=== PATIENT | female | born 1945 | race Caucasian/White ===

== ENCOUNTER → 2017-11-26 09:45 | Outpatient (CLI) | payer MEDICARE, SELFPAY ==
--- NOTE | 2017-11-26 09:55 | HPBD_ITS ---
STUDY: DUAL ENERGY X-RAY ABSORPTIOMETRY / DXA REASON FOR EXAM: Female, 72 years old. The patient is postmenopausal. Loss of height. TECHNIQUE: Bone Mineral Density (BMD) measurements of lumbar spine and left hip were obtained. COMPARISON: Comparison is made with prior study dated September 22, 2015. FINDINGS: Lumbar Spine (L1-L4): g/cm2 (1.063) / T-score (-0.9) / Z-score (0.8) Findings are suggestive of normal bone density with a low fracture risk. Left Femur Total: g/cm2 (0.939) / T-score (-0.5) / Z-score (1.0) Left Femoral Neck: g/cm2 (0.863) / T-score (-1.3) / Z-score (0.5) The T-Scores on the most recent prior examination were: Lumbar Spine (L1-L4): There has been worsening of bone density since the previous examination. Left Femur Total: which represents an improvement of 0.1%. HPBD/Dexa Bone Density Study (HP) IMPRESSION: The patient is considered osteopenic as outlined below according to World Héctor Organization (WHO) criteria with a moderate fracture risk. There has been worsening of bone density since the previous examination. Reference Information: The T-score is the number of standard deviations above or below the standard which is normal for young adults at their peak bone mineral density. The World Health Organization (WHO) interprets the T-scores as follows: Above -1 Normal bone density Between -1 and -2.5 Osteopenia Equal to / or below -2.5 Osteoporosis As a practical clinical guideline, osteopenia may be graded as follows: Mild -1 through -1.5 Moderate -1.6 through -2.0 Severe -2.1 through -2.4 The Z-score is the number of standard deviations above or below age-matched controls. A Z-score of less than -1.5 would be considered abnormal. References: 1. NIH Osteoporosis and Related Bone Diseases http://www.osteo.org 2. International Society for Clinical Densitometry http://www.iscd.org 3. National Osteoporosis Foundation http://www.nof.org Electronically Signed: Emerson Restrepo MD at 10:31 EST Tel [phone], Service support ,
--- NOTE | 2017-11-26 09:56 | HPBI_ITS ---
MAMMOGRAPHY - BILATERAL SCREENING REASON FOR EXAM: Female, 72 years old. Routine annual screening examination. PERTINENT HISTORY: Mother with breast cancer. History of prior bilateral excisional breast biopsies. TECHNIQUE: Digital bilateral breast caitlin (3D mammographic acquisition) in the CC and MLO projections. 2-D mediolateral oblique (MLO) and craniocaudad (CC) views of both breasts were obtained. CAD: Full Field Digital Mammography with Computer Added Detection was performed. COMPARISON: Comparison is made with prior study dated September 22, 2015. FINDINGS: Breast Composition: There are scattered areas of fibroglandular density. There are no dominant masses or suspicious calcifications. Stable appearance of the calcifications in the retroareolar region of the left breast most likely representing vascular calcifications. No other significant abnormalities are identified. There has been no significant change since the prior study. HPBI/SCREENING MAMM (CAD), BILAT IMPRESSION: Stable bilateral screening mammogram. Yearly follow-up mammogram recommended. (A) ASSESSMENT CATEGORY: BIRADS Category 2: Benign. A letter regarding these results will be sent to the patient by the facility within 30 days. Approximately 10% of breast cancers are not detected by mammography. A normal mammogram should not delay biopsy of a clinically suspicious abnormality. [id number] Electronically Signed: Emerson Restrepo MD at 12:46 EST Tel [phone], Service support ,
== END ==
PROVIDERS: Family Provider Family Medicine Geriatric Medicine; PCP Family Medicine Geriatric Medicine; Visit Provider Family Medicine Geriatric Medicine
DX: Z12.31 Encounter for screening mammogram for malignant neoplasm of breast (principal); Z78.0 Asymptomatic menopausal state
CPT/HCPCS: 77063; 77067; 77080

== ENCOUNTER → 2017-11-26 11:38 | Outpatient (CLI) | payer MEDICARE, SELFPAY ==
[2017-11-26 13:03] LABS: Absolute Lymphocyte Count 1.65 X10^3/ul (0.83-4.51); Absolute Neutrophil Count 6.2 X10^3/uL (2.0-7.7); Basophil# 0.02 X10^3/uL; Basophil% 0.2 % (0-1); Eosinophil# 0.06 X10^3/uL; Eosinophils% 0.7 % (0-5); Hematocrit 39.3 % (37-47); Hemoglobin 13.1 g/dl (12.0-15.0); Lymphocyte # 1.65 X10^3/ul (4.0); Lymphocyte % 19.1 % (19-41); Mean Corp Hgb Conc 33.3 g/gl (32-36); Mean Corpuscular Hgb 31.3 pg (27.0-32.0); Mean Corpuscular Volume 93.8 fL (81-99); Mean Platelet Vol. 10.2 fl (6.2-12.0); Monocyte# 0.59 X10^3/uL; Monocyte% 6.8 % (0-10); Neutrophil # 6.22 X10^3/uL (2.7-7.7); Neutrophil % 72.3 % (47-70); Platelet Count 305 K/mm3 (150-450); RBC Distribution Width SD 46.1 fl (35.1-43.9); Red Blood Count 4.19 M/mm3 (4.2-5.4); White Blood Count 8.6 K/mm3 (4.4-11.0)
[2017-11-26 13:04] LABS: POSITIVE COUNT NO; POSITIVE DIFFERENTIAL NO; POSITIVE MORPHOLOGY NO
[2017-11-26 13:24] LABS: ALB/GLOB Ratio 0.9 RATIO (0.9-2.4); AST(SGOT) 20 U/L (15-37); Alanine Aminotransfer ALT/SGPT 45 U/L (13-56); Albumin, Serum 3.3 g/dL (3.2-5.0); Alkaline Phosphatase 98 U/L (45-117); Anion Gap 8 (5-15); BUN 14 mg/dL (7-18); BUN/Creat Ratio 16.1 RATIO (10-20); Calcium,Total 8.6 mg/dL (8.5-10.1); Chloride 105 mmol/L (98-107); Creatinine, Serum 0.87 mg/dL (0.55-1.02); EST Glomerular Filtration Rate 69 mL/min (>60); Est Glom Filt Rate - Afr Amer 83 mL/min (>60); Globulin 3.8 g/dL (2.2-4.2); Glucose 103 mg/dL (74-106); Potassium 4.1 mmol/L (3.5-5.1); Protein, Total 7.1 g/dL (6.4-8.2); Sodium Level 139 mmol/L (136-145); Thyroid Stim Hormone (TSH) 2.26 uIU/mL (0.358-3.74); Uric Acid 3.9 mg/dL (2.6-6.0)
[2017-11-27 08:50] LABS: Vitamin D,25 Hydroxy 27.6 ng/mL (19.95-100.01)
== END ==
PROVIDERS: Family Provider Family Medicine Geriatric Medicine; PCP Family Medicine Geriatric Medicine; Visit Provider Family Medicine Geriatric Medicine
DX: E55.9 Vitamin D deficiency, unspecified (principal); I10 Essential (primary) hypertension; M10.9 Gout, unspecified; Z12.31 Encounter for screening mammogram for malignant neoplasm of breast; Z78.0 Asymptomatic menopausal state
CPT/HCPCS: 36415; 77063; 77067; 77080; 80053; 82306; 84443; 84550; 85025

== ENCOUNTER → 2018-02-27 14:05 | Outpatient (CLI) | payer MEDICARE, SELFPAY ==
[2018-02-27 17:36] LABS: Absolute Lymphocyte Count 1.84 X10^3/ul (0.83-4.51); Absolute Neutrophil Count 5.2 X10^3/uL (2.0-7.7); Basophil# 0.02 X10^3/uL; Basophil% 0.3 % (0-1); Eosinophil# 0.08 X10^3/uL; Hematocrit 39.5 % (37-47); Hemoglobin 12.9 g/dl (12.0-15.0); Lymphocyte # 1.84 X10^3/ul (4.0); Lymphocyte % 23.8 % (19-41); Mean Corp Hgb Conc 32.7 g/gl (32-36); Mean Platelet Vol. 10.5 fl (6.2-12.0); Monocyte# 0.56 X10^3/uL; Monocyte% 7.2 % (0-10); Neutrophil # 5.17 X10^3/uL (2.7-7.7); Neutrophil % 66.9 % (47-70); Platelet Count 307 K/mm3 (150-450); RBC Distribution Width CV 13.8 % (11.6-14.6); Red Blood Count 4.16 M/mm3 (4.2-5.4); White Blood Count 7.7 K/mm3 (4.4-11.0)
[2018-02-27 17:47] LABS: ALB/GLOB Ratio 0.9 RATIO (0.9-2.4); AST(SGOT) 32 U/L (15-37); Alanine Aminotransfer ALT/SGPT 55 U/L (13-56); Albumin, Serum 3.4 g/dL (3.2-5.0); Alkaline Phosphatase 95 U/L (45-117); Anion Gap 9 (5-15); BUN 10 mg/dL (7-18); BUN/Creat Ratio 12.2 RATIO (10-20); Calcium,Total 9.2 mg/dL (8.5-10.1); Chloride 105 mmol/L (98-107); Creatinine, Serum 0.82 mg/dL (0.55-1.02); EST Glomerular Filtration Rate 73 mL/min (>60); Est Glom Filt Rate - Afr Amer 89 mL/min (>60); Globulin 3.8 g/dL (2.2-4.2); Glucose 92 mg/dL (74-106); Potassium 4.1 mmol/L (3.5-5.1); Protein, Total 7.2 g/dL (6.4-8.2); Sodium Level 141 mmol/L (136-145); Thyroid Stim Hormone (TSH) 1.88 uIU/mL (0.358-3.74); Uric Acid 3.8 mg/dL (2.6-6.0)
[2018-02-27 18:24] LABS: POSITIVE COUNT NO; POSITIVE DIFFERENTIAL NO; POSITIVE MORPHOLOGY NO
== END ==
PROVIDERS: Family Provider Family Medicine Geriatric Medicine; PCP Family Medicine Geriatric Medicine; Visit Provider Family Medicine Geriatric Medicine
DX: E55.9 Vitamin D deficiency, unspecified (principal); I10 Essential (primary) hypertension; M10.9 Gout, unspecified
CPT/HCPCS: 36415; 80053; 82306; 84443; 84550; 85025

== ENCOUNTER → 2018-11-05 09:06 | Outpatient (CLI) | payer MEDICARE, SELFPAY ==
--- NOTE | 2018-11-05 09:12 | RAD_ITS ---
PROCEDURE: Fluoroscopic guided Hip Injection DATE: November 05, 2018. INDICATION: Female, 72 years old. Chronic left hip pain. PHYSICIAN: Emerson Restrepo M.D. MEDICATIONS: 6 mg of betamethasone and 3 cc of 1% lidocaine. 2% lidocaine administered subcutaneously for local anesthesia. ACCESS SITE: Left hip. NEEDLE: 22-gauge spinal needle. FLUOROSCOPY TIME (if supplied): (0:36) minutes/seconds FINDINGS: The risks, benefits, and alternatives to the procedure were explained to the patient. The specific risks of bleeding, infection, and neurovascular injury were detailed and accepted. Witnessed informed consent was obtained. A 22-gauge spinal needle was positioned under radiographic fluoroscopic localization. Approximately 2 cc of ICU 300 instilled for localization purposes. Medication was then injected. The patient tolerated the procedure well without any immediate complications. The patient was placed supine with head elevated and returned to the floor in stable condition. RAD/Inj/Asp Antonino Jt Should/Hip/Knee IMPRESSION: 1. Successful fluoroscopic guided hip injection. Electronically Signed: Emerson Restrepo MD at 10:37 EST Tel [phone], Service support ,
--- OUTSIDE RECORDS SUMMARY | 2019-01-10 00:46 | XMS RPT_ITS ---
:1945 Author Organization OHIP Care Team Providers Name Role Phone Lane Ortega Attending Unavailable Alondrael, Lucy Primary Care Unavailable Lane Ortega Attending Unavailable Lane Ortega Referring Unavailable Miedel, Lucy Primary Care Unavailable Arcadio Barnard Referring Unavailable Kirit, Justice Chi Primary Care Unavailable Kirit, Justice Chi Consulting Unavailable Kirit, Justice Chi Attending Unavailable Kirit, Justice Chi Attending Unavailable Kirit, Justice Chi Primary Care Unavailable Kirit, Justice Chi Attending Unavailable Kirit, Justice Chi Primary Care Unavailable PROBLEMS PROBLEMS DATE TYPE CONDITION / CODE ATTENDING STATUS SOURCE 11/26/2017 Unknown E55.9 - Vitamin D Kirit, Justice Chi Active [place] deficiency, Community unspecified / Hospital E55.9(ICD-10) Repository 11/26/2017 Unknown I10 - Essential Kirit, Justice Chi Active [place] (primary) Community hypertension / Hospital I10(ICD-10) Repository 11/26/2017 Unknown M10.9 - Gout, Kirit, Justice Chi Active [place] unspecified / Community M10.9(ICD-10) Hospital Repository 11/26/2017 Unknown N95.9 - Unspecified Kirit, Justice Chi Active [place] menopausal and Community perimenopausal Hospital disorder / Repository N95.9(ICD-10) 11/26/2017 Unknown Z12.31 - Encounter Justice Beth Chi Active [place] for screening Community mammogram for Hospital malignant neoplasm Repository of breast / Z12.31(ICD-10) PROCEDURES PROCEDURES No Procedure Records FoundRESULTS RESULTS INJ/ASP FATIMAH JT Observed: 11/05/2018 Status: F Source: [place] SHOULD/HIP/KNEE 9:12 AM [facility] REPOSITORY [facility] Imaging Services [address] [place] [address] Inj/Asp Fatimah Jt Should/Hip/Knee MR#: [id number] Acct: [id number] Name: RAUL REYES Rep #: [id number] : 1945 F 72 From: Emerson Restrepo MD PCP: Lucy García MD Status: REG CLI Study: Inj/Asp Fatimah Jt Should/Hip/Knee Date of Exam: 11/05/18 Exam# [id number] Ordering Dr: Lane Ortega PA-C PROCEDURE: Fluoroscopic guided Hip Injection DATE: November 05, 2018. INDICATION: Female, 72 years old. Chronic left hip pain. PHYSICIAN: Emerson Restrepo M.D. MEDICATIONS: 6 mg of betamethasone and 3 cc of 1% lidocaine. 2% lidocaine administered subcutaneously for local anesthesia. ACCESS SITE: Left hip. NEEDLE: 22-gauge spinal needle. FLUOROSCOPY TIME (if supplied): (0:36) minutes/seconds FINDINGS: The risks, benefits, and alternatives to the procedure were explained to the patient. The specific risks of bleeding, infection, and neurovascular injury were detailed and accepted. Witnessed informed consent was obtained. A 22-gauge spinal needle was positioned under radiographic fluoroscopic localization. Approximately 2 cc of ICU 300 instilled for localization purposes. Medication was then injected. The patient tolerated the procedure well without any immediate complications. The patient was placed supine with head elevated and returned to the floor in stable condition. RAD/Inj/Asp Fatimah Jt Should/Hip/Knee IMPRESSION: 1. Successful fluoroscopic guided hip injection. Electronically Signed: Emerson Restrepo MD at 10:37 EST Tel [phone], Service support , CC: Lucy García MD; Lane ZARAGOZA International Recruiter: Signed INITAL EVALUATION (1) Observed: 11/03/2018 Status: F Source: [place] - PT 11:15 AM [facility] [address] [place] [address] / REHABILITATION SERVICES INITIAL EVALUATION MR#: [id number] Acct: [id number] Name: RAUL REYES Rep #: [id number] : 1945 72 From: Celio Ramirez PT, ATC Referring Dr.: Lane ZARAGOZA Status: REG RCR Insurance: [facility] SELF PAY INSURANCE Patient's Visit Information RAUL REYES is a 72 year old F referred to Physical Therapy by Lane Ortega PA-C with a diagnosis of L hip OA. Date of Evaluation: 11/03/18 Physical Therapist: Celio Ramirez, PT, ATC - Visit Plan Frequency: 2-3x /Week Plan: L LE stretching and strengthening, core stab ex's, nustep, and HEP - Subjective Findings: Pt reports L hip has been sore for several years. Pt reports she had xrays taken which revealed OA. Pt reports her doctor thinks she is going to have to have a L SALLIE in the near future. Pt reports she in unable to sit for very long because her pain increases. Pt notes occasional sleep difficulty secondary to pain. Pt reports that taking advil and general exercise tends to help with her pain. Pt reports she is not limited from performing any of her daily acivities, she just has to perform some of the acivities slower. 0/10 pain at rest, 8/10 pain at worst (prolonged sitting) - Pain L hip Pain Intensity (Out of 10): 0 Pain Intensity Range: 8 - Objective Neuro:B LE sensation is WNL to light touch. B patellar reflex= 1/3. Palpation: Pt is mostly tender on the posterior aspect of her L hip. No obvious deformity. MMT: B LE's are grossly 4/5 throughout. Gait: Pt is able to ambulate greater than 1200' without difficulty. ROM: B hips are WFL - Goals Goal 1:: Decrease L hip pain x 50% to aid with sleep Goal Time Frame: 4-6 Weeks Goal 2:: Increase L LE strength x 1 grade to aid with IADL's Goal Time Frame: 4-6 Weeks Goal 3:: I with HEP Goal Time Frame: 4-6 Weeks - Rehabilitation Potential Physical Therapy Diagnosis: L hip pain, weakness, and intolerance for sitting secondary to L hip OA Rehabilitation Potential: Good - Anticipated Interventions Patient/Client Instruction: Educate patient on: Condition, Plan of Care For the Purpose of:: To improve self management Therapeutic Exercise to Include: Strength training, Endurance training, Balance training, Flexibilty training, Dynamic Lumbar Stabilization For the Purpose of:: To decrease pain, To improve muscle performance and motor function Cryotherapy (ice pack, ice massage): Yes For the Purpose of:: To decrease pain Thank you for the opportunity to evaluate your patient. For Medicare and Medicare HMO plans, please review the plan of care and approve it. It will need to be FAXED BACK to us at [phone] for Medicare purposes. For Medicare only, by signing this I certify the plan of care. Please let me know if there are questions or concerns regarding this plan of care. Physician Signature: Date: <Electronically signed by Celio Ramirez PT, ATC> 11/03/18 1115 CC: Lucy García MD; Lane ZARAGOZA [facility] Signed COMPREHENSIVE METABOLIC Collected: 02/27/2018 Status: F Source: [place] PROFIL 2:07 PM [facility] REPOSITORY TYPE CODE TESTS RESULT OUT OF RANGE REFERENCE UNITS LAB L501.0100 74-106 mg/dL Normal GLU 92 Result Comment: Please note revised GLUCOSE reference range effective 2017. LAB L501.1000 7-18 mg/dL Normal BUN 10 LAB L501.1100 0.55-1.02 mg/dL Normal CREAT,SERUM 0.82 Result Comment: The validity of the calculated GFR AND GFRAA in patients over 70 years has not been determined. Clinical correlation is essential. LAB L501.1110 >60 mL/min Normal EST GFR 73 Result Comment: Non- GFR Calc LAB L501.1115 >60 mL/min Normal EST GFR - AA 89 Result Comment: GFR Calc LAB L501.1300 10-20 RATIO Normal BUN/CRE 12.2 LAB L501.1500 6.4-8.2 g/dL T Normal PROT 7.2 LAB L501.1800 3.2-5.0 g/dL Normal ALB 3.4 LAB L501.1950 2.2-4.2 g/dL Normal GLOB 3.8 LAB L501.2000 0.9-2.4 RATIO Normal A/G 0.9 LAB L501.2200 8.5-10.1 mg/dL CA Normal 9.2 LAB L501.4100 15-37 U/L Normal AST 32 LAB L501.4305 45-117 U/L Normal ALK P 95 LAB L501.4405 13-56 U/L Normal ALT 55 LAB L501.4600 0.20-1.00 mg/dL T Normal BILI 0.30 LAB L501.5300 136-145 mmol/L NA Normal 141 LAB L501.5600 3.5-5.1 mmol/L K Normal 4.1 LAB L501.5900 98-107 mmol/L CL Normal 105 LAB L501.6100 21.0-32.0 mmol/L Normal CO2 27.0 LAB L501.6200 5-15 Normal GAP 9 Performed By: #### L500.4050, L501.1400, L501.9520 #### [facility] [address] [place], [place], [address] URIC ACID Collected: 02/27/2018 Status: F Source: [place] 2:07 PM [facility] TYPE CODE TESTS RESULT OUT OF RANGE REFERENCE UNITS LAB L501.1400 2.6-6.0 mg/dL Normal URIC 3.8 Result Comment: The drugs N-Acetylcysteine and Metamizole may falsely depress this assay. Performed By: #### L500.4050, L501.1400, L501.9520 #### [facility] [address] [place], [place], [address] THYROID STIM HORMONE Collected: 02/27/2018 Status: F Source: [place] (TSH) 2:07 PM [facility] TYPE CODE TESTS RESULT OUT OF RANGE REFERENCE UNITS LAB L501.9520 0.358-3.74 uIU/mL Normal TSH 1.88 Performed By: #### L500.4050, L501.1400, L501.9520 #### [facility] [address] [place], [address] CBC W/DIFF, AUTOMATED Collected: 02/27/2018 Status: F Source: [place] 2:07 PM [facility] TYPE CODE TESTS RESULT OUT OF RANGE REFERENCE UNITS LAB L100.1000 4.4-11.0 K/mm3 Normal WBC 7.7 LAB L100.1200 4.2-5.4 M/mm3 Low RBC 4.16 LAB L100.1300 12.0-15.0 g/dl Normal HGB 12.9 LAB L100.1400 37-47 % Normal HCT 39.5 LAB L100.1500 81-99 fL Normal MCV 95.0 LAB L100.1600 27.0-32.0 pg Normal MCH 31.0 LAB L100.1700 32-36 g/gl Normal MCHC 32.7 LAB L100.1810 11.6-14.6 % Normal RDW CV 13.8 LAB L100.1820 35.1-43.9 fl High RDW SD 46.0 LAB L100.1900 150-450 K/mm3 Normal PLT 307 LAB L100.2000 6.2-12.0 fl Normal MPV 10.5 LAB L100.2100 47-70 % Normal NEUT% 66.9 LAB L100.2200 19-41 % Normal LY% 23.8 LAB L100.2300 0-10 % Normal MONO% 7.2 LAB L100.2400 0-5 % Normal EO% 1.0 LAB L100.2500 0-1 % Normal BASO% 0.3 LAB L100.2550 0.0-0.9 % Normal IM GRAN % 0.800 Result Comment: IG% - Immature Granulocytes (promyelocytes, myelocytes and metamyelocytes) > 1% indicates that a LEFT SHIFT is Present. LAB L100.2620 2.0-7.7 X10 3/uL Normal Absolute Neut 5.2 LAB L100.2720 0.83-4.51 X10 3/ul Normal Absolute Lymph 1.84 Performed By: #### L100.0100 #### [facility] [address] [place], [address] VITAMIN D,25 HYDROXY Collected: 02/27/2018 Status: F Source: [place] 2:07 PM [facility] TYPE CODE TESTS RESULT OUT OF RANGE REFERENCE UNITS LAB L506.1000 29.95-100.01 ng/mL Normal Vitamin D 36.0 25-OH Result Comment: Vitamin D 25(OH) Status Range Deficiency <20 ng/mL (50nmol/L) Insuffciency 20 - 30 ng/mL (50 - 75 nmol/L) Sufficiency 30 - 100 ng/mL (75 - 250 nmol/L) Toxicity >100 ng/mL (>250 nmol/L) Performed By: #### L506.1000 #### [facility] [address] [place], [place], [address] CBC W/DIFF, AUTOMATED Collected: 11/26/2017 Status: F Source: [place] 11:39 AM [facility] TYPE CODE TESTS RESULT OUT OF RANGE REFERENCE UNITS LAB L100.1000 4.4-11.0 K/mm3 Normal WBC 8.6 LAB L100.1200 4.2-5.4 M/mm3 Low RBC 4.19 LAB L100.1300 12.0-15.0 g/dl Normal HGB 13.1 LAB L100.1400 37-47 % Normal HCT 39.3 LAB L100.1500 81-99 fL Normal MCV 93.8 LAB L100.1600 27.0-32.0 pg Normal MCH 31.3 LAB L100.1700 32-36 g/gl Normal MCHC 33.3 LAB L100.1810 11.6-14.6 % Normal RDW CV 14.0 LAB L100.1820 35.1-43.9 fl High RDW SD 46.1 LAB L100.1900 150-450 K/mm3 Normal PLT 305 LAB L100.2000 6.2-12.0 fl Normal MPV 10.2 LAB L100.2100 47-70 % High NEUT% 72.3 LAB L100.2200 19-41 % Normal LY% 19.1 LAB L100.2300 0-10 % Normal MONO% 6.8 LAB L100.2400 0-5 % Normal EO% 0.7 LAB L100.2500 0-1 % Normal BASO% 0.2 LAB L100.2550 0.0-0.9 % Normal IM GRAN % 0.900 Result Comment: IG% - Immature Granulocytes (promyelocytes, myelocytes and metamyelocytes) > 1% indicates that a LEFT SHIFT is Present. LAB L100.2620 2.0-7.7 X10 3/uL Normal Absolute Neut 6.2 LAB L100.2720 0.83-4.51 X10 3/ul Normal Absolute Lymph 1.65 Performed By: #### L100.0100 #### [facility] [address] [place], [place], [address] COMPREHENSIVE METABOLIC Collected: 11/26/2017 Status: F Source: [facility] 11:39 AM [facility] TYPE CODE TESTS RESULT OUT OF RANGE REFERENCE UNITS LAB L501.0100 74-106 mg/dL Normal GLU 103 LAB L501.1000 7-18 mg/dL Normal BUN 14 LAB L501.1100 0.55-1.02 mg/dL Normal 0.87 CREAT,SERUM Result Comment: The validity of the calculated GFR AND GFRAA in patients over 70 years has not been determined. Clinical correlation is essential. LAB L501.1110 >60 mL/min Normal EST GFR 69 Result Comment: Non- GFR Calc LAB L501.1115 >60 mL/min Normal EST GFR - AA 83 Result Comment: GFR Calc LAB L501.1300 10-20 RATIO Normal BUN/CRE 16.1 LAB L501.1500 6.4-8.2 g/dL T Normal PROT 7.1 LAB L501.1800 3.2-5.0 g/dL Normal ALB 3.3 LAB L501.1950 2.2-4.2 g/dL Normal GLOB 3.8 LAB L501.2000 0.9-2.4 RATIO Normal A/G 0.9 LAB L501.2200 8.5-10.1 mg/dL CA Normal 8.6 LAB L501.4100 15-37 U/L Normal AST 20 LAB L501.4305 45-117 U/L Normal ALK P 98 LAB L501.4405 13-56 U/L Normal ALT 45 Result Comment: Please note revised ALT reference range effective 2017. LAB L501.4600 0.20-1.00 mg/dL Normal T BILI 0.40 LAB L501.5300 136-145 mmol/L Normal NA 139 LAB L501.5600 3.5-5.1 mmol/L Normal K 4.1 LAB L501.5900 98-107 mmol/L Normal CL 105 LAB L501.6100 21.0-32.0 mmol/L Normal CO2 26.0 LAB L501.6200 5-15 Normal GAP 8 Performed By: #### L500.4050, L501.1400, L501.9520 #### [facility] [address] [place], [address] URIC ACID Collected: 11/26/2017 Status: F Source: [place] 11:39 AM [facility] TYPE CODE TESTS RESULT OUT OF RANGE REFERENCE UNITS LAB L501.1400 2.6-6.0 mg/dL Normal URIC 3.9 Result Comment: The drugs N-Acetylcysteine and Metamizole may falsely depress this assay. Performed By: #### L500.4050, L501.1400, L501.9520 #### [facility] [address] [place], [address] THYROID STIM HORMONE Collected: 11/26/2017 Status: F Source: [place] (TSH) 11:39 AM [facility] TYPE CODE TESTS RESULT OUT OF RANGE REFERENCE UNITS LAB L501.9520 0.358-3.74 uIU/mL Normal TSH 2.26 Performed By: #### L500.4050, L501.1400, L501.9520 #### [facility] [address] [place], [address] VITAMIN D,25 HYDROXY Collected: 11/26/2017 Status: F Source: [place] 11:39 AM [facility] TYPE CODE TESTS RESULT OUT OF RANGE REFERENCE UNITS LAB L506.1000 19.95-100.01 ng/mL Normal Vitamin D 27.6 25-OH Result Comment: Vitamin D 25(OH) Status Range Deficiency <20 ng/mL (50nmol/L) Insuffciency 20 - 30 ng/mL (50 - 75 nmol/L) Sufficiency 30 - 100 ng/mL (75 - 250 nmol/L) Toxicity >100 ng/mL (>250 nmol/L) Performed By: #### L506.1000 #### [facility] [address] [place], [address] DEXA BONE DENSITY Observed: 11/26/2017 Status: F Source: [place] STUDY () 9:57 AM [facility] Imaging Services [address] [place] [address] Dexa Bone Density Study () MR#: [id number] Acct: [id number] Name: RAUL REYES Paolo Rep #: [id number] : 1945 F 72 From: Emerson Restrepo MD PCP: Justice Beth MD, Chi Status: REG CLI Study: Dexa Bone Density Study () Date of Exam: 11/26/17 Exam# [id number] Ordering Dr: Justice Beth MD STUDY: DUAL ENERGY X-RAY ABSORPTIOMETRY / DXA REASON FOR EXAM: Female, 72 years old. The patient is postmenopausal. Loss of height. TECHNIQUE: Bone Mineral Density (BMD) measurements of lumbar spine and left hip were obtained. COMPARISON: Comparison is made with prior study dated September 22, 2015. FINDINGS: Lumbar Spine (L1-L4): g/cm2 (1.063) / T-score (-0.9) / Z-score (0.8) Findings are suggestive of normal bone density with a low fracture risk. Left Femur Total: g/cm2 (0.939) / T-score (-0.5) / Z- score (1.0) Left Femoral Neck: g/cm2 (0.863) / T-score (-1.3) / Z- score (0.5) The T-Scores on the most recent prior examination were: Lumbar Spine (L1-L4): There has been worsening of bone density since the previous examination. Left Femur Total: which represents an improvement of 0.1%. HPBD/Dexa Bone Density Study (HP) IMPRESSION: The patient is considered osteopenic as outlined below according to World Héctor Organization (WHO) criteria with a moderate fracture risk. There has been worsening of bone density since the previous examination. Reference Information: The T-score is the number of standard deviations above or below the standard which is normal for young adults at their peak bone mineral density. The World Health Organization (WHO) interprets the T-scores as follows: Above -1 Normal bone density Between -1 and -2.5 Osteopenia Equal to / or below -2.5 Osteoporosis As a practical clinical guideline, osteopenia may be graded as follows: Mild -1 through -1.5 Moderate -1.6 through -2.0 Severe -2.1 through -2.4 The Z-score is the number of standard deviations above or below age-matched controls. A Z-score of less than -1.5 would be considered abnormal. References: 1. NIH Osteoporosis and Related Bone Diseases http://www.osteo.org 2. International Society for Clinical Densitometry http://www.iscd.org 3. National Osteoporosis Foundation http://www.nof.org Electronically Signed: Emerson Restrepo MD at 10:31 EST Tel [phone], Service support , CC: Justice Beth MD International Recruiter: Signed SCREENING MAMM (CAD), Observed: 11/26/2017 Status: F Source: [place] BILAT 9:57 AM [facility] Imaging Services [address] [place] [address] SCREENING MAMM (CAD), BILAT MR#: [id number] Acct: [id number] Name: RAUL REYES Rep #: [id number] : 1945 F 72 From: Emerson Restrepo MD PCP: Justice Beth MD, Chi Status: REG CLI Study: SCREENING MAMM (CAD), BILAT Date of Exam: 11/26/17 Exam# [id number] Ordering Dr: Justice Beth MD MAMMOGRAPHY - BILATERAL SCREENING REASON FOR EXAM: Female, 72 years old. Routine annual screening examination. PERTINENT HISTORY: Mother with breast cancer. History of prior bilateral excisional breast biopsies. TECHNIQUE: Digital bilateral breast caitlin (3D mammographic acquisition) in the CC and MLO projections. 2-D mediolateral oblique (MLO) and craniocaudad (CC) views of both breasts were obtained. CAD: Full Field Digital Mammography with Computer Added Detection was performed. COMPARISON: Comparison is made with prior study dated September 22, 2015. FINDINGS: Breast Composition: There are scattered areas of fibroglandular density. There are no dominant masses or suspicious calcifications. Stable appearance of the calcifications in the retroareolar region of the left breast most likely representing vascular calcifications. No other significant abnormalities are identified. There has been no significant change since the prior study. HPBI/SCREENING MAMM (CAD), BILAT IMPRESSION: Stable bilateral screening mammogram. Yearly follow-up mammogram recommended. (A) ASSESSMENT CATEGORY: BIRADS Category 2: Benign. A letter regarding these results will be sent to the patient by the facility within 30 days. Approximately 10% of breast cancers are not detected by mammography. A normal mammogram should not delay biopsy of a clinically suspicious abnormality. [id number] Electronically Signed: Emerson Restrepo MD at 12:46 EST Tel [phone], Service support , CC: Justice Beth MD International Recruiter: Signed ALLERGIES ALLERGIES DATE TYPE / CODE NAME / CODE REACTION SEVERITY SOURCE 11/04/2018 Drug oxycodone/F0 Unknown Unknown [place] [facility] Allergy/4160 [id number]([facility] 60863(SNOMED ORM) Repository CT) 11/04/2018 Drug gemfibrozil/ Unknown Unknown [place] [facility] Allergy/4160 [id number]([facility] 67502(SNOMED XNORM) Repository CT) ENCOUNTERS ENCOUNTERS ADMIT/DISCHARGE ACCOUNT ADMITTING ENCOUNTER LOCATION SOURCE NUMBER CLASS 11/07/2018 [id number] Ambulatory [place] ing:PT Repository 11/05/2018 [id number] Ambulatory [place] ing:RAD Repository 02/27/2018 [id number] Ambulatory [place] ing:POLAB3 Repository 11/26/2017 [id number] Ambulatory [place] ing:POLAB3 Repository 11/26/2017 [id number] Ambulatory [place] ing:BD Repository PAYERS PAYERS ENCOUNTER GUARANTOR PAYER SUBSCRIBER SOURCE 11/07/2018 RAUL [place] Primary RAUL J [place] [id number] Insurance:DOM BENITEZB: [facility] Number: [id number] CESPU39DDytitotly Repository [address], [place] Date:6055-14-71[address] [address]Llr: [phone] RAYMUNDO RUFF [phone] (OL) [phone]: 11/07/2018 Secondary NOT GIVENUNK [place] Insurance:SELF PAY [facility] Number: Effective Repository Date:2018-10-28 11/05/2018 RAUL J Primary RAUL J [place] [id number] Insurance:AETJOLEEN BENITEZB: [facility] Number: [id number] Regional HealthD47DEffective Repository [address], [place] Date:4118-14-77AX [address] [address]Vgu: [phone], [place] [phone] () [phone]: 11/05/2018 Secondary NOT GIVENUNK [place] Insurance:SELF PAY [facility] Number: Effective Repository Date:2018-10-23 02/27/2018 Raul J Primary Raul J [place] [id number] Insurance:AETJOLEEN BneitezB: [facility] Number: [id number]. Clare's HospitalD47DEffective Repository [address], [place] Date:7374-16-13OM [address] [address]Chn: [phone], [place] [phone] () [phone]: 02/27/2018 Secondary NOT GIVENUNK [place] Insurance:SELF PAY [facility] Number: Effective Repository Date:2018-02-27 11/26/2017 Raul J Primary Raul J [place] [id number] Insurance:AETJOLEEN BenitezB: [facility] Number: [id number] Area Medical CenterBMD47DEffective Repository [address], [place] Date:7423-67-92OZ [address] [address]Cxt: [phone], [place] [phone] () [phone]: 11/26/2017 Secondary NOT GIVENUNK [place] Insurance:SELF PAY [facility] Number: Effective Repository Date:2017-11-26 11/26/2017 Raul J Primary Raul J [place] [id number] Insurance:AETNA MarivelB: [facility] Number: [id number]. Clare's HospitalD47DEffective Repository [address], [place] Date:4830-40-11BF [address] [address]Uag: [phone] RAYMUNDO RUFF [phone] (YW) [phone]: 11/26/2017 Secondary NOT GIVENUNK [place] Insurance:SELF PAY [facility]: Effective Repository Date:2017-10-29
== END ==
PROVIDERS: Family Provider Family Medicine; PCP Family Medicine; Referring Provider Physician Assistant; Visit Provider Physician Assistant
DX: M16.12 Unilateral primary osteoarthritis, left hip (principal)
CPT/HCPCS: 20610; 77002; Q9967; J0702

== ENCOUNTER 2018-12-01 11:30 | Outpatient (RCR) | payer MEDICARE, SELFPAY ==
--- NOTE | 2018-11-03 11:14 | HP.PTEVAL ---
Patient's Visit Information RAUL REYES is a 72 year old F referred to Physical Therapy by Lane Ortega PA-C with a diagnosis of L hip OA. Date of Evaluation: 11/03/18 Physical Therapist: Celio Ramirez, PT, ATC - Visit Plan Frequency: 2-3x /Week Plan: L LE stretching and strengthening, core stab ex's, nustep, and HEP - Subjective Findings: Pt reports L hip has been sore for several years. Pt reports she had xrays taken which revealed OA. Pt reports her doctor thinks she is going to have to have a L SALLIE in the near future. Pt reports she in unable to sit for very long because her pain increases. Pt notes occasional sleep difficulty secondary to pain. Pt reports that taking advil and general exercise tends to help with her pain. Pt reports she is not limited from performing any of her daily acivities, she just has to perform some of the acivities slower. 0/10 pain at rest, 8/10 pain at worst (prolonged sitting) - Pain L hip Pain Intensity (Out of 10): 0 Pain Intensity Range: 8 - Objective Neuro:B LE sensation is WNL to light touch. B patellar reflex= 1/3. Palpation: Pt is mostly tender on the posterior aspect of her L hip. No obvious deformity. MMT: B LE's are grossly 4/5 throughout. Gait: Pt is able to ambulate greater than 1200' without difficulty. ROM: B hips are WFL - Goals Goal 1:: Decrease L hip pain x 50% to aid with sleep Goal Time Frame: 4-6 Weeks Goal 2:: Increase L LE strength x 1 grade to aid with IADL's Goal Time Frame: 4-6 Weeks Goal 3:: I with HEP Goal Time Frame: 4-6 Weeks - Rehabilitation Potential Physical Therapy Diagnosis: L hip pain, weakness, and intolerance for sitting secondary to L hip OA Rehabilitation Potential: Good - Anticipated Interventions Patient/Client Instruction: Educate patient on: Condition, Plan of Care For the Purpose of:: To improve self management Therapeutic Exercise to Include: Strength training, Endurance training, Balance training, Flexibilty training, Dynamic Lumbar Stabilization For the Purpose of:: To decrease pain, To improve muscle performance and motor function Cryotherapy (ice pack, ice massage): Yes For the Purpose of:: To decrease pain Thank you for the opportunity to evaluate your patient. For Medicare and Medicare HMO plans, please review the plan of care and approve it. It will need to be FAXED BACK to us at [phone] for Medicare purposes. For Medicare only, by signing this I certify the plan of care. Please let me know if there are questions or concerns regarding this plan of care. Physician Signature: Date:
--- NOTE | 2018-12-01 11:45 | HP.PTDCSUM ---
HP - PT D/C Summary It has been my pleasure to treat RAUL REYES under orders from Lane Ortega PA-C, for the diagnosis of L hip OA for a total of 5 visit(s). Discharge Date: Please see the following information for a summary of their discharge status. - Subjective Subjective: No pain this date - Pain L hip Pain Intensity (Out of 10): 0 - Overall Improvement % Improvement: 100 - Objective Objective/Function: L hip pain is 0/10. L LE strength is 5/5. Pt is I with HEP. Rx goals achieved - Goals Goal 1:: Decrease L hip pain x 50% to aid with sleep Goal Progress: Goal Met Goal 2:: Increase L LE strength x 1 grade to aid with IADL's Goal Progress: Goal Met Goal 3:: I with HEP Goal Progress: Goal Met - Plan Plan: Discharge - D/C Information If there are questions or concerns regarding this patient's physical therapy, please feel free to call me at [phone]. Thank you for the referral of this patient. Sincerely, Celio Ramirez, PT, ATC
== END 2018-12-01 19:00 | disposition home or self-care (01) ==
LOC: PT 11:30
PROVIDERS: Family Provider Family Medicine; PCP Family Medicine; Visit Provider Physician Assistant
DX: M16.12 Unilateral primary osteoarthritis, left hip (principal)
CPT/HCPCS: 97110; 97161; 97530

== ENCOUNTER → 2018-12-02 09:55 | Outpatient (CLI) | payer MEDICARE, SELFPAY ==
--- NOTE | 2018-12-03 10:17 | PFT ---
INTRODUCTION: The patient is a 73-year-old female that presents for pulmonary function studies secondary to a diagnosis of recurrent bronchitis. Respiratory therapy reports good patient effort. Bronchodilators were used during testing. INTERPRETATION: Forced expiration spirometry demonstrates no evidence of a large airways obstructive ventilatory defect. There was no significant response to aerosolized bronchodilators. Spirograms are of good quality and plateau normally. Body plethysmography was performed and reveals a decreased TLC to 3.52 L, 72% of predicted, indicative of a mild restrictive ventilatory impairment. The remainder of the lung volumes are symmetrically reduced. Diffusing capacity by single breath CO is moderately reduced at 60% of predicted. IMPRESSION: These pulmonary function studies demonstrate the presence of a mild restrictive ventilatory impairment with a disproportionate reduction in diffusing capacity. There are no previous pulmonary function studies available for comparison.
== END ==
PROVIDERS: Family Provider Family Medicine; PCP Family Medicine; Referring Provider Family Medicine; Visit Provider Family Medicine
DX: J44.1 Chronic obstructive pulmonary disease with (acute) exacerbation (principal); J45.901 Unspecified asthma with (acute) exacerbation
CPT/HCPCS: 94060; 94726; 94729

== ENCOUNTER → 2018-12-12 14:48 | Outpatient (CLI) | payer MEDICARE, SELFPAY ==
--- NOTE | 2018-12-12 14:50 | CT_ITS ---
STUDY: CT CHEST WITHOUT CONTRAST REASON FOR EXAM: Female, 73 years old. Restrictive lung disease on pulmonary function test RADIATION DOSAGE (If Supplied By Facility): CTDIvol = ( 14.46 ) mGy, DLP = ( 520.27 ) mGycm TECHNIQUE: Transaxial imaging was performed without the administration of intravenous contrast material. Multiplanar coronal and sagittal images were reformatted. Individualized dose optimization techniques were used for this CT. COMPARISON: None. FINDINGS: Minimal amount of subpleural reticulation identified in the right more than left lower lobes. However, no subpleural cyst/honeycombing identified. No bronchiectasis. No endobronchial lesions. No suspicious pulmonary nodules/masses. No localized groundglass opacity or air trapping. There is no demonstrated pleural abnormality. Normal heart and pericardium. There are calcifications of the coronary arteries. There are multiple small lymph nodes within the mediastinum, which are normal in size and morphology most compatible with reactive lymph hyperplasia. Normal hilar regions. Normal unenhanced pulmonary arteries. Normal aorta arch and descending thoracic aorta. There are multi-level degenerative changes of the thoracic spine. There is a very small hiatal hernia. CT/Chest without Contrast IMPRESSION: 1. No honeycombing or bronchiectasis. 2. Minimal, nonspecific subpleural reticulation/fibrosis predominantly in the lower lungs. 3. Atherosclerosis including coronary arteries. Electronically Signed: Igor Kim MD at 11:25 EST , Service support ,
== END ==
PROVIDERS: Family Provider Family Medicine; PCP Family Medicine; Referring Provider Family Medicine; Visit Provider Family Medicine
DX: R94.2 Abnormal results of pulmonary function studies (principal)
CPT/HCPCS: 71250

== ENCOUNTER → 2019-01-14 08:39 | Outpatient (CLI) | payer MEDICARE, SELFPAY ==
[2019-01-14 07:47] VITALS: BMI 31.2
[2019-01-14 09:53] LABS: Rheumatoid Factor < 10.0 IU/mL (<15)
[2019-01-14 14:16] LABS: Erythrocyte Sedimentation Rate 28 mm/hr (0-30)
[2019-01-16 03:07] LABS: Cytoplasmic Ab (C-ANCA) <1:20 titer (Neg:<1:20)
[2019-01-16 13:31] LABS: CCP IgG Antibodies 4 units (0-19); Perinuclear Ab (P-ANCA) <1:20 titer (Neg:<1:20)
[2019-01-16 16:22] LABS: ANTINUCLEAR ANTIBODIES DIRECT Negative (Negative)
== END ==
PROVIDERS: Family Provider Family Medicine; PCP Family Medicine; Referring Provider Internal Medicine Critical Care Medicine; Visit Provider Internal Medicine Critical Care Medicine
DX: R94.2 Abnormal results of pulmonary function studies (principal)
CPT/HCPCS: 36415; 85652; 86038; 86140; 86200; 86225; 86235; 86256; 86431

== ENCOUNTER → 2019-01-19 10:54 | Outpatient (CLI) | payer MEDICARE, SELFPAY ==
[2019-01-14 07:47] VITALS: BMI 31.2
[2019-01-19 11:47] VITALS: PULSE 101; PULSE 105; PULSE 106; PULSE 108; PULSE 109; PULSE 112; PULSE 85; PULSE 86; O2SAT 95; O2SAT 96; O2SAT 97; O2SAT 98
--- NOTE | 2019-01-19 15:21 | PCM.PSN.6M ---
PSN 6 Minute Walk Test - 6 Minute Walk Test 6 Minute Walk Test: 6 Minute Walk Test PSN:6-Minute Walk Test Start: 01/19/19 11:47 Freq: Status: Active Protocol: RESP.6MINW Document 01/19/19 11:47 CATHY (Rec: 01/19/19 11:50 CATHY [id number]) 6 Minute Walk Test Date Performed 01/19/19 Time Performed 11:00 Height 5 ft 4 in Weight: 81.647 kg Weight in Pounds 180.[address]: Roger Keenan Assistive device used: None Pre-test Oxygen Delivery Method Room Air Pulse Ox (%) 97 Pulse Rate (60-100 beats/min) 85 Dyspnea Edwardo Scale (0-10) 0 Exertion Edwardo Scale (6-20) 6 1st minute Oxygen Delivery Method Room Air Pulse Ox (%) 95 Pulse Rate (60-100 beats/min) 101 H 2nd minute Oxygen Delivery Method Room Air Pulse Ox (%) 95 Pulse Rate (60-100 beats/min) 105 H 3rd minute Oxygen Delivery Method Room Air Pulse Ox (%) 96 Pulse Rate (60-100 beats/min) 106 H 4th minute Oxygen Delivery Method Room Air Pulse Ox (%) 96 Pulse Rate (60-100 beats/min) 109 H 5th minute Oxygen Delivery Method Room Air Pulse Ox (%) 96 Pulse Rate (60-100 beats/min) 108 H 6th minute Oxygen Delivery Method Room Air Pulse Ox (%) 97 Pulse Rate (60-100 beats/min) 112 H Dyspnea Edwardo Scale (0-10) 4 Exertion Edwardo Scale (6-20) 14 Post-test Oxygen Delivery Method Room Air Pulse Ox (%) 98 Pulse Rate (60-100 beats/min) 86 Full Laps Walked 16 Partial Lap, Number of Tiles Walked 54 Total Distance Walked (ft) 998 - Interpretation Interpretation: The patient was able to ambulate 998 feet over the course of 6 minutes on room air with no assistive devices or breaks. The patient experienced no significant desaturation, but did have tachycardia with a peak heart rate of 112 bpm. These findings are consistent with deconditioning. - Recommendations Recommendations: No supplemental oxygen is indicated at this time
== END ==
PROVIDERS: Family Provider Family Medicine; PCP Family Medicine; Referring Provider Internal Medicine Critical Care Medicine; Visit Provider Internal Medicine Critical Care Medicine
DX: R94.2 Abnormal results of pulmonary function studies (principal)
CPT/HCPCS: 94618

== ENCOUNTER → 2019-01-30 10:44 | Outpatient (CLI) | payer MEDICARE, SELFPAY ==
[2019-01-14 07:47] VITALS: BMI 31.2
--- NOTE | 2019-01-30 10:45 | ECHOCS_ITS ---
Reason For Study: Dyspnea/SOB Procedure This was a 2D Doppler, Color Flow transthoracic echocardiogram. Contrast injection was performed. Exam performed in department. Left Ventricle Normal size and thickness. The estimated ejection fraction is 65 %. Stage 1 diastolic dysfunction. No regional wall motion abnormalities noted. Right Ventricle Normal size and thickness. Normal systolic function. Atria Normal left atrium. Normal right atrium. Normal atrial septum. Mitral Valve The mitral valve is structurally normal. No prolapse or stenosis seen. Trivial mitral valve insufficiency. Tricuspid Valve Normal tricuspid valve. Trivial tricuspid valve insufficiency. Right ventricular systolic pressure estimated to be 24 mmHg. Aortic Valve Normal aortic valve. Trisinus/trileaflet aortic valve. Mild (1+) aortic valve insufficiency. Pulmonic Valve Normal pulmonic valve. Trivial pulmonic valve insufficiency. Great Vessels Normal aortic root. Normal arch. Normal inferior vena cava. Inferior vena cava collapse with sniff. Pericardium/Pleural No pericardial effusion. Medication Definity0.3ml given slow IV push to enhance endocardial definition. MMode/2D Measurements & Calculations LVIDd: 4.7 cm IVSd: 0.85 cm Ao root diam: 3.4 cm LVIDs: 3.1 cm LVPWd: 0.73 cm RVDd: 3.2 cm FS: 33.0 % LAV(MOD-bp): 31.6 ml LVAd ap4: 24.7 cm2 SV(MOD-sp4): 38.4 ml LAV(MOD-bp) Indexed: 16.8 ml/m2 EDV(MOD-sp4): 67.3 ml LAV(MOD-sp2): 33.9 ml EDV(sp4-el): 69.0 ml LAV(MOD-sp4): 29.4 ml LVAs ap4: 14.8 cm2 ESV(MOD-sp4): 28.9 ml ESV(sp4-el): 29.4 ml EF(MOD-sp4): 57.1 % EF(sp4-el): 57.4 % SV(sp4-el): 39.6 ml LA A4 area: 13.6 cm2 LA dimension(2D): 3.6 cm RA A4 area: 9.8 cm2 Doppler Measurements & Calculations MV E max ricardo: 53.9 cm/sec Lat Peak E' Ricardo: 4.6 cm/sec Med Peak E' Ricardo: 5.7 cm/sec MV A max ricardo: 105.1 cm/sec E/E' lat: 11.8 E/E' med: 9.5 MV E/A: 0.51 Ao V2 max: 134.3 cm/sec AI max ricardo: 371.1 cm/sec LV V1 max: 98.3 cm/sec Ao max P.2 mmHg AI max P.1 mmHg LV V1 max P.9 mmHg Ao V2 mean: 92.6 cm/sec Ao mean P.8 mmHg AI dec slope: 233.3 cm/sec2 Ao V2 VTI: 25.4 cm AI P1/2t: 465.8 msec PA V2 max: 71.2 cm/sec TR max ricardo: 216.2 cm/sec TR max P.7 mmHg Interpretation Summary The estimated ejection fraction is 65 %. Stage 1 diastolic dysfunction. Trivial mitral valve insufficiency. Trivial tricuspid valve insufficiency. Right ventricular systolic pressure estimated to be 24 mmHg. Mild (1+) aortic valve insufficiency. The study was technically difficult. There is no comparison study available. Contrast injection was performed. Ordering Physician: Roger Keenan Referring Physician: Lucy García Performed By: Ivania Arias, KWAME, RVT
== END ==
PROVIDERS: Family Provider Family Medicine; PCP Family Medicine; Referring Provider Internal Medicine Critical Care Medicine; Visit Provider Internal Medicine Critical Care Medicine
DX: R94.2 Abnormal results of pulmonary function studies (principal); Z98.891 History of uterine scar from previous surgery
CPT/HCPCS: 93306; Q9957; A4216; C8929

== ENCOUNTER → 2019-07-29 08:11 | Outpatient (CLI) | payer MEDICARE, SELFPAY ==
[2019-07-28 10:17] VITALS: BMI 31.2
[2019-07-29 09:01] LABS: AST(SGOT) 26 U/L (15-37); Alanine Aminotransfer ALT/SGPT 52 U/L (13-56); Albumin, Serum 3.3 g/dL (3.2-5.0); Alkaline Phosphatase 93 U/L (45-117); Bilirubin, Direct 0.06 mg/dL (0.00-0.30); Cholesterol 256 mg/dL (200); Globulin 3.6 g/dL (2.2-4.2); High Density Lipoprotein 47 mg/dL; Protein, Total 6.9 g/dL (6.4-8.2); Triglycerides 517 mg/dL
== END ==
PROVIDERS: Family Provider Family Medicine; PCP Family Medicine; Referring Provider Internal Medicine Cardiovascular Disease; Visit Provider Internal Medicine Cardiovascular Disease
DX: E78.00 Pure hypercholesterolemia, unspecified (principal)
CPT/HCPCS: 36415; 80061; 80076

== ENCOUNTER → 2019-08-07 10:13 | Outpatient (CLI) | payer MEDICARE, SELFPAY ==
[2019-07-28 10:17] VITALS: BMI 31.2
--- NOTE | 2019-08-07 10:16 | RAD_ITS ---
STUDY: X-RAY - RIGHT KNEE REASON FOR EXAM: Female, 73 years old. Right knee pain and swelling without reported injury TECHNIQUE: 4 view(s) of the knee. COMPARISON: None. FINDINGS: Normal visualized distal femur. Normal visualized proximal tibia and fibula. Normal proximal tibiofibular articulation. Normal medial femorotibial compartment. Normal lateral femorotibial compartment. Normal patellofemoral articulation. There is a soft tissue prominence in the suprapatellar region suggesting a small volume joint effusion. The soft tissue structures are unremarkable. RAD/Knee 4 or More Views IMPRESSION: Trace joint effusion. Electronically Signed: Igor Kim MD (Brooks) at 15:15 EDT , Service support ,
== END ==
PROVIDERS: Family Provider Family Medicine; PCP Family Medicine; Referring Provider Family Medicine; Visit Provider Family Medicine
DX: M17.10 Unilateral primary osteoarthritis, unspecified knee (principal)
CPT/HCPCS: 73564

== ENCOUNTER → 2019-08-17 | Outpatient (CLI) | payer MEDICARE, SELFPAY ==
[2019-02-23 13:03] VITALS: BMI 31.2
[2019-07-28 10:17] VITALS: BMI 31.2
--- NOTE | 2019-08-17 13:37 | ECHOD_ITS ---
Reason For Study: ABARCA Procedure This was a 2D Doppler, Color Flow transthoracic echocardiogram. Exam performed in department. Left Ventricle Normal size and thickness. Mildly dilated left ventricle. The estimated ejection fraction is 65 %. Stage 1 diastolic dysfunction. No regional wall motion abnormalities noted. Right Ventricle Normal size and thickness. Normal systolic function. Atria Normal left atrium. Normal right atrium. Normal atrial septum. Mitral Valve The mitral valve is structurally normal. No prolapse or stenosis seen. Tricuspid Valve Normal tricuspid valve. Trivial tricuspid valve insufficiency. Right ventricular systolic pressure estimated to be 35 mmHg. Aortic Valve Trisinus/trileaflet aortic valve. Mild diffuse aortic valve thickening. Mild (1+) aortic valve insufficiency. Pulmonic Valve Normal pulmonic valve. Trivial pulmonic valve insufficiency. Great Vessels Normal aortic root. Normal arch. Normal inferior vena cava. Inferior vena cava collapse with sniff. Pericardium/Pleural No pericardial effusion. MMode/2D Measurements & Calculations LVIDd: 5.3 cm IVSd: 0.95 cm Ao root diam: 3.3 cm LVIDs: 3.8 cm LVPWd: 0.85 cm RVDd: 2.8 cm FS: 28.0 % LAV(MOD-bp): 53.4 ml LA A4 area: 17.0 cm2 LA dimension(2D): 4.0 cm LAV(MOD-bp) Indexed: 28.5 ml/m2 LAV(MOD-sp2): 49.9 ml LAV(MOD-sp4): 49.9 ml RA A4 area: 12.3 cm2 Time Measurements MV dec time: 0.17 sec Doppler Measurements & Calculations MV E max ricardo: 96.4 cm/sec Lat Peak E' Ricardo: 6.2 cm/sec Med Peak E' Ricardo: 6.3 cm/sec MV A max ricardo: 118.4 cm/sec E/E' lat: 15.6 E/E' med: 15.4 MV E/A: 0.81 Ao V2 max: 167.7 cm/sec AI max ricardo: 336.3 cm/sec LV V1 max: 134.1 cm/sec Ao max P.2 mmHg AI max P.3 mmHg LV V1 max P.2 mmHg Ao V2 mean: 107.5 cm/sec AI dec slope: 201.7 cm/sec2 LV V1 mean P.3 mmHg Ao mean P.2 mmHg AI P1/2t: 488.4 msec LV V1 mean: 85.6 cm/sec Ao V2 VTI: 33.2 cm LV V1 VTI: 25.8 cm PA V2 max: 102.6 cm/sec TR max ricardo: 275.4 cm/sec TR max P.4 mmHg Interpretation Summary Mildly dilated left ventricle. The estimated ejection fraction is 65 %. Stage 1 diastolic dysfunction. Trivial tricuspid valve insufficiency. Right ventricular systolic pressure estimated to be 35 mmHg. Mild (1+) aortic valve insufficiency. Compared to echo report dated 01/30/2019, LV function has remained the same, but RVSP has increased from 25 to 35 mm Hg. Ordering Physician: Valdemar Elizabeth Referring Physician: Roger Keenan Performed By: Ilene Lance RDCS, RVT
--- NOTE | 2019-08-17 14:20 | PFTCOMP_ITS ---
COMPLETE PULMONARY FUNCTION TEST INTERPRETATION Brief HPI: Patient is a 73 year old female, currently under the care of myself, who presents to [facility] for complete pulmonary function tests secondary to diagnosis of abnormal PFT. Respiratory therapist reports good effort and reproducible results. Interpretation: Forced expiration spirometry shows no large airways obstructive ventilatory defect with an FEV1 of 73% predicted. There is no significant bronchodilator response by strict ATS criteria. Spirograms are of good quality and plateau normally. The respiratory flow volume loop shows a normal pattern. Lung volumes by body plethysmography show decreased total lung capacity at 3.82 L, 78% predicted. All other lung volumes are reduced symmetrically. Diffusion capacity by carbon monoxide is at the lower limit of normal at 65% predicted. The airway resistance is normal. Compared to previous pulmonary function tests from 12/02/2018, there has been no significant change. Impression: Mild restrictive ventilatory defect with a symmetric reduction diffusion capacity. No significant change compared to previous testing.
== END | disposition home or self-care (01) ==
LOC: PSN 12:50
PROVIDERS: Family Provider Family Medicine; PCP Family Medicine; Referring Provider Internal Medicine Critical Care Medicine; Visit Provider Internal Medicine Critical Care Medicine
DX: R06.09 Other forms of dyspnea (principal); R06.02 Shortness of breath; R94.2 Abnormal results of pulmonary function studies
CPT/HCPCS: 93306; 94060; 94726; 94729

== ENCOUNTER → 2019-08-21 09:19 | Outpatient (CLI) | payer MEDICARE, SELFPAY ==
[2019-07-28 10:17] VITALS: BMI 31.2
--- NOTE | 2019-08-21 09:21 | STEWCON_ITS ---
Reason For Study: Dyspnea Stress Results Protocol: Modified Roger Protocol Maximum Predicted HR: 148 bpm Target HR: 126 bpm % Maximum Predicted HR: 82 % DurationHeart Rate Stage (mm:ss) (bpm) BP Comment Baseline 71 118/72No Chest Pain; 4 ML Diluted Definity Given Modified Roger Protocol Stage 0 3:00 110 136/70No Chest Pain; Mild Dyspnea Modified Roger Protocol Stage 1/2 3:00 112 158/72No Chest Pain; Moderate Dyspnea Modified Roger Protocol Stage 1 1:00 121 / No Chest Pain; Moderate to Severe Dyspnea Recovery 74 126/70No Chest Pain; No Dyspnea Stress Duration: 7:00 mm:ss Maximum Stress HR: 121 bpm METS: 4 Baseline Echocardiogram Findings The estimated ejection fraction is 65 %. Stress Echo Wall motion Data Resting WM Intermediate WM Stress WM Resting Wall Motion Wall Motion Stress No regional wall motion No regional wall motion abnormalities noted. abnormalities noted. EKG Data The baseline ECG displays normal sinus rhythm. No clinical angina was noted. Interpretation Summary The estimated ejection fraction is 65 %. Normal, adequate, modified Roger treadmill echocardiogram. Negative for ischemia by EKG and echocardiographic criteria. No anginal symptoms noted. Rare PACs noted. Appropriate blood pressure response to exercise. Below average exercise capacity for age. Test terminated due to dyspnea. Final LVEF is 75%. Decreased sensitivity due to poor echo windows. Poor exercise capacity and dyspnea on exertion may be an anginal surrogate. No complications. The study was technically difficult. Contrast injection was performed. Ordering Physician: Valdemar Elizabeth Referring Physician: Lucy García Performed By: Ivania Arias RDCS, RVT
== END ==
PROVIDERS: Family Provider Family Medicine; PCP Family Medicine; Referring Provider Internal Medicine Cardiovascular Disease; Visit Provider Internal Medicine Cardiovascular Disease
DX: R06.02 Shortness of breath (principal); I11.0 Hypertensive heart disease with heart failure; I50.32 Chronic diastolic (congestive) heart failure; E78.5 Hyperlipidemia, unspecified; Z82.49 Family history of ischemic heart disease and other diseases of the circulatory system
CPT/HCPCS: 93017; 93350; Q9957; A4216; C8928

== ENCOUNTER → 2019-08-31 09:03 | Outpatient (CLI) | payer MEDICARE, SELFPAY ==
[2019-08-24 06:08] VITALS: BMI 31.2
[2019-08-31 09:56] LABS: Hematocrit 34.2 % (37-47); Hemoglobin 10.9 g/dL (12.0-15.0); Mean Corp Hgb Conc 31.9 g/dL (32-36); Mean Corpuscular Hgb 31.3 pg (27.0-32.0); Mean Corpuscular Volume 98.3 fL (81-99); Mean Platelet Vol. 10.2 fl (6.2-12.0); Platelet Count 278 K/mm3 (150-450); RBC Distribution Width CV 13.7 % (11.6-14.6); RBC Distribution Width SD 49.8 fl (35.1-43.9); Red Blood Count 3.48 M/mm3 (4.2-5.4)
[2019-08-31 10:22] LABS: International Normalized Ratio 1.1; Prothrombin Time (Protime)PT. 13.8 SECONDS (11.7-14.9)
[2019-08-31 10:23] LABS: Partial Thromboplast Time 27.5 Seconds (24.1-36.2)
[2019-08-31 10:30] LABS: Anion Gap 8 (5-15); BUN 15 mg/dL (7-18); BUN/Creat Ratio 14.2 RATIO (10-20); Calcium,Total 8.9 mg/dL (8.5-10.1); Chloride 108 mmol/L (98-107); Creatinine, Serum 1.06 mg/dL (0.55-1.02); EST Glomerular Filtration Rate 54 mL/min (>60); Est Glom Filt Rate - Afr Amer 65 mL/min (>60); Glucose 102 mg/dL (74-106); Potassium 3.7 mmol/L (3.5-5.1); Sodium Level 140 mmol/L (136-145)
== END ==
PROVIDERS: Family Provider Family Medicine; PCP Family Medicine; Referring Provider Internal Medicine Cardiovascular Disease; Visit Provider Internal Medicine Cardiovascular Disease
DX: I35.1 Nonrheumatic aortic (valve) insufficiency (principal); I50.32 Chronic diastolic (congestive) heart failure; E78.5 Hyperlipidemia, unspecified; R06.02 Shortness of breath; Z82.49 Family history of ischemic heart disease and other diseases of the circulatory system
CPT/HCPCS: 36415; 80048; 85027; 85610; 85730

== ENCOUNTER 2019-09-09 07:57 | Day surgery (SDC) | payer MEDICARE, SELFPAY ==
[2019-08-24 06:08] VITALS: BMI 31.2
--- NOTE | 2019-08-31 10:20 | RAD_ITS ---
STUDY: X-RAY CHEST REASON FOR EXAM: Female, 73 years old. Shortness of breath dyspnea TECHNIQUE: Two view of the chest were performed COMPARISON: 12 December 2018 FINDINGS: Lungs are clear. There is no pneumothorax, pulmonary edema, pleural effusions. There is moderate enlargement of the cardia mediastinal silhouette, presumed cardiomegaly. Osseous structures are intact. There is no gas under the diaphragms. [ ] RAD/Chest PA and Lateral IMPRESSION: 1. Moderate cardiomegaly. 2. No acute findings. Electronically Signed: Jesús Fraser, at 19:00 EST Tel , Service support ,
[2019-08-31 10:41] VITALS: BMI 31.2
[2019-09-08 08:58] VITALS: BMI 31.2
[2019-09-09] VITALS (24 sets, daily range): BP systolic 116–172; BP diastolic 59–90; PULSE 61–96; RESP 14–25; TEMP 37.3; O2SAT 93–100; BMI 31.0; BMI 31.2
--- NOTE | 2019-09-09 08:51 | HP.PCM_ITS ---
History and Physical Date of Admission: 09/09/19 History of Present Illness Details: Mrs. Phylicia Gilliam is a very pleasant 73-year-old female, former [id number] smoker who quit around 32 years ago, with a history of hypertension, hyperlipidemia, diastolic dysfunction, nonrheumatic aortic insufficiency and a family history of coronary artery disease. Her most recent echocardiogram dated 01/30/2019 shows the following: Interpretation Summary The estimated ejection fraction is 65 %. Stage 1 diastolic dysfunction. Trivial mitral valve insufficiency. Trivial tricuspid valve insufficiency. Right ventricular systolic pressure estimated to be 24 mmHg. Mild (1+) aortic valve insufficiency. The study was technically difficult. There is no comparison study available. Contrast injection was performed. In addition the patient underwent pulmonary function testing on 12/03/2018 with the following results: These pulmonary function studies demonstrate the presence of a mild restrictive ventilatory impairment with a disproportionate reduction in diffusing capacity. There are no previous pulmonary function studies available for comparison. Patient was referred to our office from the pulmonary office with respect to the patient's shortness of breath. Patient has no known history of coronary disease in herself but does have positive family history of coronary disease in her father who of a NM at age 49 sister of a heart attack at age 58 brother with congenital heart disease. She continues with progressively shortness of breath on exertion. She states this is relieved with exercise. She states this has been ongoing for approximately 1-1/2 years. She denies chest, arm, jaw, or neck discomfort. Her exercise tolerance is stable. She denies symptoms of palpitations, lightheadedness, dizziness, near syncope, or syncopal episodes. She denies edema or claudication issues. She denies orthopnea, PND, fever, chills, blood in urine, blood in stool, myalgia, or unexplainable fatigue. Intake Vital Signs: See EMR Intake Visit Reasons: [facility] Paper Cutter Required: No Is patient in pain?: No Allergies gemfibrozil [From Lopid] Allergy (Severe, Verified 07/28/19 09:47) Emir Sandoval lisinopril Adverse Reaction (Intermediate, Verified 07/28/19 09:47) cough Medications allopurinol 300 mg tablet 300 mg PO DAILY 01/08/19 [History Confirmed 07/28/19] cetirizine 10 mg capsule 10 mg PO QDAY cap 01/08/19 [History Confirmed 07/28/19] clonidine HCl 0.2 mg tablet 0.2 mg PO QDAY tab 01/08/19 [History Confirmed 1 ] diclofenac potassium 50 mg tablet 50 mg PO BID 01/08/19 [History Confirmed 07/28/19] hydrochlorothiazide 12.5 mg tablet 12.5 mg PO DAILY 01/08/19 [History Confirmed 07/28/19] omeprazole 20 mg tablet,delayed release 20 mg PO DAILY 01/08/19 [History Confirmed 07/28/19] losartan 25 mg tablet 25 mg PO DAILY 07/21/19 [History Confirmed 07/28/19] cannabidiol (CBD) 100 mg/mL oral solution PO ml 07/28/19 [History Confirmed 07/28/19] fluticasone propionate 50 mcg/actuation nasal spray,suspension 1 spray INTRANASAL DAILY PRN 07/28/19 [History Confirmed 07/28/19] multivitamin tablet 1 tab PO DAILY 07/28/19 [History Confirmed 07/28/19] omega-3 fatty acids 1,000 mg capsule 1,000 mg PO DAILY 07/28/19 [History Confirmed 07/28/19] [facility] Medical History Family history of ischemic heart disease (Chronic) Nonrheumatic aortic (valve) insufficiency (Chronic) Shortness of breath (Acute) HTN (hypertension) (Chronic) HLD (hyperlipidemia) (Chronic) Restrictive pattern present on pulmonary function testing (Chronic) GERD (gastroesophageal reflux disease) (Chronic) Gout (Chronic) Pneumonia (Resolved) Surgical History History of right hip replacement (Chronic) H/O section (Resolved) Family History Mother Breast cancer Congenital heart disease Myocardial infarction Father CHF (congestive heart failure) Myocardial infarction Sister Myocardial infarction CHF (congestive heart failure) Social History (Updated 07/28/19 @ 10:17 by Valdemar Elizabeth MD) current occupational status: retired Smoking Status: Former smoker how long ago did patient quit smokin, 0.5ppd second hand exposure: Yes ROS Const Const: Positive for fatigue and other (Decreased exercise tolerance: exhausted, ABARCA. ); negative for weakness, body ache, fever(s), headache(s), chills, frequent falls, night sweats, daytime sleepiness, difficulty sleeping, excessive sweating, weight gain, weight loss, increased appetite, poor appetite or anorexia Eyes Eyes: Negative for blind spots, loss of peripheral vision, transient loss of vis ion, blurry vision, change in vision, double vision, floaters, tunnel vision or other ENT ENT: Negative for headache(s), dizziness, hearing loss, tinnitus, Nosebleed/epistaxis, balance problems, post nasal drip, lip swelling, tongue swelling, bleeding gums, hoarseness, neck pain, dry mouth or other Cardio Chest Pain: No Palpitations: Yes (only occasionally) feels like its: fast, skipping Edema: None Muscle aches with walking: None Resp Respiratory: Positive for SOB with activity and Cough (dry cough, thinks due to allergies.Lisinopril changed to Losartan.); negative for SOB at rest, SOB orthopnea\SOB lying down, Coughing up blood/hemoptysis, chest congestion, pain on inspiration, snoring, stridor, wheezing, crackles, paroxysmal nocturnal dyspnea or other GI GI: Negative nausea, vomiting, heartburn, constipation, belching, bloating, cramping, vomiting blood/hematemesis, bright, red blood in stools, black,tarry stools, loose stools, Difficulty Swallowing or other : Negative for hematuria, frequent nighttime urination/ nocturia, erectile dysfunction or abnormal vaginal bleeding Musc Musc: Negative for muscle aches/ myalgia, muscle weakness, joint pain or balance problems Skin Skin: Negative redness, non-healing lesions, rash, unusual bruising, skin ulcer, wounds, jaundice or other Neuro Neuro: Negative for dizziness, lightheadedness, near syncope, syncope, orthostatic symptoms, frequent falls, headache(s), weakness, confusion, memory loss, restless legs, blurry vision, double vision, vertigo, seizures, lack of coordination or other [place] Hematologic/Lymphatic: Negative for easy bleeding, easy bruising, enlarged lymph nodes or other Endo Endo: Positive for fatigue; negative for cold intolerance, heat intolerance, excessive sweating, flushing, increased thirst/drinking, increased hunger, hair loss, hair growth or other Psych Psych: Negative for anxiety, depression, thoughts of harming anyone, thoughts of harming yourself, visual hallucinations, panic attacks or audible hallucinations Allergy Allergy/Immunology: Negative for throat swelling, Negative for tongue swelling, Negative for hives, Negative for rash, Negative for lip swelling Cardiology Exam Const Appearance: cooperative, healthy appearing and no acute distress Nutritional Appearance: well nourished Orientation: alert, oriented x3 and oriented to person Head Head: normal to inspection, normocephalic and atraumatic Nose: external nose normal Face and Sinus: face symmetric Mouth: oral mucosae normal Eyes General: appearance normal, both eyes and all related structures Eyelids: eyelids normal Conjunctivae: conjunctivae normal Pupils: PERRL and normal by confrontation EOM: EOM intact bilaterally Neck Neck: normal visual inspection and full ROM Carotids: normal carotid upstroke Chest Chest inspection: normal inspection of the chest Auscultation: Bilateral: Clear to Auscultation Cardio Palpation: normal PMI Rate: regular rate Rhythm: regular rhythm Heart sounds: S1 normal and S2 normal GI GI: normal to inspection, no hepatosplenomegaly and bowel sounds present Neuro General: alert, awake, oriented x3, CN's II-XI intact bilaterally and moves all extremities Skin Skin: no rashes or lesions noted Extremities Pulses: Normal: Right Femoral Pulse, Left Femoral Pulse, Right Dorsalis Pedis Pulse, Left Dorsalis Pedis Pulse, Right Posterior Tibial Pulse, Left Posterior Tibial Pulse, Right Radial Pulse, Left Radial Pulse Lower Extremity Edema: None: Bilateral Psych Psychological: normal affect Assessment & Plan 1. Shortness of breath R06.02 Plan 1. Dyspnea on exertion: Patient has had progressively worsening dyspnea on exertion and a very strong positive family history of premature coronary artery disease, unable to take antilipid therapy due to history of De Dios-Hector's rash for approximately 1 months time after trying gemfibrozil many years ago. She has never tried other antilipid therapy. Patient does have a history of mild aortic insufficiency, and normal pulmonary pressures as evidenced by echocardiogram in January 2019. It appears the patient's dyspnea on exertion is out of proportion to her degree of aortic insufficiency and her normal LV function. She has been evaluated with pulmonary function tests which show mild restrictive ventilatory impairment with a disproportionate reduction in diffusing capacity. Her 6-minute walk test is normal. She underwent a stress echocardiogram on 08/27/2019 that showed ejection fraction of 65% and was considered to be a normal, adequate, modified Roger treadmill echocardiogram that was negative for ischemia by ECG and echocardiographic criteria. No anginal symptoms were noted. Due to her poor exercise capacity and continual shortness of breath with no known etiology she will proceed with a left heart catheterization. 2. HLD (hyperlipidemia) E78.5 Plan 2. 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 for wound debridement. It was explained to the patient that the statins and Niaspan and gemfibrozil are different chemical compounds and that although she may have gotten a rash with one does not necessarily mean she would have a reaction to the other. Patient declines antilipid therapy at this time but is agreeable to a repeat lipid profile. She will continue omega-3 fatty acid for now. Supplemental Info Supplemental Information Stress echocardiogram from 08/21/2019: Interpretation Summary The estimated ejection fraction is 65 %. Normal, adequate, modified Roger treadmill echocardiogram. Negative for ischemia by EKG and echocardiographic criteria. No anginal symptoms noted. Rare PACs noted. Appropriate blood pressure response to exercise. Below average exercise capacity for age. Test terminated due to dyspnea. Final LVEF is 75%. Decreased sensitivity due to poor echo windows. Poor exercise capacity and dyspnea on exertion may be an anginal surrogate. No complications. The study was technically difficult. Contrast injection was performed. Echocardiogram from 08/17/2019: Interpretation Summary Mildly dilated left ventricle. The estimated ejection fraction is 65 %. Stage 1 diastolic dysfunction. Trivial tricuspid valve insufficiency. Right ventricular systolic pressure estimated to be 35 mmHg. Mild (1+) aortic valve insufficiency. Compared to echo report dated 01/30/2019, LV function has remained the same, but RVSP has increased from 25 to 35 mm Hg. Labs LDL Cholesterol 108 mg/dL (0-130) 10/11/16 HDL Cholesterol 63 mg/dL (40-) 10/11/16 Triglycerides 257 mg/dL (-199) H 10/11/16 VLDL Cholesterol 51 mg/dL (5-40) H 10/11/16 Diagnostics Electrocardiogram 07/28/19 Echocardiogram 01/30/19 Pulmonary Pulmonary Function Test 12/03/18 Pulmonary Exercise Test 01/19/19
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
--- NOTE | 2019-09-09 12:19 | PCM.DC.CCA ---
Discharge Diet: Low fat/ Low Cholesterol Discharge Activity: Return to Normal Activity May shower in (days): 1 - No tub baths for 5 days May resume sexual activity in: 1-2 weeks Lifting Restrictions: Do not lift anything greater than 10 pounds for 3 days Call your doctor if your incision/area has: Continuous Slow Oozing, Sudden Increased Bleeding, Increased Pain/ Swelling, Increased Redness, Foul Smelling Discharge, Swelling at the incision site Call your doctor if you observe: Fever of 101 or Higher, Shortness of breath, Chest pain Remove Dressing in (days):: 1 Cleanse incision/area with: Soap & Water Additional Instructions: You will continue with Aspirin and Plavix therapy. You will remain on Plavix for at least one year. If anyone asks you to stop your Plavix, please call the [facility] Office at [phone]. You are scheduled for an office appointment with Dr. Elizabeth on 10/02/2019 at 1:30 PM. You are started on new medication called metoprolol tartrate. This is for heart disease. Please continue to monitor heart rate, blood pressure, and other symptoms. If you have any questions or concerns please call the [facility] Office at [phone] Allergies/Adverse Reactions: Allergies gemfibrozil [From Lopid] Allergy (Severe, Verified 08/24/19 09:38) Emir Young Syndsome lisinopril Adverse Reaction (Intermediate, Verified 08/24/19 09:38) cough Medications to take at Discharge allopurinol 300 mg tablet 300 mg PO DAILY 01/08/19 cetirizine 10 mg capsule 10 mg PO QDAY cap 01/08/19 clonidine HCl 0.2 mg tablet 0.2 mg PO QDAY tab 01/08/19 diclofenac potassium 50 mg tablet 50 mg PO BID 01/08/19 omeprazole 20 mg tablet,delayed release 20 mg PO DAILY 01/08/19 losartan 25 mg tablet 25 mg PO DAILY 07/21/19 cannabidiol (CBD) 100 mg/mL oral solution PO ml 07/28/19 fluticasone propionate 50 mcg/actuation nasal spray,suspension 1 spray INTRANASAL DAILY PRN 07/28/19 multivitamin tablet 1 tab PO DAILY 07/28/19 omega-3 fatty acids 1,000 mg capsule 1,000 mg PO DAILY 07/28/19 furosemide 20 mg tablet 20 mg PO DAILY #90 tab 08/07/19 aspirin 81 mg tablet,delayed release 81 mg PO DAILY #30 tab 08/28/19 clopidogrel 75 mg tablet 75 mg PO DAILY #30 tab 08/28/19 Metoprolol Tartrate [Lopressor (beta juan)] 12.5 mg PO BID #90 tab 09/10/19 Nitroglycerin (INPATIENT USE) [Nitrostat] 0.4 mg SUBLINGUAL Q5M PRN #25 tab.subl 09/10/19 The following prescriptions were given: Metoprolol Tartrate [Lopressor (beta juan)] 12.5 mg PO BID #90 tab Transmission Status: Pending to [address] Nitroglycerin (INPATIENT USE) [Nitrostat] 0.4 mg SUBLINGUAL Q5M PRN #25 tab.subl PRN Reason: Cardiac/Chest Pain Transmission Status: Sent to [address] Orders to be completed after discharge: Left & Right Heart Cath Time Frame: 09/09/19, Facility: [facility], Location: [facility] Phase II, Outpatient Cardiac Rehab Location: None Selected Primary Care Physician: Lucy García MD [Primary Care Provider] - Test Results: Test results from this visit will be discussed in further detail at your follow-up appointment, if applicable. Please Follow Up With: Dr. Elizabeth When: 10/02/2019 at 1:30 PM Cardiac Rehabilitation Info Cardiac Rehabilitation Program Information: Cardiac Rehabilitation is important for patients like you who are recovering from a heart problem. Cardiac rehabilitation programs are recognized as integral to the continued care of the patient with coronary heart disease. The cardiac rehabilitation program is designed to optimize a patient's physical, psychological, and social functioning. Health child care education coordinator work in cardiac rehabilitation programs and assist you with getting the treatments you need to get stronger and healthier - like exercise, healthy eating habits, and medications. Cardiac rehabilitation has been show to help people with heart problems live longer and have better life enjoyment than people who do not go to cardiac rehabilitation. Please contact the Cardiac Rehabilitation Program at [facility] at in two weeks if you have not heard from them.
--- NOTE | 2019-09-09 12:30 | EKG12_ITS ---
Test Reason : POST PCI Blood Pressure : / mmHG Vent. Rate : 060 BPM Atrial Rate : 060 BPM P-R Int : 156 ms QRS Dur : 082 ms QT Int : 456 ms P-R-T Axes : 053 002 027 degrees QTc Int : 456 ms Normal sinus rhythm Normal ECG When compared with ECG of 01-AUG-2012 11:24, No significant change was found Confirmed by SOUTH MARS, MARGARET ([id number]), writer editor JOURDAN REYES ([id number]) on 09/21/2019 1:02:41 PM Referred By: Valdemar Elizabeth Confirmed By:MARGARET DIA MD
[2019-09-09 13:06] LABS: Blood Gas Specimen Type VEN; VBG BASE EXCESS -2 mmol/L (-1.0-3.5); VBG Bicarbonate 22 mmol/L (22-26); VBG Oxygen Content 23 mmol/L (23-33); VBG PO2 42 mmHg (25-40); VBG SO2 79 % (50-70); VBG pCO2 34.1 mmHg (41-51); VBG pH 7.42 (7.32-7.42)
[2019-09-09 13:06] LABS: ACT Activated Clotting Time 208 sec (74-137)
[2019-09-09 13:06] LABS: Base Excess -4 mmol/L (-2 to +2); Bicarbonate 20.7 mmol/L (22-26); Blood Gas Specimen Type ART; PO2 73 mmHG (75-100); SO2 94 % (95-99); Total Carbon Dioxide 22 mmol/L; pCO2 34.1 mmHg (35-45); pH 7.39 (7.35-7.45)
[2019-09-09 13:06] LABS: Blood Gas Specimen Type VEN; VBG BASE EXCESS -2 mmol/L (-1.0-3.5); VBG Bicarbonate 23 mmol/L (22-26); VBG Oxygen Content 24 mmol/L (23-33); VBG PO2 38 mmHg (25-40); VBG SO2 74 % (50-70); VBG pCO2 34.3 mmHg (41-51); VBG pH 7.43 (7.32-7.42)
--- NOTE | 2019-09-09 14:15 | NURSING ---
Koko REAL from Clarification Operator at bedside to discontinue arterial and venous sheath.
[2019-09-09 14:16] LABS: ACT Activated Clotting Time 164 sec (74-137)
--- NOTE | 2019-09-09 14:24 | CRPHASE1_ITS ---
Patient Communication PHII Cardiac Rehab Discussed with Patient:: Yes Guide to Cardiac Rehab Given to Patient:: Yes Cardiac Rehab Facility Choice List Given to Patient:: Yes - pt states she is not interested in rehab Choice Program [facility] CR PHII:: Communication Given to CR, Refer to [facility] Marketing Consultant:: Valdemar Elizabeth Phase II Cardiac Rehab:: Yes Sessions:: 36 sessions - 3 days/wk, 12 weeks Risk Factors/Lifestyle Hx Hypertension: Yes Hx Dyslipidemia: Yes Hx Obesity: Yes Height: 1.63 m Weight:: 82.554 kg BMI: 31.2 Family History: Family History (Last Reviewed 08/24/19 @ 09:39 by Meghan Young) Mother Breast cancer Congenital heart disease Myocardial infarction Father CHF (congestive heart failure) Myocardial infarction Sister Myocardial infarction CHF (congestive heart failure) Phase I Education Given On:: [place], Nutrition, Antiplatelet medication, CHF, Smoking cessation, Diabetes - Type I, Diabetes - Type II Knowledge of Condition:: Yes Hospital Course Cardiac Cath Date:: 09/09/19 Medical/Surgical History Hypertension:: Yes Dyslipidemia:: Yes Cardiac Rehabilitation Info Cardiac Rehabilitation Program Information: Cardiac Rehabilitation is important for patients like you who are recovering from a heart problem. Cardiac rehabilitation programs are recognized as integral to the continued care of the patient with coronary heart disease. The cardiac rehabilitation program is designed to optimize a patient's physical, psychological, and social functioning. Health animal care attendant work in cardiac rehabilitation programs and assist you with getting the treatments you need to get stronger and healthier - like exercise, healthy eating habits, and m edications. Cardiac rehabilitation has been show to help people with heart problems live longer and have better life enjoyment than people who do not go to cardiac rehabilitation. Please contact the Cardiac Rehabilitation Program at [facility] at in two weeks if you have not heard from them.
--- NOTE | 2019-09-09 14:31 | CRPH1.INSTRU ---
General Education CAD and cardiac anatomy and function:: Patient communicates acknowledgment Explanation of diagnoses and procedures:: Patient communicates acknowledgment Sign/Symptoms of [place]:: Patient communicates acknowledgment Antiplatelet therapy: Patient communicates acknowledgment Proper use of NTG-SL: Not instructed Emergency procedures and activation of EMS: Patient communicates acknowledgment Compliance of all prescribed medications: Patient communicates acknowledgment Smoking Nicotine/Smoking Response Code:: Patient communicates acknowledgment Dyslipidemia Dyslipidemia Response Code:: Patient communicates acknowledgment Overweight/Obesity Recommendations Include:: Weight loss of 5-10%, Reduced calorie diet, Exercise 5-7 times/week Overweight/Obesity:: Patient communicates acknowledgment Hypertension Recommendations Include:: Maintain BP <130/85, BP <130/80 if diabetic, DASH dietary guidelines, Decrease/maintain normal body weight, Moderation of ETOH Hypertension:: Patient communicates acknowledgment Heart Disease Heart Disease Response Code:: Patient communicates acknowledgment Diabetes Diabetes:: Patient communicates acknowledgment Metabolic Syndrome Metabolic Syndrome Response Code:: Patient communicates acknowledgment Sedentary Sedentary Response Code:: Patient communicates acknowledgment Stress Stress Response Code:: Patient communicates acknowledgment
[2019-09-09] MEDS: 0.9% Normal Saline 1,000 ML 150 ML IV (14:34)
[2019-09-09] MEDS: Morphine 2 MG/ML Syringe IV (16:39)
[2019-09-09] MEDS: LORazepam 1 MG Tablet PO (18:41)
[2019-09-09] MEDS: cloNIDine HCl 0.2 MG Tablet PO (21:43)
[2019-09-09] MEDS: Metoprolol Tartrate 25 MG Tablet 12.5 MG PO (21:43)
[2019-09-10] VITALS (13 sets, daily range): BP systolic 108–153; BP diastolic 47–80; PULSE 68–89; RESP 16–24; TEMP 36.4–36.8; O2SAT 94–99
[2019-09-10 04:12] LABS: Hematocrit 28.9 % (37-47); Hemoglobin 9.3 g/dL (12.0-15.0); Mean Corp Hgb Conc 32.2 g/dL (32-36); Mean Corpuscular Hgb 31.7 pg (27.0-32.0); Mean Corpuscular Volume 98.6 fL (81-99); Mean Platelet Vol. 9.9 fl (6.2-12.0); Platelet Count 275 K/mm3 (150-450); RBC Distribution Width CV 13.7 % (11.6-14.6); RBC Distribution Width SD 48.8 fl (35.1-43.9); Red Blood Count 2.93 M/mm3 (4.2-5.4); White Blood Count 6.5 K/mm3 (4.4-11.0)
[2019-09-10 04:31] LABS: ALB/GLOB Ratio 0.9 RATIO (0.9-2.4); AST(SGOT) 25 U/L (15-37); Alanine Aminotransfer ALT/SGPT 36 U/L (13-56); Albumin, Serum 2.6 g/dL (3.2-5.0); Alkaline Phosphatase 71 U/L (45-117); Anion Gap 8 (5-15); BUN 17 mg/dL (7-18); BUN/Creat Ratio 16.3 RATIO (10-20); Calcium,Total 8.2 mg/dL (8.5-10.1); Chloride 112 mmol/L (98-107); Creatinine, Serum 1.04 mg/dL (0.55-1.02); EST Glomerular Filtration Rate 55 mL/min (>60); Est Glom Filt Rate - Afr Amer 67 mL/min (>60); Estimated Creatinine Clearance 42.22 ml/min; Glucose 104 mg/dL (74-106); Potassium 3.9 mmol/L (3.5-5.1); Protein, Total 5.6 g/dL (6.4-8.2); Sodium Level 143 mmol/L (136-145)
--- NOTE | 2019-09-10 09:13 | PN.CARD_ITS ---
Subjectve: Patient doing very well this morning. No 24-hour events. Telemetry negative. EKG shows normal sinus rhythm, no acute changes. Right groin is clean /dry/intact. MEGHA globin and creatinine are within nominal limits. No chest pain. Objective: Vital Signs Temp Pulse Resp BP Pulse Ox 97.8 F 75 23 H 129/66 H 95 09/10/19 04:00 09/10/19 08:00 09/10/19 08:00 09/10/19 08:00 09/10/19 08:00 Oxygen Delivery Method Room Air Weight: 182 lb 12.211 oz Body Mass Index (BMI) 31.0 Intake and Output for Last 24 Hours 09/08/19 09/09/19 09/10/19 23:59 23:59 23:59 Intake Total 1240 / 1460 340 / 340 Output Total 200 / 200 Balance 1040 / 1260 340 / 340 General: Awake, Alert, Oriented x 3 HEENT: PERRL, EOMI, Sclera Non Icteric Neck: Supple, Good ROM, No Lymph Node Enlargement Lungs: Clear to auscultation Cardiovascular: Regular Rhythm, Normal S1, Normal S2, No Murmurs, No Rubs, No Gallops Vascular: No Carotid Bruits, Normal Femoral Pulses, Normal Radial Pulses, Normal Dorsalis Pedal Pulse, Normal Posterior Tibial Pulses Abdomen: Bowel Sounds Present, Soft, Non Tender, No HSM, No Organomegaly Extremities: No Cyanosis, No Clubbing, No edema Neurological: No Focal Motor or Sensory Deficit 09/09/19 11:06: VBG pH 7.43 H, VBG pO2 38, VBG O2 Sat (Calc) 74 H, VBG O2 Content 24, VBG Base Excess -2 L 09/09/19 11:09: VBG pH 7.42, VBG pO2 42 H, VBG O2 Sat (Calc) 79 H, VBG O2 Content 23, VBG Base Excess -2 L 09/09/19 11:19: pH 7.39, Bicarbonate Actual 20.7 L, POC Total CO2 22, Base Excess -4 L, O2 Saturation 94 L, ABG pCO2 34.1 L, ABG pO2 73 L 09/10/19 03:50: WBC 6.5, RBC 2.93 L, Hgb 9.3 L, Hct 28.9 L, MCV 98.6, MCH 31.7, MCHC 32.2, Plt Count 275, MPV 9.9 09/10/19 03:50: Sodium 143, Potassium 3.9, Chloride 112 H, Carbon Dioxide 23.0, Anion Gap 8, BUN 17, Creatinine 1.04 H, Est GFR (MDRD) Af Amer 67, Est GFR (MDRD) Non-Af 55 L, BUN/Creatinine Ratio 16.3, Glucose 104, Calcium 8.2 L, Total Bilirubin 0.30 Rhythm: EKG: ECHO: Stress Test: Cardiac Cath: PCI: CT Surgery: Holter monitor: EPS: PPM: CXR: Chest CT Scan: Medical Necessity - Tobacco Use Smoking Status: Former smoker Assessment/Plan 1. Coronary artery disease: Patient has successful FFR guided angioplasty and drug-eluting stenting to her LAD. Recommend to be discharged on aspirin, Plavix, and antihypertensive medications as outlined in the MRF. I informed her that she is her diclofenac sparingly if at all given its potential for gastric erosion combined with Plavix therapy. Patient is unable to take statin based medications or Lopid due to history of De Dios-Hector syndrome. In addition the patient will not be able to undergo left hip replacement surgery at least for 6 months time preferably for 1 year for dual and upper lid therapy given her recent drug-eluting stent. 2. Patient be discharged home follow-up with Dr. Elizabeth going forward. Code Visit Inpatient E&M: 20870 Subs Hosp L2
[2019-09-10] MEDS: Aspirin E.C. 81 MG Tablet PO (09:49)
[2019-09-10] MEDS: Multivitamins,Therapeutic Tablet 1 TABLET PO (09:49)
[2019-09-10] MEDS: Losartan Potassium 25 MG Tablet PO (09:50)
[2019-09-10] MEDS: Metoprolol Tartrate 25 MG Tablet 12.5 MG PO (09:51)
[2019-09-10] MEDS: Clopidogrel Bisulfate 75 MG Tablet PO (09:52)
[2019-09-10] MEDS: Pantoprazole Sodium 20 MG Tablet PO (09:52)
[2019-09-10] MEDS: Allopurinol 300 MG Tablet PO (09:52)
--- NOTE | 2019-09-10 12:30 | EKG12_ITS ---
Test Reason : AM EKG Blood Pressure : / mmHG Vent. Rate : 074 BPM Atrial Rate : 074 BPM P-R Int : 156 ms QRS Dur : 080 ms QT Int : 420 ms P-R-T Axes : 051 -07 -05 degrees QTc Int : 466 ms Normal sinus rhythm Nonspecific T wave abnormality Abnormal ECG When compared with ECG of 09-SEP-2019 12:27, MANUAL COMPARISON REQUIRED, DATA IS UNCONFIRMED Confirmed by SOUTH MARS, MARGARET ([id number]), business editor WALT CROWLEY ([id number]) on 09/14/2019 10:14:09 AM Referred By: Valdemar Elizabeth Confirmed By:MARGARET DIA MD
== END 2019-09-10 11:15 | disposition home or self-care (01) ==
LOC: CLSP 07:58 → ICU 14:31
PROVIDERS: Family Provider Family Medicine; PCP Family Medicine; Referring Provider Internal Medicine Cardiovascular Disease; Visit Provider Internal Medicine Cardiovascular Disease
DX: I25.10 Atherosclerotic heart disease of native coronary artery without angina pectoris (principal); R06.02 Shortness of breath; E78.5 Hyperlipidemia, unspecified; I35.1 Nonrheumatic aortic (valve) insufficiency; I10 Essential (primary) hypertension; K21.9 Gastro-esophageal reflux disease without esophagitis; L51.1 Stevens-Johnson syndrome; M10.9 Gout, unspecified; Z79.899 Other long term (current) drug therapy; Z87.891 Personal history of nicotine dependence; Z82.49 Family history of ischemic heart disease and other diseases of the circulatory system
CPT/HCPCS: 71046; 80053; 82803; 85027; 85347; 92928; 93005; 93460; 93571; 99152; 99153; J0153; J7030; J7040; C1725; C1751; C1769; C1874; C1887; C1894; C9600; Q9967

== ENCOUNTER → 2019-11-05 12:45 | Outpatient (CLI) | payer MEDICARE, SELFPAY ==
[2019-09-09 14:30] VITALS: BMI 31.2
[2019-10-10 10:05] VITALS: BMI 30.5
[2019-11-05 15:37] LABS: Absolute Lymphocyte Count 0.88 X10^3/uL (0.83-4.51); Absolute Neutrophil Count 9.6 X10^3/uL (2.0-7.7); Basophil# 0.01 X10^3/uL; Basophil% 0.1 % (0-1); Hematocrit 37.8 % (37-47); Lymphocyte # 0.88 X10^3/ul (4.0); Lymphocyte % 8.1 % (19-41); Mean Corp Hgb Conc 31.7 g/dL (32-36); Mean Corpuscular Hgb 30.5 pg (27.0-32.0); Mean Corpuscular Volume 95.9 fL (81-99); Mean Platelet Vol. 10.1 fl (6.2-12.0); Monocyte# 0.24 X10^3/uL; Monocyte% 2.2 % (0-10); NRBC Flagged by Analyzer 0 % (0-5); Neutrophil # 9.61 X10^3/uL (2.7-7.7); Neutrophil % 88.8 % (47-70); Platelet Count 348 K/mm3 (150-450); RBC Distribution Width CV 13.4 % (11.6-14.6); RBC Distribution Width SD 47.1 fl (35.1-43.9); Red Blood Count 3.94 M/mm3 (4.2-5.4); White Blood Count 10.8 K/mm3 (4.4-11.0)
== END ==
PROVIDERS: PCP Family Medicine; Referring Provider Family Medicine; Visit Provider Family Medicine
DX: D64.9 Anemia, unspecified (principal)
CPT/HCPCS: 36415; 85025

== ENCOUNTER → 2019-11-18 15:35 | Outpatient (CLI) | payer MEDICARE, SELFPAY ==
[2019-09-09 14:30] VITALS: BMI 31.2
[2019-10-10 10:05] VITALS: BMI 30.5
--- NOTE | 2019-11-18 15:38 | RAD_ITS ---
STUDY: X-RAY - LUMBAR SPINE REASON FOR EXAM: Female, 74 years old. HIP AND LBP, NKI TECHNIQUE: 5 view(s) of the lumbar spine were obtained. COMPARISON: None FINDINGS: Normal lumbar lordosis. There is a slight dextroscoliosis of the lumbar spine. Grade 1 spondylolisthesis of L4-L5. There is multilevel endplate spondylosis of the lumbar vertebrae. Mild loss of disc height at multiple lumbar levels, most conspicuous at L4-L5. There is no demonstrated fracture. There is no demonstrated spondylolysis of the pars interarticulares. There is moderate facet arthropathy at the mid to lower lumbar levels. Right hip replacement noted. Atherosclerosis of the abdominal aorta identified. RAD/L/S Spine Min 4 Views IMPRESSION: 1. Mild degenerative disc disease and moderate facet arthropathy. Electronically Signed: Igor Kim MD ([place]) at 10:28 EST , Service support ,
== END ==
PROVIDERS: PCP Family Medicine; Referring Provider Nurse Practitioner Family; Visit Provider Nurse Practitioner Family
DX: M54.9 Dorsalgia, unspecified (principal)
CPT/HCPCS: 72110

== ENCOUNTER 2019-12-30 13:33 | Emergency (ER) | payer MEDICARE, SELFPAY ==
[2019-09-09 14:30] VITALS: BMI 31.2
[2019-10-10 10:05] VITALS: BMI 30.5
[2019-12-30 13:34] VITALS: BP 161/73; PULSE 86; RESP 18; TEMP 37; O2SAT 98; BMI 30.5
[2019-12-30 13:56] VITALS: BP 167/77; PULSE 86; RESP 16; O2SAT 99
--- NOTE | 2019-12-30 13:58 | RAD_ITS ---
STUDY: X-RAY - PELVIS AND LEFT HIP REASON FOR EXAM: Female, 74 years old. LEFT LATERAL HIP PAIN S/P INJURY TECHNIQUE: 3 views of the pelvis and hip. COMPARISON: Comparison is made with prior study August 11, 2012. FINDINGS: There is a non-specific bowel gas pattern. Normal visualized soft tissue structures. There is narrowing with cortical sclerosis and osteophyte formation of the sacroiliac joint consistent with degenerative osteoarthritic changes. There is an 8.7 mm well-defined sclerotic focus in the middle portion of the right sacrum most likely representing a bone island. This has increased in size as compared to prior study. Normal bilateral superior and inferior pubic rami. Normal pubic symphysis. Normal bilateral ischial tuberosities. Normal visualized femoral head. Normal acetabulum. There is moderate articular joint space narrowing of the hip. The patient is status post right hip replacement. RAD/HIP, UNI W/ Pelvis 2-3 Views IMPRESSION: Degenerative changes. No acute abnormality is seen. Electronically Signed: Emerson Restrepo, at 14:37 EDT , Service support ,
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
[2019-12-30] MEDS: Ketorolac 30 MG/ML Syringe IM (15:24)
[2019-12-30 15:35] VITALS: BP 147/69; PULSE 71; RESP 16; O2SAT 98
[2019-12-30 15:50] VITALS: BP 138/82; PULSE 73; RESP 15; O2SAT 97
== END 2019-12-30 15:51 | disposition home or self-care (01) ==
PROVIDERS: Emergency Provider Emergency Medicine; PCP Family Medicine
DX: M25.552 Pain in left hip (principal); Z79.82 Long term (current) use of aspirin; Z79.02 Long term (current) use of antithrombotics/antiplatelets; Z87.891 Personal history of nicotine dependence
CPT/HCPCS: 73502; 96372; 99283

== ENCOUNTER → 2020-02-22 10:48 | Outpatient (CLI) | payer MEDICARE, SELFPAY ==
[2019-09-09 14:30] VITALS: BMI 31.2
[2020-02-22 10:40] VITALS: BMI 30.5
--- NOTE | 2020-02-22 10:49 | RAD_ITS ---
STUDY: X-RAY CHEST REASON FOR EXAM: Female, 74 years old. COUGH,FEVER TECHNIQUE: PA and lateral views of the chest. COMPARISON: Comparison is made with prior study dated August 31, 2019. FINDINGS: Stable elevation of the right hemidiaphragm. There is no demonstrated pleural abnormality. There is mild cardiac enlargement. Normal mediastinum and saima. Normal visualized pulmonary arteries. There is atherosclerotic tortuosity of the aortic arch and descending thoracic aorta. There are diffuse degenerative changes of the visualized thoracic spine. Normal visualized ribs, clavicles, and shoulders. There is no demonstrated abnormality of the visualized soft tissue structures of the upper abdomen. RAD/Chest PA and Lateral IMPRESSION: Cardiomegaly. The lungs are clear. Electronically Signed: Emerson Restrepo, at 11:16 EDT , Service support ,
== END ==
PROVIDERS: PCP Family Medicine; Referring Provider Physician Assistant Surgical; Visit Provider Physician Assistant Surgical
DX: R06.02 Shortness of breath (principal)
CPT/HCPCS: 71046

== ENCOUNTER → 2020-03-07 10:49 | Outpatient (CLI) | payer MEDICARE, SELFPAY ==
[2019-09-09 14:30] VITALS: BMI 31.2
[2020-02-22 10:40] VITALS: BMI 30.5
[2020-02-26 09:39] VITALS: BMI 30.5; BMI 31.2
--- NOTE | 2020-03-07 10:50 | ECHOD_ITS ---
Reason For Study: PRE-OP Procedure This was a 2D Doppler, Color Flow transthoracic echocardiogram. Contrast injection was performed. The study was technically difficult. Exam performed in department. Left Ventricle Normal size and thickness. The estimated ejection fraction is 65 %. Stage 1 diastolic dysfunction. No regional wall motion abnormalities noted. Right Ventricle Normal size and thickness. Normal systolic function. Atria Normal left atrium. Normal right atrium. Normal atrial septum. Mitral Valve The mitral valve is structurally normal. No prolapse or stenosis seen. Tricuspid Valve Normal tricuspid valve. Unable to estimate RV systolic pressure due to insufficient tricuspid regurgitant envelope. Aortic Valve Trisinus/trileaflet aortic valve. Mild diffuse aortic valve thickening. Mild (1+) aortic valve insufficiency. Pulmonic Valve Normal pulmonic valve. Trivial pulmonic valve insufficiency. Great Vessels Normal aortic root. Normal arch. Normal inferior vena cava. Inferior vena cava collapse with sniff. Pericardium/Pleural No pericardial effusion. Medication 22 gauge I.V. with prn adaptor inserted into right arm. Diluted definity 3.0ml given slow IV push to enhance endocardial definition. MMode/2D Measurements & Calculations LVIDd: 4.4 cm IVSd: 0.89 cm Ao root diam: 3.6 cm LVIDs: 3.0 cm LVPWd: 1.0 cm RVDd: 3.1 cm FS: 33.4 % LAV(MOD-bp): 35.3 ml EDV(MOD-sp4): 90.7 ml EDV(MOD-sp2): 92.4 ml LAV(MOD-bp) Indexed: 19.1 ml/m2 ESV(MOD-sp4): 31.9 ml EF(MOD-sp2): 55.0 % LAV(MOD-sp2): 36.2 ml EF(MOD-sp4): 64.8 % LAV(MOD-sp4): 34.0 ml SV(MOD-sp4): 58.7 ml SV(MOD-sp2): 50.8 ml LA A4 area: 13.9 cm2 LA dimension(2D): 4.0 cm RA A4 area: 11.1 cm2 Time Measurements MV dec time: 0.28 sec Doppler Measurements & Calculations MV E max ricardo: 43.5 cm/sec Lat Peak E' Ricardo: 2.5 cm/sec Med Peak E' Ricardo: 3.6 cm/sec MV A max ricardo: 103.9 cm/sec E/E' lat: 17.3 E/E' med: 12.0 MV E/A: 0.42 Ao V2 max: 121.3 cm/sec AI max ricardo: 381.1 cm/sec LV V1 max: 90.5 cm/sec Ao max P.9 mmHg AI max P.1 mmHg LV V1 max P.3 mmHg AI dec slope: 247.9 cm/sec2 AI P1/2t: 450.3 msec PA V2 max: 91.3 cm/sec Interpretation Summary The estimated ejection fraction is 65 %. Stage 1 diastolic dysfunction. Unable to estimate RV systolic pressure due to insufficient tricuspid regurgitant envelope. Mild (1+) aortic valve insufficiency. Compared to echo report dated 08/17/2019, dilated left ventricle has normalized, with LV function intact. Aortic insufficiency appears to be about the same. The study was technically difficult. Contrast injection was performed. Ordering Physician: Valdemar Elizabeth Referring Physician: RENATE ANTUNEZ Performed By: Chitra Green, WALESKACS, RVT
== END ==
PROVIDERS: PCP Family Medicine; Referring Provider Internal Medicine Cardiovascular Disease; Visit Provider Internal Medicine Cardiovascular Disease
DX: Z01.810 Encounter for preprocedural cardiovascular examination (principal); I25.10 Atherosclerotic heart disease of native coronary artery without angina pectoris
CPT/HCPCS: 93306; Q9957; A4216; C8929

== ENCOUNTER → 2020-03-18 10:39 | Outpatient (CLI) | payer MEDICARE, SELFPAY ==
[2019-09-09 14:30] VITALS: BMI 31.2
[2020-02-22 10:40] VITALS: BMI 30.5
[2020-02-26 09:39] VITALS: BMI 31.2
[2020-03-11 10:57] VITALS: BMI 30.5
--- NOTE | 2020-03-18 10:40 | STEWCON_ITS ---
Reason For Study: PREOP Stress Results Protocol: Dobutamine Stress Echo With Definity Maximum Predicted HR: 147 bpm Target HR: 125 bpm % Maximum Predicted HR: 95 % DurationHeart Rate Stage (mm:ss) (bpm) BP Dose Comment BASELINE 83 140/86 5 CC TOTAL FOR TEST STAGE 1 3:00 104 152/7410.00 STAGE 2 3:13 139 / 20.00 RECOVERY 91 140/82 Stress Duration: 6:13 mm:ss Maximum Stress HR: 139 bpm Baseline Echocardiogram Findings The estimated ejection fraction is 65 %. Stress Echo Wall motion Data Resting WM Intermediate WM Stress WM Resting Wall Motion Wall Motion Stress No regional wall motion No regional wall motion abnormalities noted. abnormalities noted. EKG Data The baseline ECG displays normal sinus rhythm. The patient was titrated from 10 mcg to a maximum of 20 mcg of dobutamine during the stress. The maximum heart rate attained was 141 beats per minute. This was 95% of maximum predicted heart rate. During dobutamine infusion, there were no ST or T wave changes noted to suggest ischemia. No clinical angina was noted. Interpretation Summary The estimated ejection fraction is 65 %. Normal, adequate, treadmill echocardiogram. Negative for ischemia by EKG and echocardiographic criteria. Rare PVC and PAC noted. Appropriate blood pressure response to dobutamine. Test terminated due to the attainment of target heart rate. Final LVEF is 75%. Decrease sensitivity due to poor echo windows requiring Definity agent. No complications. The study was technically difficult. Contrast injection was performed. Ordering Physician: Valdemar Elizabeth MD Referring Physician: Valdemar Elizabeth Performed By: Chitra Green, KWAME, RVT
== END ==
PROVIDERS: PCP Family Medicine; Referring Provider Internal Medicine Cardiovascular Disease; Visit Provider Internal Medicine Cardiovascular Disease
DX: Z01.810 Encounter for preprocedural cardiovascular examination (principal); I25.10 Atherosclerotic heart disease of native coronary artery without angina pectoris; I10 Essential (primary) hypertension; E78.5 Hyperlipidemia, unspecified; R06.02 Shortness of breath
CPT/HCPCS: 93017; 93350; J7040; Q9957; A4216; C8928

== ENCOUNTER → 2020-03-23 13:25 | Outpatient (CLI) | payer MEDICARE, SELFPAY ==
[2020-02-26 09:39] VITALS: BMI 31.2
[2020-03-11 10:57] VITALS: BMI 30.5
--- NOTE | 2020-03-23 13:26 | CT_ITS ---
STUDY: CT PELVIS WITH CONTRAST REASON FOR EXAM: Female, 74 years old. LEFT SIDE BACK PAIN, SPINAL STENOSIS RADIATION DOSAGE (If Supplied By Facility): CTDIvol = ( 15.04 ) mGy, DLP = ( 550.36 ) mGycm TECHNIQUE: Transaxial imaging of the pelvis was performed without oral contrast. IV 100mL Isovue-370 was administered intravenously. Individualized dose optimization techniques were used for this CT. COMPARISON: None. FINDINGS: Normal urinary bladder. Normal visualized small intestine. There are multiple colonic diverticula of the sigmoid colon consistent with chronic diverticulosis. There is no pelvic fluid. There is no pelvic lymphadenopathy or mass lesion. There is diffuse atherosclerotic calcification of the pelvic arteries. Normal abdominal wall. Status post right total hip replacement. Mild degree of diffuse posterior disc bulge at the L4-L5 level with facet joint hypertrophy causing a mild degree of bilateral neural foraminal stenosis. CT/Pelvis WITH IV Contrast IMPRESSION: Sigmoid diverticulosis. Status post right hip replacement. Disc space bulging and mild stenosis at the L4-L5 level. Electronically Signed: Emerson Restrepo, at 15:03 EDT , Service support ,
[2020-03-23 13:46] LABS: CREATININE FINGERSTICK 0.7 mg/dL (0.55-1.02); EGFR FINGERSTICK > 60.0000 mL/min (>60)
== END ==
PROVIDERS: PCP Family Medicine; Referring Provider Orthopaedic Surgery; Visit Provider Orthopaedic Surgery
DX: D49.9 Neoplasm of unspecified behavior of unspecified site (principal)
CPT/HCPCS: 72193; Q9967

== ENCOUNTER → 2020-04-07 09:59 | Outpatient (CLI) | payer MEDICARE, SELFPAY ==
[2020-02-26 09:39] VITALS: BMI 31.2
[2020-03-11 10:57] VITALS: BMI 30.5
--- NOTE | 2020-04-07 10:00 | NM_ITS ---
CLINICAL: 74-year-old female with reported history of low back discomfort. LIMITED 99m Tc MDP THREE PHASE BONE SCINTIGRAPHY COMPARISON: Plain film radiograph report left hip 12/30/2019, CT of the pelvis report 03/23/2020 FINDINGS: Following the intravenous administration of 26.0 mCi of 99m Tc MDP, three-phase bone acquisitions of the lower thoracic-lumbar spine and pelvis reveal: 1. The flow and immediate static blood pool acquisitions demonstrate normal arterial phase distribution of the radiopharmaceutical. Subtle venous hyperemia is manifest in the region of the fifth lumbar vertebra posteriorly on the left-right. 2. Delayed images depict focal increased tracer concentration observed in the fifth lumbar vertebra posteriorly on the left and right correlating with the blood pool changes. 3. The remaining limited skeletal structures are scintigraphically unremarkable. A visualized right hip arthroplasty demonstrates no significant increase in tracer concentration. There is physiologic tracer uptake defined in the right-left kidneys and urinary bladder. NM/Bone Scan Three Phase IMPRESSION: 1. The increase in radiopharmaceutical concentration observed in the fifth lumbar vertebra on both blood pool and delayed acquisitions may represent trauma-fracture. Correlation with magnetic resonance imaging may be of benefit. Electronically Signed: Jonny Prieto DO at 23:30 EDT Tel , Service support ,
== END ==
PROVIDERS: PCP Family Medicine; Referring Provider Orthopaedic Surgery; Visit Provider Orthopaedic Surgery
DX: M53.3 Sacrococcygeal disorders, not elsewhere classified (principal)
CPT/HCPCS: 78315

== ENCOUNTER 2020-04-14 10:30 | Outpatient (RCR) | payer MEDICARE, SELFPAY ==
[2020-02-26 09:39] VITALS: BMI 31.2
[2020-03-11 10:57] VITALS: BMI 30.5
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
--- NOTE | 2020-04-14 11:03 | HP.PTDCSUM_ITS ---
It has been my pleasure to treat RAUL REYES referred by Dr. Anuel Fernandez DO, with the diagnosis of LUMBAR DISC DEGENERATION, L GREATER TROCH BURSITIS. for a total of 8 visit(s). Discharge Date: 04/14/20 Please see the following information for a summary of their discharge status. Subjective: PATIENT REPORTS THAT WHEN SHE GOT THE RESULTS OF HER BONE SCAN ON HER WEB PORTAL SHE CANCELLED PT BECAUSE SHE THOUGHT SHE MIGHT HAVE A FX OR CANCER. SHE REPORTS MEETING ON THE PHONE WITH DR. LOPEZ YESTERDAY AND HE TOLD HER SHE DOES NOT HAVE CANCER OR A FRACTION. NO MRI ORDERED. DR. LOPEZ RECOMMENDED FOLLOW UP WITH DR. TAY AND PATIENT PLANS TO MAKE AN [place]. OVER- ALL SHE REPORTS BEING ABLE TO TOLERATE PT WITHOUT GETTING WORSE BUT NO BETTER. SHE REPORTS THAT IF SHE STANDS FOR MORE THAN A FEW MINUTES HER LEFT FOOT GOES NUMB. % Improvement: 0 Objective/Function: PATIENT WAS SEEN TODAY FOR RE-ASSESSMENT OF PROGRESS TOWARD THE SET PT GOALS AND THE NEED FOR FURTHER PHYSICAL THERAPY VS READINESS FOR DISCHARGE. UPON EXAM TODAY THERE ARE OVER-ALL NO SIGNIFICANT CHANGES SINCE INITIAL EVAL AND PATIENT IS APPROPRIATE FOR DISCHARGE. SHE MAY BENEFIT FROM A TRIAL OF AQUATIC THERAPY IN CONJUNCTION WITH PAIN MGMT AFTER FOLLOW UP WITH DR. TAY. PATEINT IS AGREEABLE. Goal 1:: DECREASE C/O LOW BACK AND LEFT FOOT SX'S. Goal 2:: IMPROVE STANDING AND WALKING FUNCTION Goal 3:: INSTRUCT IN PROPHYLAXIS Plan: D/C DUE TO LACK OF IMPROVEMENT FOR NOW. PATIENT AGREEABLE. If there are questions or concerns regarding this patient's physical therapy, please feel free to call me at [phone]. Thank you for the referral of this patient. Sincerely, Cami James, PT, Cert MDT
== END 2020-04-14 19:00 | disposition home or self-care (01) ==
LOC: PT 10:30
PROVIDERS: PCP Family Medicine; Referring Provider Orthopaedic Surgery; Visit Provider Orthopaedic Surgery
DX: M70.62 Trochanteric bursitis, left hip (principal); M51.36 Other intervertebral disc degeneration, lumbar region
CPT/HCPCS: 97110; 97112; 97162; 97164

== ENCOUNTER → 2020-05-31 11:14 | Outpatient (CLI) | payer MEDICARE, SELFPAY ==
[2019-09-09 14:30] VITALS: BMI 31.2
[2019-10-10 10:05] VITALS: BMI 30.5
[2020-02-26 09:39] VITALS: BMI 31.2
[2020-03-11 10:57] VITALS: BMI 30.5
[2020-05-31 15:05] LABS: Absolute Lymphocyte Count 1.71 X10^3/uL (0.83-4.51); Absolute Neutrophil Count 7.5 X10^3/uL (2.0-7.7); Basophil# 0.03 X10^3/uL; Basophil% 0.3 % (0-1); Eosinophil# 0.07 X10^3/uL; Eosinophils% 0.7 % (0-5); Hematocrit 38.5 % (37-47); Hemoglobin 11.9 g/dL (12.0-15.0); Lymphocyte # 1.71 X10^3/ul (4.0); Mean Corp Hgb Conc 30.9 g/dL (32-36); Mean Corpuscular Hgb 29.6 pg (27.0-32.0); Mean Corpuscular Volume 95.8 fL (81-99); Mean Platelet Vol. 9.8 fl (6.2-12.0); Monocyte# 0.64 X10^3/uL; Monocyte% 6.4 % (0-10); NRBC Flagged by Analyzer 0 % (0-5); Neutrophil % 74.7 % (47-70); Platelet Count 364 K/mm3 (150-450); RBC Distribution Width CV 14.4 % (11.6-14.6); RBC Distribution Width SD 50.5 fl (35.1-43.9); Red Blood Count 4.02 M/mm3 (4.2-5.4)
[2020-05-31 15:15] LABS: ALB/GLOB Ratio 0.9 RATIO (0.9-2.4); AST(SGOT) 13 U/L (15-37); Alanine Aminotransfer ALT/SGPT 33 U/L (13-56); Albumin, Serum 3.4 g/dL (3.2-5.0); Alkaline Phosphatase 101 U/L (45-117); Anion Gap 4 (5-15); BUN 17 mg/dL (7-18); BUN/Creat Ratio 17.5 RATIO (10-20); Calcium,Total 9.1 mg/dL (8.5-10.1); Chloride 106 mmol/L (98-107); Creatinine, Serum 0.97 mg/dL (0.55-1.02); EST Glomerular Filtration Rate 60 mL/min (>60); Est Glom Filt Rate - Afr Amer 72 mL/min (>60); Globulin 3.7 g/dL (2.2-4.2); Glucose 96 mg/dL (74-106); Protein, Total 7.1 g/dL (6.4-8.2); Sodium Level 139 mmol/L (136-145); Uric Acid 4.1 mg/dL (2.6-6.0)
== END ==
PROVIDERS: Family Provider Family Medicine; PCP Family Medicine; Visit Provider Family Medicine
DX: D64.9 Anemia, unspecified (principal); I10 Essential (primary) hypertension; M10.9 Gout, unspecified
CPT/HCPCS: 36415; 80053; 84550; 85025

== ENCOUNTER 2020-12-19 06:12 | Outpatient (RCR) | payer MEDICARE, SELFPAY ==
[2020-02-26 09:39] VITALS: BMI 31.2
[2020-09-07 14:44] VITALS: BMI 29.3
== END 2020-12-19 23:59 ==
LOC: IMMUN 06:12
PROVIDERS: PCP Family Medicine; Visit Provider Family Medicine
DX: Z23 Encounter for immunization (principal)
CPT/HCPCS: 0011A; 0012A

== ENCOUNTER → 2021-04-13 08:18 | Outpatient (CLI) | payer MEDICARE, SELFPAY ==
[2020-02-26 09:39] VITALS: BMI 31.2
[2021-04-12 10:14] VITALS: BMI 29.8
[2021-04-13 09:27] LABS: Absolute Lymphocyte Count 3.06 X10^3/uL (0.83-4.51); Absolute Neutrophil Count 7.4 X10^3/uL (2.0-7.7); Basophil# 0.05 X10^3/uL; Basophil% 0.4 % (0-1); Eosinophil# 0.22 X10^3/uL; Eosinophils% 1.9 % (0-5); Hematocrit 38.7 % (37-47); Hemoglobin 12.2 g/dL (12.0-15.0); Lymphocyte # 3.06 X10^3/ul (0.83-4.51); Lymphocyte % 26.8 % (19-41); Mean Corp Hgb Conc 31.5 g/dL (32-36); Mean Corpuscular Hgb 30.3 pg (27.0-32.0); Mean Corpuscular Volume 96.3 fL (81-99); Monocyte# 0.59 X10^3/uL; Monocyte% 5.2 % (0-10); NRBC Flagged by Analyzer 0 % (0-5); Neutrophil # 7.35 X10^3/uL (2.7-7.7); Neutrophil % 64.4 % (47-70); Platelet Count 341 K/mm3 (150-450); RBC Distribution Width CV 14.1 % (11.6-14.6); RBC Distribution Width SD 49.8 fl (35.1-43.9); Red Blood Count 4.02 M/mm3 (4.2-5.4); White Blood Count 11.4 K/mm3 (4.4-11.0)
[2021-04-13 09:59] LABS: AST(SGOT) 8 U/L (15-37); Alanine Aminotransfer ALT/SGPT 19 U/L (13-56); Albumin, Serum 3.2 g/dL (3.2-5.0); Alkaline Phosphatase 113 U/L (45-117); Anion Gap 6 (5-15); BUN 20 mg/dL (7-18); BUN/Creat Ratio 20.3 RATIO (10-20); Bilirubin, Direct 0.13 mg/dL (0.00-0.30); Calcium,Total 8.8 mg/dL (8.5-10.1); Chloride 107 mmol/L (98-107); Cholesterol 240 mg/dL (200); Creatinine, Serum 0.99 mg/dL (0.55-1.02); EST Glomerular Filtration Rate 59 mL/min (>60); Est Glom Filt Rate - Afr Amer 71 mL/min (>60); Globulin 3.8 g/dL (2.2-4.2); Glucose 95 mg/dL (74-106); High Density Lipoprotein 68 mg/dL; Sodium Level 140 mmol/L (136-145); Triglycerides 192 mg/dL; Very Low Density Lipoprotein 38 mg/dL (5-40)
== END ==
PROVIDERS: PCP Family Medicine; Referring Provider Nurse Practitioner Family; Visit Provider Nurse Practitioner Family
DX: I11.0 Hypertensive heart disease with heart failure (principal); R06.00 Dyspnea, unspecified; I50.32 Chronic diastolic (congestive) heart failure; E78.5 Hyperlipidemia, unspecified; I25.10 Atherosclerotic heart disease of native coronary artery without angina pectoris; Z95.5 Presence of coronary angioplasty implant and graft; I35.1 Nonrheumatic aortic (valve) insufficiency
CPT/HCPCS: 36415; 80048; 80061; 80076; 83880; 85025

== ENCOUNTER → 2021-04-27 06:47 | Outpatient (CLI) | payer MEDICARE, SELFPAY ==
[2020-02-26 09:39] VITALS: BMI 31.2
[2021-04-12 10:14] VITALS: BMI 29.8
--- NOTE | 2021-04-27 12:57 | STRESSREP_ITS ---
Stress Test Report Pharmacologic myocardial perfusion stress test. Stress protocol: Resting EKG demonstrates sinus bradycardia with a rate of 57 bpm normal interv als are noted resting blood pressure is 130/72 mmHg. 0.4 mg of regadenoson was infused per usual protocol followed by rapid intravenous saline flush injection continuous EKG monitoring was performed. The patient maintained sinus rhythm throughout the recording. At rest there were no ST or T wave changes noted to suggest abnormal flow reserve and at peak infusion nonspecific ST changes were noted with did not meet the criteria for ischemia. No clinical angina was noted. The maximum heart rate was 102 bpm which was 69% of max infected heart rate. Myocardial perfusion protocol. 10.6 mCi of technetium 99m sestamibi was injected at rest. 0.4 mg of regadenoson was infused per usual protocol. At peak infusion 33.7 mCi of technetium 99m sestamibi was injected stress images were obtained stress and rest images were reconstructed and compared in the short axis vertical long and horizontal long axis. Gated images were also obtained. Perfusion SPECT analysis: Review of the stress images demonstrate normal uptake of tracer noted in all areas of the myocardium. The resting images demonstrate normal perfusion in all areas of the myocardium. No areas of reversibility are noted suggest ischemia and no previous infarct is noted. Gated SPECT analysis: The gated ejection fraction is 74%. Conclusion: Normal pharmacologic myocardial perfusion stress test. Preserved ejection fraction.
== END ==
PROVIDERS: PCP Family Medicine; Referring Provider Nurse Practitioner Family; Visit Provider Nurse Practitioner Family
DX: R07.9 Chest pain, unspecified (principal); R06.02 Shortness of breath; I25.10 Atherosclerotic heart disease of native coronary artery without angina pectoris; I35.0 Nonrheumatic aortic (valve) stenosis; I10 Essential (primary) hypertension; E78.5 Hyperlipidemia, unspecified
CPT/HCPCS: 78452; 93017; A9500; A4216; J2785

== ENCOUNTER → 2021-07-05 11:14 | Outpatient (CLI) | payer MEDICARE, SELFPAY ==
[2020-02-26 09:39] VITALS: BMI 31.2
--- NOTE | 2021-07-05 11:23 | BD_ITS ---
STUDY: DUAL ENERGY X-RAY ABSORPTIOMETRY / DXA REASON FOR EXAM: Female, 75 years old. OSTEOPENIA TECHNIQUE: Bone Mineral Density (BMD) measurements of lumbar spine and left hip were obtained. COMPARISON: Comparison is made with prior examination dated 11/26/2017. FINDINGS: Lumbar Spine (L1-L4): g/cm2 (0.862) / T-score (-1.4) / Z-score (0.9) Findings are suggestive of osteopenia with a low fracture risk. Left Femur Total: g/cm2 (0.796) / T-score (-1.2) / Z-score (0.6) Left Femoral Neck: g/cm2 (0.691) / T-score (-1.4) / Z-score (0.6) The T-Scores on the most recent prior examination were: Lumbar Spine (L1-L4): There has been worsening of bone density since the previous examination. Left Femur Total: which represents a worsening of 9%. BD/Dexa Bone Density Study IMPRESSION: The patient is considered osteopenic as outlined below according to World Héctor Organization (WHO) criteria with a moderate fracture risk. There has been worsening of bone density since the previous examination. Reference Information: The T-score is the number of standard deviations above or below the standard which is normal for young adults at their peak bone mineral density. The World Health Organization (WHO) interprets the T-scores as follows: Above -1 Normal bone density Between -1 and -2.5 Osteopenia Equal to / or below -2.5 Osteoporosis As a practical clinical guideline, osteopenia may be graded as follows: Mild -1 through -1.5 Moderate -1.6 through -2.0 Severe -2.1 through -2.4 The Z-score is the number of standard deviations above or below age-matched controls. A Z-score of less than -1.5 would be considered abnormal. References: 1. NIH Osteoporosis and Related Bone Diseases www osteo.org 2. International Society for Clinical Densitometry www iscd.org 3. National Osteoporosis Foundation www nof.org Electronically Signed: Emerson Restrepo MD at 12:46 EDT , Service support ,
== END ==
PROVIDERS: PCP Family Medicine; Referring Provider Family Medicine; Visit Provider Family Medicine
DX: M85.89 Other specified disorders of bone density and structure, multiple sites (principal)
CPT/HCPCS: 77080

== ENCOUNTER → 2021-07-06 10:50 | Outpatient (CLI) | payer MEDICARE, SELFPAY ==
[2020-02-26 09:39] VITALS: BMI 31.2
--- NOTE | 2021-07-06 10:51 | ECHOD_ITS ---
Reason For Study: SOB Procedure This was a 2D Doppler, Color Flow transthoracic echocardiogram. Exam performed in department. Left Ventricle Normal LV size. Left ventricular systolic function is normal. The estimated ejection fraction is 60 %. Stage 1 diastolic dysfunction. No regional wall motion abnormalities noted. Right Ventricle Normal RV size. Normal systolic function. Atria Normal left atrium. Normal right atrium. Mitral Valve Normal mitral valve. Tricuspid Valve Normal tricuspid valve. Mild tricuspid valve insufficiency. Pulmonary artery systolic pressure is 26 mmHg. Aortic Valve Trisinus/trileaflet aortic valve. Mild (1+) aortic valve insufficiency. Pulmonic Valve Normal pulmonic valve. Great Vessels Normal aortic root. The pulmonary artery is normal size. Normal inferior vena cava. Pericardium/Pleural No pericardial effusion. MMode/2D Measurements & Calculations LVIDd: 3.9 cm IVSd: 1.1 cm Ao root diam: 3.3 cm LVIDs: 2.6 cm LVPWd: 0.88 cm RVDd: 2.9 cm FS: 32.4 % LAV(MOD-bp): 27.1 ml LVAd ap4: 22.9 cm2 LVAd ap2: 20.2 cm2 LAV(MOD-bp) Indexed: 14.6 ml/m2 LVLd ap4: 7.2 cm LVLd ap2: 6.7 cm LAV(MOD-sp2): 32.2 ml EDV(MOD-sp4): 60.6 ml EDV(MOD-sp2): 51.7 ml LAV(MOD-sp4): 20.6 ml EDV(sp4-el): 61.9 ml EDV(sp2-el): 51.6 ml LVAs ap4: 15.5 cm2 LVAs ap2: 12.9 cm2 LVLs ap4: 6.6 cm LVLs ap2: 6.1 cm ESV(MOD-sp4): 32.7 ml ESV(MOD-sp2): 23.0 ml ESV(sp4-el): 30.8 ml ESV(sp2-el): 23.4 ml EF(MOD-sp4): 46.0 % EF(MOD-sp2): 55.5 % EF(sp4-el): 50.2 % SV(MOD-sp4): 27.9 ml SV(MOD-sp2): 28.7 ml SV(sp4-el): 31.1 ml LA dimension(2D): 3.2 cm LA A4 area: 10.4 cm2 RA A4 area: 8.6 cm2 Doppler Measurements & Calculations MV E max ricardo: 59.2 cm/sec Lat Peak E' Ricardo: 5.2 cm/sec Med Peak E' Ricardo: 5.4 cm/sec MV A max ricardo: 109.7 cm/sec E/E' lat: 11.4 E/E' med: 10.9 MV E/A: 0.54 Ao V2 max: 119.9 cm/sec AI max ricardo: 347.7 cm/sec LV V1 max: 98.1 cm/sec Ao max P.9 mmHg AI max P.4 mmHg LV V1 max P.0 mmHg AI dec slope: 166.9 cm/sec2 AI P1/2t: 610.1 msec PA V2 max: 108.6 cm/sec TR max ricardo: 234.9 cm/sec TR max P.1 mmHg ECHO/Echo Complete Interpretation Summary Normal LV size. Left ventricular systolic function is normal. The estimated ejection fraction is 60 %. Stage 1 diastolic dysfunction. Mild (1+) aortic valve insufficiency. Ordering Physician: Blnaco Arias/Preet Leahy Referring Physician: Lucy García Performed By: Magdalene Maloney RDCS
== END ==
PROVIDERS: PCP Family Medicine; Referring Provider Nurse Practitioner Family; Visit Provider Nurse Practitioner Family
DX: I25.10 Atherosclerotic heart disease of native coronary artery without angina pectoris (principal); I10 Essential (primary) hypertension; E78.5 Hyperlipidemia, unspecified; R06.02 Shortness of breath; Z95.5 Presence of coronary angioplasty implant and graft
CPT/HCPCS: 93306

== ENCOUNTER → 2021-07-27 09:21 | Outpatient (CLI) | payer MEDICARE, SELFPAY ==
[2020-02-26 09:39] VITALS: BMI 31.2
--- NOTE | 2021-07-30 07:44 | PFT ---
INTRODUCTION: The patient is a 75-year-old female that presents for pulmonary function studies secondary to a diagnosis of dyspnea. Respiratory therapy reported good patient effort. Bronchodilators were used during testing. INTERPRETATION: Forced expiration spirometry demonstrates no evidence of a large airways obstructive ventilatory defect. There was no significant response to aerosolized bronchodilators. Spirograms are of good quality and plateau normally. Body plethysmography was performed and revealed a decreased TLC to 3.32 L, 73% of predicted, indicative of a mild restrictive ventilatory impairment. Diffusing capacity by single breath CO is mildly reduced to 65% of predicted. IMPRESSION: Mild restrictive ventilatory impairment with symmetric reduction in diffusing capacity.
== END ==
PROVIDERS: PCP Family Medicine; Referring Provider Nurse Practitioner Family; Visit Provider Nurse Practitioner Family
DX: R06.00 Dyspnea, unspecified (principal); I25.10 Atherosclerotic heart disease of native coronary artery without angina pectoris; I35.1 Nonrheumatic aortic (valve) insufficiency; I50.32 Chronic diastolic (congestive) heart failure; R94.2 Abnormal results of pulmonary function studies
CPT/HCPCS: 94060; 94726; 94729

== ENCOUNTER → 2021-08-11 16:02 | Outpatient (CLI) | payer MEDICARE, SELFPAY ==
[2020-02-26 09:39] VITALS: BMI 31.2
--- NOTE | 2021-08-11 16:05 | RAD_ITS ---
STUDY: X-RAY CHEST REASON FOR EXAM: Female, 75 years old. Pre-operative, SOB TECHNIQUE: PA and lateral views of the chest. COMPARISON: 02/22/2020 FINDINGS: The lungs are clear and expanded. There is no demonstrated pleural abnormality. Normal size heart. Normal mediastinum and saima. Normal visualized pulmonary arteries. There is atherosclerotic calcification of the aortic arch with tortuosity. No acute bony process. There is no demonstrated abnormality of the visualized soft tissue structures of the upper abdomen. RAD/Chest PA and Lateral IMPRESSION: No acute cardiopulmonary process. Electronically Signed: Igor Kim MD ([place]) at 20:06 EDT , Service support ,
[2021-08-11 17:12] LABS: Absolute Lymphocyte Count 2.65 X10^3/uL (0.83-4.51); Absolute Neutrophil Count 11.3 X10^3/uL (2.0-7.7); Basophil# 0.05 X10^3/uL; Basophil% 0.3 % (0-1); Eosinophil# 0.11 X10^3/uL; Eosinophils% 0.7 % (0-5); Hemoglobin 12.5 g/dL (12.0-15.0); Lymphocyte # 2.65 X10^3/ul (0.83-4.51); Lymphocyte % 17.4 % (19-41); Mean Corp Hgb Conc 32.1 g/dL (32-36); Mean Corpuscular Hgb 30.8 pg (27.0-32.0); Mean Corpuscular Volume 96.1 fL (81-99); Mean Platelet Vol. 9.7 fl (6.2-12.0); Monocyte# 0.92 X10^3/uL; NRBC Flagged by Analyzer 0 % (0-5); Neutrophil # 11.31 X10^3/uL (2.7-7.7); Neutrophil % 74.4 % (47-70); Platelet Count 383 K/mm3 (150-450); RBC Distribution Width CV 14.2 % (11.6-14.6); RBC Distribution Width SD 49.8 fl (35.1-43.9); Red Blood Count 4.06 M/mm3 (4.2-5.4); White Blood Count 15.2 K/mm3 (4.4-11.0)
[2021-08-11 17:40] LABS: Anion Gap 7 (5-15); BUN 28 mg/dL (7-18); BUN/Creat Ratio 20.9 RATIO (10-20); Calcium,Total 9.3 mg/dL (8.5-10.1); Chloride 104 mmol/L (98-107); Creatinine, Serum 1.34 mg/dL (0.55-1.02); EST Glomerular Filtration Rate 41 mL/min (>60); Est Glom Filt Rate - Afr Amer 50 mL/min (>60); Glucose 109 mg/dL (74-106); Potassium 3.7 mmol/L (3.5-5.1); Sodium Level 139 mmol/L (136-145)
== END ==
PROVIDERS: PCP Family Medicine; Referring Provider Nurse Practitioner Family; Visit Provider Nurse Practitioner Family
DX: Z01.811 Encounter for preprocedural respiratory examination (principal); R06.02 Shortness of breath; I25.10 Atherosclerotic heart disease of native coronary artery without angina pectoris; I11.0 Hypertensive heart disease with heart failure; I50.32 Chronic diastolic (congestive) heart failure; I35.1 Nonrheumatic aortic (valve) insufficiency; E78.5 Hyperlipidemia, unspecified; Z95.5 Presence of coronary angioplasty implant and graft
CPT/HCPCS: 36415; 71046; 80048; 85025

== ENCOUNTER 2021-08-18 11:21 | Emergency (ER) | payer MEDICARE, SELFPAY ==
[2020-02-26 09:39] VITALS: BMI 31.2
[2021-08-18 11:21] VITALS: BP 131/60; PULSE 103; RESP 22; TEMP 37.3; O2SAT 98
--- NOTE | 2021-08-18 12:01 | EKG12_ITS ---
Test Reason : SOB Blood Pressure : / mmHG Vent. Rate : 085 BPM Atrial Rate : 085 BPM P-R Int : 144 ms QRS Dur : 080 ms QT Int : 334 ms P-R-T Axes : 030 -27 004 degrees QTc Int : 397 ms Normal sinus rhythm Leftward axis Nonspecific ST and T wave abnormality Abnormal ECG Confirmed by KILO MARS, RONNELL ([id number]), international editorial producer DANA BOWLES ([id number]) on 08/22/2021 9:08:05 AM Referred By: [place] Confirmed By:RONNELL BOATENG MD
[2021-08-18 12:20] LABS: Absolute Lymphocyte Count 0.55 X10^3/uL (0.83-4.51); Absolute Neutrophil Count 6.2 X10^3/uL (2.0-7.7); Basophil# 0.02 X10^3/uL; Basophil% 0.3 % (0-1); Eosinophil# 0.05 X10^3/uL; Eosinophils% 0.7 % (0-5); Hematocrit 33.5 % (37-47); Hemoglobin 10.7 g/dL (12.0-15.0); Lymphocyte # 0.55 X10^3/ul (0.83-4.51); Lymphocyte % 7.5 % (19-41); Mean Corp Hgb Conc 31.9 g/dL (32-36); Mean Corpuscular Hgb 30.3 pg (27.0-32.0); Mean Corpuscular Volume 94.9 fL (81-99); Mean Platelet Vol. 9.5 fl (6.2-12.0); Monocyte# 0.45 X10^3/uL; Monocyte% 6.1 % (0-10); NRBC Flagged by Analyzer 0 % (0-5); Neutrophil # 6.23 X10^3/uL (2.7-7.7); Neutrophil % 84.5 % (47-70); POSITIVE DIFFERENTIAL YES; Platelet Count 192 K/mm3 (150-450); RBC Distribution Width CV 14.3 % (11.6-14.6); RBC Distribution Width SD 49.8 fl (35.1-43.9); Red Blood Count 3.53 M/mm3 (4.2-5.4); White Blood Count 7.4 K/mm3 (4.4-11.0)
[2021-08-18 12:22] LABS: Differential Indicated SCAN CRITERIA MET
--- NOTE | 2021-08-18 12:22 | EDS_ITS ---
HPI History of Present Illness Chief Complaint: Shortness of Breath Informant: patient Onset/Context/Timing Onset: Weeks Context: gradual Timing: Continuous Quality: Positive for Dyspnea on exertion Worsened by: Exertion Relieved by: Rest Associated Symptoms cough; Negative for rhinorrhea, ear pain, fever, sore throat, chills, clear sputum, white sputum, yellow sputum or green sputum Chest Pain: Positive for Tightness Narrative Narrative: Patient presents with shortness of breath that has been getting worse over the past few weeks. Patient states her breathing is worse with any exertion. Patient states her symptoms are better with rest. Patient states she was scheduled for a heart catheterization but her insurance plan denied it. Patient states she has some tightness in her chest that is worse with any exertion as well. Patient states this feels similar to the symptoms she was having prior to her heart catheterization in the past. Patient admits to a coug h but denies any sputum production. [facility] Medical History Essential hypertension GERD (gastroesophageal reflux disease) Gout HLD (hyperlipidemia) Lab test negative for COVID-19 virus Pneumonia Restrictive pattern present on pulmonary function testing Shortness of breath Tachycardia Home Medications allopurinol 300 mg tablet 300 mg PO DAILY 01/08/19 [History Last Taken 12/30/19] cetirizine 10 mg capsule 10 mg PO QDAY cap 01/08/19 [History Last Taken Unknown] clonidine HCl 0.2 mg tablet 0.2 mg PO QDAY tab 01/08/19 [History Last Taken 12/30/19] omeprazole 20 mg tablet,delayed release 20 mg PO DAILY 01/08/19 [History Last Taken 12/30/19] cannabidiol 100 mg/mL oral solution 1,500 mg PO BID ml 07/28/19 [History Last Taken 12/30/19] multivitamin 1 tab PO DAILY 07/28/19 [History Last Taken 12/30/19] aspirin 81 mg tablet,delayed release 81 mg PO DAILY #30 tab 08/28/19 [Rx Last Taken 12/30/19] nitroglycerin 0.4 mg SUBLINGUAL Q5M PRN #25 tab.subl 09/10/19 [Rx Last Taken 12/30/19] omega-3 acid ethyl esters 1 gram capsule 1 cap PO BID #180 cap 02/10/21 [Rx Last Taken Unknown] meloxicam 15 mg tablet 15 mg PO DAILY 04/12/21 [History Last Taken Unknown] tramadol 50 mg tablet 50 mg PO BID PRN 04/12/21 [History Last Taken Unknown] gabapentin 100 mg capsule 100 mg PO TID 08/11/21 [History Last Taken Unknown] losartan 100 mg tablet 50 mg PO DAILY tab 08/11/21 [History Last Taken Unknown] furosemide 20 mg tablet 40 mg PO .PRN #180 tab 08/14/21 [Rx Last Taken Unknown] isosorbide mononitrate 30 mg tablet,extended release 24 hr 30 mg PO DAILY #30 tab 08/18/21 [Rx Last Taken Unknown] Allergy/AdvReac Type Severity Reaction Status Date / Time gemfibrozil [From Lopid] Allergy Severe Emir Verified 08/11/21 14:53 Hector Syndsome lisinopril AdvReac Intermediate cough Verified 08/11/21 14:53 Family History Mother Breast cancer Congenital heart disease Myocardial infarction Father CHF (congestive heart failure) Myocardial infarction Sister Myocardial infarction CHF (congestive heart failure) Surgical History H/O section History of coronary artery stent placement (09/09/19) History of right hip replacement Social History current occupational status: retired Smoking Status: Former smoker how long ago did patient quit smokin, 0.5ppd second hand exposure: Yes ROS ROS ED Constitutional Constitutional ED: Denies chills or fever(s) Eyes Eyes: Denies blurry vision or change in vision ENT ENT ED: Denies rhinorrhea or sore throat Cardiovascular Cardiovascular: Reports chest pain; Denies palpitations Respiratory/Chest Respiratory/Chest: Reports cough and dyspnea; Denies sputum Gastrointestinal Gastrointestinal: Denies nausea or vomiting Genitourinary Genitourinary ED: Denies dysuria or hematuria Musculoskeletal Musculoskeletal: Denies back pain or neck pain Integumentary Denies abscess or rash Neurologic Neurologic: Denies headache(s) or weakness Allergic/Immunologic Allergic/Immunologic ED: Denies mouth swelling or urticaria EXAM Physical Exam Const Vital Signs: 08/18/21 11:21 08/18/21 12:24 08/18/21 12:26 Temperature 99.1 F Temperature Source Temporal Pulse Rate 103 H 86 Respiratory Rate 22 H 20 H Respiratory Effort Normal Blood Pressure 131/60 H 125/67 H Blood Pressure Mean 83 86 Pulse Ox 98 95 Oxygen Delivery Method Room Air Room Air Room Air 08/18/21 13:02 08/18/21 15:53 08/18/21 16:52 Temperature Temperature Source Pulse Rate 75 69 72 Respiratory Rate 20 H 20 H 16 Respiratory Effort Blood Pressure 144/72 H 128/93 H 142/83 H Blood Pressure Mean 96 104 Pulse Ox 99 96 98 Oxygen Delivery Method Room Air Room Air Positive well nourished and well developed General Appearance ED: well developed HEENT Reports moist mucous membranes Neck supple and no JVD Resp normal respiratory effort and clear to auscultation bilaterally Cardio regular rate, regular rhythm and no murmurs GI normal to inspection, nondistended, normoactive bowel sounds and non-tender Palpation: soft Extremity normal to inspection General Extremety ED: Negative for edema or tenderness General Extremity: Negative for edema Neuro oriented x3, CN's II-XII intact bilaterally and no sensory deficits noted Sensorium / Orientation: alert Motor Exam: strength 5/5 throughout Psych mental status grossly normal Skin no rashes or lesions noted MDM MDM MDM Narrative Medical decision making narrative: Patient was given aspirin and sublingual nitroglycerin here. EKG was obtained. On my interpretation, it showed a normal sinus rhythm with a rate of 85. CA interval, QRS interval, and QTc intervals were all normal. [place] was normal. There are nonspecific ST and T wave changes. This was unchanged compared to previous EKG. CBC and basic metabolic profile were obtained. Creatinine was slightly elevated at 1.37. High-sensitivity troponin was normal at 6. 2-hour repeat high-sensitivity troponin was normal at 6. Portable 1 view chest x-ray was obtained. On my interpretation, lung serrano are clear. There is normal cardiac silhouette. Bony thorax is normal. There is no acute process noted. Radiologist also interpreted the x-ray and agrees. Patient had a recent COVID-19 rapid antigen which was negative. Patient requested a PCR test be performed. This was ordered and is pending. It Support Specialist office called and was able to get her heart catheterization approved. It is scheduled for September 05. They state the patient does not need to be admitted for this. Patient was advised of her findings. 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 Patient was also instructed to follow-up with her primary care physician. Patient was instructed return if worse in any way. Patient and family understood and were agreeable with the plan. All questions were answered Lab Data Attestation: I reviewed the patient's lab results. Labs: Laboratory Results - last 24 hr 08/18/21 08/18/21 08/18/21 12:10 12:10 15:25 WBC 7.4 RBC 3.53 L Hgb 10.7 L Hct 33.5 L MCV 94.9 MCH 30.3 MCHC 31.9 L RDW Std Deviation 49.8 H RDW Coeff of Yue 14.3 Plt Count 192 MPV 9.5 Immature Gran % (Auto) 0.900 Neut % (Auto) 84.5 H Lymph % (Auto) 7.5 L [place] % (Auto) 6.1 Eos % (Auto) 0.7 Baso % (Auto) 0.3 Absolute Neuts (auto) 6.2 Absolute Lymphs (auto) 0.55 L Nucleated RBC % 0 Differential Comment SCANNED Sodium 138 Potassium 3.9 Chloride 108 H Carbon Dioxide 24.0 Anion Gap 6 BUN 17 Creatinine 1.37 H Estim Creat Clear Calc 31.11 Est GFR (MDRD) Af Amer 48 L Est GFR (MDRD) Non-Af 40 L BUN/Creatinine Ratio 12.4 Glucose 117 H Calcium 8.3 L Troponin I High Sens 6 6 Radiography Chest X-Ray - ED: 1 View, Read by ED Physician, Read by Radiologist and Normal Diagnostic Testing: Clinical Impression(s) from Imaging Studies Chest X-Ray 08/18/21 12:30 IMPRESSION: No acute abnormalities seen. Electronically Signed: Emerson Restrepo MD at 12:41 EDT , Service support , EKG Initial EKG: Attestation: I personally reviewed and interpreted this EKG as follows: Interpretation: Sinus Rhythm (85) and Non-Specific ST Changes Prior EKG tracings: available for review Prior: Unchanged (08/11/2021) Discharge Plan Triage Chief Complaint: Shortness of Breath ED Provider: Helder Amaya Dx/Rx/DC Orders Clinical Impression: Dyspnea Instructions: ED Dyspnea Prescriptions: No Action allopurinol 300 mg tablet 300 mg PO DAILY RF: 0 clonidine HCl 0.2 mg tablet 0.2 mg PO QDAY RF: 0 omeprazole 20 mg tablet,delayed release (DR/EC) 20 mg PO DAILY RF: 0 Zyrtec 10 mg capsule 10 mg PO QDAY RF: 0 multivitamin Tablet 1 tab PO DAILY RF: 0 cannabidiol 100 mg/mL solution 1,500 mg PO BID RF: 0 tramadol 50 mg tablet 50 mg PO BID PRN (Reason: Pain) RF: 0 meloxicam 15 mg tablet 15 mg PO DAILY RF: 0 gabapentin 100 mg capsule 100 mg PO TID RF: 0 nitroglycerin 0.4 MG tablet, sublingual 0.4 mg sublingual Q5M PRN (Reason: Cardiac/Chest Pain) Qty: 25 RF: 3 aspirin [Adult Aspirin Regimen] 81 mg tablet,delayed release (DR/EC) 81 mg PO DAILY Qty: 30 RF: 0 omega-3 acid ethyl esters 1 gram capsule 1 cap PO BID Qty: 180 RF: 3 losartan 100 mg tablet 50 mg PO DAILY RF: 0 furosemide [Lasix] 20 mg tablet 40 mg PO .PRN Qty: 180 RF: 3 isosorbide mononitrate 30 mg tablet extended release 24 hr 30 mg PO DAILY Qty: 30 RF: 3 Primary Care Provider: Lucy García Referrals: Preet Leahy MD [STAFF PHYSICIAN] - 3-5 Days Lucy García MD [Primary Care Provider] - 3-5 Days Disposition Disposition: Home, Self Care Discharge Date/Time: 08/18/21 16:53
[2021-08-18 12:26] VITALS: BP 125/67; PULSE 86; RESP 20; O2SAT 95; O2SAT 98
--- NOTE | 2021-08-18 12:30 | RAD_ITS ---
STUDY: X-RAY CHEST REASON FOR EXAM: Female, 75 years old. One week history of chest pain and shortness of breath. TECHNIQUE: Single AP portable view of the chest. COMPARISON: Comparison is made with prior study 08/11/2021. FINDINGS: EKG electrodes are seen. The lungs are clear and expanded. There is no demonstrated pleural abnormality. Normal size heart. Normal mediastinum and saima. Normal visualized pulmonary arteries. There is atherosclerotic tortuosity of the aortic arch and descending thoracic aorta. There are diffuse degenerative changes of the visualized thoracic spine. Normal visualized ribs, clavicles, and shoulders. There is no demonstrated abnormality of the visualized soft tissue structures of the upper abdomen. RAD/Chest 1 View (Portable) IMPRESSION: No acute abnormalities seen. Electronically Signed: Emerson Restrepo MD at 12:41 EDT , Service support ,
[2021-08-18] MEDS: Aspirin 81 MG TAB.CHEW 324 MG PO (12:32)
[2021-08-18 12:38] LABS: Anion Gap 6 (5-15); BUN 17 mg/dL (7-18); BUN/Creat Ratio 12.4 RATIO (10-20); Calcium,Total 8.3 mg/dL (8.5-10.1); Chloride 108 mmol/L (98-107); Creatinine, Serum 1.37 mg/dL (0.55-1.02); EST Glomerular Filtration Rate 40 mL/min (>60); Est Glom Filt Rate - Afr Amer 48 mL/min (>60); Estimated Creatinine Clearance 31.11 ml/min; Glucose 117 mg/dL (74-106); Potassium 3.9 mmol/L (3.5-5.1); Sodium Level 138 mmol/L (136-145); Troponin-I HS 6 pg/mL (3.0-54.0)
[2021-08-18 12:39] LABS: Differential Comment SCANNED
[2021-08-18 13:02] VITALS: BP 144/72; PULSE 75; RESP 20; O2SAT 99
[2021-08-18 15:50] LABS: Troponin-I HS 6 pg/mL (3.0-54.0)
[2021-08-18 15:53] VITALS: BP 128/93; PULSE 69; RESP 20; O2SAT 96
--- NOTE | 2021-08-18 16:22 | ED.RN ---
Addendum entered by Liza Chowdary 08/18/21 16:30: PT REPORTS THAT SHE JUST STARTED HAVING COLD CHILLS AFTER THE HAD LEFT THE ROOM. PT GIVEN WARM BLANKETS. ORAL TEMP 99.7. PER DAUGHTER PT WAS NEGATIVE FOR COVID ON SATURDAY. PT SPO2 95 ON ROOM AIR PLACED ON 2LNC PER FAMILY REQUEST. PT CONTINUES TO HYPERVENTILATE. DR. ATKINSON AND CHARGE NURSE PEPPER INFORMED OF PT CHANGE. Original Note: THIS RN AT BEDSIDE TO DISCHARGE PT, PT TACHYPNIC AND COMPLAINTS OF SOB.
[2021-08-18 16:52] VITALS: BP 142/83; PULSE 72; RESP 16; O2SAT 98
== END 2021-08-18 16:53 | disposition home or self-care (01) ==
PROVIDERS: Emergency Provider Emergency Medicine; PCP Family Medicine
DX: R06.02 Shortness of breath (principal); R07.89 Other chest pain; I10 Essential (primary) hypertension; E78.5 Hyperlipidemia, unspecified; K21.9 Gastro-esophageal reflux disease without esophagitis; M10.9 Gout, unspecified; Z79.82 Long term (current) use of aspirin; Z79.899 Other long term (current) drug therapy; Z87.891 Personal history of nicotine dependence; Z82.49 Family history of ischemic heart disease and other diseases of the circulatory system
CPT/HCPCS: 71045; 80048; 84484; 85025; 87635; 93005; 99285; U0005; A4216; U0003

== ENCOUNTER 2021-09-05 06:59 | Day surgery (SDC) | payer MEDICARE, SELFPAY ==
[2020-02-26 09:39] VITALS: BMI 31.2
--- NOTE | 2021-09-05 08:19 | CL.D_ITS ---
Patient Name: RAUL REYES Study Date: 09/05/2021 Performing: Preet Leahy MD Ht: 65 inches 164 cm : 1945 Wt: 174.4 lbs 79 kg Age: 75 Gender: female BSA: 1.86 PROCEDURE(S) PERFORMED [id number]/LV CLINICAL PROFILE AND INDICATIONS Indications: Suspected CAD Heart Failure: None Stress/Imaging Stress/Image Study Performed: No CAD Presentations: Symptom unlikely to be ischemic. CONCLUSIONS Non obstructive coronary arteries Previously placed LAD stents patent RECOMMENDATIONS Medical therapy DESCRIPTION OF PROCEDURE The patient arrived to the procedure lab. The risks and benefits of the procedure as well as a full d escription of our services here and current unavailability of surgical backup were fully explained to the patient and/or their significant other prior to the catheterization. The Timeout was completed, verifying the correct patient and procedure. The patient's procedural site was prepped and draped in the usual fashion. Local anesthetic was given subcutaneously to right radial region with Lidocaine 2% . Using a modified Seldinger technique, arterial access was obtained via the right radial artery, a 6 Fr sheath was inserted. Right Coronary Artery selective angiography was then performed in multiple v iews using a 5 Fr. 4.0 Blodgett catheter. Left Coronary Artery selective angiography was performed in mu ltiple views using a 5 Fr. 4.0 Blodgett catheter. Left Ventriculography was performed in HERNANDEZ projection using a 5 Fr. Pigtail catheter. LV to AO pullback pressures were then recorded.The arterial sheath was pulled and a TR Band was applied for hemostasis CORONARY ANGIOGRAPHY DOMINANCE: Left Dominant LEFT HEART ASSESSMENT Left Ventricular Ejection Fraction: by LV Gram 55 % Normal LV wall motion Normal Left Ventricular systolic function LEFT MAIN: No significant disease noted LEFT ANTERIOR DESCENDING ARTERY: PROX LAD: Previously placed stent is patent MID LAD: Mild luminal irregularities less than 30% DISTAL LAD: Mild luminal irregularities less than 30% CIRCUMFLEX ARTERY: Mild luminal irregularities less than 30% RIGHT CORONARY ARTERY: No significant disease noted COMPLICATIONS No Complications PROCEDURE MEDICATIONS Versed 1 mg IV Fentanyl 50 mcg IV Versed 1 mg IV Baby Aspirin (81mg) 1 Tabs PO @ 09/05/2021 07:26:44 Heparin given IA 09/05/2021 07:57:47 Verapamil 2.5mg, Ntg 100mcgs, 3000 units of Heparin given IA 09/05/2021 07:57:47 SUMMARY OF HEMODYNAMIC DATA Time AIR REST ECG 07:21:13 Art 152/65 (95) 07:54:31 AO 119/56 (81) SA 08:02:24 LV 133/0, 6 08:09:29 LV 134/2, 13 08:09:35 LV 117/5, 10 08:10:12 LV 118/3, 12 08:10:18 LVp 117/7, 19 08:10:23 AOp 122/58 (85) 08:10:28 Signed By Preet Leahy MD On 09/05/2021 08:18:53 Preet Leahy MD
== END 2021-09-05 10:25 | disposition home or self-care (01) ==
PROVIDERS: PCP Family Medicine; Referring Provider Internal Medicine Cardiovascular Disease; Visit Provider Internal Medicine Cardiovascular Disease
DX: R06.09 Other forms of dyspnea (principal); R06.01 Orthopnea; R05.3 Chronic cough; I35.1 Nonrheumatic aortic (valve) insufficiency; I10 Essential (primary) hypertension; E78.5 Hyperlipidemia, unspecified; K21.9 Gastro-esophageal reflux disease without esophagitis; Z95.5 Presence of coronary angioplasty implant and graft; Z79.82 Long term (current) use of aspirin; Z87.891 Personal history of nicotine dependence; Z82.49 Family history of ischemic heart disease and other diseases of the circulatory system
CPT/HCPCS: 93458; 99152; 99153; J7040; Q9967; C1769; C1894

== ENCOUNTER 2021-09-25 08:32 | Inpatient (IN) | payer MEDICARE, SELFPAY ==
[2020-02-26 09:39] VITALS: BMI 31.2
[2021-09-25] VITALS (24 sets, daily range): BP systolic 136–185; BP diastolic 77–149; PULSE 84–138; RESP 12–36; TEMP 36.6–36.8; O2SAT 83–100; BMI 33.4; BMI 31.4
--- NOTE | 2021-09-25 08:44 | EKG12_ITS ---
Test Reason : SOB Blood Pressure : / mmHG Vent. Rate : 116 BPM Atrial Rate : 178 BPM P-R Int : 000 ms QRS Dur : 094 ms QT Int : 380 ms P-R-T Axes : 000 -44 102 degrees QTc Int : 528 ms Sinus tachycardia with PVC's Left axis deviation Anterior infarct , age undetermined Marked ST abnormality, possible lateral subendocardial injury Prolonged QT Abnormal ECG Confirmed by SOUTH MARS, MARGARET ([id number]), news videotape editor DANA BOWLES ([id number]) on 09/27/2021 1:56:03 PM Referred By: ADRY Confirmed By:MARGARET DIA MD
--- NOTE | 2021-09-25 08:44 | RAD_ITS ---
STUDY: X-RAY CHEST REASON FOR EXAM: Female, 75 years old. Dyspnea and shortness of breath. TECHNIQUE: Single AP portable view of the chest. COMPARISON: Comparison is made with prior study 08/18/2021. FINDINGS: EKG electrodes are seen. There is no evidence of vascular congestion mild degree of CHF. Atelectasis and/or infiltrate at both lung bases worse on the left side. Blunting of the costophrenic angles bilaterally. There is mild cardiac enlargement. Normal mediastinum and saima. Normal visualized pulmonary arteries. There is atherosclerotic tortuosity of the aortic arch and descending thoracic aorta. There are diffuse degenerative changes of the visualized thoracic spine. Normal visualized ribs, clavicles, and shoulders. There is no demonstrated abnormality of the visualized soft tissue structures of the upper abdomen. RAD/Chest 1 View (Portable) IMPRESSION: Cardiomegaly and CHF with evidence of atelectasis and/or infiltrates at the lung bases. Electronically Signed: Emerson Restrepo MD at 9:53 EST , Service support ,
[2021-09-25] MEDS: Albuterol 2.5 MG/3 ML VIAL.NEB. INHALATION (09:04)
[2021-09-25] MEDS: Ipratropium/Albuterol Sulfate 3 ML AMPUL.NEB INHALATION (09:04)
--- NOTE | 2021-09-25 09:10 | EKG12_ITS ---
Test Reason : Blood Pressure : / mmHG Vent. Rate : 136 BPM Atrial Rate : 136 BPM P-R Int : 134 ms QRS Dur : 104 ms QT Int : 382 ms P-R-T Axes : 026 -41 076 degrees QTc Int : 574 ms Sinus tachycardia with Premature supraventricular complexes and with occasional Premature ventricular complexes Left axis deviation Nonspecific ST and T wave abnormality Abnormal ECG Confirmed by SOUTH MARS, MARGARET ([id number]), deputy editor in chief DANA BOWLES ([id number]) on 09/27/2021 1:56:44 PM Referred By: RHONDA Confirmed By:MARGARET DIA MD
[2021-09-25] MEDS: dilTIAZem 25 MG/5 ML Vial IV BOLUS (09:13)
[2021-09-25] MEDS: MethylPREDNISolone 125 MG/2 ML Vial IV (09:13)
[2021-09-25 09:14] LABS: Absolute Lymphocyte Count 2.09 X10^3/uL (0.83-4.51); Absolute Neutrophil Count 8.8 X10^3/uL (2.0-7.7); Basophil# 0.04 X10^3/uL; Basophil% 0.3 % (0-1); Eosinophil# 0.25 X10^3/uL; Eosinophils% 2.1 % (0-5); Hematocrit 34.8 % (37-47); Hemoglobin 11.3 g/dL (12.0-15.0); Lymphocyte # 2.09 X10^3/ul (0.83-4.51); Lymphocyte % 17.6 % (19-41); Mean Corp Hgb Conc 32.5 g/dL (32-36); Mean Corpuscular Hgb 30.6 pg (27.0-32.0); Mean Corpuscular Volume 94.3 fL (81-99); Mean Platelet Vol. 10.4 fl (6.2-12.0); Monocyte# 0.58 X10^3/uL; Monocyte% 4.9 % (0-10); NRBC Flagged by Analyzer 0 % (0-5); Neutrophil # 8.84 X10^3/uL (2.7-7.7); Neutrophil % 74.6 % (47-70); Platelet Count 284 K/mm3 (150-450); RBC Distribution Width CV 14.7 % (11.6-14.6); RBC Distribution Width SD 50.2 fl (35.1-43.9); Red Blood Count 3.69 M/mm3 (4.2-5.4); White Blood Count 11.9 K/mm3 (4.4-11.0)
[2021-09-25 09:19] LABS: Partial Thromboplast Time 25.5 Seconds (24.1-36.2)
[2021-09-25 09:33] LABS: ALB/GLOB Ratio 0.7 RATIO (0.9-2.4); AST(SGOT) 18 U/L (15-37); Alanine Aminotransfer ALT/SGPT 33 U/L (13-56); Albumin, Serum 2.9 g/dL (3.2-5.0); Alkaline Phosphatase 87 U/L (45-117); Anion Gap 9 (5-15); BUN 13 mg/dL (7-18); BUN/Creat Ratio 11.9 RATIO (10-20); Calcium,Total 8.6 mg/dL (8.5-10.1); Chloride 114 mmol/L (98-107); Creatinine, Serum 1.09 mg/dL (0.55-1.02); EST Glomerular Filtration Rate 52 mL/min (>60); Est Glom Filt Rate - Afr Amer 63 mL/min (>60); Globulin 4.2 g/dL (2.2-4.2); Glucose 145 mg/dL (74-106); Potassium 3.6 mmol/L (3.5-5.1); Protein, Total 7.1 g/dL (6.4-8.2); Sodium Level 144 mmol/L (136-145); Troponin-I HS 28 pg/mL (3.0-54.0)
[2021-09-25 09:39] LABS: BNP,B-Type NATRIURETIC PEPTIDE 711.7 pg/mL (0-100)
--- NOTE | 2021-09-25 09:45 | EDS_ITS ---
HPI History of Present Illness Chief Complaint: Shortness of Breath Narrative Narrative: Patient presenting with shortness of breath for the last 3 days. Patient has difficulty giving a history because she is so dyspneic. Her son states that she called him this morning and he arrived at about 730 and found her with shortness of breath. He states she appears a little bit pale. She has not been able to communicate well due to her shortness of breath. She denies any chest pain. She notes her leg swelling. Patient with history of CHF but not currently on any Lasix. No fever, chills, body aches. She has not had any known sick contacts. Her son states that she has not had COVID-19 previously. She is fully vaccinated. Her son relates that she had a recent normal heart catheterization in August, which was performed because of chronic dyspnea. [facility] Medical History Congestion of nasal sinus Essential hypertension GERD (gastroesophageal reflux disease) Gout HLD (hyperlipidemia) Lab test negative for COVID-19 virus Pneumonia Restrictive pattern present on pulmonary function testing Shortness of breath Tachycardia Home Medications allopurinol 300 mg tablet 300 mg PO DAILY 01/08/19 [History Last Taken 09/05/21] cetirizine 10 mg capsule 10 mg PO QDAY cap 01/08/19 [History Last Taken Unknown] clonidine HCl 0.2 mg tablet 0.2 mg PO QDAY tab 01/08/19 [History Last Taken 09/05/21] omeprazole 20 mg tablet,delayed release 20 mg PO DAILY 01/08/19 [History Last Taken 09/05/21] cannabidiol 100 mg/mL oral solution 1,500 mg PO BID ml 07/28/19 [History Last Taken 12/30/19] multivitamin 1 tab PO DAILY 07/28/19 [History Last Taken 12/30/19] aspirin 81 mg tablet,delayed release 81 mg PO DAILY #30 tab 08/28/19 [Rx Last Taken 09/05/21] nitroglycerin 0.4 mg SUBLINGUAL Q5M PRN #25 tab.subl 09/10/19 [Rx Last Taken 12/30/19] omega-3 acid ethyl esters 1 gram capsule 1 cap PO BID #180 cap 02/10/21 [Rx Last Taken 09/05/21] meloxicam 15 mg tablet 15 mg PO DAILY 04/12/21 [History Last Taken 09/05/21] tramadol 50 mg tablet 50 mg PO BID PRN 04/12/21 [History Last Taken Unknown] gabapentin 100 mg capsule 100 mg PO TID 08/11/21 [History Last Taken 09/05/21] losartan 100 mg tablet 50 mg PO DAILY tab 08/11/21 [History Last Taken 09/05/21] Allergy/AdvReac Type Severity Reaction Status Date / Time gemfibrozil [From Lopid] Allergy Severe Emir Verified 08/11/21 14:53 Hector Syndsome isosorbide Allergy Intermediate Itchy and Verified 08/23/21 09:17 red all over lisinopril AdvReac Intermediate cough Verified 08/11/21 14:53 Family History Mother Breast cancer Congenital heart disease Myocardial infarction Father CHF (congestive heart failure) Myocardial infarction Sister Myocardial infarction CHF (congestive heart failure) Surgical History H/O section History of coronary artery stent placement (09/09/19) History of left heart catheterization (09/05/21) History of right hip replacement Social History current occupational status: retired Smoking Status: Former smoker how long ago did patient quit smokin, 0.5ppd second hand exposure: Yes EXAM Physical Exam Const Vital Signs: 09/25/21 08:33 09/25/21 08:36 09/25/21 08:45 Temperature 98.0 F 98.0 F Temperature Source Oral Oral Pulse Rate 116 H 100 138 H Respiratory Rate 28 H 28 H 35 H Respiratory Effort Respiratory Depth Respiratory Pattern Blood Pressure 185/149 H 185/149 H Blood Pressure Mean 161 161 Pulse Ox 89 93 83 Oxygen Delivery Method Room Air Nasal Cannula Nasal Cannula Oxygen Flow Rate (L/min) 2 5 Fraction of Inspired Oxygen (FIO2) 100 09/25/21 09:03 09/25/21 09:11 09/25/21 09:15 Temperature 98.2 F Temperature Source Oral Pulse Rate 106 H Respiratory Rate 36 H Respiratory Effort Short of Breath Respiratory Depth Deep Respiratory Pattern Hyperpnea Blood Pressure Blood Pressure Mean Pulse Ox 100 97 Oxygen Delivery Method Bi-pap Bi-pap Oxygen Flow Rate (L/min) Fraction of Inspired Oxygen (FIO2) 65 09/25/21 10:49 Temperature 98.2 F Temperature Source Temporal Pulse Rate 84 Respiratory Rate 20 H Respiratory Effort Respiratory Depth Respiratory Pattern Blood Pressure 146/77 H Blood Pressure Mean 100 Pulse Ox 97 Oxygen Delivery Method Bi-pap Oxygen Flow Rate (L/min) Fraction of Inspired Oxygen (FIO2) Positive obese General Appearance ED: pallor and other Appears to be in distress Nutritional Appearance: obese HEENT Reports dry mucous membranes atraumatic Mouth ED: Yes dry mucous membranes Mouth: dry mucous membranes Eyes PERRL and EOMs intact bilaterally Neck no lymphadenopathy, supple and no JVD Resp Effort and Inspection: tachypneic and uses accessory muscles; Negative for tracheal deviation Auscultation: rales, wheezes and diminished lung sounds GI Palpation: soft Extremity normal to inspection General Extremety ED: Negative for edema General Extremity: Negative for edema Neuro oriented x3 Sensorium / Orientation: alert Skin General Skin Exam: pallor; Negative for jaundice MDM MDM MDM Narrative Medical decision making narrative: 75-year-old female presenting in respiratory distress for 3 days. Apparently she was found at home with difficulty breathing by her son. She is transported to the ER a few hours later. Patient is not able to speak in full sentences on arrival. She is placed on oxygen via nasal cannula but this is not improving her O2 sats above 88. She is then placed on BiPAP. Her conjunctiva are pink. She does have a little bit of pallor to her skin. She does not have lower extremity edema. EKG obtained on arrival has some artifact and appears to be irregular but a ventricular rate of 116 bpm. While standing in the room addressing her respiratory status if her heart rate was going up into the 160s. A repeat EKG was performed and on my interpretation appears to be a ventricular rate of 136 bpm appears to be atrial fibrillation. She given Cardizem 25 mg and her heart rate did improve. Her heart rate is now 84. Chest x-ray on my interpretation appears to show CHF. Her BNP reflects this and is 711. CBC shows a slight white count at 11.9. Hemoglobin hematocrit are stable. Platelets are normal. Coagulation studies are normal. Lactic acid 2.0. Creatinine slightly elevated at 1.09. I did reevaluate the patient multiple times due to her respiratory status and she appears to be improving. On my last evaluation she was able to take off her BiPAP for short while and speak to me in full sentences. Patient was given 40 mg of Lasix IV. She was discussed with the hospitalist for admission. Impression: 1. CHF 2. A. fib Lab Data Attestation: I reviewed the patient's lab results. Labs: Laboratory Results - last 24 hr 09/25/21 09/25/21 09/25/21 08:38 08:38 08:38 WBC 11.9 H RBC 3.69 L Hgb 11.3 L Hct 34.8 L MCV 94.3 MCH 30.6 MCHC 32.5 RDW Std Deviation 50.2 H RDW Coeff of Yue 14.7 H Plt Count 284 MPV 10.4 Immature Gran % (Auto) 0.500 Neut % (Auto) 74.6 H Lymph % (Auto) 17.6 L [place] % (Auto) 4.9 Eos % (Auto) 2.1 Baso % (Auto) 0.3 Absolute Neuts (auto) 8.8 H Absolute Lymphs (auto) 2.09 Nucleated RBC % 0 PT 13.0 INR 1.0 APTT 25.5 Sodium Potassium Chloride Carbon Dioxide Anion Gap BUN Creatinine Estim Creat Clear Calc Est GFR (MDRD) Af Amer Est GFR (MDRD) Non-Af BUN/Creatinine Ratio Glucose Lactic Acid Calcium Total Bilirubin AST ALT Alkaline Phosphatase Troponin I High Sens B-Natriuretic Peptide 711.7 H Total Protein Albumin Globulin Albumin/Globulin Ratio 09/25/21 09/25/21 08:38 08:38 WBC RBC Hgb Hct MCV MCH MCHC RDW Std Deviation RDW Coeff of Yue Plt Count MPV Immature Gran % (Auto) Neut % (Auto) Lymph % (Auto) [place] % (Auto) Eos % (Auto) Baso % (Auto) Absolute Neuts (auto) Absolute Lymphs (auto) Nucleated RBC % PT INR APTT Sodium 144 Potassium 3.6 Chloride 114 H Carbon Dioxide 21.0 Anion Gap 9 BUN 13 Creatinine 1.09 H Estim Creat Clear Calc 39.10 Est GFR (MDRD) Af Amer 63 Est GFR (MDRD) Non-Af 52 L BUN/Creatinine Ratio 11.9 Glucose 145 H Lactic Acid 2.0 Calcium 8.6 Total Bilirubin 0.60 AST 18 ALT 33 Alkaline Phosphatase 87 Troponin I High Sens 28 B-Natriuretic Peptide Total Protein 7.1 Albumin 2.9 L Globulin 4.2 Albumin/Globulin Ratio 0.7 L Radiography Diagnostic Testing: Clinical Impression(s) from Imaging Studies Chest X-Ray 09/25/21 08:44 IMPRESSION: Cardiomegaly and CHF with evidence of atelectasis and/or infiltrates at the lung bases. 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, Arranging Admission or Transfer and Performing Direct Patient Care at Bedside Discharge Plan Triage Chief Complaint: Shortness of Breath ED Provider: Shubham Becerril Dx/Rx/DC Orders Prescriptions: No Action allopurinol 300 mg tablet 300 mg PO DAILY RF: 0 clonidine HCl 0.2 mg tablet 0.2 mg PO QDAY RF: 0 omeprazole 20 mg tablet,delayed release (DR/EC) 20 mg PO DAILY RF: 0 Zyrtec 10 mg capsule 10 mg PO QDAY RF: 0 multivitamin Tablet 1 tab PO DAILY RF: 0 cannabidiol 100 mg/mL solution 1,500 mg PO BID RF: 0 tramadol 50 mg tablet 50 mg PO BID PRN (Reason: Pain) RF: 0 meloxicam 15 mg tablet 15 mg PO DAILY RF: 0 gabapentin 100 mg capsule 100 mg PO TID RF: 0 nitroglycerin 0.4 MG tablet, sublingual 0.4 mg sublingual Q5M PRN (Reason: Cardiac/Chest Pain) Qty: 25 RF: 3 aspirin [Adult Aspirin Regimen] 81 mg tablet,delayed release (DR/EC) 81 mg PO DAILY Qty: 30 RF: 0 omega-3 acid ethyl esters 1 gram capsule 1 cap PO BID Qty: 180 RF: 3 losartan 100 mg tablet 50 mg PO DAILY RF: 0 Primary Care Provider: Lucy García
[2021-09-25] MEDS: Furosemide 40 MG/4 ML Vial IV ×2 (10:45→18:29)
[2021-09-25 12:04] LABS: Troponin-I HS 703 pg/mL (3.0-54.0)
--- NOTE | 2021-09-25 12:09 | PCS.PANDOC ---
PANDEMIC DOCUMENTATION INITIATED: Date: 06/05/2021 Time: 190
[2021-09-25 13:06] LABS: Reflex Lactate? Y
--- NOTE | 2021-09-25 13:57 | PCM.HP.STD ---
HPI - General General Date of Admission: 09/25/21 Date of Service: 09/25/21 Chief Complaint: Shortness of breath HPI Narrative RAUL REYES, is a 75 F who presents with shortness of breath. Patient has been steadily feeling short of breath over the past few weeks became acutely dyspneic today. Patient presented to the emergency room with what looks like acute CHF exacerbation. Patient was put on high flow oxygen but then had to be put on a BiPAP and I did stabilize. Patient did receive a bronchodilators as well as furosemide and is currently feeling better. Patient has had extensive work-up for chronic dyspnea, seeing cardiology as well as pulmonology. Patient had been on furosemide but stopped about a month ago. Patient does note that she has put on about 50 pounds since. While she was in the emergency room, patient did develop a tachycardia did receive 25 mg bolus of diltiazem. Additionally, she did receive methylprednisolone. [facility] Medical History Asthma Congestion of nasal sinus Essential hypertension Former smoker GERD (gastroesophageal reflux disease) GERD (gastroesophageal reflux disease) Gout HLD (hyperlipidemia) Hypertension Lab test negative for COVID-19 virus Pneumonia Restrictive pattern present on pulmonary function testing Shortness of breath Tachycardia Home Medications allopurinol 300 mg tablet 300 mg PO DAILY 01/08/19 [History Last Taken 09/24/21 09:00] cetirizine 10 mg capsule 10 mg PO QDAY cap 01/08/19 [History Last Taken 09/24/21 22:00] clonidine HCl 0.2 mg tablet 0.2 mg PO QDAY tab 01/08/19 [History Last Taken 09/24/21 22:00] omeprazole 20 mg tablet,delayed release 20 mg PO DAILY 01/08/19 [History Last Taken 09/24/21 09:00] cannabidiol 100 mg/mL oral solution 1,500 mg PO DAILY ml 07/28/19 [History Last Taken 09/24/21 22:00] multivitamin 1 tab PO DAILY 07/28/19 [History Last Taken 09/24/21 09:00] nitroglycerin 0.4 mg SUBLINGUAL Q5M PRN #25 tab.subl 09/10/19 [Rx Last Taken 12/30/19] meloxicam 15 mg tablet 15 mg PO DAILY 04/12/21 [History Last Taken 09/24/21 09:00] tramadol 50 mg tablet 50 mg PO BID PRN 04/12/21 [History Last Taken 09/24/21 22:00] gabapentin 100 mg capsule 100 mg PO TID 08/11/21 [History Last Taken 09/24/21 22:00] losartan 100 mg tablet 50 mg PO DAILY tab 08/11/21 [History Last Taken 09/24/21 09:00] aspirin [Adult Aspirin Regimen] 81 mg PO DAILY 09/25/21 [History Last Taken 09/24/21 09:00] omega-3 acid ethyl esters 1 cap PO BID 09/25/21 [History Last Taken 09/24/21 17:00] Allergy/AdvReac Type Severity Reaction Status Date / Time gemfibrozil [From Lopid] Allergy Severe Emir Verified 08/11/21 14:53 Hector Syndsome isosorbide Allergy Intermediate Itchy and Verified 08/23/21 09:17 red all over lisinopril AdvReac Intermediate cough Verified 08/11/21 14:53 Family History Mother Breast cancer Congenital heart disease Myocardial infarction Father CHF (congestive heart failure) Myocardial infarction Sister Myocardial infarction CHF (congestive heart failure) Surgical History H/O section History of coronary artery stent placement (09/09/19) History of left heart catheterization (09/05/21) History of right hip replacement Social History current occupational status: retired Smoking Status: Former smoker how long ago did patient quit smokin, 0.5ppd second hand exposure: Yes ROS ROS Narrative All review of systems were negative except as mentioned above in the history of present illness and the other review of systems. Vital Signs Vital Signs Vital Signs: 09/25/21 08:33 09/25/21 08:36 09/25/21 08:45 Temperature 36.7 C 36.7 C Temperature Source Oral Oral Pulse Rate 116 H 100 138 H Respiratory Rate 28 H 28 H 35 H Respiratory Effort Respiratory Depth Respiratory Pattern Blood Pressure 185/149 H 185/149 H Blood Pressure Mean 161 161 Blood Pressure Source Blood Pressure Position Blood Pressure Location Pulse Ox 89 93 83 Oxygen Delivery Method Room Air Nasal Cannula Nasal Cannula Oxygen Flow Rate (L/min) 2 5 Fraction of Inspired Oxygen (FIO2) 100 09/25/21 09:03 09/25/21 09:11 09/25/21 09:15 Temperature 36.8 C Temperature Source Oral Pulse Rate 106 H Respiratory Rate 36 H Respiratory Effort Short of Breath Respiratory Depth Deep Respiratory Pattern Hyperpnea Blood Pressure Blood Pressure Mean Blood Pressure Source Blood Pressure Position Blood Pressure Location Pulse Ox 100 97 Oxygen Delivery Method Bi-pap Bi-pap Oxygen Flow Rate (L/min) Fraction of Inspired Oxygen (FIO2) 65 09/25/21 10:27 09/25/21 10:49 09/25/21 11:06 Temperature 36.8 C 36.8 C Temperature Source Temporal Temporal Pulse Rate 101 H 84 87 Respiratory Rate 29 H 20 H 24 H Respiratory Effort Respiratory Depth Respiratory Pattern Blood Pressure 146/77 H 151/90 H Blood Pressure Mean 100 110 Blood Pressure Source Blood Pressure Position Blood Pressure Location Pulse Ox 93 97 96 Oxygen Delivery Method Bi-pap Bi-pap Oxygen Flow Rate (L/min) Fraction of Inspired Oxygen (FIO2) 55 09/25/21 12:05 09/25/21 12:20 Temperature 36.7 C Temperature Source Oral Pulse Rate 103 H 103 H Respiratory Rate 30 H 28 H Respiratory Effort Respiratory Depth Respiratory Pattern Blood Pressure 146/90 H Blood Pressure Mean 108 Blood Pressure Source Monitor Blood Pressure Position Semi-Fowlers Blood Pressure Location Left Arm Pulse Ox 94 98 Oxygen Delivery Method Bi-pap Oxygen Flow Rate (L/min) Fraction of Inspired Oxygen (FIO2) 50 Weight Weight: 83 kg Body Mass Index (BMI) 31.4 Physical Exam Const alert and no apparent distress Constitutional Narrative: Seen on BiPAP. No respiratory distress. General Appearance: cooperative HEENT normocephalic and head/scalp atraumatic Eyes PERRL and EOMs intact bilaterally Neck no lymphadenopathy Resp normal respiratory effort and no retractions Resp Narrative: Bibasilar crackles. Cardio regular rate, regular rhythm, S1 normal heart sound and S2 normal heart sound GI normal to inspection, nondistended, normoactive bowel sounds, soft to palpation, non-tender and non-distended Extremity normal to inspection Skin no rashes or lesions noted and no wounds Neuro oriented x3 Sensorium / Orientation: awake and alert Psych affect normal Results Lab / Micro Data Attestation: I reviewed the patient's lab results. Result Diagrams: 09/25/21 08:38 09/25/21 08:38 Labs: Laboratory Results - last 24 hr 09/25/21 08:38: B-Natriuretic Peptide 711.7 H 09/25/21 08:38: WBC 11.9 H, RBC 3.69 L, Hgb 11.3 L, Hct 34.8 L, MCV 94.3, MCH 30.6, MCHC 32.5, RDW Std Deviation 50.2 H, RDW Coeff of Yue 14.7 H, Plt Count 284, MPV 10.4, Immature Gran % (Auto) 0.500, Neut % (Auto) 74.6 H, Lymph % (Auto) 17.6 L, Hunt % (Auto) 4.9, Eos % (Auto) 2.1, Baso % (Auto) 0.3, Absolute Neuts (auto) 8.8 H, Absolute Lymphs (auto) 2.09, Nucleated RBC % 0 09/25/21 08:38: PT 13.0, INR 1.0, APTT 25.5 09/25/21 08:38: Sodium 144, Potassium 3.6, Chloride 114 H, Carbon Dioxide 21.0, Anion Gap 9, BUN 13, Creatinine 1.09 H, Estim Creat Clear Calc 39.10, Est GFR (MDRD) Af Amer 63, Est GFR (MDRD) Non-Af 52 L, BUN/Creatinine Ratio 11.9, Glucose 145 H, Calcium 8.6, Total Bilirubin 0.60, AST 18, ALT 33, Alkaline Phosphatase 87, Troponin I High Sens 28, Total Protein 7.1, Albumin 2.9 L, Globulin 4.2, Albumin/Globulin Ratio 0.7 L 09/25/21 08:38: Lactic Acid 2.0 09/25/21 11:29: Troponin I High Sens 703 H* Micro: Microbiology 09/25/21 09:18 Nasal Secretion SARS-CoV-2 Antigen (Rapid) - Final Radiology Impression Chest X-Ray 09/25/21 08:44 IMPRESSION: Cardiomegaly and CHF with evidence of atelectasis and/or infiltrates at the lung bases. Electronically Signed: Emerson Restrepo MD at 9:53 EST , Service support , Assessment & Plan Assessment/Plan (1) Acute respiratory failure with hypoxia: (2) (HFpEF) heart failure with preserved ejection fraction: QUALIFIERS: Heart failure chronicity: acute Qualified Code(s): I50.31 - Acute diastolic (congestive) heart failure (3) NSTEMI, initial episode of care: (4) Tachycardia: PLAN: 1. Acute hypoxic respiratory failure Secondary to CHF exacerbation Currently on BiPAP. Wean oxygen as tolerated. Rapid Covid was negative. Patient has been vaccinated for Covid and not had any Covid exposure that she is aware of. Patient does have chronic respiratory failure and has been extensively evaluated. Patient did have a recent left heart catheterization back in August that showed an EF of 55%. Mild luminal irregularities of less than 30% in the mid LAD and distal LAD. Pulmonary function test from July showed mild restrictive ventilatory impairment with symmetric reduction in diffusing capacity. 2. Acute heart failure with preserved ejection fraction EF of 60% from echocardiogram on 07/06/2021. Patient did receive furosemide in the emergency room and will continue on floor. Patient had been on furosemide previously but was taken off that about a month ago. I suspect this may be related with flash pulmonary edema as patient was profoundly hypertensive 185/149 3. Non-ST elevation myocardial infarction Patient with recent left heart catheterization that was relatively normal I suspect this is type II ischemia Cardiology on consultation 4. Tachycardia Resolved I reviewed the EKG and appear to be a sinus tachycardia Monitoring telemetry 5. VTE prophylaxis with low molecular heparin. Charges/Coding Visit Charges Inpatient E&M: 68486 Init Hosp L3
[2021-09-25 14:07] LABS: Lactic Acid 3.1 mmol/L (0.4-1.9)
[2021-09-25 14:22] LABS: Troponin-I HS 902 pg/mL (3.0-54.0)
[2021-09-25] MEDS: traMADol 50 MG Tablet PO (15:09)
--- NOTE | 2021-09-25 15:14 | ECHOLC_ITS ---
Reason For Study: Chest Pain Procedure This was a limited 2D transthoracic echocardiogram. Contrast injection was performed. Exam performed portable in patient room. Left Ventricle Normal LV size. Moderately severe segmental systolic dysfunction (see wall motion). The estimated ejection fraction is 25 %. Mid-Anterior : Severely Hypokinetic. [place] : Severely Hypokinetic. Mid- anteroseptal : Severely Hypokinetic. Right Ventricle Normal RV size. Normal systolic function. Atria Normal left atrium. Normal right atrium. Mitral Valve Normal mitral valve. Tricuspid Valve Normal tricuspid valve. Pulmonary artery systolic pressure is 43 mmHg. Pericardium/Pleural Moderate pericardial effusion. Effusion seem to be gelatinous and limited over the right ventricle. No tamponade physiology is noted. Medication Diluted definity 2ml given slow IV push to enhance endocardial definition. MMode/2D Measurements & Calculations LVIDd: 5.4 cm IVSd: 0.89 cm LVIDs: 4.7 cm LVPWd: 1.1 cm FS: 12.5 % Doppler Measurements & Calculations TR max zaid: 315.1 cm/sec TR max P.7 mmHg ECHO/Echo Limited w/Contrast Interpretation Summary Normal LV size. Moderately severe segmental systolic dysfunction (see wall motion). The estimated ejection fraction is 25 %. 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 Compared to the previous echo from June 2016 there is significant change noted Ordering Physician: Preet Leahy Referring Physician: Lucy García Performed By: Ivania Arias, KWAME, RVT
--- NOTE | 2021-09-25 15:18 | CON.PCM.CA_ITS ---
Assessment & Plan Assessment/Plan (1) NSTEMI, initial episode of care: PLAN: She does have evidence of abnormal cardiac enzymes. We will continue to follow her to see what her enzyme pattern is and depending on the findings further recommendations will be made. 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 The above films were reviewed viewed and based on the significant reduction in left ventricular systolic function we may need to repeat the above (3) History of coronary artery stent placement: PLAN: Her previously placed stent is noted to be patent. We may need to read take a look at the previously placed stent (4) Essential hypertension: PLAN: Her blood pressure is elevated. I would like us to add Coreg 6.25 mg twice a day in addition to her losartan. She does take clonidine for hot flashes which she says helps and I do not think that we can discontinue this. (5) HLD (hyperlipidemia): PLAN: She will continue with aggressive risk factor modification. Thank you for allowing me to participate in the care of your patient. Please don't hesitate to call if any issues arise. HPI Consult Data Date of Consult: 09/26/21 HPI Narrative HPI Narrative: RAUL REYES, is a 75 F who presents to the emergency room with marked shortness of breath which has been going on over the last few days. She is a very pleasant 75-year-old female, former [id number] smoker who quit around 32 years ago, with a history of hypertension, hyperlipidemia, diastolic dysfunction, nonrheumatic aortic insufficiency and a family history of coronary artery disease initially referred to our office for shortness of breath. She underwent coronary angiography which revealed stenosis in the proximal LAD that was treated with drug-eluting stent in August 2019. She presented recently with shortness of breath and underwent a cardiac catheterization in August 2021 which demonstrated patency of the previously placed stents in the left anterior descending artery, nondominant right coronary artery and a dominant circumflex artery with no significant stenosis present. She was discharged on medical therapy. It appears that her diuretics were discontinued at her last office visit. She denies any chest discomfort until this presentation today. She was noted to have markedly elevated blood pressure. [facility] Medical History Asthma Congestion of nasal sinus Essential hypertension Former smoker GERD (gastroesophageal reflux disease) GERD (gastroesophageal reflux disease) Gout HLD (hyperlipidemia) Hypertension Lab test negative for COVID-19 virus Pneumonia Restrictive pattern present on pulmonary function testing Shortness of breath Tachycardia Home Medications allopurinol 300 mg tablet 300 mg PO DAILY 01/08/19 [History Last Taken 09/24/21 09:00] cetirizine 10 mg capsule 10 mg PO QDAY cap 01/08/19 [History Last Taken 09/24/21 22:00] clonidine HCl 0.2 mg tablet 0.2 mg PO QDAY tab 01/08/19 [History Last Taken 09/24/21 22:00] omeprazole 20 mg tablet,delayed release 20 mg PO DAILY 01/08/19 [History Last Taken 09/24/21 09:00] cannabidiol 100 mg/mL oral solution 1,500 mg PO DAILY ml 07/28/19 [History Last Taken 09/24/21 22:00] multivitamin 1 tab PO DAILY 07/28/19 [History Last Taken 09/24/21 09:00] nitroglycerin 0.4 mg SUBLINGUAL Q5M PRN #25 tab.subl 09/10/19 [Rx Last Taken 12/30/19] meloxicam 15 mg tablet 15 mg PO DAILY 04/12/21 [History Last Taken 09/24/21 09:00] tramadol 50 mg tablet 50 mg PO BID PRN 04/12/21 [History Last Taken 09/24/21 22:00] gabapentin 100 mg capsule 100 mg PO TID 08/11/21 [History Last Taken 09/24/21 22:00] losartan 100 mg tablet 50 mg PO DAILY tab 08/11/21 [History Last Taken 09/24/21 09:00] aspirin [Adult Aspirin Regimen] 81 mg PO DAILY 09/25/21 [History Last Taken 03/10 09:00] omega-3 acid ethyl esters 1 cap PO BID 09/25/21 [History Last Taken 09/24/21 17:00] Allergy/AdvReac Type Severity Reaction Status Date / Time gemfibrozil [From Lopid] Allergy Severe Emir Verified 08/11/21 14:53 Hector Syndsome isosorbide Allergy Intermediate Itchy and Verified 08/23/21 09:17 red all over lisinopril AdvReac Intermediate cough Verified 08/11/21 14:53 Family History Mother Breast cancer Congenital heart disease Myocardial infarction Father CHF (congestive heart failure) Myocardial infarction Sister Myocardial infarction CHF (congestive heart failure) Surgical History H/O section History of coronary artery stent placement (09/09/19) History of left heart catheterization (09/05/21) History of right hip replacement Social History current occupational status: retired Smoking Status: Former smoker how long ago did patient quit smokin, 0.5ppd second hand exposure: Yes ROS Constitutional Constitutional: Denies fever(s) or weight loss Eyes Eyes: Reports systems reviewed and no addt'l complaints, except as documented ENT HEENT: Reports systems reviewed and no addt'l complaints, except as documented Cardiovascular Cardiovascular: Denies chest pain at rest, chest pain with activity, dyspnea at rest, dyspnea on exertion, edema, palpitations or paroxysmal nocturnal dyspnea Respiratory/Chest Respiratory/Chest: Reports dyspnea, dyspnea on exertion, shortness of breath at rest and shortness of breath with exertion; Denies productive cough Gastrointestinal Gastrointestinal: Denies change in bowel habits, nausea, vomiting or weight changes Genitourinary Genitourinary: Denies difficulty urinating Musculoskeletal Musculoskeletal: Denies joint stiffness or muscle weakness Integumentary Integumentary: Denies lesions Neurologic Neurologic: Denies dizziness or syncope Psychiatric Psychiatric: Denies anxiety Endocrine Endocrinology: Denies excessive sweating or fatigue Hematologic/Lymphatic Hematologic/Lymphatic: Denies anemia Allergic/Immunologic Allergic/Immunologic: Denies seasonal rhinorrhea Physical Exam Const alert, oriented x3 and no apparent distress General Appearance: cooperative HEENT hearing grossly normal bilaterally Head and Scalp: atraumatic Eyes EOMs intact bilaterally Neck General: normal visual inspection Chest inspection of chest normal and palpation of chest normal Resp normal respiratory effort Auscultation: clear to auscultation bilaterally Cardio regular rate, regular rhythm, S1 normal heart sound and S2 normal heart sound Jugular Venous Distention: JVD GI normal to inspection, nondistended, normoactive bowel sounds Extremity normal capillary refill and no pedal edema Peripheral Pulses: Yes pulses 2+ throughout and femoral pulses present Skin no rashes or lesions noted Neuro oriented x3 and CN's II-XII intact bilaterally Psych Appearance: grossly normal and appropriate Risk Stratification Risk Stratification Applicable: Yes Age >/= 65: Yes >/= 3 CAD Risk Factors (HTN, HLD, DM, family hx of CAD, or current smoker): Yes Aspirin Use in the Past 7 Days: Yes Severe Angina (>/= episodes in 24 hours): No EKG ST Changes >/= 0.5mm: No Positive Cardiac Marker: Yes ALLY Risk Stratification Score: 4 ALLY % Risk: 20% Risk Objective Data Vital Signs: Vital Signs Temp Pulse Resp BP Pulse Ox 98.1 F 103 H 28 H 146/90 H 98 09/25/21 12:20 09/25/21 12:20 09/25/21 12:20 09/25/21 12:20 09/25/21 12:20 Oxygen Flow Rate (L/min) 5 Oxygen Delivery Method Bi-pap Weight: 182 lb 15.739 oz Body Mass Index (BMI) 31.4 Lab / Micro Data Result Diagrams: 09/25/21 08:38 09/26/21 05:22 Labs: Laboratory Results - last 24 hr 09/25/21 08:38: B-Natriuretic Peptide 711.7 H 09/25/21 08:38: WBC 11.9 H, RBC 3.69 L, Hgb 11.3 L, Hct 34.8 L, MCV 94.3, MCH 30.6, MCHC 32.5, RDW Std Deviation 50.2 H, RDW Coeff of Yue 14.7 H, Plt Count 284, MPV 10.4, Immature Gran % (Auto) 0.500, Neut % (Auto) 74.6 H, Lymph % (Auto) 17.6 L, [place] % (Auto) 4.9, Eos % (Auto) 2.1, Baso % (Auto) 0.3, Absolute Neuts (auto) 8.8 H, Absolute Lymphs (auto) 2.09, Nucleated RBC % 0 09/25/21 08:38: PT 13.0, INR 1.0, APTT 25.5 09/25/21 08:38: Sodium 144, Potassium 3.6, Chloride 114 H, Carbon Dioxide 21.0, Anion Gap 9, BUN 13, Creatinine 1.09 H, Estim Creat Clear Calc 39.10, Est GFR (MDRD) Af Amer 63, Est GFR (MDRD) Non-Af 52 L, BUN/Creatinine Ratio 11.9, Glucose 145 H, Calcium 8.6, Total Bilirubin 0.60, AST 18, ALT 33, Alkaline Phosphatase 87, Troponin I High Sens 28, Total Protein 7.1, Albumin 2.9 L, Globulin 4.2, Albumin/Globulin Ratio 0.7 L 09/25/21 08:38: Lactic Acid 2.0 09/25/21 11:29: Troponin I High Sens 703 H* 09/25/21 13:16: Lactic Acid 3.1 H* 09/25/21 13:16: Troponin I High Sens 902 H* Micro: Microbiology 09/25/21 09:18 Nasal Secretion SARS-CoV-2 Antigen (Rapid) - Final Cardiology Labs/Tests 09/25/21 08:38: B-Natriuretic Peptide 711.7 H 09/25/21 08:38: WBC 11.9 H, RBC 3.69 L, Hgb 11.3 L, Hct 34.8 L, MCV 94.3, MCH 30.6, MCHC 32.5, Plt Count 284, MPV 10.4, Immature Gran % (Auto) 0.500, Neut % (Auto) 74.6 H, Lymph % (Auto) 17.6 L, [place] % (Auto) 4.9, Eos % (Auto) 2.1, Baso % (Auto) 0.3, Absolute Neuts (auto) 8.8 H, Nucleated RBC % 0 09/25/21 08:38: PT 13.0, INR 1.0, APTT 25.5 09/25/21 08:38: Sodium 144, Potassium 3.6, Chloride 114 H, Carbon Dioxide 21.0, Anion Gap 9, BUN 13, Creatinine 1.09 H, Est GFR (MDRD) Af Amer 63, Est GFR (MDRD) Non-Af 52 L, BUN/Creatinine Ratio 11.9, Glucose 145 H, Calcium 8.6, Total Bilirubin 0.60 09/25/21 08:38: Lactic Acid 2.0 09/25/21 13:16: Lactic Acid 3.1 H* Rhythm: EKG: ECHO: Stress Test: Cardiac Cath: PCI: CT Surgery: Holter monitor: EPS: PPM: CXR: Chest CT Scan: Radiography Diagnostic Testing: Radiology Impression Chest X-Ray 09/25/21 08:44 IMPRESSION: Cardiomegaly and CHF with evidence of atelectasis and/or infiltrates at the lung bases. Electronically Signed: Emerson Restrepo MD at 9:53 EST , Service support ,
[2021-09-25] MEDS: Nitroglycerin Oint 1 INCH PACKET TD ×2 (16:35→22:30)
[2021-09-25] MEDS: Gabapentin 100 MG Capsule PO ×2 (16:35→22:30)
--- NOTE | 2021-09-25 16:47 | CT_ITS ---
EXAM: CT ANGIOGRAPHY CHEST WITHOUT AND WITH INTRAVENOUS CONTRAST CLINICAL INDICATION: pericardial effusion TECHNIQUE: Helically acquired angiography images were obtained of the chest without and with intravenous contrast. This CT exam was performed using one or more of the following dose reduction techniques: automated exposure control, adjustment of the mA and/or kV according to patient size, and/or use of iterative reconstruction technique. This report was created using [employer] report generation technology. MIP reconstructed images were created and reviewed. CONTRAST: IV 100mL Isovue-370 COMPARISON: None. FINDINGS: PULMONARY ARTERIES: No demonstrated pulmonary embolism or arterial dissection. AORTA: There is atherosclerotic calcification of the aortic arch with tortuosity and elongation of the aortic arch and descending thoracic aorta. Normal in caliber. No evidence of dissection. GREAT VESSELS OF AORTIC ARCH: Unremarkable. Normal in caliber. No evidence of dissection. LUNGS AND PLEURAL SPACES: There is bilateral pneumonia. There are bilateral pleural effusions. No mass. HEART: There are calcifications of the coronary arteries. No pericardial effusion. No signs of right heart strain, ratio of right ventricle to left ventricle measures less than 1. MEDIASTINUM: Unremarkable. No mediastinal or hilar adenopathy. Esophagus is unremarkable. No hiatal hernia. THYROID: Unremarkable. No thyroid lesions. BONES/JOINTS: There are degenerative findings of the thoracic spine. No suspicious lytic or blastic abnormality. CT/CTA Chest W/WO Contrast IMPRESSION: 1. No demonstrated pulmonary embolism or arterial dissection. 2. There is bilateral pneumonia. 3. There are bilateral pleural effusions. Electronically Signed: Celio Zapata MD at 18:26 EST , Service support ,
[2021-09-25] MEDS: 0.9% Saline Lock 10 ML Syringe IV ×2 (18:29→22:29)
[2021-09-25] MEDS: Ceftriaxone 1 GM/50 ML BAG IV (22:21)
[2021-09-25] MEDS: Carvedilol 6.25 MG Tablet PO (22:30)
[2021-09-25] MEDS: Menthol/Lanolin/Calamine/Znox 113 GM Tube 1 APPLIC TOPICAL (22:42)
[2021-09-26] VITALS (20 sets, daily range): BP systolic 85–129; BP diastolic 48–74; PULSE 74–107; RESP 12–24; TEMP 36.4–37.1; O2SAT 93–97
[2021-09-26] MEDS: Carvedilol 6.25 MG Tablet PO ×2 (05:47→21:58)
[2021-09-26] MEDS: cloNIDine HCl 0.2 MG Tablet PO (05:48)
[2021-09-26] MEDS: Aspirin E.C. 81 MG Tablet PO (05:48)
[2021-09-26] MEDS: Gabapentin 100 MG Capsule PO ×3 (05:48→21:58)
[2021-09-26] MEDS: Losartan Potassium 50 MG Tablet PO (05:48)
[2021-09-26] MEDS: Nitroglycerin Oint 1 INCH PACKET TD (05:48)
--- NOTE | 2021-09-26 05:55 | EKG12_ITS ---
Test Reason : AM EKG Blood Pressure : / mmHG Vent. Rate : 096 BPM Atrial Rate : 096 BPM P-R Int : 150 ms QRS Dur : 098 ms QT Int : 454 ms P-R-T Axes : 054 -49 160 degrees QTc Int : 573 ms Normal sinus rhythm Left anterior fascicular block Anterior infarct , age undetermined T wave abnormality, consider lateral ischemia Prolonged QT Abnormal ECG When compared with ECG of 25-SEP-2021 08:58, MANUAL COMPARISON REQUIRED, DATA IS UNCONFIRMED Confirmed by SOUTH MARS, MARGARET ([id number]), associate editor DANA BOWLES ([id number]) on 09/27/2021 2:01:49 PM Referred By: DR GUADARRAMA Confirmed By:MARGARET DIA MD
[2021-09-26 06:14] LABS: Mucous, Urine 0 SEEN /hpf (<or=2+); Squamous Epithelial Cells - UA 0 SEEN /hpf (5-10)
[2021-09-26 06:17] LABS: Anion Gap 11 (5-15); BUN 17 mg/dL (7-18); BUN/Creat Ratio 15.7 RATIO (10-20); Calcium,Total 8.3 mg/dL (8.5-10.1); Chloride 107 mmol/L (98-107); Creatinine, Serum 1.08 mg/dL (0.55-1.02); EST Glomerular Filtration Rate 53 mL/min (>60); Est Glom Filt Rate - Afr Amer 64 mL/min (>60); Estimated Creatinine Clearance 39.46 ml/min; Glucose 130 mg/dL (74-106); Potassium 3.8 mmol/L (3.5-5.1); Sodium Level 140 mmol/L (136-145)
[2021-09-26 06:18] LABS: Color, Urine Yellow (Yellow); Glucose, Dipstick Normal (Normal); Ketone-Dipstick Negative (Negative); Leukocyte Esterase-Dipstick 500 /ul (Negative); Nitrite-Dipstick Positive (Negative); Occult Blood-Urine 25 /ul (Negative); Protein-Dipstick Negative (Negative); Urine Bilirubin Dipstick Negative (Negative); Urine Clarity Clear (Clear); Urine Urobilinogen Normal (Normal)
[2021-09-26 06:56] LABS: Bacteria 3+ /hpf (None Seen); Red Blood Cells-Urine 0-5 SEEN /hpf (0-5); White Blood Cells 5-10 SEEN /hpf (0-5)
--- NOTE | 2021-09-26 08:08 | PCM.PN.CARD ---
Subjective Subjective Patient seen and evaluated. Appears to be doing better. Objective Data Vital Signs: Vital Signs Temp Pulse Resp BP Pulse Ox 98.2 F 94 20 H 120/72 95 09/26/21 05:41 09/26/21 07:42 09/26/21 05:41 09/26/21 05:48 09/26/21 05:41 Oxygen Flow Rate (L/min) 6 Oxygen Delivery Method Nasal Cannula Weight: 182 lb 15.739 oz Body Mass Index (BMI) 31.4 Intake & Output: Intake and Output for Last 24 Hours 09/24/21 09/25/21 09/26/21 23:59 23:59 23:59 Intake Total 170 / 170 255 / 255 Output Total 700 / 950 350 / 350 Balance -530 / -780 -95 / -95 Lab / Micro Data Result Diagrams: 09/25/21 08:38 09/26/21 05:22 Labs: Laboratory Results - last 24 hr 09/25/21 08:38: B-Natriuretic Peptide 711.7 H 09/25/21 08:38: WBC 11.9 H, RBC 3.69 L, Hgb 11.3 L, Hct 34.8 L, MCV 94.3, MCH 30.6, MCHC 32.5, RDW Std Deviation 50.2 H, RDW Coeff of Yue 14.7 H, Plt Count 284, MPV 10.4, Immature Gran % (Auto) 0.500, Neut % (Auto) 74.6 H, Lymph % (Auto) 17.6 L, [place] % (Auto) 4.9, Eos % (Auto) 2.1, Baso % (Auto) 0.3, Absolute Neuts (auto) 8.8 H, Absolute Lymphs (auto) 2.09, Nucleated RBC % 0 09/25/21 08:38: PT 13.0, INR 1.0, APTT 25.5 09/25/21 08:38: Sodium 144, Potassium 3.6, Chloride 114 H, Carbon Dioxide 21.0, Anion Gap 9, BUN 13, Creatinine 1.09 H, Estim Creat Clear Calc 39.10, Est GFR (MDRD) Af Amer 63, Est GFR (MDRD) Non-Af 52 L, BUN/Creatinine Ratio 11.9, Glucose 145 H, Calcium 8.6, Total Bilirubin 0.60, AST 18, ALT 33, Alkaline Phosphatase 87, Troponin I High Sens 28, Total Protein 7.1, Albumin 2.9 L, Globulin 4.2, Albumin/Globulin Ratio 0.7 L 09/25/21 08:38: Lactic Acid 2.0 09/25/21 11:29: Troponin I High Sens 703 H* 09/25/21 13:16: Lactic Acid 3.1 H* 09/25/21 13:16: Troponin I High Sens 902 H* 09/26/21 05:22: Sodium 140, Potassium 3.8, Chloride 107, Carbon Dioxide 22.0, Anion Gap 11, BUN 17, Creatinine 1.08 H, Estim Creat Clear Calc 39.46, Est GFR (MDRD) Af Amer 64, Est GFR (MDRD) Non-Af 53 L, BUN/Creatinine Ratio 15.7, Glucose 130 H, Calcium 8.3 L 09/26/21 05:45: Urine Color Yellow, Urine Clarity Clear, Urine pH 5.0, Ur Specific [place] 1.010, Urine Protein Negative, Urine Glucose (UA) Normal, Urine Ketones Negative, Urine Occult Blood 25 H, Urine Nitrite Positive H, Urine Bilirubin Negative, Urine Urobilinogen Normal, Ur Leukocyte Esterase 500 H, Urine RBC 0-5 SEEN, Urine WBC 5-10 SEEN, Ur Squamous Epith Cells 0 SEEN, Urine Bacteria 3+, Urine Mucus 0 SEEN Micro: Microbiology 09/25/21 09:18 Nasal Secretion SARS-CoV-2 Antigen (Rapid) - Final Cardiology Labs/Tests 09/25/21 08:38: B-Natriuretic Peptide 711.7 H 09/25/21 08:38: WBC 11.9 H, RBC 3.69 L, Hgb 11.3 L, Hct 34.8 L, MCV 94.3, MCH 30.6, MCHC 32.5, Plt Count 284, MPV 10.4, Immature Gran % (Auto) 0.500, Neut % (Auto) 74.6 H, Lymph % (Auto) 17.6 L, [place] % (Auto) 4.9, Eos % (Auto) 2.1, Baso % (Auto) 0.3, Absolute Neuts (auto) 8.8 H, Nucleated RBC % 0 09/25/21 08:38: PT 13.0, INR 1.0, APTT 25.5 09/25/21 08:38: Sodium 144, Potassium 3.6, Chloride 114 H, Carbon Dioxide 21.0, Anion Gap 9, BUN 13, Creatinine 1.09 H, Est GFR (MDRD) Af Amer 63, Est GFR (MDRD) Non-Af 52 L, BUN/Creatinine Ratio 11.9, Glucose 145 H, Calcium 8.6, Total Bilirubin 0.60 09/25/21 08:38: Lactic Acid 2.0 09/25/21 13:16: Lactic Acid 3.1 H* 09/26/21 05:22: Sodium 140, Potassium 3.8, Chloride 107, Carbon Dioxide 22.0, Anion Gap 11, BUN 17, Creatinine 1.08 H, Est GFR (MDRD) Af Amer 64, Est GFR (MDRD) Non-Af 53 L, BUN/Creatinine Ratio 15.7, Glucose 130 H, Calcium 8.3 L 09/26/21 05:45: Urine Color Yellow, Urine Clarity Clear, Urine pH 5.0, Ur Specific [place] 1.010, Urine Protein Negative, Urine Glucose (UA) Normal, Urine Ketones Negative, Urine Occult Blood 25 H, Urine Nitrite Positive H, Urine Bilirubin Negative, Urine Urobilinogen Normal, Ur Leukocyte Esterase 500 H, Urine RBC 0-5 SEEN, Urine WBC 5-10 SEEN Rhythm: EKG: ECHO: Stress Test: Cardiac Cath: PCI: CT Surgery: Holter monitor: EPS: PPM: CXR: Chest CT Scan: Radiography Diagnostic Testing: Radiology Impression Chest X-Ray 09/25/21 08:44 IMPRESSION: Cardiomegaly and CHF with evidence of atelectasis and/or infiltrates at the lung bases. Electronically Signed: Emerson Restrepo MD at 9:53 EST , Service support , Echocardiogram 09/25/21 15:14 Interpretation Summary Normal LV size. Moderately severe segmental systolic dysfunction (see wall motion). The estimated ejection fraction is 25 %. 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 Compared to the previous echo from June 2016 there is significant change noted Ordering Physician: Preet Leahy Referring Physician: Lucy García Performed By: Ivania Arias, RDCS, RVT Chest CTA 09/25/21 16:47 IMPRESSION: 1. No demonstrated pulmonary embolism or arterial dissection. 2. There is bilateral pneumonia. 3. There are bilateral pleural effusions. Electronically Signed: Celio Zapata MD at 18:26 EST , Service support , Physical Exam Const alert, oriented x3 and no apparent distress General Appearance: cooperative HEENT hearing grossly normal bilaterally Head and Scalp: atraumatic Eyes EOMs intact bilaterally Neck General: normal visual inspection Chest inspection of chest normal and palpation of chest normal Resp normal respiratory effort Auscultation: clear to auscultation bilaterally Cardio regular rate, regular rhythm, S1 normal heart sound and S2 normal heart sound Jugular Venous Distention: JVD GI normal to inspection, nondistended, normoactive bowel sounds Extremity normal capillary refill and no pedal edema Peripheral Pulses: Yes pulses 2+ throughout and femoral pulses present Skin no rashes or lesions noted Neuro oriented x3 and CN's II-XII intact bilaterally Psych Appearance: grossly normal and appropriate Assessment & Plan Assessment/Plan (1) NSTEMI, initial episode of care: PLAN: She does have evidence of abnormal cardiac enzymes. She underwent cardiac catheterization today which demonstrated patency of her stent. We will continue to follow her to see what her enzyme pattern is and depending on the findings further recommendations will be made. (2) Atherosclerotic heart disease [place] coronary artery w/angina pectoris: PLAN: She recently underwent a cardiac catheterization within the last 6 weeks which demonstrated patency of her left anterior descending artery stent and a nondominant right coronary artery. The above films were reviewed, however due to her significant reduction in left ventricular systolic function we repeated her cardiac catheterization today and it demonstrated patent stent with severe left ventricular systolic dysfunction consistent with Takotsubo cardiomyopathy (3) History of coronary artery stent placement: PLAN: Her previously placed stent is noted to be patent. The above was noted to be patent this morning (4) Essential hypertension: PLAN: Her blood pressure is elevated. I would like us to add Coreg 6.25 mg twice a day in addition to her losartan. She does take clonidine for hot flashes which she says helps and I do not think that we can discontinue this. (5) HLD (hyperlipidemia): PLAN: She will continue with aggressive risk factor modification. Thank you for allowing me to participate in the care of your patient. Please don't hesitate to call if any issues arise. (6) CHF (congestive heart failure), NYHA class III: PLAN: She has developed congestive heart failure which is new onset and systolic in origin. The above is likely due to Takotsubo cardiomyopathy. It is difficult to define an inciting event or stress event. However her stent is noted to be patent and this is confirmed by left ventriculogram as well as echocardiogram. We will recommend Coreg 6.25 mg twice a day Continue IV Lasix today and switch to p.o. Lasix tomorrow Continue losartan Discontinue Nitropaste See how she does today Thank you for allowing me to participate in the care of your patient. Please don't hesitate to call if any issues arise.
[2021-09-26] MEDS: 0.9% Normal Saline 1,000 ML 15 ML IV (08:17)
[2021-09-26] MEDS: Ceftriaxone 1 GM/50 ML BAG IV (08:21)
[2021-09-26] MEDS: Meloxicam 15 MG Tablet PO (08:22)
[2021-09-26] MEDS: Loratadine 10 MG Tablet PO (08:22)
[2021-09-26] MEDS: Allopurinol 300 MG Tablet PO (08:22)
[2021-09-26] MEDS: Multivitamins,Therapeutic Tablet 1 TABLET PO (08:22)
[2021-09-26] MEDS: Pantoprazole Sodium 20 MG Tablet PO (08:22)
--- NOTE | 2021-09-26 10:23 | CASEMGMT ---
ADDIE CLANCY assessment: Face to Face with patient for initial transition planning/care coordination assessment. ADDIE CLANCY introduced self and role at [facility], pt voices understanding and consents to assessment. Pt is sitting in bed in no distress s/p heart cath for takotsubo. Pt is A/Ox4 and answers questions appropriately. Pt's daughter, Yolie Oviedo, is at bedside during assessment. Care providers, pharmacy, and demographics verified/updated. Presentation: Pt c/o increased SOB for several months with unknown cause Admitting dx: CHF PCP: Raquel Specialists: jett Keenan; Tosin cardio Preferred Pharmacy: [facility] Insurance: AeR Prescription Benefit: AeR Living Will/HPOA: Pt has LW/HPOA and is aware that they are on file at [facility]. Pt's is listed as HPOA but per pt/daughter, her has been for 5 years. Pt states her daughter, Yolie Oviedo, is next in line. Pt's HPOA updated at this time and daughters number updated as well and placed on chart to be re-scanned in. LNOK: Yolie Lindsayer, daughter/HPOA Living Arrangements: Pt lives with her cat in 1 story condo with no steps and states no concerns at home. Pt is independent with ADL's. Transportation: Pt drives self and states no transportation concerns. DME/HHC: Pt has a cane at home and states no need for any further DME. Pt states would like [employer], if qualifies for home oxygen at discharge. Pt states no hx of HHC or SNF. Pt states no concerns with going home at time of discharge. Pt is retired. Pt states does not smoke cigarettes and occasionally drinks ETOH. Pt states no further concerns/needs. CM to follow for therapy notes, home oxygen testing, and any further discharge planning/needs. Advised pt to ask for CM if any further questions/concerns/needs arise, voices understanding. Pt Goal: Home Plan[place] ADDIE CLANCY
--- NOTE | 2021-09-26 14:13 | PN.HOSP_ITS ---
Subjective Subjective Breathing better. Objective Data Objective Data Vital Signs: Vital Signs Temp Pulse Resp BP Pulse Ox 36.9 C 74 20 H 94/59 L 97 09/26/21 10:00 09/26/21 10:00 09/26/21 10:00 09/26/21 10:00 09/26/21 10:00 Oxygen Flow Rate (L/min) 4 Oxygen Delivery Method Nasal Cannula Weight: 83 kg Body Mass Index (BMI) 31.4 Intake & Output: Intake and Output for Last 24 Hours 09/24/21 09/25/21 09/26/21 23:59 23:59 23:59 Intake Total 170 / 170 568.75 / 568.75 Output Total 700 / 950 650 / 650 Balance -530 / -780 -81.25 / -81.25 Lab / Micro Data Result Diagrams: 09/25/21 08:38 09/26/21 05:22 Labs: Laboratory Results - last 24 hr 09/25/21 13:16: Troponin I High Sens 902 H* 09/26/21 05:22: Sodium 140, Potassium 3.8, Chloride 107, Carbon Dioxide 22.0, Anion Gap 11, BUN 17, Creatinine 1.08 H, Estim Creat Clear Calc 39.46, Est GFR ( MDRD) Af Amer 64, Est GFR (MDRD) Non-Af 53 L, BUN/Creatinine Ratio 15.7, Glucose 130 H, Calcium 8.3 L 09/26/21 05:45: Urine Color Yellow, Urine Clarity Clear, Urine pH 5.0, Ur Specific [place] 1.010, Urine Protein Negative, Urine Glucose (UA) Normal, Urine Ketones Negative, Urine Occult Blood 25 H, Urine Nitrite Positive H, Urine Bilirubin Negative, Urine Urobilinogen Normal, Ur Leukocyte Esterase 500 H, Urine RBC 0-5 SEEN, Urine WBC 5-10 SEEN, Ur Squamous Epith Cells 0 SEEN, Urine Bacteria 3+, Urine Mucus 0 SEEN Micro: Microbiology 09/26/21 05:45 Urine, Clean Catch Urine Culture - Preliminary Gram negative catarina Gram negative catarina#2 09/25/21 09:18 Nasal Secretion SARS-CoV-2 Antigen (Rapid) - Final Radiography Diagnostic Testing: Radiology Impression Echocardiogram 09/25/21 15:14 Interpretation Summary Normal LV size. Moderately severe segmental systolic dysfunction (see wall motion). The estimated ejection fraction is 25 %. 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 Compared to the previous echo from June 2016 there is significant change noted Ordering Physician: Preet Leahy Referring Physician: Lucy García Performed By: Ivania Arias, RDCS, RVT Chest CTA 09/25/21 16:47 IMPRESSION: 1. No demonstrated pulmonary embolism or arterial dissection. 2. There is bilateral pneumonia. 3. There are bilateral pleural effusions. Electronically Signed: Celio Zapata MD at 18:26 EST , Service support , Physical Exam Const alert and no apparent distress HEENT Head and Scalp: normocephalic Resp normal respiratory effort, no retractions, no use of accessory muscles and clear to auscultation bilaterally Cardio regular rate, regular rhythm, S1 normal heart sound and S2 normal heart sound GI normal to inspection, nondistended, normoactive bowel sounds, soft to palpation, non-tender and non-distended Extremity normal to inspection Assessment & Plan Assessment/Plan (1) Acute respiratory failure with hypoxia: (2) NSTEMI, initial episode of care: (3) Tachycardia: (4) HFrEF (heart failure with reduced ejection fraction): PLAN: 1. Acute hypoxic respiratory failure improved Secondary to CHF exacerbation Down to 6liters/m. Wean oxygen as tolerated. Rapid Covid was negative. Patient has been vaccinated for Covid and not had any Covid exposure that she is aware of. Patient does have chronic respiratory failure and has been extensively evaluated. Patient did have a recent left heart catheterization back in August that showed an EF of 55%. Mild luminal irregularities of less than 30% in the mid LAD and distal LAD. Pulmonary function test from July showed mild restrictive ventilatory impairment with symmetric reduction in diffusing capacity. 2. Acute heart failure with reduced ejection fraction EF of 60% from echocardiogram on 07/06/2021. Now down to 25%. Patient did receive furosemide in the emergency room and will continue on floor. Patient had been on furosemide previously but was taken off that about a month ago. 2/2 Takotsubo cardiomyopathy Medical mgmt 3. Non-ST elevation myocardial infarction Patient with recent left heart catheterization that was relatively normal I suspect this is type II ischemia Cardiology on consultation 4. Tachycardia Resolved I reviewed the EKG and appear to be a sinus tachycardia Monitoring telemetry 5. VTE prophylaxis with low molecular heparin. Charges/Coding Visit Charges Inpatient E&M: 47417 Subs Hosp L2
[2021-09-26] MEDS: Furosemide 40 MG/4 ML Vial IV (17:49)
--- NOTE | 2021-09-26 21:50 | NURSING ---
pt said she turned in bed and now sob. po 93 on 2lnc. Increase to 3lnc. norris lyn notified
[2021-09-26] MEDS: Menthol/Lanolin/Calamine/Znox 113 GM Tube 1 APPLIC TOPICAL (21:57)
[2021-09-27] VITALS (10 sets, daily range): BP systolic 125–129; BP diastolic 71–79; PULSE 85–106; RESP 18–20; TEMP 36.4–36.8; O2SAT 88–95
[2021-09-27] MEDS: Gabapentin 100 MG Capsule PO ×2 (05:21→14:18)
[2021-09-27 05:45] LABS: Anion Gap 9 (5-15); BUN 29 mg/dL (7-18); BUN/Creat Ratio 26.9 RATIO (10-20); Calcium,Total 8.4 mg/dL (8.5-10.1); Chloride 109 mmol/L (98-107); Creatinine, Serum 1.08 mg/dL (0.55-1.02); EST Glomerular Filtration Rate 53 mL/min (>60); Est Glom Filt Rate - Afr Amer 64 mL/min (>60); Estimated Creatinine Clearance 39.46 ml/min; Glucose 125 mg/dL (74-106); Potassium 3.4 mmol/L (3.5-5.1); Sodium Level 142 mmol/L (136-145)
--- NOTE | 2021-09-27 07:31 | ECHOL_ITS ---
Reason For Study: DYSPNEA/SOB Procedure This was a limited 2D transthoracic echocardiogram. Exam performed portable in patient room. Left Ventricle Normal LV size. Severe segmental systolic dysfunction (see wall motion). The estimated ejection fraction is 28 %. [place] : Severely Hypokinetic. Mid-Anterior : Severely Hypokinetic. Tricuspid Valve Normal tricuspid valve. Moderate (2+) tricuspid valve insufficiency. Pulmonary artery systolic pressure is 62 mmHg. Pericardium/Pleural Small pericardial effusion. MMode/2D Measurements & Calculations LVIDd: 5.3 cm IVSd: 0.74 cm LVAd ap4: 31.4 cm2 LVIDs: 4.1 cm LVPWd: 0.89 cm LVLd ap4: 7.8 cm FS: 22.9 % EDV(MOD-sp4): 101.5 ml EDV(sp4-el): 107.1 ml LVAs ap4: 23.5 cm2 LVLs ap4: 7.2 cm ESV(MOD-sp4): 62.0 ml ESV(sp4-el): 65.8 ml EF(MOD-sp4): 38.9 % EF(sp4-el): 38.6 % SV(MOD-sp4): 39.5 ml SV(sp4-el): 41.3 ml Doppler Measurements & Calculations TR max zaid: 382.5 cm/sec TR max P.5 mmHg ECHO/Echo, Limited Study Interpretation Summary Normal LV size. Severe segmental systolic dysfunction (see wall motion). The estimated ejection fraction is 28 %. Pulmonary artery systolic pressure is 62 mmHg. Compared to previous study, the left ventricular systolic function is the same. . Ordering Physician: Preet Leahy Referring Physician: RENATE ANTUNEZ Performed By: Rebecca De La Paz RDCS
[2021-09-27] MEDS: Enoxaparin 40 MG/0.4 ML Syringe SC (09:51)
[2021-09-27] MEDS: Furosemide 40 MG/4 ML Vial IV (09:51)
[2021-09-27] MEDS: 0.9% Saline Lock 10 ML Syringe IV (09:52)
[2021-09-27] MEDS: Multivitamins,Therapeutic Tablet 1 TABLET PO (09:52)
[2021-09-27] MEDS: Carvedilol 6.25 MG Tablet PO (09:52)
[2021-09-27] MEDS: Allopurinol 300 MG Tablet PO (09:52)
[2021-09-27] MEDS: Aspirin E.C. 81 MG Tablet PO (09:52)
[2021-09-27] MEDS: Ceftriaxone 1 GM/50 ML BAG IV (09:52)
[2021-09-27] MEDS: Meloxicam 15 MG Tablet PO (09:53)
[2021-09-27] MEDS: cloNIDine HCl 0.2 MG Tablet PO (09:53)
[2021-09-27] MEDS: Pantoprazole Sodium 20 MG Tablet PO (09:53)
[2021-09-27] MEDS: Losartan Potassium 50 MG Tablet PO (09:53)
[2021-09-27] MEDS: Loratadine 10 MG Tablet PO (09:53)
[2021-09-27] MEDS: Menthol/Lanolin/Calamine/Znox 113 GM Tube 1 APPLIC TOPICAL (09:53)
[2021-09-27] MEDS: Potassium Chloride Oral Tablet 20 MEQ 40 MEQ PO (11:33)
--- NOTE | 2021-09-27 12:42 | PCM.PN.CARD ---
Subjective Subjective Patient seen and evaluated Appears to be doing much better today. Objective Data Vital Signs: Vital Signs Temp Pulse Resp BP Pulse Ox 97.5 F L 85 18 129/79 H 91 09/27/21 09:47 09/27/21 10:59 09/27/21 09:47 09/27/21 09:47 09/27/21 11:52 Oxygen Flow Rate (L/min) [ 2 AMBULATING with Oxygen #1] Oxygen Flow Rate (L/min) 2 Oxygen Delivery Method Nasal Cannula Weight: 182 lb 15.739 oz Body Mass Index (BMI) 31.4 Intake & Output: Intake and Output for Last 24 Hours 09/25/21 09/26/21 09/27/21 23:59 23:59 23:59 Intake Total 170 / 170 928.75 / 928.75 650 / 650 Output Total 700 / 950 900 / 900 200 / 200 Balance -530 / -780 28.75 / 28.75 450 / 450 Lab / Micro Data Result Diagrams: 09/25/21 08:38 09/27/21 05:14 Labs: Laboratory Results - last 24 hr 09/27/21 05:14: Sodium 142, Potassium 3.4 L, Chloride 109 H, Carbon Dioxide 24.0, Anion Gap 9, BUN 29 H, Creatinine 1.08 H, Estim Creat Clear Calc 39.46, Est GFR (MDRD) Af Amer 64, Est GFR (MDRD) Non-Af 53 L, BUN/Creatinine Ratio 26.9 H, Glucose 125 H, Calcium 8.4 L Micro: Microbiology 09/26/21 05:45 Urine, Clean Catch Urine Culture - Final Mixed Gram Pos & Gram Neg Org 09/25/21 09:01 Blood Culture (Wb) - Anticubital Right Blood Culture - Preliminary No growth in 48 hours. 09/25/21 08:38 Blood Culture (Wb) - Anticubital Right Blood Culture - Preliminary No growth in 48 hours. Cardiology Labs/Tests 09/27/21 05:14: Sodium 142, Potassium 3.4 L, Chloride 109 H, Carbon Dioxide 24.0, Anion Gap 9, BUN 29 H, Creatinine 1.08 H, Est GFR (MDRD) Af Amer 64, Est GFR (MDRD) Non-Af 53 L, BUN/Creatinine Ratio 26.9 H, Glucose 125 H, Calcium 8.4 L Rhythm: EKG: ECHO: Stress Test: Cardiac Cath: PCI: CT Surgery: Holter monitor: EPS: PPM: CXR: Chest CT Scan: Radiography Diagnostic Testing: Radiology Impression Echocardiogram 09/27/21 07:31 Interpretation Summary Normal LV size. Severe segmental systolic dysfunction (see wall motion). The estimated ejection fraction is 28 %. Pulmonary artery systolic pressure is 62 mmHg. Compared to previous study, the left ventricular systolic function is the same.. Ordering Physician: Preet Leahy Referring Physician: RENATE NATUNEZ Performed By: Rebecca De La Paz RDCS Assessment & Plan Assessment/Plan (1) CHF (congestive heart failure), NYHA class III: PLAN: She does appear to have congestive heart failure [place] Heart Association class III. This is systolic in nature. The plan at this time is to continue the diuresis especially with her elevated pulmonary pressure with Lasix 40 mg twice a day, her ARB, and her beta-juan with carvedilol. It appears to be secondary to a Takotsubo reaction and we will repeat her echocardiogram in 3 months to see whether there is been any improvement. (2) History of coronary artery stent placement: PLAN: Her previously placed stent is noted to be patent by cardiac catheterization yesterday. (3) Essential hypertension: PLAN: Her blood pressure appears to be under good control at this present time and I would not suggest that we make any other changes.
--- NOTE | 2021-09-27 12:50 | CASEMGMT ---
Addendum entered by Xiomara Gil 09/27/21 14:56: [employer] updated on referral, voices understanding. Janeen REAL CM Addendum entered by Xiomara Gil 09/27/21 13:47: Pt declines need for any further therapy at discharge but is aware that if she needs HHC or OP therapy once home, can contact PCP. Pt updated on oxygen need/process, voices understanding. Pt voices no further questions/concerns/needs. Janeen REAL CM Original Note: Pt qualifies for 2L home oxygen w/ exertion and had previously stated preference for [employer] as [employer] company. Script obtained and faxed to [employer]. This RN CM to room to discuss further d/c plans but pt is sleeping without distress and does not awaken to knock on door or verbal stimuli. Per therapy notes, no therapy recommended for pt at discharge. CM to follow. Janeen REAL CM
--- NOTE | 2021-09-27 13:21 | PCM.DC ---
Discharge Instructions Diet Discharge Diet: Low fat / Low cholesterol and 6 Cup Fluid Restriction Activity Discharge Activity: Return to Normal Activity Dressing / Incision Call your doctor if you observe: Shortness of breath, Dizziness, Swelling in the ankles, Chest pain and Increased palpitations (irregular heartbeat) Follow Up Care Test Results: Test results from this visit will be discussed in further detail at your follow-up appointment, if applicable. Discharge Plan Admission Admit Date/Time: 09/25/21 13:44 Primary Reason for Your Visit: Takotsubo, CHF exacerbation Attending Provider: Helder Vega Primary Care Provider: Lucy García Consulting Providers: Preet Leahy Discharge Orders/Prescriptions Prescriptions: New furosemide 40 mg Tablet 40 mg PO BIDLX 30 Days Qty: 60 RF: 0 carvedilol 6.25 mg Tablet 6.25 mg PO BID 30 Days Qty: 60 RF: 0 Continued allopurinol 300 mg tablet 300 mg PO DAILY RF: 0 clonidine HCl 0.2 mg tablet 0.2 mg PO QDAY RF: 0 omeprazole 20 mg tablet,delayed release (DR/EC) 20 mg PO DAILY RF: 0 Zyrtec 10 mg capsule 10 mg PO QDAY RF: 0 multivitamin Tablet 1 tab PO DAILY RF: 0 cannabidiol 100 mg/mL solution 1,500 mg PO DAILY RF: 0 tramadol 50 mg tablet 50 mg PO BID PRN (Reason: Pain) RF: 0 meloxicam 15 mg tablet 15 mg PO DAILY RF: 0 gabapentin 100 mg capsule 100 mg PO TID RF: 0 nitroglycerin 0.4 MG tablet, sublingual 0.4 mg sublingual Q5M PRN (Reason: Cardiac/Chest Pain) Qty: 25 RF: 3 aspirin [Adult Aspirin Regimen] 81 mg tablet,delayed release (DR/EC) 81 mg PO DAILY RF: 0 omega-3 acid ethyl esters 1 gram capsule 1 cap PO BID RF: 0 losartan 100 mg tablet 50 mg PO DAILY RF: 0 Referrals / Follow Up: Preet Leahy MD [STAFF PHYSICIAN] - Within 2 Weeks Lucy García MD [Primary Care Provider] - In 1 Week Disposition Disposition (needs filled in before D/C Order can be placed): Home, Self Care
--- NOTE | 2021-09-27 13:29 | DS.PCM_ITS ---
Documented by User: STANLEY Larsen 09/27/21 13:36 Providers Date of Admission: 09/25/21 Primary Care Physician: Dr. Lucy García MD Consultations 09/25/21 13:56 Consult: Cardiology Routine Consulting Provider: Preet Leahy Reason for Consult: CHF. elevated troponin EMERGENT Consult: No MD Notified: Yes Date Notified: 09/25/21 Time Notified: 13:56 Method of Notification: Text Reason For Visit: CHF Diagnosis Discharge Diagnosis (1) CHF (congestive heart failure), NYHA class III: Status: Acute Code(s): I50.9 - Heart failure, unspecified (2) History of coronary artery stent placement: Status: Acute Code(s): Z95.5 - Presence of coronary angioplasty implant and graft (3) Essential hypertension: Status: Acute Code(s): I10 - Essential (primary) hypertension Medications at Discharge Home Medications allopurinol 300 mg tablet 300 mg PO DAILY 01/08/19 cetirizine 10 mg capsule 10 mg PO QDAY cap 01/08/19 clonidine HCl 0.2 mg tablet 0.2 mg PO QDAY tab 01/08/19 omeprazole 20 mg tablet,delayed release 20 mg PO DAILY 01/08/19 cannabidiol 100 mg/mL oral solution 1,500 mg PO DAILY ml 07/28/19 multivitamin 1 tab PO DAILY 07/28/19 nitroglycerin 0.4 mg SUBLINGUAL Q5M PRN #25 tab.subl 09/10/19 meloxicam 15 mg tablet 15 mg PO DAILY 04/12/21 tramadol 50 mg tablet 50 mg PO BID PRN 04/12/21 gabapentin 100 mg capsule 100 mg PO TID 08/11/21 losartan 100 mg tablet 50 mg PO DAILY tab 08/11/21 aspirin [Adult Aspirin Regimen] 81 mg PO DAILY 09/25/21 omega-3 acid ethyl esters 1 cap PO BID 09/25/21 carvedilol 6.25 mg PO BID 30 Days #60 tab 09/27/21 furosemide 40 mg PO BIDLX 30 Days #60 tab 09/27/21 Hospital Course Operations None Procedures 2-D Echocardiogram, Cardiac catheterization and EKG Summary of Care Provided Minutes Spent on Discharge: 35 Hospital Course: Patient is a 71-year-old female who initially came in with increased shortness of breath. Patient was noted to have elevated troponins as well as elevated BNP. Patient underwent cardiac catheterization demonstrated patent stent in the LAD as well as Takotsubo cardiomyopathy. An echocardiogram was performed on 09/25/2021 which demonstrates an EF of 25%. Echocardiogram was repeated on 09/27/2021 which demonstrates EF 28%. Patient will be discharged home on losartan, carvedilol, and Lasix. Patient will follow up with cardiology. Per cardiology note patient will need a repeat echocardiogram in 3 months. Patient was noted to be hypokalemic at 3.4 on day of discharge and was given potassium replacement 40 mEq p.o. x1. Patient should follow-up with PCP in the next 1 to 2 weeks. Patient qualified for home oxygen as she needs 2 L nasal cannula with exertion. Patient provided prescription for oxygen and was set up by case management. Physical Exam Const alert, oriented x3 and no apparent distress General Appearance: cooperative HEENT normocephalic and head/scalp atraumatic Eyes conjunctivae normal and no scleral icterus Neck no lymphadenopathy and supple General: trachea midline Resp normal respiratory effort, normal air movement, no retractions, no use of accessory muscles and clear to auscultation bilaterally Resp Narrative: Bibasilar crackles. Cardio regular rate, regular rhythm, S1 normal heart sound and S2 normal heart sound GI normal to inspection, nondistended, normoactive bowel sounds, soft to palpation and non-tender Extremity normal to inspection and normal capillary refill General Extremity: no tenderness to palpation of joints or extremities Skin no rashes or lesions noted, no wounds and skin turgor normal General Skin Exam: no breakdown Lesions: no lesions Rashes: no rashes Neuro oriented x3, no focal motor deficits and no sensory deficits noted Sensorium / Orientation: awake and alert Psych affect normal Appearance: appropriate Weight / BMI Weight Weight: 182 lb 15.739 oz Body Mass Index (BMI) 31.4 ABG / Lab / Microbiology Data Result Diagrams: 09/25/21 08:38 09/27/21 05:14 Laboratory: Laboratory Results - last 24 hr 09/27/21 05:14: Sodium 142, Potassium 3.4 L, Chloride 109 H, Carbon Dioxide 24.0, Anion Gap 9, BUN 29 H, Creatinine 1.08 H, Estim Creat Clear Calc 39.46, Est GFR (MDRD) Af Amer 64, Est GFR (MDRD) Non-Af 53 L, BUN/Creatinine Ratio 26.9 H, Glucose 125 H, Calcium 8.4 L Microbiology: Microbiology 09/26/21 05:45 Urine, Clean Catch Urine Culture - Final Mixed Gram Pos & Gram Neg Org 09/25/21 09:01 Blood Culture (Wb) - Anticubital Right Blood Culture - Preliminary No growth in 48 hours. 09/25/21 08:38 Blood Culture (Wb) - Anticubital Right Blood Culture - Preliminary No growth in 48 hours. 09/25/21 09:18 Nasal Secretion SARS-CoV-2 Antigen (Rapid) - Final Radiography Diagnostic Testing: Radiology Impression Echocardiogram 09/27/21 07:31 Interpretation Summary Normal LV size. Severe segmental systolic dysfunction (see wall motion). The estimated ejection fraction is 28 %. Pulmonary artery systolic pressure is 62 mmHg. Compared to previous study, the left ventricular systolic function is the same.. Ordering Physician: Preet Leahy Referring Physician: LUCY GARCÍA Performed By: Rebecca De La Paz RDCS D/C Instructions Discharge Diet: Low fat / Low cholesterol and 6 Cup Fluid Restriction Call your doctor if you observe: Shortness of breath, Dizziness, Swelling in the ankles, Chest pain and Increased palpitations (irregular heartbeat) Meaningful Use Info Meaningful Use Diagnoses (Choose all that apply): CHF CHF RONNIE/ARB ordered at discharge?: Yes Documented LVEF (%): 28 Discharge Plan Admission Admit Date/Time: 09/25/21 13:44 Primary Reason for Your Visit: Takotsubo, CHF exacerbation Attending Provider: Helder Vega Primary Care Provider: Lucy García Consulting Providers: Preet Leahy Discharge Orders/Prescriptions Prescriptions: New furosemide 40 mg Tablet 40 mg PO BIDLX 30 Days Qty: 60 RF: 0 carvedilol 6.25 mg Tablet 6.25 mg PO BID 30 Days Qty: 60 RF: 0 Continued allopurinol 300 mg tablet 300 mg PO DAILY RF: 0 clonidine HCl 0.2 mg tablet 0.2 mg PO QDAY RF: 0 omeprazole 20 mg tablet,delayed release (DR/EC) 20 mg PO DAILY RF: 0 Zyrtec 10 mg capsule 10 mg PO QDAY RF: 0 multivitamin Tablet 1 tab PO DAILY RF: 0 cannabidiol 100 mg/mL solution 1,500 mg PO DAILY RF: 0 tramadol 50 mg tablet 50 mg PO BID PRN (Reason: Pain) RF: 0 meloxicam 15 mg tablet 15 mg PO DAILY RF: 0 gabapentin 100 mg capsule 100 mg PO TID RF: 0 nitroglycerin 0.4 MG tablet, sublingual 0.4 mg sublingual Q5M PRN (Reason: Cardiac/Chest Pain) Qty: 25 RF: 3 aspirin [Adult Aspirin Regimen] 81 mg tablet,delayed release (DR/EC) 81 mg PO DAILY RF: 0 omega-3 acid ethyl esters 1 gram capsule 1 cap PO BID RF: 0 losartan 100 mg tablet 50 mg PO DAILY RF: 0 Referrals / Follow Up: Preet Leahy MD [STAFF PHYSICIAN] - 10/27/21 11:15 am Lucy García MD [Primary Care Provider] - In 1 Week Disposition Disposition (needs filled in before D/C Order can be placed): Home, Self Care Documented by User: Dr. Helder Vega DO 09/27/21 14:07 Providers Date of Admission: 09/25/21 Reason For Visit: CHF Medications at Discharge Home Medications allopurinol 300 mg tablet 300 mg PO DAILY 01/08/19 cetirizine 10 mg capsule 10 mg PO QDAY cap 01/08/19 clonidine HCl 0.2 mg tablet 0.2 mg PO QDAY tab 01/08/19 omeprazole 20 mg tablet,delayed release 20 mg PO DAILY 01/08/19 cannabidiol 100 mg/mL oral solution 1,500 mg PO DAILY ml 07/28/19 multivitamin 1 tab PO DAILY 07/28/19 nitroglycerin 0.4 mg SUBLINGUAL Q5M PRN #25 tab.subl 09/10/19 meloxicam 15 mg tablet 15 mg PO DAILY 04/12/21 tramadol 50 mg tablet 50 mg PO BID PRN 04/12/21 gabapentin 100 mg capsule 100 mg PO TID 08/11/21 losartan 100 mg tablet 50 mg PO DAILY tab 08/11/21 aspirin [Adult Aspirin Regimen] 81 mg PO DAILY 09/25/21 omega-3 acid ethyl esters 1 cap PO BID 09/25/21 carvedilol 6.25 mg PO BID 30 Days #60 tab 09/27/21 furosemide 40 mg PO BIDLX 30 Days #60 tab 09/27/21 Hospital Course Procedures 2-D Echocardiogram and Cardiac catheterization Summary of Care Provided Minutes Spent on Discharge: 35 Hospital Course: 1. Acute hypoxic respiratory failure improved Secondary to CHF exacerbation Down to 6liters/m. Wean oxygen as tolerated. Rapid Covid was negative. Patient has been vaccinated for Covid and not had any Covid exposure that she is aware of. Patient does have chronic respiratory failure and has been extensively evaluated. Patient did have a recent left heart catheterization back in August that showed an EF of 55%. Mild luminal irregularities of less than 30% in the mid LAD and distal LAD. Pulmonary function test from July showed mild restrictive ventilatory impairm ent with symmetric reduction in diffusing capacity. 2. Acute heart failure with reduced ejection fraction EF of 60% from echocardiogram on 07/06/2021. Now down to 25%. Patient did receive furosemide in the emergency room and will continue on floor. Patient had been on furosemide previously but was taken off that about a month ago. 2/2 Takotsubo cardiomyopathy Medical mgmt follow up with cardiology 3. Non-ST elevation myocardial infarction Patient with recent left heart catheterization that was relatively normal I suspect this is type II ischemia Cardiology on consultation 4. Tachycardia Resolved I reviewed the EKG and appear to be a sinus tachycardia Monitoring telemetry Physical Exam Const alert General Appearance: cooperative Neck supple Resp normal respiratory effort and clear to auscultation bilaterally Cardio regular rate, regular rhythm, S1 normal heart sound and S2 normal heart sound GI normal to inspection, nondistended, normoactive bowel sounds, soft to palpation, non-tender and non-distended Extremity no clubbing, cyanosis or edema ABG / Lab / Microbiology Data Result Diagrams: 09/25/21 08:38 09/27/21 05:14 Discharge Plan Admission Admit Date/Time: 09/25/21 13:44 Primary Reason for Your Visit: Takotsubo, CHF exacerbation Attending Provider: Helder Vega Primary Care Provider: Lucy García Consulting Providers: Preet Leahy Discharge Orders/Prescriptions Prescriptions: New furosemide 40 mg Tablet 40 mg PO BIDLX 30 Days Qty: 60 RF: 0 carvedilol 6.25 mg Tablet 6.25 mg PO BID 30 Days Qty: 60 RF: 0 Continued allopurinol 300 mg tablet 300 mg PO DAILY RF: 0 clonidine HCl 0.2 mg tablet 0.2 mg PO QDAY RF: 0 omeprazole 20 mg tablet,delayed release (DR/EC) 20 mg PO DAILY RF: 0 Zyrtec 10 mg capsule 10 mg PO QDAY RF: 0 multivitamin Tablet 1 tab PO DAILY RF: 0 cannabidiol 100 mg/mL solution 1,500 mg PO DAILY RF: 0 tramadol 50 mg tablet 50 mg PO BID PRN (Reason: Pain) RF: 0 meloxicam 15 mg tablet 15 mg PO DAILY RF: 0 gabapentin 100 mg capsule 100 mg PO TID RF: 0 nitroglycerin 0.4 MG tablet, sublingual 0.4 mg sublingual Q5M PRN (Reason: Cardiac/Chest Pain) Qty: 25 RF: 3 aspirin [Adult Aspirin Regimen] 81 mg tablet,delayed release (DR/EC) 81 mg PO DAILY RF: 0 omega-3 acid ethyl esters 1 gram capsule 1 cap PO BID RF: 0 losartan 100 mg tablet 50 mg PO DAILY RF: 0 Referrals / Follow Up: Preet Leahy MD [STAFF PHYSICIAN] - 10/27/21 11:15 am Lucy García MD [Primary Care Provider] - In 1 Week Disposition Disposition (needs filled in before D/C Order can be placed): Home, Self Care Charges/Coding Visit Charges Inpatient E&M: 60657 Disch Hosp
--- NOTE | 2021-09-28 22:50 | CL.D_ITS ---
Patient Name: RAUL REYES Study Date: 09/26/2021 Performing: Preet Leahy MD Ht: 64 inches 163 cm : 1945 Wt: 183.2 lbs 83 kg Age: 75 Gender: female BSA: 1.89 PROCEDURE(S) PERFORMED EX22-SQN/COR/LV CLINICAL PROFILE AND INDICATIONS Indications: Suspected CAD Heart Failure: NYHA Class: 3, Newly Diagnosed: Yes, Heart Failure Type: Systolic Stress/Imaging Stress/Image Study Performed: No CONCLUSIONS patent stent in LAD Cardiomyopathy: Takotsubo RECOMMENDATIONS Medical therapy DESCRIPTION OF PROCEDURE The patient arrived to the procedure lab. The risks and benefits of the procedure as well as a full d escription of our services here and current unavailability of surgical backup were fully explained to the patient and/or their significant other prior to the catheterization. The Timeout was completed, verifying the correct patient and procedure. The patient's procedural site was prepped and draped in the usual fashion. Local anesthetic was given subcutaneously to right radial region with Lidocaine 2% . Using a modified Seldinger technique, arterial access was obtained via the right radial artery, a 6 Fr sheath was inserted. Left Coronary Artery selective angiography was performed in multiple views u sing a 5 Fr. 4.0 Maunie catheter. Right Coronary Artery selective angiography was then performed in mu ltiple views using a 5 Fr. 4.0 Maunie catheter. Left Ventriculography was performed in HERNANDEZ projection using a 5 Fr. Pigtail catheter. LV to AO pullback pressures were then recorded.The arterial sheath was pulled and a TR Band was applied for hemostasis w/ 10ml air CORONARY ANGIOGRAPHY DOMINANCE: Left Dominant LEFT HEART ASSESSMENT Left Ventricular Ejection Fraction: by LV Gram 25 % Anterior Akinesis. Apical Akinesis LEFT MAIN: Mild luminal irregularities LEFT ANTERIOR DESCENDING ARTERY: PROX LAD: Previously placed stent is patent MID LAD: Mild luminal irregularities CIRCUMFLEX ARTERY: Mild luminal irregularities COMPLICATIONS No Complications PROCEDURE MEDICATIONS Versed 1 mg IV Fentanyl 50 mcg IV Oxygen: 6 L/min via nasal cannula Heparin given IA 09/26/2021 07:28:51 SUMMARY OF HEMODYNAMIC DATA Time AIR REST ECG 07:13:27 Art 94/42 (56) 07:27:01 AO 76/43 (57) SA 07:31:51 LV 84/14, 22 07:38:46 LV 79/15, 23 07:38:53 LV 83/15, 22 07:39:33 LV 84/16, 27 07:39:39 LVp 85/16, 24 07:39:47 AOp 88/50 (66) 07:39:52 Signed By Preet Leahy MD On 09/26/2021 07:50:51 Preet Leahy MD
== END 2021-09-27 15:17 | disposition home or self-care (01) | DRG 280 ==
LOC: ED 09:02 → PCU 11:12
PROVIDERS: Emergency Provider Student in an Organized Health Care Education/Training Program; PCP Family Medicine
DX: I11.0 Hypertensive heart disease with heart failure (principal); I50.21 Acute systolic (congestive) heart failure; I21.A1 Myocardial infarction type 2; J96.21 Acute and chronic respiratory failure with hypoxia; E87.6 Hypokalemia; I48.91 Unspecified atrial fibrillation; I35.1 Nonrheumatic aortic (valve) insufficiency; E78.5 Hyperlipidemia, unspecified; M10.9 Gout, unspecified; K21.9 Gastro-esophageal reflux disease without esophagitis; Z95.5 Presence of coronary angioplasty implant and graft; Z79.82 Long term (current) use of aspirin; Z79.899 Other long term (current) drug therapy; Z87.891 Personal history of nicotine dependence; Z82.49 Family history of ischemic heart disease and other diseases of the circulatory system
CPT/HCPCS: 36415; 71045; 71275; 80048; 80053; 81001; 83605; 83880; 84484; 85025; 85610; 85730; 87040; 87077; 87086; 87088; 87426; 93005; 93308; 93458; 94002; 94003; 94640; 97161; 97166; 99152; 99153; 99285; J7030; J7040; Q9957; Q9967; A4216; C1769; C1894; C8924; J1940

== ENCOUNTER → 2021-11-01 11:03 | Outpatient (CLI) | payer MEDICARE, SELFPAY ==
[2020-02-26 09:39] VITALS: BMI 31.2
[2021-11-01 12:01] LABS: Anion Gap 6 (5-15); BUN 60 mg/dL (7-18); BUN/Creat Ratio 23.2 RATIO (10-20); Calcium,Total 9.8 mg/dL (8.5-10.1); Chloride 101 mmol/L (98-107); Creatinine, Serum 2.59 mg/dL (0.55-1.02); EST Glomerular Filtration Rate 19 mL/min (>60); Est Glom Filt Rate - Afr Amer 23 mL/min (>60); Glucose 124 mg/dL (74-106); Potassium 4.7 mmol/L (3.5-5.1); Sodium Level 136 mmol/L (136-145)
[2021-11-01 12:02] LABS: BNP,B-Type NATRIURETIC PEPTIDE 35.9 pg/mL (0-100)
== END ==
PROVIDERS: PCP Family Medicine
DX: I50.22 Chronic systolic (congestive) heart failure (principal)
CPT/HCPCS: 36415; 80048; 83880

== ENCOUNTER 2021-11-08 11:03 | Outpatient (CLI) | payer MEDICARE, SELFPAY ==
[2020-02-26 09:39] VITALS: BMI 31.2
[2021-11-08 11:58] LABS: Anion Gap 7 (5-15); BUN 34 mg/dL (7-18); BUN/Creat Ratio 19.7 RATIO (10-20); Calcium,Total 9.2 mg/dL (8.5-10.1); Chloride 108 mmol/L (98-107); Creatinine, Serum 1.73 mg/dL (0.55-1.02); EST Glomerular Filtration Rate 31 mL/min (>60); Est Glom Filt Rate - Afr Amer 37 mL/min (>60); Glucose 162 mg/dL (74-106); Potassium 3.9 mmol/L (3.5-5.1); Sodium Level 140 mmol/L (136-145)
== END 2021-11-08 23:59 | disposition short-term general hospital (02) ==
LOC: LAB 11:04
PROVIDERS: PCP Family Medicine; Visit Provider Internal Medicine Cardiovascular Disease
DX: R09.02 Hypoxemia (principal); I42.8 Other cardiomyopathies; I50.20 Unspecified systolic (congestive) heart failure; I25.119 Atherosclerotic heart disease of native coronary artery with unspecified angina pectoris; R06.00 Dyspnea, unspecified; Z95.5 Presence of coronary angioplasty implant and graft
CPT/HCPCS: 36415; 80048

== ENCOUNTER 2021-12-17 17:45 | Emergency (ER) | payer MEDICARE, SELFPAY ==
[2020-02-26 09:39] VITALS: BMI 31.2
[2021-12-17 17:47] VITALS: BP 128/57; PULSE 43; RESP 15; TEMP 37.1; O2SAT 98; BMI 30.9
--- NOTE | 2021-12-17 18:21 | EKG12_ITS ---
Test Reason : CP Blood Pressure : / mmHG Vent. Rate : 080 BPM Atrial Rate : 080 BPM P-R Int : 140 ms QRS Dur : 102 ms QT Int : 402 ms P-R-T Axes : 026 -51 039 degrees QTc Int : 463 ms Sinus rhythm with Premature atrial complexes in a pattern of bigeminy Left anterior fascicular block Voltage criteria for left ventricular hypertrophy Nonspecific ST abnormality Abnormal ECG Confirmed by SOUTH MARS, MARGARET ([id number]), offline editor DANA BOWLES ([id number]) on 12/21/2021 1:14:43 PM Referred By: MARCELLE Confirmed By:MARGARET DIA MD
--- NOTE | 2021-12-17 18:22 | EDS_ITS ---
HPI History of Present Illness Chief Complaint: Shortness of Breath Detail of Chief Complaint: Palpitations Informant: patient Onset/Context/Timing Onset: Today and Hours Timing: Intermittent Worsened By: Nothing Relieved By: Nothing Associated Symptoms: Positive for Palpitations; Negative for Nausea, Vomiting, Diaphoresis, Dyspnea, Cough, Fever, Lightheadedness and Acid Reflux Narrative Narrative: 76-year-old female history of asthma, hypertension, reflux, coronary disease with more than one cardiac stent placed 2 years ago. She also had an ME around August from [facility]. States she had her most recent heart cath was in September and she needed no new stents. Today around 430 had palpitations while seated. States she felt weird. He really denied any chest pain. She took her pulse ox and it was in the mid 90s. Her heart rate was 38 to 40s. She denies feeling lightheaded or dizzy. She has no thyroid disease history. She denies any recent medication adjustments in the last several weeks. Prior Similar Symptoms: No Recent Illness/Hospitalization: No CVD Risk Factors: Positive for Hypertension PE Risk Factors: Negative for Recent Travel/Surgery, Recent Immobilization, Prior DVT or PE, Cancer and OCP + Smoking + >/=35 TAD Risk Factors: Negative for Marfan's Syndrome [facility] Medical History Asthma Congestion of nasal sinus Essential hypertension Former smoker GERD (gastroesophageal reflux disease) Gout HLD (hyperlipidemia) Non-ischemic cardiomyopathy Pneumonia Restrictive pattern present on pulmonary function testing Tachycardia Home Medications allopurinol 300 mg tablet 300 mg PO DAILY 01/08/19 [History Last Taken 09/24/21 09:00] cetirizine 10 mg capsule 10 mg PO QDAY cap 01/08/19 [History Last Taken 09/24/21 22:00] omeprazole 20 mg tablet,delayed release 20 mg PO DAILY 01/08/19 [History Last Taken 09/24/21 09:00] meloxicam 15 mg tablet 15 mg PO DAILY 04/12/21 [History Last Taken 09/24/21 09:00] tramadol 50 mg tablet 50 mg PO BID PRN 04/12/21 [History Last Taken 09/24/21 22:00] gabapentin 100 mg capsule 300 mg PO TID 08/11/21 [History Last Taken 09/24/21 22:00] aspirin [Adult Aspirin Regimen] 81 mg PO DAILY 09/25/21 [History Last Taken 09/24/21 09:00] omega-3 acid ethyl esters 1 cap PO BID 09/25/21 [History Last Taken 09/24/21 17:00] carvedilol 12.5 mg tablet 12.5 mg PO BID 90 Days #180 tab 10/27/21 [Rx Last Taken Unknown] losartan 100 mg tablet 100 mg PO DAILY #90 tab 10/27/21 [Rx Last Taken Unknown] nitroglycerin 0.4 mg sublingual tablet 0.4 mg SUBLINGUAL Q5M PRN #25 tab.subl 10/31/21 [Rx Last Taken Unknown] torsemide 20 mg tablet 20 mg PO DAILY #60 tab 11/01/21 [Rx Last Taken Unknown] Allergy/AdvReac Type Severity Reaction Status Date / Time gemfibrozil [From Lopid] Allergy Severe Emir Verified 12/17/21 17:46 Hector Syndsome isosorbide Allergy Intermediate Itchy and Verified 12/17/21 17:46 red all over lisinopril AdvReac Intermediate cough Verified 12/17/21 17:46 Family History Mother Breast cancer Congenital heart disease Myocardial infarction Father CHF (congestive heart failure) Myocardial infarction Sister Myocardial infarction CHF (congestive heart failure) Surgical History H/O section History of coronary artery stent placement (09/09/19) History of left heart catheterization (09/28/21) History of right hip replacement Social History current occupational status: retired Smoking Status: Former smoker how long ago did patient quit smokin, 0.5ppd second hand exposure: Yes ROS ROS ED ROS Narrative Denies recent illness. Review of Systems ROS Unobtainable: Denies due to encephalopathy Constitutional Constitutional ED: Denies fever(s) Eyes Eyes: Denies none ENT ENT ED: Denies ear pain Cardiovascular Cardiovascular: Reports palpitations; Denies as per HPI, chest pain or racing heartbeat Respiratory/Chest Respiratory/Chest: Denies dyspnea Gastrointestinal Gastrointestinal: Denies abdominal pain, diarrhea, nausea or vomiting Genitourinary Genitourinary ED: Denies dysuria Musculoskeletal Musculoskeletal: Denies myalgias Integumentary Denies rash Neurologic Neurologic: Denies headache(s) Psychiatric Psychiatric: Denies depression Endocrine Endocrinology: Denies polyuria Hematologic/Lymphatic Hematologic/Lymphatic: Denies easy bruising Allergic/Immunologic Allergic/Immunologic ED: Denies urticaria EXAM Physical Exam Narrative Exam Narrative: 76 female no acute distress. Sitting upright in bed. Family at bedside. Vital signs stable afebrile. Pulse ox 98% on room air no signs hypoxia. Heart rate is 77 on my exam. In triage it was 43. H EENT normal. Mucous members. Neck nontender. No thyromegaly. Lungs clear to auscultation bilaterally. Heart regular rhythm no murmur rate about 77. Chest wall nontender. Abdomen soft nontender. Moving all 4 extremities. Calves are nontender without edema or cords. Neurologically she is awake and alert with no focal motor deficits. Const Vital Signs: 12/17/21 17:47 12/17/21 18:21 12/17/21 18:40 Temperature 98.7 F Temperature Source Temporal Pulse Rate 43 L 76 Respiratory Rate 15 20 H Respiratory Effort Normal Non-Labored Respiratory Pattern Normal Blood Pressure 128/57 H 123/54 H Blood Pressure Mean 80 77 Pulse Ox 98 97 Oxygen Delivery Method Room Air Room Air Room Air Positive well nourished and well developed; Negative for cachectic, contractures or unkempt General Appearance ED: well developed and NAD; Negative for unkempt, cachectic, contractures or pallor Nutritional Appearance: Negative for cachectic HEENT normocephalic and atraumatic; Negative for trauma or tenderness Eyes PERRL and EOMs intact bilaterally Neck no lymphadenopathy, supple and no JVD General: Negative for tenderness Chest Wall inspection of chest normal and palpation of chest normal Chest: Negative for tenderness Resp normal respiratory effort and clear to auscultation bilaterally Effort and Inspection: respiratory distress Auscultation: Negative for rales, rhonchi or wheezes Cardio regular rate, regular rhythm, S1 normal heart sound, S2 normal heart sound and no murmurs Rate: Negative for bradycardia or tachycardic GI normal to inspection, nondistended, normoactive bowel sounds, soft to palpation, non-tender, non-distended and no masses; Negative for hepatosplenomegaly Auscultation: Negative for hyperactive bowel sounds Back/Spine no CVA tenderness General Back: Negative for CVA tenderness Extremity normal to inspection General Extremety ED: Negative for edema or tenderness General Extremity: Negative for edema Neuro oriented x3 Sensorium / Orientation: awake, alert, oriented to person, oriented to place and oriented to time Motor Exam: strength 5/5 throughout Psych mental status grossly normal Appearance: Negative for unkempt Mood & Affect: Negative for depressed or tearful Skin no rashes or lesions noted and no wounds General Skin Exam: Negative for jaundice or pallor Heart Score History: Slightly/Non-Suspicious ECG: Normal Age: >/= 65 years Risk Factors: >/= 3 Risk Factors or History of CAD Troponin: </= Normal Limit Score: 4 MDM MDM MDM Narrative Medical decision making narrative: 76-year-old female with slow heart rate at home. She denied any lightheadedness, dizziness or near syncope. Her exam right now is normal her heart rates in the 70s. She undergo cardiac work-up. She is really not had chest pain with this. Repeat exam patient is doing well at 7:48 PM. She will be discharged on the follow-up with her local solar system installer Dr. Leahy. Lab Data Attestation: I reviewed the patient's lab results. Lab results narrative: CBC shows a white count 9. H&H 10.9 and 33.6. Chem istries show a gap of 4 BUN 38 creatinine 1.67. Glucose 124. Troponin VIII and TSH normal 1.5 Labs: Laboratory Results - last 24 hr 12/17/21 12/17/21 18:27 18:27 WBC 9.4 RBC 3.48 L Hgb 10.9 L Hct 33.6 L MCV 96.6 MCH 31.3 MCHC 32.4 RDW Std Deviation 50.5 H RDW Coeff of Yue 14.5 Plt Count 269 MPV 9.6 Immature Gran % (Auto) 1.200 H Neut % (Auto) 82.7 H Lymph % (Auto) 10.2 L [place] % (Auto) 5.5 Eos % (Auto) 0.2 Baso % (Auto) 0.2 Absolute Neuts (auto) 7.8 H Absolute Lymphs (auto) 0.96 Nucleated RBC % 0 Sodium 138 Potassium 4.0 Chloride 104 Carbon Dioxide 30.0 Anion Gap 4 L BUN 38 H Creatinine 1.67 H Estim Creat Clear Calc 25.13 Est GFR (MDRD) Af Amer 39 L Est GFR (MDRD) Non-Af 32 L BUN/Creatinine Ratio 22.8 H Glucose 124 H Calcium 8.8 Troponin I High Sens 8 TSH 1.58 Radiography Chest X-Ray - ED: 1 View, Read by ED Physician, Heart, Lungs, Mediastinum, Bony Structures, No Acute Disease and Chronic Changes Diagnostic Testing: Clinical Impression(s) from Imaging Studies Chest X-Ray 12/17/21 18:40 IMPRESSION: There are no acute findings. Electronically Signed: Celio Zapata MD at 19:19 EST , Portable chest x-ray single view interpreted by myself the radiologist shows no acute abnormality. Rhythm Strip Rhythm Strip: Sinus Rhythm Rate: 80 Ectopy: PAC(s) EKG Initial EKG: Attestation: I personally reviewed and interpreted this EKG as follows: Interpretation: Sinus Rhythm and No Acute Injury Pattern Comments: Sinus rhythm rate of 80 with PACs and at times bigeminy. No acute signs of ME or ischemia. Discharge Plan Triage Chief Complaint: Shortness of Breath ED Provider: Yovanny Pierre Dx/Rx/DC Orders Clinical Impression: Heart palpitations, Bradycardia Instructions: ED Bradycardia Prescriptions: No Action allopurinol 300 mg tablet 300 mg PO DAILY RF: 0 omeprazole 20 mg tablet,delayed release (DR/EC) 20 mg PO DAILY RF: 0 Zyrtec 10 mg capsule 10 mg PO QDAY RF: 0 tramadol 50 mg tablet 50 mg PO BID PRN (Reason: Pain) RF: 0 meloxicam 15 mg tablet 15 mg PO DAILY RF: 0 carvedilol 12.5 mg tablet 12.5 mg PO BID 90 Days Qty: 180 RF: 3 losartan 100 mg tablet 100 mg PO DAILY Qty: 90 RF: 3 gabapentin 100 mg capsule 300 mg PO TID RF: 0 aspirin [Adult Aspirin Regimen] 81 mg tablet,delayed release (DR/EC) 81 mg PO DAILY RF: 0 omega-3 acid ethyl esters 1 gram capsule 1 cap PO BID RF: 0 nitroglycerin 0.4 mg tablet, sublingual 0.4 mg sublingual Q5M PRN (Reason: Cardiac/Chest Pain) Qty: 25 RF: 3 torsemide 20 mg tablet 20 mg PO DAILY Qty: 60 RF: 11 Hold Instructions: HOLD until Saturday11/05/20 for elev. creat. Primary Care Provider: Lucy García Referrals: Preet Leahy MD [STAFF PHYSICIAN] - As soon as possible Lucy García MD [Primary Care Provider] - Activity Restrictions/Additional Instructions: Your work-up today was unremarkable. Call and follow-up with your solar system installer. Return if feeling worse. Disposition Disposition: Home, Self Care
[2021-12-17 18:40] VITALS: BP 123/54; PULSE 76; RESP 20; O2SAT 97
--- NOTE | 2021-12-17 18:40 | RAD_ITS ---
STUDY: X-RAY CHEST REASON FOR EXAM: Female, 76 years old. CHEST PAIN chest pain TECHNIQUE: XR Chest 1 View COMPARISON: 09.25.21 FINDINGS: There is no demonstrated pleural abnormality. Normal size heart. Normal mediastinum and saima. Normal visualized pulmonary arteries. There is atherosclerotic calcification of the aortic arch with tortuosity. There are diffuse degenerative changes of the visualized thoracic spine. There is degenerative osteoarthritis of the bilateral shoulders. There is no demonstrated abnormality of the visualized soft tissue structures of the upper abdomen. RAD/Chest 1 View (Portable) IMPRESSION: There are no acute findings. Electronically Signed: Celio Zapata MD at 19:19 EST ,
[2021-12-17 19:13] LABS: Absolute Lymphocyte Count 0.96 X10^3/uL (0.83-4.51); Absolute Neutrophil Count 7.8 X10^3/uL (2.0-7.7); Basophil# 0.02 X10^3/uL; Basophil% 0.2 % (0-1); Eosinophil# 0.02 X10^3/uL; Eosinophils% 0.2 % (0-5); Hematocrit 33.6 % (37-47); Hemoglobin 10.9 g/dL (12.0-15.0); Lymphocyte # 0.96 X10^3/ul (0.83-4.51); Lymphocyte % 10.2 % (19-41); Mean Corp Hgb Conc 32.4 g/dL (32-36); Mean Corpuscular Hgb 31.3 pg (27.0-32.0); Mean Corpuscular Volume 96.6 fL (81-99); Mean Platelet Vol. 9.6 fl (6.2-12.0); Monocyte# 0.52 X10^3/uL; Monocyte% 5.5 % (0-10); NRBC Flagged by Analyzer 0 % (0-5); Neutrophil # 7.79 X10^3/uL (2.7-7.7); Neutrophil % 82.7 % (47-70); Platelet Count 269 K/mm3 (150-450); RBC Distribution Width CV 14.5 % (11.6-14.6); RBC Distribution Width SD 50.5 fl (35.1-43.9); Red Blood Count 3.48 M/mm3 (4.2-5.4); White Blood Count 9.4 K/mm3 (4.4-11.0)
[2021-12-17 19:34] LABS: Anion Gap 4 (5-15); BUN 38 mg/dL (7-18); BUN/Creat Ratio 22.8 RATIO (10-20); Calcium,Total 8.8 mg/dL (8.5-10.1); Chloride 104 mmol/L (98-107); Creatinine, Serum 1.67 mg/dL (0.55-1.02); EST Glomerular Filtration Rate 32 mL/min (>60); Est Glom Filt Rate - Afr Amer 39 mL/min (>60); Estimated Creatinine Clearance 25.13 ml/min; Glucose 124 mg/dL (74-106); Sodium Level 138 mmol/L (136-145); Thyroid Stim Hormone (TSH) 1.58 uIU/mL (0.358-3.74); Troponin-I HS 8 pg/mL (3.0-54.0)
[2021-12-17 20:06] VITALS: BP 124/53; PULSE 72; RESP 18; O2SAT 96
--- NOTE | 2021-12-18 11:15 | CASEMGMT ---
ADDIE CLANCY ED follow-up: Date of ER visit: 12/17/2021 Presenting ER complaint: shortness of breath, bradycardia ADDIE CLANCY placed call to patient's telephone number listed on demographics and patient answered. ADDIE CLANCY introduced self and role at [facility]. Patient states she is tired but I feel better today. Patient states she has been in contact with Dr. Leahy's office and has an echocardiogram scheduled for December 25, 2021 with planned follow-up after testing. Patient states her daughter and grandson are both nurses and taking good care of me. Patient encouraged to monitor BP and HR and keep log for follow-up appointment. Patient voiced understanding. Patient denies questions, needs or concerns. ADDIE Monroy CM
== END 2021-12-17 20:18 | disposition home or self-care (01) ==
PROVIDERS: Emergency Provider Emergency Medicine; PCP Family Medicine; Visit Provider Emergency Medicine
DX: R00.2 Palpitations (principal); I42.8 Other cardiomyopathies; R00.1 Bradycardia, unspecified; E78.5 Hyperlipidemia, unspecified; I25.10 Atherosclerotic heart disease of native coronary artery without angina pectoris; I10 Essential (primary) hypertension; I25.2 Old myocardial infarction; K21.9 Gastro-esophageal reflux disease without esophagitis; Z95.5 Presence of coronary angioplasty implant and graft; Z79.82 Long term (current) use of aspirin; Z79.899 Other long term (current) drug therapy; Z87.891 Personal history of nicotine dependence
CPT/HCPCS: 71045; 80048; 84443; 84484; 85025; 93005; 99284; A4216

== ENCOUNTER 2021-12-25 13:10 | Outpatient (CLI) | payer MEDICARE, SELFPAY ==
[2020-02-26 09:39] VITALS: BMI 31.2
--- NOTE | 2021-12-25 13:13 | ECHOD_ITS ---
Reason For Study: CAD Procedure This was a 2D Doppler, Color Flow transthoracic echocardiogram. Exam performed in department. Left Ventricle Normal LV size. Left ventricular systolic function is normal. The estimated ejection fraction is 55 %. Stage 1 diastolic dysfunction. No regional wall motion abnormalities noted. Right Ventricle Normal RV size. Normal systolic function. Atria Normal left atrium. Normal right atrium. Mitral Valve Normal mitral valve. Tricuspid Valve Normal tricuspid valve. Mild (1+) tricuspid valve insufficiency. Pulmonary artery systolic pressure is 28 mmHg. Aortic Valve Trisinus/trileaflet aortic valve. Mild (1+) aortic valve insufficiency. Great Vessels Normal aortic root. The pulmonary artery is normal size. Normal inferior vena cava. Pericardium/Pleural Trivial pericardial effusion. Epicardial fat. MMode/2D Measurements & Calculations LVIDd: 3.9 cm IVSd: 0.87 cm Ao root diam: 3.2 cm LVIDs: 2.6 cm LVPWd: 0.79 cm RVDd: 2.6 cm FS: 33.5 % LAV(MOD-bp): 31.7 ml LA A4 area: 14.3 cm2 LA dimension(2D): 3.2 cm LAV(MOD-bp) Indexed: 16.8 ml/m2 LAV(MOD-sp2): 29.9 ml LAV(MOD-sp4): 33.3 ml RA A4 area: 11.4 cm2 Doppler Measurements & Calculations MV E max ricardo: 57.8 cm/sec Lat Peak E' Ricardo: 3.2 cm/sec Med Peak E' Ricardo: 4.4 cm/sec MV A max ricardo: 122.5 cm/sec E/E' lat: 18.2 E/E' med: 13.1 MV E/A: 0.47 Ao V2 max: 138.1 cm/sec AI max ricardo: 269.0 cm/sec LV V1 max: 106.6 cm/sec Ao max P.9 mmHg AI max P.0 mmHg LV V1 max P.6 mmHg AI dec slope: 99.7 cm/sec2 AI P1/2t: 790.6 msec PA V2 max: 96.6 cm/sec TR max ricardo: 240.9 cm/sec TR max P.3 mmHg ECHO/Echo Complete Interpretation Summary Normal LV size. Left ventricular systolic function is normal. The estimated ejection fraction is 55 %. Mild (1+) aortic valve insufficiency. Pulmonary artery systolic pressure is 28 mmHg. Stage 1 diastolic dysfunction. Compared to the previous the left ventricular function has improved significant ly and the pulmonary pressures have also improved. Ordering Physician: Preet Leahy Referring Physician: Lucy García Performed By: Magdalene Maloney RDCS
== END 2021-12-25 23:59 | disposition home or self-care (01) ==
LOC: CVS 13:11
PROVIDERS: PCP Family Medicine; Referring Provider Internal Medicine Cardiovascular Disease; Visit Provider Internal Medicine Cardiovascular Disease
DX: I50.32 Chronic diastolic (congestive) heart failure (principal); I25.10 Atherosclerotic heart disease of native coronary artery without angina pectoris
CPT/HCPCS: 93306

== ENCOUNTER → 2022-03-29 | Outpatient (CLI) | payer MEDICARE, SELFPAY ==
[2020-02-26 09:39] VITALS: BMI 31.2
== END | disposition home or self-care (01) ==
LOC: SL 20:09
PROVIDERS: PCP Family Medicine; Referring Provider Internal Medicine Critical Care Medicine; Visit Provider Internal Medicine Critical Care Medicine
DX: G47.10 Hypersomnia, unspecified (principal)
CPT/HCPCS: 95810

== ENCOUNTER → 2022-04-26 | Outpatient (CLI) | payer MEDICARE, SELFPAY ==
[2020-02-26 09:39] VITALS: BMI 31.2
[2022-04-26 13:31] LABS: Absolute Lymphocyte Count 1.81 X10^3/uL (0.83-4.51); Absolute Neutrophil Count 5.9 X10^3/uL (2.0-7.7); Basophil# 0.02 X10^3/uL; Basophil% 0.2 % (0-1); Eosinophil# 0.25 X10^3/uL; Eosinophils% 2.9 % (0-5); Hematocrit 31.6 % (37-47); Lymphocyte # 1.81 X10^3/ul (0.83-4.51); Mean Corp Hgb Conc 31.6 g/dL (32-36); Mean Corpuscular Volume 97.8 fL (81-99); Mean Platelet Vol. 9.8 fl (6.2-12.0); Monocyte# 0.61 X10^3/uL; Monocyte% 7.1 % (0-10); NRBC Flagged by Analyzer 0 % (0-5); Neutrophil # 5.88 X10^3/uL (2.7-7.7); Neutrophil % 68.3 % (47-70); Platelet Count 286 K/mm3 (150-450); RBC Distribution Width CV 13.2 % (11.6-14.6); Red Blood Count 3.23 M/mm3 (4.2-5.4); White Blood Count 8.6 K/mm3 (4.4-11.0)
[2022-04-26 13:56] LABS: ALB/GLOB Ratio 0.8 RATIO (0.9-2.4); AST(SGOT) 16 U/L (15-37); Alanine Aminotransfer ALT/SGPT 28 U/L (13-56); Albumin, Serum 3.1 g/dL (3.2-5.0); Alkaline Phosphatase 97 U/L (45-117); Anion Gap 5 (5-15); BUN 22 mg/dL (7-18); BUN/Creat Ratio 16.3 RATIO (10-20); Chloride 103 mmol/L (98-107); Creatinine, Serum 1.35 mg/dL (0.55-1.02); EST Glomerular Filtration Rate 41 mL/min (>60); Est Glom Filt Rate - Afr Amer 49 mL/min (>60); Globulin 3.9 g/dL (2.2-4.2); Glucose 106 mg/dL (74-106); Magnesium 2.3 mg/dL (1.6-2.6); Potassium 3.9 mmol/L (3.5-5.1); Sodium Level 140 mmol/L (136-145)
[2022-04-26 14:09] LABS: BNP,B-Type NATRIURETIC PEPTIDE 81.5 pg/mL (0-100)
== END | disposition home or self-care (01) ==
LOC: LAB 12:31
PROVIDERS: PCP Family Medicine; Referring Provider Nurse Practitioner Family; Visit Provider Nurse Practitioner Family
DX: I11.0 Hypertensive heart disease with heart failure (principal); I50.9 Heart failure, unspecified; R06.00 Dyspnea, unspecified; Z95.5 Presence of coronary angioplasty implant and graft
CPT/HCPCS: 36415; 80053; 83735; 83880; 85025

== ENCOUNTER → 2022-07-13 | Outpatient (CLI) | payer MEDICARE, SELFPAY ==
[2020-02-26 09:39] VITALS: BMI 31.2
--- NOTE | 2022-07-13 13:04 | CT_ITS ---
CT Lower Extremity W/O Contrast Injection INDICATION:76 years old Female presenting with PAIN. TECHNIQUE: Sequential axial 2.5 mm collimated images are obtained through the right hip and ankle. 0.625 mm images were obtained through the right knee. No intravenous contrast was administered. Images were reformatted in sagittal and coronal planes and forwarded for preoperative planning. COMPARISON: None. FINDINGS: Contiguous axial images of the right lower extremity was obtained in different collimations for preoperative planning, images demonstrate degenerative changes, no evidence of cortical irregularity is a lucencies to suggest fractures, no evidence of lytic or sclerotic bone lesions are seen. Unremarkable alignment of the components of the right hip prosthesis, no evidence of lucency is seen surrounding the prosthesis, no evidence of right hip dislocation. Severe narrowing of the medial joint space, moderate to severe narrowing of the lateral joint space is seen, moderate narrowing of the patellofemoral joint space. Prominent prominent osteophyte formation is seen. Subchondral lucencies visualized consistent with degenerative changes. Small suprapatellar effusion is seen . Vascular calcifications visualized in the popliteal artery. The ankle mortise is well-maintained, the talar dome is unremarkable, degenerative changes visualized with no evidence of cortical irregularity or lucency to suggest a fracture. No evidence of dislocation is seen. Mild stranding of the subcutaneous soft tissues is visualized, no evidence of collections is seen. CT/Extremity Lower without Contra IMPRESSION: Degenerative changes seen. Electronically Signed: Jose Davison MD at 14:15 EDT Reading Location ID and State: [facility] / [place] Tel , Service support ,
== END | disposition home or self-care (01) ==
PROVIDERS: PCP Family Medicine; Referring Provider Orthopaedic Surgery; Visit Provider Orthopaedic Surgery
DX: M17.11 Unilateral primary osteoarthritis, right knee (principal)
CPT/HCPCS: 71046; 73700

== ENCOUNTER 2022-07-23 12:57 | Observation (INO) | payer MEDICARE, SELFPAY ==
[2020-02-26 09:39] VITALS: BMI 31.2
--- NOTE | 2022-07-13 13:10 | RAD_ITS ---
INDICATION: PREOP EXAMINATION/TECHNIQUE: X-RAY - XR Chest 2 Views COMPARISON: 12/17/2021. FINDINGS: LINES/DEVICES: None. LUNGS: Poor inspiratory effort is seen. Biapical prominence consistent with COPD changes. Peribronchial cuffing bilateral hilar prominence is seen, mild prominence of the bronchovascular and interstitial lung markings is seen, linear subsegmental atelectatic streaks visualized in the lower lung serrano more prominent in the left lower lung field but no evidence of focal consolidation or infiltrate is seen. No consolidation, edema or effusion. No pneumothorax. MEDIASTINUM AND CARDIOVASCULAR STRUCTURES: Cardiac silhouette is enlarged. BONES AND SOFT TISSUES: Unremarkable. RAD/Chest PA and Lateral IMPRESSION: COPD changes and bronchovascular prominence seen. Electronically Signed: Jose Davison MD at 13:47 EDT ,
[2022-07-13 13:48] LABS: Absolute Lymphocyte Count 1.47 X10^3/uL (0.83-4.51); Absolute Neutrophil Count 5.8 X10^3/uL (2.0-7.7); Basophil# 0.03 X10^3/uL; Basophil% 0.4 % (0-1); Eosinophil# 0.08 X10^3/uL; Hemoglobin 10.2 g/dL (12.0-15.0); Lymphocyte # 1.47 X10^3/ul (0.83-4.51); Lymphocyte % 18.5 % (19-41); Mean Corp Hgb Conc 31.9 g/dL (32-36); Mean Corpuscular Hgb 31.5 pg (27.0-32.0); Mean Corpuscular Volume 98.8 fL (81-99); Mean Platelet Vol. 9.3 fl (6.2-12.0); Monocyte# 0.51 X10^3/uL; Monocyte% 6.4 % (0-10); NRBC Flagged by Analyzer 0 % (0-5); Neutrophil # 5.81 X10^3/uL (2.7-7.7); Neutrophil % 72.9 % (47-70); Platelet Count 263 K/mm3 (150-450); RBC Distribution Width CV 14.6 % (11.6-14.6); RBC Distribution Width SD 52.5 fl (35.1-43.9); Red Blood Count 3.24 M/mm3 (4.2-5.4)
[2022-07-13 14:15] LABS: Anion Gap 7 (5-15); BUN 21 mg/dL (7-18); BUN/Creat Ratio 14.4 RATIO (10-20); Calcium,Total 8.7 mg/dL (8.5-10.1); Chloride 103 mmol/L (98-107); Creatinine, Serum 1.46 mg/dL (0.55-1.02); EST Glomerular Filtration Rate 37 mL/min (>60); Est Glom Filt Rate - Afr Amer 45 mL/min (>60); Glucose 122 mg/dL (74-106); Potassium 3.5 mmol/L (3.5-5.1); Sodium Level 141 mmol/L (136-145)
[2022-07-13 14:21] LABS: AST(SGOT) 13 U/L (15-37); Alanine Aminotransfer ALT/SGPT 30 U/L (13-56); Albumin, Serum 2.8 g/dL (3.2-5.0); Alkaline Phosphatase 107 U/L (45-117); Bilirubin, Direct 0.09 mg/dL (0.00-0.30); Globulin 3.9 g/dL (2.2-4.2); Protein, Total 6.7 g/dL (6.4-8.2)
--- NOTE | 2022-07-19 14:22 | CASEMGMT ---
ADDIE CLANCY Assessment: TC to pt for initial transition planning/care coordination assessment. ADDIE CLANCY introduced self and role at [facility], pt voices understanding and consents to assessment. Care providers, pharmacy, and demographics verified/updated. Admitting Dx: TKR Robotic Arm Assist, Right PCP:Raquel Specialists:Amrit, ortho; Tosin, cardio; Shlomo, pulm; Raquel, eye doctor [facility] Insurance: A[employer]na [facility] Prescription Benefit: yes LW/HPOA: Pt has a LW/DPOA on file at [facility]. Her DPOA is her dtr Yolie Carey. LNOK: Yolie Carey, dtr; Jer Mckeon, son Living Arrangements: Pt lives alone in a single story condo with 1 step to enter through the garage. Pt reports she is I in ADL's and denies concerns at home. Transportation: Pt drives self and denies concerns with transportation. Pt states she does not have a plan for someone to transport pt post hospitalization. DME/HHC/SNF: Pt has a cane that she uses when her back is painful. She also has a FWW but pt does not use. Pt denies hx of HHC or SNF stays. Pt states she would like to go to [facility] TCU post surgery. Discussed with patient that her insurance will need to approve this hospital stay and that the insurance will determine approval based on criteria such as how well she does with therapy post surgery. Pt states she has a dtr who is a nurse as well as a grandson and a grandson who is a PAINTING CONTRACTOR. She states she has good neighbor support as well. Discussed with patient having a backup plan in case she was not approved for [facility] TCU. Pt states she cannot do this as her family is busy and she does not know their schedules. Encouraged pt to discuss this with her family. Discussed with patient having HHC vs outpt therapy post surgery if her stay in TCU was denied. Pt states she does not have transportation either. Discussed the [facility] van for transportation to [employer] but that this transportation would not go to [place]. Pt verbalizes understanding of this. Pt states no further concerns/needs. CM to follow. Advised pt to ask CM if any further question/concerns/needs arise, voices understanding. Pt Goal: [facility] TCU Plan: TBD, pending surgery, therapy evals and bed availability.
[2022-07-23] VITALS (12 sets, daily range): BP systolic 108–136; BP diastolic 48–59; PULSE 55–83; RESP 16–18; TEMP 36.2–36.8; O2SAT 93–100; BMI 33.1
[2022-07-23] MEDS: Celecoxib 200 MG Capsule 400 MG PO (06:35)
[2022-07-23] MEDS: Acetaminophen 500 MG Tablet 1000 MG PO ×3 (06:35→21:33)
[2022-07-23] MEDS: Gabapentin 600 MG Tablet PO (06:35)
[2022-07-23] MEDS: Magnesium 1 GM over 15 mins IV (06:36)
[2022-07-23] MEDS: Lactated Ringers 1,000 ML 999 ML IV ×2 (06:36→09:55)
[2022-07-23] MEDS: Insulin Lispro 100 UNIT/ML INSULN.PEN SC (06:38)
[2022-07-23] MEDS: Cefazolin 2 GM in 0.9% Normal Saline 100 ML IV (07:30)
[2022-07-23] MEDS: TXA 1000mg in NS100 100ml (IVPB at Closure) 660 MG IV (07:30)
--- NOTE | 2022-07-23 07:30 | KNEE_PTH ---
PATIENT: RAUL REYES LOC: MS3 U#:[id number] AGE/SX: 76/F [place] [facility] [place]: Dr. Manjeet Marcus DO : 1945 BED: 1 DIS: 07/26/2022 SPEC #: [id number] RECD: 07/23/22 11:10 STATUS: CECY ROGER #: [id number] VIVEK: 07/23/22 07:[address]: Manjeet Marcus DEPT: SURGICAL PATHOLOGY RECD BY: Leilani Gan ENTERED: 07/23/22 13:23 SP TYPE: TOTAL KNEE OTHR DR: MD Dr. Lucy Bond MD Tissues: Knee, NOS Procedures: Decalcification bone/plaque Surgery Specimen Level IV HEADER OPERATION: ERAS, total knee replacement robotic arm assist PRE-OP DIAGNOSIS: Grade 3 osteoarthritis right knee TISSUE SUBMITTED: Bone and soft tissue right knee MICROSCOPIC DIAGNOSIS Bone and soft tissue, right knee, total knee replacement/resection: Pieces of bone with degenerative osteoarthritic changes. HOLLAND:matteo 07/26/2022 MICROSCOPIC DESCRIPTION Slides are reviewed. GROSS DESCRIPTION Received is one container designated bone and soft tissue right knee. The specimen consists of multiple fragments of dukes-yellow bone measuring in aggregate 11 x 8 x 3 cm. No soft tissue is identified. A number of bony fragments contain articular surfaces consistent with tibial plateau and femoral condyle and displaying prominent osteophyte formation and bone erosion. Bean Weigher sections are submitted in two cassettes after decalcification. / HOLLAND:matteo 07/23/2022 TC:5 CPT: 57904, 03491
[2022-07-23 08:25] LABS: Bedside Glucose 222 mg/dL (74-106)
[2022-07-23] MEDS: TXA 1000mg in NS100 100ml (IVPB at Incision) 660 MG IV (08:49)
--- NOTE | 2022-07-23 09:09 | OP.PCM_ITS ---
Report of Operation Date of Procedure: 07/23/22 Pre-Operative Diagnosis: OA right knee Post-Operative Diagnosis: same Surgery/Procedure Performed:: Right TKR Description of Surgical Findings:: Report of Operation: 07/23/2022 Date of Procedure: Right TKR Preoperative Diagnosis: [ Right ] knee primary osteoarthritis Postoperative Diagnosis: [Right ] knee primary osteoarthritis Operation: Robotic Assisted Knee Total Arthroplasty, [Right ] knee Surgeon: Dr Manjeet Marcus DO Profile Mill Operator Tape Control: Lane Ortega PA-C Anesthesia: spinal Anesthesiologist: Dedrick Martinez M.D. Findings: Stable knee with good patella tracking Specimen(s): Bony cuts Complications: No intraoperative complications Estimated Blood Loss: 20 cc IV Fluids: 1000 cc crystalloid Implants Used: 1. Alfred Triathlon press-fit CR size 3 femur 2. Alfred Triathlon size 3 tibia 3. 35 mm patella 4. 10 mm CS polyethylene Brief History Operative Indications: [ (76 y/o female) ] with history of [ right ] knee osteoarthrosis with radiographic findings with loss of joint space, osteophyte formation and subchondral sclerosis. Failed conservative measures as mentioned in the H&P. Discussion of total knee arthroplasty as well as risk and benefits were discussed with the patient including but not limited to blood loss, DVTs, PEs, neurovascular damage, general risk of anesthesia including loss of life, and stiffness or instability were also discussed with the patient. Patient demonstrated understanding and was able to sign informed consent. Procedure: On the date of procedure, patient's [right ] lower extremity was marked in the preoperative area. The patient was then taken back to the operating room where that patient was placed on the table in the supine position. All bony prominences were identified and well-padded. Anesthesia assumed control of the C-spine and airway throughout the remainder of the procedure. A tourniquet was placed on the [right ] upper thigh and the leg was prepped in a sterile fashion. The surgeon then scrubbed at this time. Upon reentering the room, the [ right ] lower extremity was draped in a standard orthopedic fashion. A timeout was then called and everyone agreed upon the side, the site, the procedure to be performed, patient's identity and antibiotics given. Esmarch bandage was used to exsanguinate the extremity and the tourniquet was placed up to 250 mmHg with the knee in flexion. A midline skin incision was made and a sharp dissection was taken down through skin, subcutaneous tissue and fat. The standard medial parapatellar incision was made and the patella was subluxed laterally. An appropriate deep MCL release was done and the fat pad was resected. Our attention was then directed to the patella. The patella was everted and a flat resection was made. The knee was then flexed up and 2 femoral pins were placed inside the incision and 2 tibial pins were placed outside the incision in the medial tibia bicortically. Once this was completed, the 2 checkpoints in the femur and tibia were placed. Knee was then flexed up and the bony landmarks were registered. Once the was completed, the knee taken through range of motion and manually stressed allowing us to plan for an appropriate tibial cut. The robotic arm was brought into the field sterilely and checkpoint and saw were registered. Based on the patient's deformity, the tibial cut was made in [ 2 degrees varus ]. At this time, the tensioner was then placed in the joint and ligament tension was checked at 90 degrees and full extension. Based on the patient's ligamentous tension, appropriate adjustments were made to the operative plan and ligament releases were done. Once we were happy with our operative plan with balanced flexion and extension g aps, our attention was directed to the femur. The robot was brought into the field sterilely and registered. Posterior condylar cuts, anterior chamfer cuts and anterior cuts were appropriately made for a [size 3 ] femur. When these were completed, the saws were switched out in the distal femoral and posterior chamfer cuts were made. Protecting the soft tissue throughout this time. A [size 3 ] base plate was selected. The knee was flexed to 90 degrees and soft tissues and posterior osteophytes were removed from the joint. 40 cc of the periarticular injection was injected into the posterior medial corner of the joint. The appropriate trials were then placed on the femur and tibia. A trial polyethylene was trialed to ensure proper balancing and stability of the knee. The appropriate tibial internal rotation was then marked with a bovie. Our attention was then directed to the patella. The lug holes were drilled and the patella trial was placed. Patellar tracking was checked and deemed appropriate. Once we were happy, lug holes were drilled for the femur and trial components were removed. The tibia was subluxed and pinned into place and the keel was punched and drilled appropriately. Final components were verified and opened. The wound was copiously irrigated with normal saline. The components were impacted into place with the tibia, femur and finally the patella. The trial poly component was placed and the knee was placed in full extension. The tracking, alignment and balance were verified and a [ 10 mm CS ] polyethylene component was placed. Once the final components were placed an Irrisept lavage was performed and the wound was copiously irrigated with normal saline solution and the periarticular injection was given. the wound was closed in a layer-sarmiento fashion using #1 vicryl interrupted sutures for the arthrotomy, 2-0 interrupted vicryl suture for the subcuticular layer and dean for final skin closure. A sterile compressive dressing was then placed. The patient was then awakened from anesthesia, transferred to the [facility] and transferred to the PACU for recovery. My physician printer's assistant was a vital part of this case. He was important in appropriate retraction during the case, and protection of soft tissues during bony cuts. His intimate knowledge of the case and my steps aided in safe and expedient completion of the procedure as well as appropriate position of the leg during the case. He was also vital in assisting with closure under my direct supervision. Due to the complexity of this case, robotic arm was used to assist in the surgery to improve accuracy and clinical outcomes. Post-op Plan: DVT ppx; ASA 81 mg BID, thigh high compression stockings Follow up: in office in 2 weeks for wound check PT: to start POD #0 at hospital, outpatient PT should be arranged. Preoperative antibiotic: Ancef 2 grams IV Manjeet Marcus DO Surgeon: Manjeet Marcus head animal keeper: Lane Ortega Type of Anesthesia: Spinal Anesthesiologist: Dedrick Martinez Estimated Blood Loss (mL): 20 cc Fluids Replaced: 1000 cc crystalloid Admit VTE Documentation VTE Present on Admission: No VTE Mechan Device Prophylaxis: SCD's and Thigh High MEG Hose VTE Pharm Prophylaxis ordered?: Yes
[2022-07-23 10:05] LABS: Bedside Glucose 112 mg/dL (74-106)
--- NOTE | 2022-07-23 10:05 | RAD_ITS ---
STUDY: X-RAY - RIGHT KNEE REASON FOR EXAM: Female, 76 years old. Post op -- AP and Lateral xray of operative knee in PACU TECHNIQUE: 2 view(s) of the knee. COMPARISON: Comparison is made with prior study dated 08/07/2019. FINDINGS: Normal visualized distal femur. Normal visualized proximal tibia and fibula. Normal proximal tibiofibular articulation. The patient status post total knee replacement. There is good alignment. Postoperative soft tissue changes. RAD/Knee 1 or 2 Views IMPRESSION: Status post total knee replacement. There is good alignment. Electronically Signed: Emerson Restrepo MD at 10:38 EDT ,
[2022-07-23] MEDS: Carvedilol 12.5 MG Tablet PO ×2 (12:32→21:34)
[2022-07-23] MEDS: Allopurinol 300 MG Tablet PO (12:32)
[2022-07-23] MEDS: Losartan Potassium 50 MG Tablet PO (12:32)
[2022-07-23] MEDS: Furosemide 40 MG Tablet PO ×2 (12:33→21:32)
[2022-07-23] MEDS: Pantoprazole Sodium 20 MG Tablet PO (12:33)
[2022-07-23] MEDS: Senna/Docusate Sodium 1 Tablet 2 TABLET PO ×2 (12:33→21:33)
[2022-07-23] MEDS: Omega-3 Acid Ethyl Esters 1 GM Capsule PO ×2 (12:33→21:33)
[2022-07-23] MEDS: Aspirin E.C. 81 MG Tablet PO (12:33)
[2022-07-23] MEDS: Gabapentin 300 MG Capsule PO ×2 (14:07→21:37)
--- NOTE | 2022-07-23 14:12 | CASEMGMT ---
Social Work SW in to pt room. Pt resting in bed. SW introduced self and role at the hospital. Discussed discharge plan with pt as RNCM reported pt wants to go to TCU for rehab following her surgery today. A printed list of SNF providers including quality and resources use date that is consistent with patient's preferred geographical region, medical needs, and insurances network were provided via the [employer] Link.?Pt reported did not need to look at list and preferred SNF is [facility]. FOZIA sent referral to eMghan at TCU. Informed PT/OT has not seen yet. Meghan to wait for PT/OT evals and then review for acceptance/denial. PLAN: TCU, pending acceptance and precert [facility]
[2022-07-23] MEDS: Cefazolin 1 GM/50 ML BAG IV ×2 (15:47→23:42)
--- NOTE | 2022-07-23 16:24 | CHAPLAIN ---
Type of Pastoral Visit _x__ Initial Visit ___ Follow-up Visit ___ On-call Visit ___ General Patient Visit ___ Spiritual Assessment ___ Family Conference ___ Bereavement ___ Rapid Response ___ Code Blue ___ Other (describe below) Pastoral Care Referral From _x__ Patient ___ Family ___ Nurse ___ Physician ___ Interactive Developer ___ Call Or Contact Centre Team Leader ___ Other (describe below) Sacrament/Intervention _x__ Active listening ___ Anointing ___ Confucianist ___ Bereavement ___ Communion _x__ Aida exploration ___ ___ Life review _x__ Prayer ___ Reconciliation ___ Sacrament of Sick _x__ Supportive presence ___ Wedding ___ Other (describe below) Pastoral Comments patient had surgery this morning; her grandson is with her and he is employed by hospital and known to this tool design drafter; offer of presence, support, and prayer all welcomed by the patient; pt has some humor shown in her answers; pt has a temple connection
[2022-07-23] MEDS: oxyCODONE 5 MG Tablet PO (18:20)
[2022-07-24] VITALS (10 sets, daily range): BP systolic 101–122; BP diastolic 43–52; PULSE 53–66; RESP 16–18; TEMP 36.3–36.8; O2SAT 94–98; BMI 33.1
[2022-07-24] MEDS: Acetaminophen 500 MG Tablet 1000 MG PO ×3 (05:38→22:57)
[2022-07-24] MEDS: Gabapentin 300 MG Capsule PO ×3 (05:38→22:56)
[2022-07-24 06:35] LABS: Hematocrit 25.9 % (37-47); Hemoglobin 8.6 g/dL (12.0-15.0); Mean Corp Hgb Conc 33.2 g/dL (32-36); Mean Corpuscular Hgb 31.6 pg (27.0-32.0); Mean Corpuscular Volume 95.2 fL (81-99); Mean Platelet Vol. 9.4 fl (6.2-12.0); Platelet Count 242 K/mm3 (150-450); RBC Distribution Width CV 14.3 % (11.6-14.6); RBC Distribution Width SD 49.1 fl (35.1-43.9); Red Blood Count 2.72 M/mm3 (4.2-5.4); White Blood Count 13.4 K/mm3 (4.4-11.0)
[2022-07-24 07:11] LABS: Anion Gap 7 (5-15); BUN 23 mg/dL (7-18); BUN/Creat Ratio 9.5 RATIO (10-20); Calcium,Total 8.4 mg/dL (8.5-10.1); Chloride 100 mmol/L (98-107); Creatinine, Serum 2.41 mg/dL (0.55-1.02); EST Glomerular Filtration Rate 21 mL/min (>60); Est Glom Filt Rate - Afr Amer 25 mL/min (>60); Estimated Creatinine Clearance 17.42 ml/min; Glucose 149 mg/dL (74-106); Sodium Level 134 mmol/L (136-145)
--- NOTE | 2022-07-24 07:34 | PCM.PN.ORT ---
Subjective Subjective Patient lying in bed sleeping. Patient easy to awake. Patient states her pain is been well managed. Patient states she has some thigh pain where the tourniquet was placed. Denies any chest pain, shortness of breath, calf pain, nausea vomiting. Objective Data Objective Data Vital Signs: Vital Signs Temp Pulse Resp BP Pulse Ox O2 Del Method O2 Flow Rate 97.4 F L 61 16 122/52 H 96 Nasal Cannula 2.5 07/24/22 05:35 07/24/22 05:35 07/24/22 05:35 07/24/22 05:35 07/24/22 05:35 07/24/22 05:35 07/24/22 05:35 Oxygen Flow Rate (L/min) 2.5 Oxygen Delivery Method Nasal Cannula Weight: 87.6 kg Body Mass Index (BMI) 33.1 Intake & Output: Intake and Output for Last 24 Hours 07/22/22 07/23/22 07/24/22 23:59 23:59 23:59 Intake Total 2922 / 2922 550 / 550 Balance 2922 / 2922 550 / 550 Lab / Micro Data Result Diagrams: 07/24/22 06:05 07/24/22 06:05 Labs: Laboratory Results - last 24 hr 07/23/22 06:19: POC Glucose 222 H 07/23/22 09:41: POC Glucose 112 H 07/24/22 06:05: WBC 13.4 H, RBC 2.72 L, Hgb 8.6 L, Hct 25.9 L, MCV 95.2, MCH 31.6, MCHC 33.2, RDW Std Deviation 49.1 H, RDW Coeff of Yue 14.3, Plt Count 242, MPV 9.4 07/24/22 06:05: Sodium 134 L, Potassium 4.0, Chloride 100, Carbon Dioxide 27.0, Anion Gap 7, BUN 23 H, Creatinine 2.41 H, Estim Creat Clear Calc 17.42, Est GFR (MDRD) Af Amer 25 L, Est GFR (MDRD) Non-Af 21 L, BUN/Creatinine Ratio 9.5 L, Glucose 149 H, Calcium 8.4 L Micro: Microbiology 07/13/22 13:23 Swab (Method) Nasal Screen MRSA/MSSA - Final Radiography Diagnostic Testing: Radiology Impression Knee X-Ray 07/23/22 10:05 IMPRESSION: Status post total knee replacement. There is good alignment. Electronically Signed: Emerson Restrepo MD at 10:38 EDT , Physical Exam Narrative Upon exam I found patient lying in bed sleeping, she was easy to awake. Patient was alert and oriented. Patient no respiratory distress speaking in full sentences. Patient had good range of motion of the upper extremities without limitations. Exam of the right leg, dressing was clean dry intact. Patient had no calf tenderness. Patient had good plantar flexion dorsiflexion of the foot without pain. Strong distal pulses. Vital signs and labs were all reviewed noted in the medical record. Const alert and oriented x3 General Appearance: cooperative HEENT normocephalic Eyes PERRL Resp normal respiratory effort Effort and Inspection: able to speak in complete sentences Cardio regular rate Extremity normal capillary refill Neuro CN's II-XII intact bilaterally Psych mental status grossly normal Assessment & Plan Assessment/Plan (1) Status post total right knee replacement not using cement: PLAN: 1. Continue all pain medications as prescribed 2. Aspirin 81 mg 1 p.o. every 12 hours x30 days for postop DVT prophylaxis 3. Encourage incentive spirometry 4. Weight-bear as tolerated with use of walker 5. Continue physical therapy 6. Discharge to TCU when clear with insurance
[2022-07-24] MEDS: oxyCODONE 5 MG Tablet PO ×3 (08:47→18:19)
--- NOTE | 2022-07-24 11:17 | CASEMGMT ---
ADDIE CM in to discuss RICHEY form with patient. RN CM explained RICHEY form, patient voiced understanding. Pt signed form and filed in chart. Pt provided with a copy of signed RICHEY form. Patient had no further questions or concerns at this time.
[2022-07-24] MEDS: Omega-3 Acid Ethyl Esters 1 GM Capsule PO ×2 (11:18→22:56)
[2022-07-24] MEDS: Senna/Docusate Sodium 1 Tablet 2 TABLET PO ×2 (11:18→22:56)
[2022-07-24] MEDS: Carvedilol 12.5 MG Tablet PO (11:18)
[2022-07-24] MEDS: Pantoprazole Sodium 20 MG Tablet PO (11:18)
[2022-07-24] MEDS: Aspirin E.C. 81 MG Tablet PO (11:18)
[2022-07-24] MEDS: Losartan Potassium 50 MG Tablet PO (11:19)
[2022-07-24] MEDS: Furosemide 40 MG Tablet PO (11:19)
[2022-07-24] MEDS: Allopurinol 300 MG Tablet PO (11:19)
--- NOTE | 2022-07-24 11:30 | CASEMGMT ---
Social Work SW informed by Meghan at [facility] that pt was accepted and precert was started at 10:15 am. SW in to notify pt of acceptance. Pt voiced understanding. Explained now waiting on insurance authorization. Pt understanding. PLAN: [facility], pending precert [facility] Gil[facility]
[2022-07-24] MEDS: 0.9% NaCl Peripheral Flush Adult/Peds IV (22:55)
[2022-07-25] VITALS (11 sets, daily range): BP systolic 102–122; BP diastolic 40–64; PULSE 56–70; RESP 16–18; TEMP 36.3–36.6; O2SAT 97–99
[2022-07-25] MEDS: Acetaminophen 500 MG Tablet 1000 MG PO ×3 (06:52→22:01)
[2022-07-25] MEDS: Gabapentin 300 MG Capsule PO ×3 (06:52→22:01)
[2022-07-25] MEDS: Omega-3 Acid Ethyl Esters 1 GM Capsule PO ×2 (08:21→22:01)
[2022-07-25] MEDS: Aspirin E.C. 81 MG Tablet PO (08:21)
[2022-07-25] MEDS: Losartan Potassium 50 MG Tablet PO (08:21)
[2022-07-25] MEDS: Allopurinol 300 MG Tablet PO (08:21)
[2022-07-25] MEDS: Senna/Docusate Sodium 1 Tablet 2 TABLET PO ×2 (08:21→22:02)
[2022-07-25] MEDS: Carvedilol 12.5 MG Tablet PO (08:21)
[2022-07-25] MEDS: Pantoprazole Sodium 20 MG Tablet PO (08:21)
[2022-07-25] MEDS: Furosemide 40 MG Tablet PO ×2 (08:21→22:03)
--- NOTE | 2022-07-25 09:04 | PCM.PN.ORT ---
Subjective Subjective Patient up ambulating with use of a walker. Patient feels pain has been very well managed. Patient denies chest pain, shortness of breath, calf pain, nausea vomiting. Objective Data Objective Data Vital Signs: Vital Signs Temp Pulse Resp BP Pulse Ox O2 Del Method O2 Flow Rate 97.3 F L 64 18 120/49 L 97 Room Air 2 07/25/22 08:32 07/25/22 08:32 07/25/22 08:32 07/25/22 08:32 07/25/22 08:32 07/25/22 08:32 07/25/22 08:32 Oxygen Flow Rate (L/min) 2 Oxygen Delivery Method Room Air Weight: 87.6 kg Body Mass Index (BMI) 33.1 Intake & Output: Intake and Output for Last 24 Hours 07/23/22 07/24/22 07/25/22 23:59 23:59 23:59 Intake Total 2922 / 2922 850 / 850 150 / 150 Balance 2922 / 2922 850 / 850 150 / 150 Lab / Micro Data Result Diagrams: 07/24/22 06:05 07/24/22 06:05 Micro: Microbiology 07/13/22 13:23 Swab (Method) Nasal Screen MRSA/MSSA - Final Physical Exam Narrative Patient alert oriented. Patient no respiratory distress, speaking in full sentences. Good motion of the upper extremities with good muscle tone and strength. The dressing was clean dry intact. No calf tenderness, or pain. Neurovascular is otherwise intact. Vital signs labs were all reviewed noted the medical record Const alert and oriented x3 General Appearance: cooperative HEENT normocephalic Eyes PERRL Resp normal respiratory effort Effort and Inspection: able to speak in complete sentences Extremity normal capillary refill Skin no rashes or lesions noted Neuro CN's II-XII intact bilaterally Psych mental status grossly normal Assessment & Plan Assessment/Plan (1) Status post total right knee replacement not using cement: PLAN: Plan 1. Continue all pain medications as prescribed 2. Encourage incentive spirometry 3. Hold tomorrow's blood pressure medicine x1 day 4. Continue aspirin 81 mg 1 p.o. every 12 hours x30 days for postop DVT prophylaxis 5. Continue ice to knee 6. Continue SCDs 7. Continue therapy weight-bear as tolerated with walker 8. Discharge to TCU when cleared with insurance 9. Patient will follow-up with albina Kumar PA-C 2 weeks as scheduled 10. Shower 07/27/2022 11. Tuan out 08/06/2022
--- NOTE | 2022-07-25 09:17 | EX.PCM.DISCH ---
Discharge Instructions Diet Discharge Diet: No restrictions Activity Discharge Activity: May Not Drive and May Shower May resume sexual activity in: No Restrictions Weight Bearing Status: Weight bearing as tolerated Keep extremity elevated above heart level: Operative Extremity Dressing / Incision Call your doctor if your incision/area has: Continuous Slow Oozing, Sudden Increased Bleeding, Increased Pain/ Swelling, Increased Redness, Foul Smelling Discharge and Swelling at the incision site Call your doctor if you observe: Fever of 101 or Higher Change Dressing in: 1 week Remove Dressing in: leave in place till F/U Follow Up Care Please Follow Up With: Lane Ortega PA-C When: 2 weeks as scheduled Test Results: Test results from this visit will be discussed in further detail at your follow-up appointment, if applicable. Discharge Plan Admission Admit Date/Time: 07/23/22 12:57 Primary Reason for Your Visit: Right total knee arthroplasty Attending Provider: Manjeet Marcus Primary Care Provider: Lucy García Consulting Providers: Helder Chavez Discharge Orders/Prescriptions Prescriptions: New acetaminophen 500 mg Tablet 1,000 mg PO Q8 30 Days Qty: 180 0RF oxycodone 5 mg Tablet 5 - 10 mg PO Q4H PRN PRN (Reason: Pain Score 4-10) 7 Days Qty: 60 0RF Continued allopurinol 300 mg tablet 300 mg PO DAILY omeprazole 20 mg tablet,delayed release (DR/EC) 20 mg PO DAILY tramadol 50 mg tablet 50 mg PO BID PRN (Reason: Pain) carvedilol 12.5 mg tablet 12.5 mg PO BID 90 Days Qty: 180 3RF gabapentin 100 mg capsule 300 mg PO TID aspirin [Adult Aspirin Regimen] 81 mg tablet,delayed release (DR/EC) 81 mg PO DAILY temazepam 7.5 mg Capsule 7.5 mg PO QHS PRN (Reason: Anxiety) nitroglycerin 0.4 mg tablet, sublingual 0.4 mg sublingual Q5M PRN (Reason: Cardiac/Chest Pain) Qty: 25 3RF omega-3 acid ethyl esters 1 gram capsule 1 cap PO BID Qty: 180 3RF torsemide 20 mg tablet 20 mg PO BID Qty: 180 3RF Hold Instructions: HOLD until Saturday11/05/20 for elev. creat. losartan 100 mg tablet 50 mg PO DAILY Qty: 90 3RF Referrals / Follow Up: Lucy García MD [Primary Care Provider] - Disposition Disposition (needs filled in before D/C Order can be placed): Assisted Facility
--- NOTE | 2022-07-25 09:24 | TREXTCAR_ITS ---
Diet Diet Order/Speech Therapy: 07/23/22 15:57 Diet: Regular - General Is pt able to select menu?: Yes Wound(s) right knee: Wound Type: Surgical Incision Therapies Weight Bearing: Weight bearing as tolerated Problem/Diagnosis (1) Status post total right knee replacement not using cement: Status: Acute Code(s): Z96.651 - Presence of right artificial knee joint Plan 1. Continue all pain medications as prescribed 2. Encourage incentive spirometry 3. Hold tomorrow's blood pressure medicine x1 day 4. Continue aspirin 81 mg 1 p.o. every 12 hours x30 days for postop DVT prophylaxis 5. Continue ice to knee 6. Continue SCDs 7. Continue therapy weight-bear as tolerated with walker 8. Discharge to TCU when cleared with insurance 9. Patient will follow-up with albina Kumar PA-C 2 weeks as scheduled 10. Shower 07/27/2022 11. Tuan out 08/06/2022 Allergies/Procedures Done in Hospital Allergies lisinopril Adverse Reaction (Intermediate, Verified 07/23/22 06:21) cough gemfibrozil Adverse Reaction (Verified 07/23/22 11:47) Hipolito Johnsons syndrome sever itching Type of Care/Length of Stay Estimated LOS: Convalescent Care Less Than 30 days Type of Care Needed: Acute Rehab Rehab Potential: Good Prognosis: Good Additional Orders/Day of Discharge Day of Discharge: 07/25/22 Follow Up Care Please Follow Up With: Lane Ortega PA-C When: 2 weeks as scheduled Discharge Plan Admission Admit Date/Time: 07/23/22 12:57 Primary Reason for Your Visit: Right total knee arthroplasty Attending Provider: Manjeet Marcus Primary Care Provider: Lucy García Consulting Providers: Helder Chavez Discharge Orders/Prescriptions Prescriptions: New acetaminophen 500 mg Tablet 1,000 mg PO Q8 30 Days Qty: 180 0RF oxycodone 5 mg Tablet 5 - 10 mg PO Q4H PRN PRN (Reason: Pain Score 4-10) 7 Days Qty: 60 0RF Continued allopurinol 300 mg tablet 300 mg PO DAILY omeprazole 20 mg tablet,delayed release (DR/EC) 20 mg PO DAILY tramadol 50 mg tablet 50 mg PO BID PRN (Reason: Pain) carvedilol 12.5 mg tablet 12.5 mg PO BID 90 Days Qty: 180 3RF gabapentin 100 mg capsule 300 mg PO TID aspirin [Adult Aspirin Regimen] 81 mg tablet,delayed release (DR/EC) 81 mg PO DAILY temazepam 7.5 mg Capsule 7.5 mg PO QHS PRN (Reason: Anxiety) nitroglycerin 0.4 mg tablet, sublingual 0.4 mg sublingual Q5M PRN (Reason: Cardiac/Chest Pain) Qty: 25 3RF omega-3 acid ethyl esters 1 gram capsule 1 cap PO BID Qty: 180 3RF torsemide 20 mg tablet 20 mg PO BID Qty: 180 3RF Hold Instructions: HOLD until Saturday11/05/20 for elev. creat. losartan 100 mg tablet 50 mg PO DAILY Qty: 90 3RF Referrals / Follow Up: Lucy García MD [Primary Care Provider] - Disposition Disposition (needs filled in before D/C Order can be placed): Long Term Facility
--- NOTE | 2022-07-25 09:32 | CASEMGMT ---
Addendum entered by Nessa Madrigal 07/25/22 14:58: Meghan from [facility] reached out. Attempted to get determination from [employer] once again. Pt's case is still in review and pending determination. Original Note: Social Work SW received message from Meghan at [facility]. Meghan checked with [employer] this morning regarding precert. Pt's case is currently under medical review with . Pt may possibly get denied. PLAN: continue to wait on precert for TCU [facility]
--- NOTE | 2022-07-25 09:40 | CASEMGMT ---
Addendum entered by Sandrita Parmar 07/25/22 13:13: ADDIE CLANCY in to pt room, pt states she would prefer HHC instead of outpt if she is denied TCU. Patient was provided a list of HHC providers including quality and resource use data and consistent with the patient?s preferred geographic region, medical needs, and insurance network were provided from the [facility]. Original Note: ADDIE CLANCY in to pt room to discuss dc planning and a back up plan in case pt is not approved to go to TCU. Provided pt with options as per tc prior to surgery. Discussed HHC vs outpt therapy with hospital van transportation. Pt states transportation is a concern. Pt would like to call her family to discuss. She is aware that she has not been denied to TCU, but need to look at other options in case. ADDIE CLANCY to check back.
[2022-07-25] MEDS: oxyCODONE 5 MG Tablet PO ×2 (11:35→20:10)
[2022-07-26] VITALS (7 sets, daily range): BP systolic 104–109; BP diastolic 40–62; PULSE 70–86; RESP 16–18; TEMP 36.6–36.9; O2SAT 94–99
[2022-07-26] MEDS: Gabapentin 300 MG Capsule PO ×2 (04:56→13:35)
[2022-07-26] MEDS: Acetaminophen 500 MG Tablet 1000 MG PO ×2 (04:57→13:36)
[2022-07-26] MEDS: Pantoprazole Sodium 20 MG Tablet PO (09:20)
[2022-07-26] MEDS: Aspirin E.C. 81 MG Tablet PO (09:20)
[2022-07-26] MEDS: Omega-3 Acid Ethyl Esters 1 GM Capsule PO (09:20)
[2022-07-26] MEDS: Senna/Docusate Sodium 1 Tablet 2 TABLET PO (09:20)
[2022-07-26] MEDS: oxyCODONE 5 MG Tablet PO ×2 (09:20→13:35)
[2022-07-26] MEDS: Furosemide 40 MG Tablet PO (09:20)
[2022-07-26] MEDS: Allopurinol 300 MG Tablet PO (09:20)
--- NOTE | 2022-07-26 10:08 | CASEMGMT ---
Addendum entered by Vibha Jameson 07/26/22 15:02: Social Work Return call from TCU and pt has been denied by insurance. lily Morrison updated and plan is for pt to return home with home health. Sandrita REALCM updated and will update pt on denial. [facility] Willard Original Note: Social Work Phone call to Meghan in TCU. Precert with insurance is still pending. SW will await determination. Plan: TCU, pending precert. [facility] Willard
--- NOTE | 2022-07-26 13:05 | CHAPLAIN ---
Type of Pastoral Visit ___ Initial Visit _x__ Follow-up Visit ___ On-call Visit ___ General Patient Visit ___ Spiritual Assessment ___ Family Conference ___ Bereavement ___ Rapid Response ___ Code Blue ___ Other (describe below) Pastoral Care Referral From _x__ Patient ___ Family ___ Nurse ___ Physician ___ Outboard Motor Mechanic ___ Manager Bakery ___ Other (describe below) Sacrament/Intervention _x__ Active listening ___ Anointing ___ Cheondoism ___ Bereavement ___ Communion _x__ Aida exploration ___ ___ Life review _x__ Prayer ___ Reconciliation ___ Sacrament of Sick ___ Supportive presence ___ Wedding ___ Other (describe below) Pastoral Comments patient states that she is still waiting for a decision about plan for therapy and acceptance to TCU; patient has several questions of spiritual nature that she asks this help desk associate; pt has good family support; pt welcomes spiritual care and prayer
--- NOTE | 2022-07-26 14:58 | DCINST_ITS ---
Discharge Instructions Diet Discharge Diet: No restrictions Activity Discharge Activity: Return to Normal Activity and May Shower May resume sexual activity in: No Restrictions Weight Bearing Status: Weight bearing as tolerated Keep extremity elevated above heart level: Operative Extremity Dressing / Incision Call your doctor if your incision/area has: Continuous Slow Oozing, Sudden Increased Bleeding, Increased Pain/ Swelling, Increased Redness, Foul Smelling Discharge and Swelling at the incision site Call your doctor if you observe: Fever of 101 or Higher, Numbness or Tingling, Chest pain and Calf discomfort Remove Dressing in: 5 days Cleanse incision/area with: Soap & Water and Keep Dressing Clean & Dry Follow Up Care Please Follow Up With: Lane Ortega PA-C Test Results: Test results from this visit will be discussed in further detail at your follow- up appointment, if applicable. Discharge Plan Admission Admit Date/Time: 07/23/22 12:57 Primary Reason for Your Visit: Right total knee arthroplasty Attending Provider: Manjeet Marcus Primary Care Provider: Lucy García Consulting Providers: Helder Chavez Discharge Orders/Prescriptions Prescriptions: New acetaminophen 500 mg Tablet 1,000 mg PO Q8 30 Days Qty: 180 0RF oxycodone 5 mg Tablet 5 - 10 mg PO Q4H PRN PRN (Reason: Pain Score 4-10) 7 Days Qty: 60 0RF Continued allopurinol 300 mg tablet 300 mg PO DAILY omeprazole 20 mg tablet,delayed release (DR/EC) 20 mg PO DAILY tramadol 50 mg tablet 50 mg PO BID PRN (Reason: Pain) carvedilol 12.5 mg tablet 12.5 mg PO BID 90 Days Qty: 180 3RF gabapentin 100 mg capsule 300 mg PO TID aspirin [Adult Aspirin Regimen] 81 mg tablet,delayed release (DR/EC) 81 mg PO DAILY temazepam 7.5 mg Capsule 7.5 mg PO QHS PRN (Reason: Anxiety) nitroglycerin 0.4 mg tablet, sublingual 0.4 mg sublingual Q5M PRN (Reason: Cardiac/Chest Pain) Qty: 25 3RF omega-3 acid ethyl esters 1 gram capsule 1 cap PO BID Qty: 180 3RF torsemide 20 mg tablet 20 mg PO BID Qty: 180 3RF Hold Instructions: HOLD until Saturday11/05/20 for elev. creat. losartan 100 mg tablet 50 mg PO DAILY Qty: 90 3RF Referrals / Follow Up: Lucy García MD [Primary Care Provider] - Disposition Disposition (needs filled in before D/C Order can be placed): Home Health Service
--- NOTE | 2022-07-26 15:01 | PCM.PN.ORT ---
Subjective Subjective Patient is s/p right sided total knee arthroplasty with Dr. Marcus. Patient resting comfortably in bed. Rates pain 6/ 10 at rest. With movement 6/10. States taking Tylenol and oxycodone as needed and ice help to relieve pain. Patient has been up with therapy. Walking with the assit of a walker. Afebrile, no chest pain, shortness of breath, negative calf pain/ erythema, and no other signs of DVT. Objective Data Objective Data Vital Signs: Vital Signs Temp Pulse Resp BP Pulse Ox O2 Del Method O2 Flow Rate 97.9 F 70 18 109/42 L 99 Room Air 2 07/26/22 10:09 07/26/22 10:09 07/26/22 10:09 07/26/22 10:09 07/26/22 10:07/26/22 10:07/26/22 06:28 Oxygen Flow Rate (L/min) 2 Oxygen Delivery Method Room Air Weight: 87.6 kg Body Mass Index (BMI) 33.1 Intake & Output: Intake and Output for Last 24 Hours 07/24/22 07/25/22 07/26/22 23:59 23:59 23:59 Intake Total 850 / 850 1250 / 1250 1000 / 1000 Balance 850 / 850 1250 / 1250 1000 / 1000 Lab / Micro Data Result Diagrams: 07/24/22 06:05 07/24/22 06:05 Micro: Microbiology 07/13/22 13:23 Swab (Method) Nasal Screen MRSA/MSSA - Final Physical Exam Narrative Patient resting comfortably in bed No signs of acute distress Satting well on room air Limb is warm to touch, Sensation intact throughout entire lower extremity, including saphenous, sural, superficial and deep peroneal, and tibial distribution. DP/PT pulses bounding. Dorsi and plantar flexion strength 5/5 Dressing clear dry intact Calf nontender to palpation, no erythema, no edema. Negative Homans Assessment & Plan Assessment/Plan (1) Status post total right knee replacement not using cement: PLAN: Plan Status post right total knee arthroplasty 07/23/22 1. Will continue PT today. Weightbearing as tolerated 2. plan for discharge this afternoon following PT. patient denied to rehab services. She will go home with home health 3. Patient will follow up for post op appointment on 08/03/2022 4. DVT prophylaxis : Aspirin 81 mg twice daily x4 weeks 5. Pain control: patient instructed to take tylenol 500mg 2 tablets TID. and oxycodone 1-2 tablets every 4-6 hours only as needed for pain control. 6. ok to remove post op dressing. post op day 5
--- NOTE | 2022-07-26 15:02 | CASEMGMT ---
Addendum entered by Sandrita Parmar 07/26/22 15:34: Received message from [facility] stating they will see pt tomorrow instead of Saturday and they have reached the pt. Addendum entered by Sandrita Parmar 07/26/22 15:22: Received tc back from [facility] at [facility], pt is accepted and to be seen on Saturday. ADDIE CLANCY in to pt room to make aware. Pt aware what disciplines are ordered and expectations of [facility]. Pt denies further questions. Original Note: ADDIE CLANCY made aware pt was denied TCU. ADDIE CLANCY in to pt room, made pt aware. Pt has chosen [facility] in the following order [facility], [facility] and [facility]. TC to [facility] at [facility], referral made, will await acceptance. Pt states her family has had a discussion and are planning on taking turns to stay with her. Pt denies further homegoing needs.
--- NOTE | 2022-07-26 15:06 | PCM.DC.SUM ---
Providers Date of Admission: 07/23/22 Primary Care Physician: Dr. Lucy García MD Reason For Visit: RT TOTAL KNEE W HARRIS Diagnosis Discharge Diagnosis (1) Status post total right knee replacement not using cement: Status: Acute Code(s): Z96.651 - Presence of right artificial knee joint Plan Status post right total knee arthroplasty 07/23/22 1. Will continue PT today. Weightbearing as tolerated 2. plan for discharge this afternoon following PT. patient denied to rehab services. She will go home with home health 3. Patient will follow up for post op appointment on 08/03/2022 4. DVT prophylaxis : Aspirin 81 mg twice daily x4 weeks 5. Pain control: patient instructed to take tylenol 500mg 2 tablets TID. and oxycodone 1-2 tablets every 4-6 hours only as needed for pain control. 6. ok to remove post op dressing. post op day 5 Medications at Discharge Home Medications allopurinol 300 mg tablet 300 mg PO DAILY gout 01/08/19 omeprazole 20 mg tablet,delayed release 20 mg PO DAILY GERD 01/08/19 tramadol 50 mg tablet 50 mg PO BID PRN Pain 04/12/21 gabapentin 100 mg capsule 300 mg PO TID spinal stenosis 08/11/21 aspirin 81 mg tablet,delayed release (Adult Aspirin Regimen) 81 mg PO DAILY Check with primary doctor 09/25/21 carvedilol 12.5 mg tablet 12.5 mg PO BID 90 days #180 tabs 10/27/21 nitroglycerin 0.4 mg sublingual tablet 0.4 mg sublingual Q5M PRN Cardiac/Chest Pain ##25 10/31/21 omega-3 acid ethyl esters 1 gram capsule 1 cap PO BID Check with primary doctor #180 caps 02/01/22 torsemide 20 mg tablet 20 mg PO BID #180 tabs 03/14/22 losartan 100 mg tablet 50 mg PO DAILY blood pressure #90 tabs 06/28/22 temazepam 7.5 mg capsule 7.5 mg PO QHS PRN Anxiety 07/10/22 acetaminophen 500 mg tablet 1,000 mg PO Q8 30 days #180 tabs 07/25/22 oxycodone 5 mg tablet 5 - 10 mg PO Q4H PRN PRN Pain Score 4-10 7 days #60 tabs 07/25/22 Hospital Course Operations total knee replacement Weight / BMI Weight Weight: 87.6 kg Body Mass Index (BMI) 33.1 ABG / Lab / Microbiology Data Result Diagrams: 07/24/22 06:05 07/24/22 06:05 Microbiology: Microbiology 07/13/22 13:23 Swab (Method) Nasal Screen MRSA/MSSA - Final D/C Instructions Discharge Diet: No restrictions May resume sexual activity in: No Restrictions Weight Bearing Status: Weight bearing as tolerated Keep extremity elevated above heart level: Operative Extremity Call your doctor if your incision/area has: Continuous Slow Oozing, Sudden Increased Bleeding, Increased Pain/ Swelling, Increased Redness, Foul Smelling Discharge and Swelling at the incision site Call your doctor if you observe: Fever of 101 or Higher, Numbness or Tingling, Chest pain and Calf discomfort Cleanse incision/area with: Soap & Water and Keep Dressing Clean & Dry Please Follow Up With: Lane Ortega PA-C When: 2 weeks as scheduled Meaningful Use Info Meaningful Use Diagnoses (Choose all that apply): None applicable Discharge Plan Admission Admit Date/Time: 07/23/22 12:57 Primary Reason for Your Visit: Right total knee arthroplasty Attending Provider: Manjeet Marcus Primary Care Provider: Lucy García Consulting Providers: Helder Chavez Discharge Orders/Prescriptions Prescriptions: New acetaminophen 500 mg Tablet 1,000 mg PO Q8 30 Days Qty: 180 0RF oxycodone 5 mg Tablet 5 - 10 mg PO Q4H PRN PRN (Reason: Pain Score 4-10) 7 Days Qty: 60 0RF Continued allopurinol 300 mg tablet 300 mg PO DAILY omeprazole 20 mg tablet,delayed release (DR/EC) 20 mg PO DAILY tramadol 50 mg tablet 50 mg PO BID PRN (Reason: Pain) carvedilol 12.5 mg tablet 12.5 mg PO BID 90 Days Qty: 180 3RF gabapentin 100 mg capsule 300 mg PO TID aspirin [Adult Aspirin Regimen] 81 mg tablet,delayed release (DR/EC) 81 mg PO DAILY temazepam 7.5 mg Capsule 7.5 mg PO QHS PRN (Reason: Anxiety) nitroglycerin 0.4 mg tablet, sublingual 0.4 mg sublingual Q5M PRN (Reason: Cardiac/Chest Pain) Qty: 25 3RF omega-3 acid ethyl esters 1 gram capsule 1 cap PO BID Qty: 180 3RF torsemide 20 mg tablet 20 mg PO BID Qty: 180 3RF Hold Instructions: HOLD until Saturday11/05/20 for elev. creat. losartan 100 mg tablet 50 mg PO DAILY Qty: 90 3RF Referrals / Follow Up: Lucy García MD [Primary Care Provider] - Disposition Disposition (needs filled in before D/C Order can be placed): Home Health Service
== END 2022-07-26 16:50 | disposition home health service (06) ==
LOC: SDC 13:06 → MS3 13:06
PROVIDERS: Anesthesiology; Admitting Provider Orthopaedic Surgery; PCP Family Medicine; Referring Provider Orthopaedic Surgery; Visit Provider Orthopaedic Surgery
PROC: 0SRC0JZ Replacement of Right Knee Joint with Synthetic Substitute, Open Approach (ICD-10-PCS; CPT 27447; principal; 2022-07-23 07:00)
DX: M17.11 Unilateral primary osteoarthritis, right knee (principal); I11.0 Hypertensive heart disease with heart failure; I50.20 Unspecified systolic (congestive) heart failure; I42.8 Other cardiomyopathies; Z79.899 Other long term (current) drug therapy; Z79.82 Long term (current) use of aspirin; I25.2 Old myocardial infarction; Z87.891 Personal history of nicotine dependence; R09.02 Hypoxemia; I25.10 Atherosclerotic heart disease of native coronary artery without angina pectoris; R06.00 Dyspnea, unspecified; E78.5 Hyperlipidemia, unspecified; Z95.5 Presence of coronary angioplasty implant and graft; Z86.2 Personal history of diseases of the blood and blood-forming organs and certain disorders involving the immune mechanism; Z99.81 Dependence on supplemental oxygen; K21.9 Gastro-esophageal reflux disease without esophagitis; R13.10 Dysphagia, unspecified
CPT/HCPCS: 27447; S2900; 01402; 64447; 36415; 73560; 80048; 80076; 82962; 83735; 85025; 85027; 85610; 85730; 87081; 88305; 88311; 96365; 96366; 97110; 97116; 97162; 97166; 97530; 97535; 99218; C1776; J7040; J7120; A4216; G0378; J2405; J3475

== ENCOUNTER → 2022-09-27 | Outpatient (CLI) | payer MEDICARE, SELFPAY ==
[2020-02-26 09:39] VITALS: BMI 31.2
[2022-09-27 12:52] VITALS: PULSE 100; PULSE 101; PULSE 72; PULSE 74; PULSE 91; PULSE 93; PULSE 94; PULSE 95; O2SAT 93; O2SAT 94; O2SAT 95; O2SAT 96; O2SAT 97; O2SAT 98
--- NOTE | 2022-09-27 12:56 | CPS ---
Patient wears 2 lpm O2 at home at night. Patient walked without breaks for 5 minutes and 5 seconds. At that time the patient did not want to walk any longer, she stated her shortness of breath was somewhat severe and she was extremely tired and needed to sit. Patient was able to maintain a saturation greater than 92% during the entirety of testing.
--- NOTE | 2022-09-27 13:52 | WT_ITS ---
PSN 6 Minute Walk Test 6 Minute Walk Test 6 Minute Walk Test: 6 Minute Walk Test PSN:6-Minute Walk Test Start: 09/27/22 12:52 Freq: Status: Active Protocol: RESP.6MINW Document 09/27/22 12:52 CATHY (Rec: 09/27/22 12:58 CATHY [id number]) 6 Minute Walk Test Date Performed 09/27/22 Time Performed 12:30 Height 5 ft 4 in Weight: 81.647 kg Weight in Pounds 180.[address]: Ira Quinonez PAINT PREP TECHNICIAN Assistive device used: None Pre-test Oxygen Delivery Method Room Air Pulse Ox (%) 97 Pulse Rate (60-100 beats/min) 74 Dyspnea Edwardo Scale (0-10) 0 Exertion Edwardo Scale (6-20) 6 1st minute Oxygen Delivery Method Room Air Pulse Ox (%) 96 Pulse Rate (60-100 beats/min) 93 2nd minute Oxygen Delivery Method Room Air Pulse Ox (%) 93 Pulse Rate (60-100 beats/min) 100 3rd minute Oxygen Delivery Method Room Air Pulse Ox (%) 94 Pulse Rate (60-100 beats/min) 94 4th minute Oxygen Delivery Method Room Air Pulse Ox (%) 95 Pulse Rate (60-100 beats/min) 95 5th minute Oxygen Delivery Method Room Air Pulse Ox (%) 95 Pulse Rate (60-100 beats/min) 101 H 6th minute Oxygen Delivery Method Room Air Pulse Ox (%) 97 Pulse Rate (60-100 beats/min) 91 Dyspnea Edwardo Scale (0-10) 4 Exertion Edwardo Scale (6-20) 14 Number of Rests Taken 1 Post-test Oxygen Delivery Method Room Air Pulse Ox (%) 98 Pulse Rate (60-100 beats/min) 72 Full Laps Walked 12 Partial Lap, Number of Tiles Walked 10 Total Distance Walked (ft) 718 09/27/22 12:56 Cardiopulmonary Services by Roxann Leiva Patient wears 2 lpm O2 at home at night. Patient walked without breaks for 5 minutes and 5 seconds. At that time the patient did not want to walk any longer, she stated her shortness of breath was somewhat severe and she was extremely tired and needed to sit. Patient was able to maintain a saturation greater than 92% during the entirety of testing. Initialized on 09/27/22 12:56 - END OF NOTE Interpretation Interpretation: The patient was able to travel 718 feet over the course of 6 minutes on room air with no assist devices or breaks. The patient did experience significant desaturation from a baseline of 97% to as low as 93%. No significant tachycardia was noted during testing. These findings are consistent with a musculoskeletal limitation exercise tolerance. Recommendations Recommendations: No supplemental oxygen is indicated at this time.
== END | disposition home or self-care (01) ==
LOC: PSN 12:22
PROVIDERS: PCP Family Medicine; Visit Provider Nurse Practitioner Acute Care
DX: R06.00 Dyspnea, unspecified (principal)
CPT/HCPCS: 94618

== ENCOUNTER 2022-10-02 11:30 | Outpatient (RCR) | payer MEDICARE, SELFPAY ==
[2020-02-26 09:39] VITALS: BMI 31.2
--- NOTE | 2022-08-29 10:45 | HP.PTEVAL ---
Patient's Visit Information RAUL REYES is a 76 year old F referred to Physical Therapy by Lane Ortega PA-C with a diagnosis of R TKA 07/23/22. Date of Evaluation: 08/29/22 Physical Therapist: Celio Ramirez, PT, ATC - Visit Plan Frequency: 2-3x /Week Duration: 4-6 Weeks Plan: R knee stretching and strengthening, balance and proprio, gait training, core strengthening, and HEP - Subjective DOS: 07/23/22. Pt reports she had R knee pain for a chronic period of time. Pt notes she had a R TKA performed at that time. Pt reports she was really happy with her surgery results up until yesterday when her knee suddenly popped, which resulted in severe pain. Pt notes she is a little better today, but notes she is still really sore. Pt reports she has some tingling and numbness in her R gastroc and in the front of her lower leg. Pt notes she is able to do most of her IADL's at this time. Pt notes it is still difficult for her to transfer off the toilet at this time. Pt reports occasional sleep difficulty at this time secondary to pain. Pt is retired at this time. Pt uses a cane on todays date, but notes she didnt use an AD prior to the surgery. No stairs at home that she has to negotiate at this time. 4/10 pain while sitting here at rest, 10/10 when her knee popped yesterday. - Pain R knee Pain Intensity (Out of 10): 4 Pain Intensity Range: 10 - Objective Neuro: B LE sensation is WNL to light touch. Observation: Incision is healed. No signs of infection. Girth: R knee 42 cm, L knee 41 cm. MMT: R knee flex= 17, ext= 16; L knee flex= 127, ext= 30 #F. ROM: L knee 0-135, R knee 0-12-110 - Balance/Special Test Scores Lower Extremity Functional Score: 30 - Goals Goal 1:: Increase R knee strength x 10#F to aid with stair negotiation Goal Time Frame: 4-6 Weeks Goal 2:: Increase R knee ROM x 25 degrees to aid with restoring a more normalized gait pattern Goal Time Frame: 4-6 Weeks Goal 3:: Decrease R knee pain x 50% to aid with sleep Goal Time Frame: 4-6 Weeks Goal 4:: I with HEP Goal Time Frame: 4-6 Weeks - Rehabilitation Potential Physical Therapy Diagnosis: Pt has R knee pain, weakness, and limited ROM secondary to R TKA Rehabilitation Potential: Good - Anticipated Interventions Patient/Client Instruction: Educate patient on: Condition, Plan of Care For the Purpose of:: To improve self management Therapeutic Exercise to Include: Strength training, Endurance training, Balance training, Flexibilty training, Gait and locomotor training, Active ROM, Dynamic Lumbar Stabilization For the Purpose of:: To decrease pain, To increase ROM, To improve muscle performance and motor function Cryotherapy (ice pack, ice massage): Yes For the Purpose of:: To decrease pain Thank you for the opportunity to evaluate your patient. For Medicare and Medicare HMO plans, please review the plan of care and approve it. It will need to be FAXED BACK to us at [phone] for Medicare purposes. For Medicare only, by signing this I certify the plan of care. Please let me know if there are questions or concerns regarding this plan of care. Physician Signature: Date:
--- NOTE | 2022-10-02 12:17 | HP.PTDCSUM_ITS ---
It has been my pleasure to treat RAUL REYES referred by Lane Ortega PA-C, with the diagnosis of R TKA 07/23/22 for a total of 7 visit(s). Discharge Date: 10/02/22 Please see the following information for a summary of their discharge status. Subjective: Pt. arrives today without use of her cane. She is now not using it much. I might have over doing it yesterday. Every day it gets better. R knee Pain Intensity (Out of 10): 2 % Improvement: 80 Objective/Function: ROM: R knee 0-2-122deg. actively. Pt. was able to achieve TKE with passive over pressure. MMT: R knee: extension 15.1#, flexion 20.5#; L knee: ext 20.4#, flexion 21.2#. GAIT: Pt. ambulates without AD. Pt. reports mild soreness, but not too bad.. STAIRS: Pt. is able to negotiate without LOB, she does require use of B HR. She does have marked. TU.7sec without AD. Pt. is sleeping without issues. Pt. is overall doing very well. She wants to be DC at this point in time. I talked to her about continuing to work on TKE and stretching. Pt. is okay with this. Goal 1:: Increase R knee strength x 10#F to aid with stair negotiation Goal Progress: Goal Met Goal 2:: Increase R knee ROM x 25 degrees to aid with restoring a more normalized gait pattern Goal Progress: Goal Met Goal 3:: Decrease R knee pain x 50% to aid with sleep Goal Progress: Goal Met Goal 4:: I with HEP Goal Progress: Goal Met Plan: Pt. to follow up with physician at the end of the month. Discharge Comments: Pt. was seen for her R TKA. Pt. is progressing well. She has decent flexion, slight stiffness into extension, but able to achieve TKE passviely. She has improving strength as well. She is pleased with her progress thus far. I did recommend that she continue to work on increasing her walking, and TKE ROM. Pt. consents. Pt. will be DC to [facility] at this point in time. If there are questions or concerns regarding this patient's physical therapy, please feel free to call me at [phone]. Thank you for the referral of this patient. Sincerely, Ruddy Gil, [facility] Balance/Gait/Functional tests - Balance/Special Test Scores Lower Extremity Functional Score: 50 30 Second Chair Rise Test Seconds: 6
== END 2022-10-02 13:28 | disposition home or self-care (01) ==
LOC: PT 11:30
PROVIDERS: PCP Family Medicine; Referring Provider Physician Assistant; Visit Provider Physician Assistant
DX: Z47.1 Aftercare following joint replacement surgery (principal); Z96.651 Presence of right artificial knee joint
CPT/HCPCS: 97110; 97161; 97164

== ENCOUNTER → 2022-11-01 | Outpatient (CLI) | payer MEDICARE, SELFPAY ==
[2020-02-26 09:39] VITALS: BMI 31.2
[2022-11-01 17:32] LABS: Absolute Lymphocyte Count 1.31 X10^3/uL (0.83-4.51); Absolute Neutrophil Count 7.9 X10^3/uL (2.0-7.7); Basophil# 0.04 X10^3/uL; Basophil% 0.4 % (0-1); Eosinophil# 0.15 X10^3/uL; Eosinophils% 1.5 % (0-5); Hematocrit 34.8 % (37-47); Hemoglobin 10.8 g/dL (12.0-15.0); Lymphocyte # 1.31 X10^3/ul (0.83-4.51); Lymphocyte % 13.1 % (19-41); Mean Corpuscular Hgb 28.9 pg (27.0-32.0); Monocyte# 0.53 X10^3/uL; Monocyte% 5.3 % (0-10); NRBC Flagged by Analyzer 0 % (0-5); Neutrophil # 7.89 X10^3/uL (2.7-7.7); Neutrophil % 79.1 % (47-70); Platelet Count 302 K/mm3 (150-450); RBC Distribution Width CV 14.9 % (11.6-14.6); Red Blood Count 3.74 M/mm3 (4.2-5.4)
[2022-11-01 18:01] LABS: Vitamin B12 497 pg/mL (211-911)
== END | disposition home or self-care (01) ==
PROVIDERS: PCP Family Medicine; Visit Provider Family Medicine
DX: G47.00 Insomnia, unspecified (principal); E53.8 Deficiency of other specified B group vitamins
CPT/HCPCS: 36415; 82607; 84443; 85025

== ENCOUNTER → 2022-12-03 | Outpatient (CLI) | payer MEDICARE, SELFPAY ==
[2020-02-26 09:39] VITALS: BMI 31.2
[2022-12-03 13:17] LABS: Anion Gap 7 (5-15); BUN 16 mg/dL (7-18); BUN/Creat Ratio 14.7 RATIO (10-20); Calcium,Total 9.4 mg/dL (8.5-10.1); Chloride 104 mmol/L (98-107); Creatinine, Serum 1.09 mg/dL (0.55-1.02); EST Glomerular Filtration Rate 52 mL/min (>60); Est Glom Filt Rate - Afr Amer 63 mL/min (>60); Glucose 122 mg/dL (74-106); Potassium 3.5 mmol/L (3.5-5.1); Sodium Level 141 mmol/L (136-145)
== END | disposition home or self-care (01) ==
LOC: LAB 11:16
PROVIDERS: PCP Family Medicine; Visit Provider Nurse Practitioner Family
DX: R06.00 Dyspnea, unspecified (principal); I10 Essential (primary) hypertension
CPT/HCPCS: 36415; 80048

== ENCOUNTER → 2023-04-11 | Outpatient (CLI) | payer MEDICARE, SELFPAY ==
[2020-02-26 09:39] VITALS: BMI 31.2
[2023-04-11 15:50] LABS: Absolute Lymphocyte Count 1.67 X10^3/uL (0.83-4.51); Absolute Neutrophil Count 4.9 X10^3/uL (2.0-7.7); Basophil# 0.02 X10^3/uL; Basophil% 0.3 % (0-1); Eosinophil# 0.13 X10^3/uL; Eosinophils% 1.8 % (0-5); Hematocrit 33.4 % (37-47); Hemoglobin 10.7 g/dL (12.0-15.0); Lymphocyte # 1.67 X10^3/ul (0.83-4.51); Lymphocyte % 23.2 % (19-41); Mean Corpuscular Hgb 30.7 pg (27.0-32.0); Mean Corpuscular Volume 95.7 fL (81-99); Mean Platelet Vol. 9.8 fl (6.2-12.0); Monocyte# 0.42 X10^3/uL; Monocyte% 5.8 % (0-10); NRBC Flagged by Analyzer 0 % (0-5); Neutrophil # 4.92 X10^3/uL (2.7-7.7); Neutrophil % 68.3 % (47-70); Platelet Count 275 K/mm3 (150-450); RBC Distribution Width CV 14.2 % (11.6-14.6); RBC Distribution Width SD 49.4 fl (35.1-43.9); Red Blood Count 3.49 M/mm3 (4.2-5.4); White Blood Count 7.2 K/mm3 (4.4-11.0)
[2023-04-11 16:40] LABS: Erythrocyte Sedimentation Rate 17 mm/hr (0-30)
== END | disposition home or self-care (01) ==
LOC: LAB 14:12
PROVIDERS: PCP Family Medicine; Referring Provider Orthopaedic Surgery; Visit Provider Orthopaedic Surgery
DX: Z96.651 Presence of right artificial knee joint (principal)
CPT/HCPCS: 36415; 85025; 85652; 86140

== ENCOUNTER 2023-04-29 06:59 | Day surgery (SDC) | payer MEDICARE, SELFPAY ==
[2020-02-26 09:39] VITALS: BMI 31.2
[2023-04-26 13:03] VITALS: BMI 32.2
[2023-04-29 08:01] LABS: Anion Gap 5 (5-15); BUN 21 mg/dL (7-18); Calcium,Total 8.8 mg/dL (8.5-10.1); Chloride 107 mmol/L (98-107); Creatinine, Serum 1.31 mg/dL (0.55-1.02); EST Glomerular Filtration Rate 42 mL/min (>60); Est Glom Filt Rate - Afr Amer 51 mL/min (>60); Estimated Creatinine Clearance 31.55 ml/min; Glucose 142 mg/dL (74-106); Potassium 3.6 mmol/L (3.5-5.1); Sodium Level 141 mmol/L (136-145)
--- NOTE | 2023-04-29 08:23 | CL.IE_ITS ---
Patient: RAUL REYES Study Date: 04/29/2023 Performing: Preet Leahy MD : [id number] Age: 77 Gender: female PROCEDURES PERFORMED [id number])INSERTION OF LOOP RECORDER INDICATIONS palpitations PROCEDURE DETAILS The patient was brought to the Catheterization Lab in the postabsorptive nonsedated state. Informed consent was obtained prior to the procedure. Local anesthetic was given subcutaneously to the left subclavian region with Lidocaine 2%. Incision was made to the left upper chest. The patient tolerated the procedure well. Estimated Blood Loss: < 10 mls IMPLANTED / EX-PLANTED DEVICES IMPLANTED DEVICE(S): ICM Loop Recorder - Consumer Insights Specialist: [employer], Model # [id number] , Serial # [id number] DEVICE PARAMETERS CONCLUSIONS / RECOMMENDATIONS Device Conclusions: Successful implantation of a patient activated loop recorder. Device Recommendations: Follow up with Primary Care Physician PROCEDURE MEDICATIONS Versed 1 mg IV Oxygen: 2 L/min via nasal cannula Ancef 2 Gm IV @ 04/29/2023 08:05:42 Signed By Preet Leahy MD On 04/29/2023 08:22:34 Preet Leahy MD
== END 2023-04-29 09:25 | disposition home or self-care (01) ==
LOC: CLSP 07:09
PROVIDERS: PCP Family Medicine; Referring Provider Internal Medicine Cardiovascular Disease; Visit Provider Internal Medicine Cardiovascular Disease
DX: Z95.0 Presence of cardiac pacemaker (principal); I11.0 Hypertensive heart disease with heart failure; I50.32 Chronic diastolic (congestive) heart failure; R00.2 Palpitations; E78.00 Pure hypercholesterolemia, unspecified; Z79.82 Long term (current) use of aspirin; Z79.899 Other long term (current) drug therapy; Z87.891 Personal history of nicotine dependence; Z99.81 Dependence on supplemental oxygen; Z95.5 Presence of coronary angioplasty implant and graft
CPT/HCPCS: 33285; 36415; 80048; 99152; J7040; A4216

== ENCOUNTER → 2023-05-16 | Outpatient (CLI) | payer MEDICARE, SELFPAY ==
[2020-02-26 09:39] VITALS: BMI 31.2
[2023-05-16 11:33] LABS: Anion Gap 7 (5-15); BUN 17 mg/dL (7-18); BUN/Creat Ratio 13.1 RATIO (10-20); Calcium,Total 8.7 mg/dL (8.5-10.1); Chloride 105 mmol/L (98-107); EST Glomerular Filtration Rate 42 mL/min (>60); Est Glom Filt Rate - Afr Amer 51 mL/min (>60); Glucose 144 mg/dL (74-106); Potassium 3.9 mmol/L (3.5-5.1); Sodium Level 139 mmol/L (136-145)
== END | disposition home or self-care (01) ==
PROVIDERS: PCP Family Medicine; Referring Provider Physician Assistant Medical; Visit Provider Physician Assistant Medical
DX: N28.9 Disorder of kidney and ureter, unspecified (principal)
CPT/HCPCS: 36415; 80048

== ENCOUNTER → 2023-06-07 | Outpatient (CLI) | payer MEDICARE, SELFPAY ==
[2020-02-26 09:39] VITALS: BMI 31.2
[2023-06-07 12:28] LABS: Anion Gap 7 (5-15); BUN 14 mg/dL (7-18); BUN/Creat Ratio 11.8 RATIO (10-20); Calcium,Total 8.7 mg/dL (8.5-10.1); Chloride 109 mmol/L (98-107); Creatinine, Serum 1.19 mg/dL (0.55-1.02); EST Glomerular Filtration Rate 47 mL/min (>60); Est Glom Filt Rate - Afr Amer 57 mL/min (>60); Glucose 117 mg/dL (74-106); Potassium 3.6 mmol/L (3.5-5.1); Sodium Level 143 mmol/L (136-145)
== END | disposition home or self-care (01) ==
LOC: LAB 11:14
PROVIDERS: PCP Family Medicine; Referring Provider Physician Assistant Medical; Visit Provider Physician Assistant Medical
DX: N28.9 Disorder of kidney and ureter, unspecified (principal)
CPT/HCPCS: 36415; 80048

== ENCOUNTER 2023-07-11 11:53 | Emergency (ER) | payer MEDICARE, SELFPAY ==
[2020-02-26 09:39] VITALS: BMI 31.2
[2023-07-11 11:54] VITALS: BP 104/67; PULSE 38; RESP 14; TEMP 36.2; O2SAT 97; BMI 32.5
[2023-07-11 11:59] VITALS: PULSE 56
--- NOTE | 2023-07-11 12:21 | ED.VIS.CHEST ---
HPI History of Present Illness Chief Complaint: Palpitations [facility] Medical History Alcohol use Ambulates with cane Anemia Arthritis Back pain Cancer Cardiology follow-up encounter Congestion of nasal sinus Diarrhea Dietary restriction Difficulty swallowing Easy bruising Essential hypertension Excessive bleeding Former smoker GERD (gastroesophageal reflux disease) Gout History of echocardiogram History of heart attack History of pain when walking History of stress test HLD (hyperlipidemia) Insomnia Leg cramps Low iron Migraine headache Non-ischemic cardiomyopathy On home oxygen therapy Pneumonia Restless legs Restrictive pattern present on pulmonary function testing Shortness of breath on exertion Tachycardia Wears dentures Wears glasses Home Medications allopurinol 300 mg tablet 300 mg PO DAILY gout 01/08/19 [History Last Taken 07/22/22] omeprazole 20 mg tablet,delayed release 20 mg PO DAILY GERD 01/08/19 [History Last Taken 07/23/22] aspirin 81 mg tablet,delayed release (Adult Aspirin Regimen) 81 mg PO DAILY Check with primary doctor 09/25/21 [History Last Taken 07/16/22] nitroglycerin 0.4 mg sublingual tablet 0.4 mg sublingual Q5M PRN Cardiac/Chest Pain ##25 10/31/21 [Rx Last Taken Unknown] temazepam 7.5 mg capsule 7.5 mg PO QHS PRN Anxiety 07/10/22 [History Last Taken 07/22/22] acetaminophen 500 mg tablet 1,000 mg (2 x 500 mg) PO Q8 30 days #180 tabs 07/25/22 [Rx Last Taken Unknown] omega-3 acid ethyl esters 1 gram capsule 1 cap PO BID Check with primary doctor #180 caps 02/18/23 [Rx Last Taken Unknown] carvedilol 25 mg tablet 25 mg PO BID #180 tabs 03/01/23 [Rx Last Taken Unknown] torsemide 20 mg tablet 20 mg PO DAILY #90 tabs 04/29/23 [Rx Last Taken Unknown] losartan 25 mg tablet 25 mg PO DAILY blood pressure #90 tabs 05/20/23 [Rx Last Taken Unknown] Allergy/AdvReac Type Severity Reaction Status Date / Time isosorbide Allergy Severe Rash Verified 05/25/23 11:01 lisinopril AdvReac Intermediate cough Verified 05/25/23 11:01 gemfibrozil AdvReac 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 Family History Mother Breast cancer Congenital heart disease Myocardial infarction Father CHF (congestive heart failure) Myocardial infarction Sister Myocardial infarction CHF (congestive heart failure) Surgical History H/O section History of coronary artery stent placement (09/09/19) History of left heart catheterization (09/28/21) History of right hip replacement Hx of arthroscopic knee surgery Hx of basal cell carcinoma excision Hx of breast biopsy Hx of left cataract extraction Hx of right cataract extraction Social History current occupational status: retired Smoking Status: Former smoker how long ago did patient quit smokin, 0.5ppd second hand exposure: Yes alcohol intake: current alcohol intake frequency: a few times a month substance use type: does not use caffeine: Yes Type: tea Number of servings: 2 EXAM Physical Exam Const Vital Signs: 07/11/23 11:54 07/11/23 11:59 07/11/23 12:50 Temperature 97.2 F L Temperature Source Temporal Pulse Rate 38 L 56 L Respiratory Rate 14 Blood Pressure 104/67 Blood Pressure Mean 79 Pulse Ox 97 98 Oxygen Delivery Method Room Air Room Air MDM MDM MDM Narrative Medical decision making narrative: HISTORY OF PRESENT ILLNESS: 77-year-old female here with palpitations. Notes recent course of antibiotics for sinus infection. She further states things. Pneumonia. Has a cough as nonproductive. She does note dyspnea on exertion. She denies any chest pain. Denies having a pacemaker but no she has a loop recorder in. States she has bigeminy and sometimes she gets palpitations when her heart rate is checked during these episodes it is normally noted to be low. She denies any fever. The patient denies recent surgery in the last 4 weeks or immobilization in the last 3 days, denies previous diagnosis of DVT or PE, hemoptysis, unilateral leg swelling or malignancy with treatment the last 6 months or palliative. No estrogen use noted. REVIEW OF SYSTEMS: Pertinent positives: Palpitations, cough, shortness of breath Pertinent negatives: PHYSICAL EXAM: Nursing triage notes reviewed, Vital signs reviewed Constitutional: please see mdm HENT: MMM Eyes: Pupils equal round and reactive to light, Extraocular muscles intact Neck: No stridor, no JVD, full neck ROM Lungs: Clear to auscultation, No wheezing or rales. No increased work of breathing, no conversational dyspnea, no accessory muscle use, no nasal flaring. No respiratory distress noted Heart: Regular rate and rhythm, No murmurs, No rubs and No gallops, 2+ distal pulses (radial, femoral, posterior tibial) in all extremities Abdomen: Soft, there is no tenderness, rigidity, rebound or guarding, no obvious peritoneal signs, no palpable pulsatile abdominal masses, no auscultated abdominal bruit : No CVAT Extremities: No edema Neuro: No focal neurological deficits, cranial nerves II through XII intact, 5/5 strength in all extremities. Intact sensation to light touch in all extremities, 2+ reflexes bilateral patella tendons. Normal gait. No ataxia. Skin: No rash or lesions noted MEDICAL DECISION MAKING: Chief Complaint: Palpitations External records reviewed: Imaging reviewed: Echocardiogram from December 2021 shows ejection fraction 55%. Pacemaker placed in April 2023 Factors affecting care: CHF, CAD status post stent, hypertension, hyperlipidemia, Social determinants of health: none History obtained from others: The patient's son Consults: none [facility] Narrative: Patient was hemodynamically stable, afebrile, nontoxic-appearing. I considered the following differential diagnosis: Arrhythmia, heart block, ACS, anemia, electrolyte abnormality, pneumonia, COVID-19, thyroid dysfunction ALL IMAGES (IF OBTAINED) HAVE BEEN PERSONALLY REVIEWED AND INTERPRETED BY MYSELF. EKG with normal sinus rhythm, left axis deviation, normal intervals, no STEMI I have personally reviewed the patient's chest x-ray. Chest x-ray is unremarkable for pulmonary edema, pneumothorax, pneumonia or focal cardiopulmonary abnormality. TSH within normal limits no evidence of hyperthyroidism Troponin is negative, no evidence of myocardial ischemia CBC without significant leukocytosis, mild anemia, similar to baseline, no thrombocytopenia BMP with mild renal insufficiency however this is baseline CKD, no severe electrolyte maladies or anion gap to suggest endorgan hypoperfusion BNP mildly elevated however not consistent with acute heart failure given chest x-ray is no significant pulmonary edema and she does have lower extremity edema No clear etiology the patient's complaints. Patient had a normal sinus rhythm here on her EKG. She has no signs of heart failure, pneumonia, heart block, COVID-19. Device interrogation showed no evidence of life-threatening arrhythmia. We will encourage her to follow-up as outpatient with her administrative tech. The patient and/or family, caregivers express understanding. The patient and/or family, caregivers agrees with the plan. Shared decision making: I will have a discussion with the patient and or visitors regarding risk/benefits of further testing or admission. They will be made aware of of the risk/benefits inherent in this decision they will be given the opportunity to voice understanding. Total critical care time today provided was at least 0 [] minutes. This excludes separately billable procedures. Critical care time (if documented) is secondary to the patient having high probability of clinically significant/life threatening deterioration in the patient's condition which required my urgent intervention. Impression: 1. Cough 2. Paroxysmal atrial fibrillation 3. CKD 4. Anemia Dispo: Discharge Lab Data Labs: Laboratory Results - last 24 hr 07/11/23 12:40 WBC 5.9 RBC 3.31 L Hgb 10.1 L Hct 32.1 L MCV 97.0 MCH 30.5 MCHC 31.5 L RDW Std Deviation 52.6 H RDW Coeff of Yue 14.7 H Plt Count 212 MPV 9.5 Immature Gran % (Auto) 0.800 Neut % (Auto) 63.9 Lymph % (Auto) 23.1 Smyth % (Auto) 7.3 Eos % (Auto) 4.6 Baso % (Auto) 0.3 Absolute Neuts (auto) 3.8 Absolute Lymphs (auto) 1.37 Nucleated RBC % 0 Sodium 139 Potassium 3.9 Chloride 106 Carbon Dioxide 29.0 Anion Gap 4 L BUN 19 H Creatinine 1.26 H Estim Creat Clear Calc 32.80 Est GFR (MDRD) Af Amer 53 L Est GFR (MDRD) Non-Af 44 L BUN/Creatinine Ratio 15.1 Glucose 121 H Calcium 8.9 Troponin I High Sens 7 B-Natriuretic Peptide 111.9 H TSH 1.26 Radiography Diagnostic Testing: Clinical Impression(s) from Imaging Studies Chest X-Ray 07/11/23 12:50 IMPRESSION: Cardiomegaly. Electronically Signed: Emerson Restrepo MD at 13:21 EDT , Discharge Plan Triage Chief Complaint: Palpitations ED Provider: Stu Fox Dx/Rx/DC Orders Prescriptions: No Action allopurinol 300 mg tablet 300 mg PO DAILY omeprazole 20 mg tablet,delayed release (DR/EC) 20 mg PO DAILY aspirin [Adult Aspirin Regimen] 81 mg tablet,delayed release (DR/EC) 81 mg PO DAILY temazepam 7.5 mg Capsule 7.5 mg PO QHS PRN (Reason: Anxiety) acetaminophen 500 mg Tablet 1,000 mg PO Q8 30 Days Qty: 180 0RF nitroglycerin 0.4 mg tablet, sublingual 0.4 mg sublingual Q5M PRN (Reason: Cardiac/Chest Pain) Qty: 25 3RF omega-3 acid ethyl esters 1 gram capsule 1 cap PO BID Qty: 180 3RF carvedilol 25 mg tablet 25 mg PO BID Qty: 180 3RF Rx Instructions: must administer with a meal/food torsemide 20 mg tablet 20 mg PO DAILY Qty: 90 3RF Hold Instructions: HOLD until Saturday11/05/20 for elev. creat. losartan 25 mg tablet 25 mg PO DAILY Qty: 90 3RF Primary Care Provider: Lucy García Referrals: Lucy García MD [Primary Care Provider] -
[2023-07-11 12:48] LABS: Absolute Lymphocyte Count 1.37 X10^3/uL (0.83-4.51); Absolute Neutrophil Count 3.8 X10^3/uL (2.0-7.7); Basophil# 0.02 X10^3/uL; Basophil% 0.3 % (0-1); Eosinophil# 0.27 X10^3/uL; Eosinophils% 4.6 % (0-5); Hematocrit 32.1 % (37-47); Hemoglobin 10.1 g/dL (12.0-15.0); Lymphocyte # 1.37 X10^3/ul (0.83-4.51); Lymphocyte % 23.1 % (19-41); Mean Corp Hgb Conc 31.5 g/dL (32-36); Mean Corpuscular Hgb 30.5 pg (27.0-32.0); Mean Platelet Vol. 9.5 fl (6.2-12.0); Monocyte# 0.43 X10^3/uL; Monocyte% 7.3 % (0-10); NRBC Flagged by Analyzer 0 % (0-5); Neutrophil # 3.78 X10^3/uL (2.7-7.7); Neutrophil % 63.9 % (47-70); Platelet Count 212 K/mm3 (150-450); RBC Distribution Width CV 14.7 % (11.6-14.6); RBC Distribution Width SD 52.6 fl (35.1-43.9); Red Blood Count 3.31 M/mm3 (4.2-5.4); White Blood Count 5.9 K/mm3 (4.4-11.0)
[2023-07-11 12:50] VITALS: O2SAT 98
--- NOTE | 2023-07-11 12:50 | RAD_ITS ---
STUDY: X-RAY CHEST REASON FOR EXAM: Female, 77 years old. SOB and palpitations. TECHNIQUE: PA and lateral views of the chest. COMPARISON: Comparison is made with prior study July 13, 2022. FINDINGS: EKG electrodes are seen. Stable elevation of the right hemidiaphragm. There is no demonstrated pleural abnormality. There is moderate cardiac enlargement. Normal mediastinum and saima. Normal visualized pulmonary arteries. There is atherosclerotic calcification of the aortic arch with tortuosity. There are diffuse degenerative changes of the visualized thoracic spine. Normal visualized ribs, clavicles, and shoulders. There is no demonstrated abnormality of the visualized soft tissue structures of the upper abdomen. RAD/Chest PA and Lateral IMPRESSION: Cardiomegaly. Electronically Signed: Emerson Restrepo MD at 13:21 EDT ,
--- NOTE | 2023-07-11 12:59 | EKG12_ITS ---
Test Reason : LOW HR Blood Pressure : / mmHG Vent. Rate : 075 BPM Atrial Rate : 075 BPM P-R Int : 154 ms QRS Dur : 104 ms QT Int : 400 ms P-R-T Axes : 085 -43 000 degrees QTc Int : 446 ms Sinus rhythm with Premature atrial complexes in a pattern of bigeminy Left axis deviation Pulmonary disease pattern Moderate voltage criteria for LVH, may be normal variant ( R in aVL , [facility] product ) Nonspecific ST and T wave abnormality Abnormal ECG Confirmed by LAN MARS, MOR ([id number]), publication editor NICHOLE MOLINA ([id number]) on 07/16/2023 11:22:52 AM Referred By: OBED/CHRISTINA Confirmed By:KARYN MONTENEGRO MD
[2023-07-11 13:06] LABS: BNP,B-Type NATRIURETIC PEPTIDE 111.9 pg/mL (0-100)
[2023-07-11 13:12] LABS: Anion Gap 4 (5-15); BUN 19 mg/dL (7-18); BUN/Creat Ratio 15.1 RATIO (10-20); Calcium,Total 8.9 mg/dL (8.5-10.1); Chloride 106 mmol/L (98-107); Creatinine, Serum 1.26 mg/dL (0.55-1.02); EST Glomerular Filtration Rate 44 mL/min (>60); Est Glom Filt Rate - Afr Amer 53 mL/min (>60); Glucose 121 mg/dL (74-106); Potassium 3.9 mmol/L (3.5-5.1); Sodium Level 139 mmol/L (136-145); Thyroid Stim Hormone (TSH) 1.26 uIU/mL (0.358-3.74); Troponin-I HS 7 pg/mL (3.0-54.0)
[2023-07-11 15:49] VITALS: BP 128/69; PULSE 78; RESP 16; O2SAT 97
== END 2023-07-11 15:50 | disposition home or self-care (01) ==
PROVIDERS: Emergency Provider Emergency Medicine; PCP Family Medicine; Visit Provider Emergency Medicine
DX: R05.9 Cough, unspecified (principal); I50.9 Heart failure, unspecified; I48.0 Paroxysmal atrial fibrillation; D64.9 Anemia, unspecified; I25.10 Atherosclerotic heart disease of native coronary artery without angina pectoris; N18.9 Chronic kidney disease, unspecified; Z87.891 Personal history of nicotine dependence; Z99.81 Dependence on supplemental oxygen
CPT/HCPCS: 71046; 80048; 83880; 84443; 84484; 85025; 87811; 93005; 99284

== ENCOUNTER → 2023-08-02 | Outpatient (CLI) | payer MEDICARE, SELFPAY ==
[2020-02-26 09:39] VITALS: BMI 31.2
== END | disposition home or self-care (01) ==
LOC: LABSPEC 15:24
PROVIDERS: PCP Family Medicine; Visit Provider Otolaryngology
DX: J01.90 Acute sinusitis, unspecified (principal)
CPT/HCPCS: 87070; 87077; 87186; 87205

== ENCOUNTER → 2023-08-12 | Outpatient (CLI) | payer MEDICARE, SELFPAY ==
[2020-02-26 09:39] VITALS: BMI 31.2
--- NOTE | 2023-08-12 07:08 | ECHOCS_ITS ---
Reason For Study: SOB Procedure This was a 2D Doppler, Color Flow transthoracic echocardiogram. The study was technically difficult. Due to body habitus. Exam performed in department. Left Ventricle Normal LV size. Left ventricular systolic function is normal. The estimated ejection fraction is 55 %. Stage 1 diastolic dysfunction. No regional wall motion abnormalities noted. Right Ventricle Normal RV size. Normal systolic function. Atria Normal left atrium. Normal right atrium. Mitral Valve Mitral valve not well visualized. Tricuspid Valve Normal tricuspid valve. Mild (1+) tricuspid valve insufficiency. Pulmonary artery systolic pressure is 36 mmHg. Aortic Valve The aortic valve is not well visualized. Mild (1+) aortic valve insufficiency. Pulmonic Valve Normal pulmonic valve. Great Vessels Normal aortic root. Pericardium/Pleural No pericardial effusion. Medication Definity4.0ml given slow IV push to enhance endocardial definition. MMode/2D Measurements & Calculations LVIDd: 4.9 cm IVSd: 1.0 cm Ao root diam: 3.5 cm LVIDs: 3.1 cm LVPWd: 1.0 cm RVDd: 2.9 cm FS: 37.2 % LAV(MOD-bp): 49.8 ml LVAd ap4: 32.1 cm2 LVAd ap2: 26.7 cm2 LAV(MOD-bp) Indexed: 26.1 ml/m2 LVLd ap4: 8.2 cm LVLd ap2: 8.1 cm LAV(MOD-sp2): 49.5 ml EDV(MOD-sp4): 106.3 ml EDV(MOD-sp2): 73.3 ml LAV(MOD-sp4): 49.2 ml EDV(sp4-el): 106.9 ml EDV(sp2-el): 74.9 ml LVAs ap4: 16.9 cm2 LVAs ap2: 14.3 cm2 LVLs ap4: 6.8 cm LVLs ap2: 6.2 cm ESV(MOD-sp4): 32.8 ml ESV(MOD-sp2): 27.4 ml ESV(sp4-el): 35.3 ml ESV(sp2-el): 28.2 ml EF(MOD-sp4): 69.1 % EF(MOD-sp2): 62.6 % EF(sp4-el): 67.0 % SV(MOD-sp4): 73.5 ml SV(MOD-sp2): 45.9 ml SV(sp4-el): 71.6 ml LA A4 area: 17.8 cm2 LA dimension(2D): 4.3 cm RA A4 area: 12.7 cm2 TAPSE: 2.0 cm Time Measurements MV dec time: 0.22 sec Doppler Measurements & Calculations MV E max ricardo: 68.6 cm/sec Lat Peak E' Ricardo: 7.6 cm/sec Med Peak E' Ricardo: 6.1 cm/sec MV A max ricardo: 98.8 cm/sec E/E' lat: 9.0 E/E' med: 11.2 MV E/A: 0.70 MV V2 max: 123.2 cm/sec Ao V2 max: 149.8 cm/sec MV max P.1 mmHg MV dec slope: 314.0 cm/sec2 Ao max P.0 mmHg MV V2 mean: 57.3 cm/sec Ao V2 mean: 99.9 cm/sec MV mean P.6 mmHg Ao mean P.6 mmHg MV V2 VTI: 29.7 cm Ao V2 VTI: 37.9 cm AV (velocity ratio): 0.65 AI max ricardo: 369.5 cm/sec LV V1 max: 107.6 cm/sec PA V2 max: 102.6 cm/sec AI max P.7 mmHg LV V1 max P.6 mmHg PA V2 mean: 72.9 cm/sec AI dec slope: 195.1 cm/sec2 LV V1 mean P.5 mmHg AI P1/2t: 554.8 msec LV V1 mean: 75.3 cm/sec LV V1 VTI: 24.5 cm TR max ricardo: 285.2 cm/sec TR max P.5 mmHg ECHO/Echo Complete W/ Contrast Interpretation Summary Normal LV size. Left ventricular systolic function is normal. The estimated ejection fraction is 55 %. Stage 1 diastolic dysfunction. Pulmonary artery systolic pressure is 36 mmHg. Contrast injection was performed. Ordering Physician: Blanco Arias Referring Physician: Lucy García Performed By: Ilene Lance, KWAME, RVT
[2023-08-12 08:25] LABS: Anion Gap 8 (5-15); BUN 26 mg/dL (7-18); BUN/Creat Ratio 20.2 RATIO (10-20); Calcium,Total 9.4 mg/dL (8.5-10.1); Chloride 107 mmol/L (98-107); Creatinine, Serum 1.29 mg/dL (0.55-1.02); EST Glomerular Filtration Rate 43 mL/min (>60); Est Glom Filt Rate - Afr Amer 52 mL/min (>60); Glucose 126 mg/dL (74-106); Potassium 3.8 mmol/L (3.5-5.1); Sodium Level 143 mmol/L (136-145)
--- NOTE | 2023-08-12 12:16 | STRESSREP ---
Stress Test Report Pharmacologic myocardial perfusion stress test. 77-year-old lady with a history of shortness of breath coronary disease Resting EKG demonstrates sinus rhythm with a rate of 61 bpm. Resting blood pressure is 152/72 mmHg. 0.4 mg of regadenoson was infused per usual protocol followed by rapid intravenous saline flush injection. Continuous EKG monitoring was performed. The maximum heart rate was 88 bpm which was 61% of max impacted heart rate the maximum workload was 1 metabolic equivalent. At rest there were no ST or T wave changes noted to suggest ischemia and at peak infusion nonspecific ST changes were noted which did not meet the criteria for ischemia. No clinical angina is noted. The final blood pressure was 140/70 mmHg. Myocardial perfusion protocol. 11 mCi of technetium 99m sestamibi was injected at rest. 0.4 mg of regadenoson was infused per usual protocol. At peak infusion 34.7 mCi of technetium 99m sestamibi was injected stress images were obtained stress and rest images were reconstructed and compared in the short axis vertical long and horizontal long axis. Gated images were also obtained. Perfusion SPECT analysis: Review of the stress images demonstrate normal uptake of tracer noted in all areas of the myocardium. The resting images similar demonstrated normal uptake of tracer noted in all areas of the myocardium. No areas of reversibility are noted to suggest ischemia and no previous infarct is noted. Gated SPECT analysis: The gated ejection fraction is 60%. Conclusion: Normal pharmacologic myocardial perfusion stress test. Preserved ejection fraction.
== END | disposition home or self-care (01) ==
PROVIDERS: PCP Family Medicine; Referring Provider Nurse Practitioner Family; Visit Provider Nurse Practitioner Family
DX: R06.09 Other forms of dyspnea (principal); I11.0 Hypertensive heart disease with heart failure; I50.9 Heart failure, unspecified; E78.5 Hyperlipidemia, unspecified; Z95.5 Presence of coronary angioplasty implant and graft
CPT/HCPCS: 36415; 78452; 80048; 93017; 93306; A9500; Q9957; A4216; C8929; J2785

== ENCOUNTER → 2023-09-26 | Outpatient (CLI) | payer MEDICARE, SELFPAY ==
[2020-02-26 09:39] VITALS: BMI 31.2
[2023-09-26 12:54] LABS: Anion Gap 5 (5-15); BUN 19 mg/dL (7-18); BUN/Creat Ratio 13.8 RATIO (10-20); Calcium,Total 9.1 mg/dL (8.5-10.1); Chloride 102 mmol/L (98-107); Creatinine, Serum 1.38 mg/dL (0.55-1.02); EST Glomerular Filtration Rate 39 mL/min (>60); Est Glom Filt Rate - Afr Amer 48 mL/min (>60); Glucose 123 mg/dL (74-106); Potassium 3.5 mmol/L (3.5-5.1); Sodium Level 138 mmol/L (136-145)
== END | disposition home or self-care (01) ==
LOC: LAB 11:47
PROVIDERS: PCP Family Medicine; Referring Provider Nurse Practitioner Family
DX: Z95.818 Presence of other cardiac implants and grafts (principal)
CPT/HCPCS: 36415; 80048

== ENCOUNTER → 2023-12-30 | Outpatient (CLI) | payer MEDICARE, SELFPAY ==
[2020-02-26 09:39] VITALS: BMI 31.2
== END | disposition home or self-care (01) ==
LOC: PSN 11:55
PROVIDERS: PCP Family Medicine; Referring Provider Internal Medicine Cardiovascular Disease; Visit Provider Internal Medicine Cardiovascular Disease
DX: I49.8 Other specified cardiac arrhythmias (principal)
CPT/HCPCS: 93225; 93226

== ENCOUNTER → 2024-01-07 | Outpatient (CLI) | payer MEDICARE, SELFPAY ==
[2020-02-26 09:39] VITALS: BMI 31.2
[2024-01-07 11:23] LABS: Absolute Lymphocyte Count 1.45 X10^3/uL (0.83-4.51); Absolute Neutrophil Count 6.9 X10^3/uL (2.0-7.7); Basophil# 0.04 X10^3/uL; Basophil% 0.4 % (0-1); Eosinophils% 1.1 % (0-5); Hematocrit 36.1 % (37-47); Hemoglobin 11.3 g/dL (12.0-15.0); Lymphocyte # 1.45 X10^3/ul (0.83-4.51); Lymphocyte % 16.1 % (19-41); Mean Corp Hgb Conc 31.3 g/dL (32-36); Mean Corpuscular Volume 95.8 fL (81-99); Mean Platelet Vol. 9.9 fl (6.2-12.0); Monocyte# 0.44 X10^3/uL; Monocyte% 4.9 % (0-10); NRBC Flagged by Analyzer 0 % (0-5); Neutrophil % 76.7 % (47-70); Platelet Count 345 K/mm3 (150-450); RBC Distribution Width CV 14.1 % (11.6-14.6); RBC Distribution Width SD 49.1 fl (35.1-43.9); Red Blood Count 3.77 M/mm3 (4.2-5.4)
[2024-01-07 12:01] LABS: ALB/GLOB Ratio 0.8 RATIO (0.9-2.4); AST(SGOT) 28 U/L (15-37); Alanine Aminotransfer ALT/SGPT 42 U/L (13-56); Albumin, Serum 3.2 g/dL (3.2-5.0); Alkaline Phosphatase 89 U/L (45-117); Anion Gap 11 (5-15); BUN 17 mg/dL (7-18); BUN/Creat Ratio 13.6 RATIO (10-20); Calcium,Total 9.1 mg/dL (8.5-10.1); Chloride 102 mmol/L (98-107); Creatinine, Serum 1.25 mg/dL (0.55-1.02); EST Glomerular Filtration Rate 44 mL/min (>60); Est Glom Filt Rate - Afr Amer 53 mL/min (>60); Globulin 4.1 g/dL (2.2-4.2); Glucose 159 mg/dL (74-106); Potassium 3.6 mmol/L (3.5-5.1); Protein, Total 7.3 g/dL (6.4-8.2); Sodium Level 139 mmol/L (136-145)
== END | disposition home or self-care (01) ==
LOC: LAB 10:39
PROVIDERS: PCP Family Medicine; Referring Provider Nurse Practitioner Family; Visit Provider Nurse Practitioner Family
DX: D64.9 Anemia, unspecified (principal); R00.2 Palpitations
CPT/HCPCS: 36415; 80053; 83735; 85025

== ENCOUNTER → 2024-04-20 | Outpatient (CLI) | payer MEDICARE, SELFPAY ==
[2020-02-26 09:39] VITALS: BMI 31.2
[2024-04-20 11:19] LABS: Anion Gap 8 (5-15); BUN 20 mg/dL (7-18); BUN/Creat Ratio 12.8 RATIO (10-20); Calcium,Total 9.3 mg/dL (8.5-10.1); Chloride 101 mmol/L (98-107); Creatinine, Serum 1.56 mg/dL (0.55-1.02); EST Glomerular Filtration Rate 34 mL/min (>60); Est Glom Filt Rate - Afr Amer 41 mL/min (>60); Glucose 146 mg/dL (74-106); Potassium 3.5 mmol/L (3.5-5.1); Sodium Level 138 mmol/L (136-145)
== END | disposition home or self-care (01) ==
LOC: LAB 10:17
PROVIDERS: PCP Family Medicine; Referring Provider Physician Assistant Medical; Visit Provider Physician Assistant Medical
DX: I50.20 Unspecified systolic (congestive) heart failure (principal); Z51.81 Encounter for therapeutic drug level monitoring; Z79.899 Other long term (current) drug therapy
CPT/HCPCS: 36415; 80048

== ENCOUNTER → 2024-05-13 | Outpatient (CLI) | payer MEDICARE, SELFPAY ==
[2020-02-26 09:39] VITALS: BMI 31.2
[2024-05-13 11:30] LABS: Anion Gap 9 (5-15); BUN 19 mg/dL (7-18); BUN/Creat Ratio 13.2 RATIO (10-20); Chloride 103 mmol/L (98-107); Creatinine, Serum 1.44 mg/dL (0.55-1.02); EST Glomerular Filtration Rate 38 mL/min (>60); Est Glom Filt Rate - Afr Amer 45 mL/min (>60); Glucose 138 mg/dL (74-106); Potassium 3.8 mmol/L (3.5-5.1); Sodium Level 137 mmol/L (136-145)
== END | disposition home or self-care (01) ==
PROVIDERS: PCP Family Medicine; Referring Provider Physician Assistant Medical; Visit Provider Physician Assistant Medical
DX: Z51.81 Encounter for therapeutic drug level monitoring (principal); Z79.899 Other long term (current) drug therapy
CPT/HCPCS: 36415; 80048

== ENCOUNTER → 2024-05-22 | Outpatient (CLI) | payer MEDICARE, SELFPAY ==
[2020-02-26 09:39] VITALS: BMI 31.2
[2024-05-22 09:54] LABS: Cholesterol 251 mg/dL (200); High Density Lipoprotein 52 mg/dL; Triglycerides 264 mg/dL; Very Low Density Lipoprotein 53 mg/dL (5-40)
== END | disposition home or self-care (01) ==
LOC: LAB 08:31
PROVIDERS: PCP Family Medicine; Referring Provider Family Medicine; Visit Provider Family Medicine
DX: Z00.00 Encounter for general adult medical examination without abnormal findings (principal); E78.5 Hyperlipidemia, unspecified
CPT/HCPCS: 36415; 80061

== ENCOUNTER → 2024-06-30 | Outpatient (CLI) | payer MEDICARE, SELFPAY ==
[2020-02-26 09:39] VITALS: BMI 31.2
[2024-06-30 11:11] LABS: Absolute Neutrophil Count 5.7 X10^3/uL (2.0-7.7); Basophil# 0.03 X10^3/uL; Basophil% 0.4 % (0-1); Eosinophil# 0.19 X10^3/uL; Eosinophils% 2.3 % (0-5); Hematocrit 33.7 % (37-47); Hemoglobin 10.8 g/dL (12.0-15.0); Lymphocyte % 20.8 % (19-41); Mean Corpuscular Hgb 30.9 pg (27.0-32.0); Mean Corpuscular Volume 96.6 fL (81-99); Mean Platelet Vol. 9.6 fl (6.2-12.0); Monocyte# 0.48 X10^3/uL; Monocyte% 5.9 % (0-10); NRBC Flagged by Analyzer 0 % (0-5); Neutrophil # 5.69 X10^3/uL (2.7-7.7); Neutrophil % 69.5 % (47-70); Platelet Count 286 K/mm3 (150-450); RBC Distribution Width CV 13.8 % (11.6-14.6); RBC Distribution Width SD 48.6 fl (35.1-43.9); Red Blood Count 3.49 M/mm3 (4.2-5.4); White Blood Count 8.2 K/mm3 (4.4-11.0)
[2024-06-30 12:00] LABS: AST(SGOT) 21 U/L (15-37); Alanine Aminotransfer ALT/SGPT 45 U/L (13-56); Albumin, Serum 3.1 g/dL (3.2-5.0); Alkaline Phosphatase 99 U/L (45-117); Anion Gap 7 (5-15); BUN 17 mg/dL (7-18); BUN/Creat Ratio 12.8 RATIO (10-20); Bilirubin, Direct 0.11 mg/dL (0.00-0.30); Calcium,Total 9.2 mg/dL (8.5-10.1); Chloride 104 mmol/L (98-107); Cholesterol 263 mg/dL (200); Creatinine, Serum 1.33 mg/dL (0.55-1.02); EST Glomerular Filtration Rate 41 mL/min (>60); Est Glom Filt Rate - Afr Amer 50 mL/min (>60); Globulin 3.8 g/dL (2.2-4.2); Glucose 164 mg/dL (74-106); High Density Lipoprotein 52 mg/dL; Magnesium 1.7 mg/dL (1.6-2.6); Protein, Total 6.9 g/dL (6.4-8.2); Sodium Level 138 mmol/L (136-145); Triglycerides 368 mg/dL; Very Low Density Lipoprotein 74 mg/dL (5-40)
== END | disposition home or self-care (01) ==
LOC: LAB 10:47
PROVIDERS: PCP Family Medicine; Referring Provider Nurse Practitioner Family; Visit Provider Nurse Practitioner Family
DX: Z51.81 Encounter for therapeutic drug level monitoring (principal); I42.8 Other cardiomyopathies; I25.119 Atherosclerotic heart disease of native coronary artery with unspecified angina pectoris; I49.8 Other specified cardiac arrhythmias; E78.00 Pure hypercholesterolemia, unspecified; D64.9 Anemia, unspecified; N28.9 Disorder of kidney and ureter, unspecified; R00.2 Palpitations; R53.83 Other fatigue; Z95.5 Presence of coronary angioplasty implant and graft; Z79.899 Other long term (current) drug therapy
CPT/HCPCS: 36415; 80048; 80061; 80076; 83735; 84443; 85025

== ENCOUNTER → 2024-09-16 | Outpatient (CLI) | payer MEDICARE, SELFPAY ==
[2020-02-26 09:39] VITALS: BMI 31.2
[2024-09-16 10:38] LABS: Absolute Lymphocyte Count 1.72 X10^3/uL (0.83-4.51); Absolute Neutrophil Count 6.1 X10^3/uL (2.0-7.7); Basophil# 0.03 X10^3/uL; Basophil% 0.3 % (0-1); Eosinophil# 0.22 X10^3/uL; Eosinophils% 2.5 % (0-5); Hematocrit 35.1 % (37-47); Lymphocyte # 1.72 X10^3/ul (0.83-4.51); Lymphocyte % 19.9 % (19-41); Mean Corp Hgb Conc 31.3 g/dL (32-36); Mean Corpuscular Hgb 30.1 pg (27.0-32.0); Mean Corpuscular Volume 96.2 fL (81-99); Mean Platelet Vol. 9.8 fl (6.2-12.0); Monocyte# 0.48 X10^3/uL; Monocyte% 5.5 % (0-10); NRBC Flagged by Analyzer 0 % (0-5); Neutrophil # 6.14 X10^3/uL (2.7-7.7); Platelet Count 331 K/mm3 (150-450); RBC Distribution Width CV 13.9 % (11.6-14.6); RBC Distribution Width SD 49.1 fl (35.1-43.9); Red Blood Count 3.65 M/mm3 (4.2-5.4); White Blood Count 8.7 K/mm3 (4.4-11.0)
[2024-09-16 10:55] LABS: Anion Gap 7 (5-15); BUN 16 mg/dL (7-18); BUN/Creat Ratio 13.2 RATIO (10-20); Calcium,Total 8.8 mg/dL (8.5-10.1); Chloride 108 mmol/L (98-107); Creatinine, Serum 1.21 mg/dL (0.55-1.02); EST Glomerular Filtration Rate 46 mL/min (>60); Est Glom Filt Rate - Afr Amer 55 mL/min (>60); Glucose 141 mg/dL (74-106); Sodium Level 140 mmol/L (136-145)
== END | disposition home or self-care (01) ==
LOC: LAB 10:11
PROVIDERS: PCP Family Medicine; Referring Provider Nurse Practitioner Family; Visit Provider Nurse Practitioner Family
DX: R07.9 Chest pain, unspecified (principal); Z86.2 Personal history of diseases of the blood and blood-forming organs and certain disorders involving the immune mechanism
CPT/HCPCS: 36415; 80048; 85025

== ENCOUNTER → 2024-10-05 | Outpatient (CLI) | payer MEDICARE, SELFPAY ==
[2020-02-26 09:39] VITALS: BMI 31.2
--- NOTE | 2024-10-05 11:33 | STRESSREP ---
Stress Test Report Pharmacologic myocardial perfusion stress test. 78-year-old lady with a history of chest pain Resting EKG demonstrates sinus bradycardia with a rate of 59 bpm. Resting blood pressure is 132/72 mmHg. 0.4 mg of regadenoson was infused per usual protocol followed by rapid intravenous saline flush injection. Continuous EKG monitoring was performed. The maximum heart rate was 80 bpm which was 55% of max impacted heart rate the maximum workload was 1 metabolic equivalent. At rest there were no ST or T wave changes noted to suggest ischemia and at peak infusion nonspecific ST changes were noted which did not meet the criteria for ischemia. No clinical angina is noted. The final blood pressure was 126/70 mmHg. Myocardial perfusion protocol. 12 mCi of technetium 99m sestamibi was injected at rest. 0.4 mg of regadenoson was infused per usual protocol. At peak infusion 35 mCi of technetium 99m sestamibi was injected stress images were obtained stress and rest images were reconstructed and compared in the short axis vertical long and horizontal long axis. Gated images were also obtained. Perfusion SPECT analysis: Review of the stress images demonstrate normal uptake of tracer noted in all areas of the myocardium. The resting images similar demonstrated normal uptake of tracer noted in all areas of the myocardium. No areas of reversibility are noted to suggest ischemia and no previous infarct is noted. Gated SPECT analysis: The gated ejection fraction is 69%. Conclusion: Normal pharmacologic myocardial perfusion stress test. Preserved ejection fraction.
== END | disposition home or self-care (01) ==
LOC: CVS 06:31
PROVIDERS: PCP Family Medicine; Referring Provider Nurse Practitioner Family; Visit Provider Nurse Practitioner Family
DX: R07.9 Chest pain, unspecified (principal); I25.119 Atherosclerotic heart disease of native coronary artery with unspecified angina pectoris
CPT/HCPCS: 78452; 93017; A9500; A4216; J2785

== ENCOUNTER → 2025-01-28 | Outpatient (CLI) | payer MEDICARE, SELFPAY ==
[2020-02-26 09:39] VITALS: BMI 31.2
[2025-01-28 11:46] LABS: Absolute Lymphocyte Count 2.18 X10^3/uL (0.83-4.51); Absolute Neutrophil Count 5.9 X10^3/uL (2.0-7.7); Basophil# 0.05 X10^3/uL; Basophil% 0.6 % (0-1); Eosinophil# 0.16 X10^3/uL; Eosinophils% 1.8 % (0-5); Hematocrit 34.1 % (37-47); Hemoglobin 10.9 g/dL (12.0-15.0); Lymphocyte # 2.18 X10^3/ul (0.83-4.51); Lymphocyte % 24.4 % (19-41); Mean Corpuscular Hgb 30.5 pg (27.0-32.0); Mean Corpuscular Volume 95.5 fL (81-99); Mean Platelet Vol. 9.7 fl (6.2-12.0); Monocyte# 0.56 X10^3/uL; Monocyte% 6.3 % (0-10); NRBC Flagged by Analyzer 0 % (0-5); Neutrophil # 5.91 X10^3/uL (2.7-7.7); Neutrophil % 65.9 % (47-70); Platelet Count 319 K/mm3 (150-450); RBC Distribution Width SD 48.4 fl (35.1-43.9); Red Blood Count 3.57 M/mm3 (4.2-5.4)
[2025-01-28 12:31] LABS: Anion Gap 14 (5-15); BUN 20 mg/dL (4-19); BUN/Creat Ratio 18.4 RATIO (10-20); Calcium,Total 9.3 mg/dL (7.6-11.0); Chloride 101 mmol/L (98-108); Creatinine, Serum 1.11 mg/dL (0.70-1.20); EST Glomerular Filtration Rate 51 (>60); Glucose 140 mg/dL (70-99); Magnesium 1.9 mg/dL (1.5-2.2); Potassium 3.9 mmol/L (3.3-5.1); Sodium Level 138 mmol/L (133-145)
== END | disposition home or self-care (01) ==
LOC: LAB 10:46
PROVIDERS: PCP Family Medicine; Referring Provider Nurse Practitioner Family; Visit Provider Nurse Practitioner Family
DX: R00.2 Palpitations (principal); I50.32 Chronic diastolic (congestive) heart failure; I50.20 Unspecified systolic (congestive) heart failure; I42.8 Other cardiomyopathies; I25.119 Atherosclerotic heart disease of native coronary artery with unspecified angina pectoris; Z95.5 Presence of coronary angioplasty implant and graft
CPT/HCPCS: 36415; 80048; 83735; 84439; 84443; 85025

== ENCOUNTER 2025-02-14 21:41 | Emergency (ER) | payer MEDICARE, SELFPAY ==
[2020-02-26 09:39] VITALS: BMI 31.2
[2025-02-14 21:41] VITALS: BP 170/70; PULSE 67; RESP 15; TEMP 36.5; O2SAT 100; BMI 32.5
--- NOTE | 2025-02-14 22:04 | EKG12_ITS ---
Test Reason : HTN Blood Pressure : */* mmHG Vent. Rate : 61 BPM Atrial Rate : 61 BPM P-R Int : 164 ms QRS Dur : 114 ms QT Int : 434 ms P-R-T Axes : 43 -40 0 degrees QTcB Int : 436 ms Normal sinus rhythm with sinus arrhythmia Left axis deviation Incomplete left bundle branch block Moderate voltage criteria for LVH, may be normal variant ( R in aVL , [employer] product ) Nonspecific ST abnormality Abnormal ECG Confirmed by LAN MARS, MOR ([id number]), sound editor NICHOLE MOLINA ([id number]) on 02/17/2025 11:55:51 AM Referred By: Ez Gomes Confirmed By: MOR MONTENEGRO MD
--- NOTE | 2025-02-14 22:05 | EX.ED.DYSGE1 ---
HPI History of Present Illness Chief Complaint: Hypertension Narrative Narrative: 79-year-old female past medical history of hypertension, states that she already takes losartan torsemide and metoprolol, has noticed an increase in her blood pressure over the last few weeks. She is asymptomatic with this currently, no chest pain or shortness of breath. She does have shortness of breath that baseline. She states she called the cardiology group at [facility] because she was having palpitations and could feel a very strong heartbeat, as if she could take her pulse from her heart pounding in her chest. She states that they recently started on spironolactone. At that time her blood pressure was elevated at 140/70. She has been taking the new medication, but noticed that over the last few days she has had elevated blood pressure at 170-180 systolic. Yesterday she may have had a headache but she does not today and remains asymptomatic. However, she was getting readings of systolic blood pressures in the 200s. [facility] Medical History Implantable loop recorder present Diarrhea Insomnia Wears glasses Wears dentures Cancer Alcohol use Ambulates with cane Arthritis Low iron Anemia Excessive bleeding Easy bruising Restless legs Back pain Migraine headache Dietary restriction Difficulty swallowing On home oxygen therapy Shortness of breath on exertion Leg cramps History of pain when walking History of stress test History of echocardiogram Cardiology follow-up encounter History of heart attack Non-ischemic cardiomyopathy GERD (gastroesophageal reflux disease) Former smoker Congestion of nasal sinus Essential hypertension Tachycardia Pneumonia HLD (hyperlipidemia) Restrictive pattern present on pulmonary function testing Gout Home Medications ?Medication ?Instructions ?Recorded ?Last Taken ?Type allopurinol 300 mg tablet 300 mg PO DAILY gout 01/08/19 07/22/22 History omeprazole 20 mg tablet,delayed 20 mg PO DAILY GERD 01/08/19 07/23/22 History release aspirin 81 mg tablet,delayed 81 mg PO DAILY Check with primary 09/25/21 07/16/22 History release (Adult Aspirin Regimen) doctor temazepam 7.5 mg capsule 7.5 mg PO QHS PRN Anxiety 07/10/22 07/22/22 History acetaminophen 500 mg tablet 1,000 mg (2 x 500 mg) PO Q8 30 07/25/22 Unknown Rx days #180 tabs losartan 25 mg tablet 25 mg PO DAILY for blood pressure 03/10/24 Unknown Rx #90 TABLETS torsemide 20 mg tablet 20 mg PO QAM #90 tabs 07/14/24 Unknown Rx metoprolol succinate 100 mg 100 mg PO BID #180 tabs 08/13/24 Unknown Rx tablet,extended release 24 hr nitroglycerin 0.4 mg sublingual 0.4 mg sublingual Q5M PRN 10/27/24 Unknown Rx tablet Cardiac/Chest Pain ##25 spironolactone 25 mg tablet 25 mg PO QDAY #30 tabs 02/04/25 Unknown Rx Allergy/AdvReac Type Severity Reaction Status Date / Time isosorbide Allergy Severe Rash Verified 02/14/25 21:41 lisinopril AdvReac Intermediate cough Verified 02/14/25 21:41 gemfibrozil AdvReac 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 Family History Mother Breast cancer Congenital heart disease Myocardial infarction Father CHF (congestive heart failure) Myocardial infarction Sister Myocardial infarction CHF (congestive heart failure) Surgical History Hx of arthroscopic knee surgery Hx of breast biopsy Hx of right cataract extraction Hx of left cataract extraction Hx of basal cell carcinoma excision History of left heart catheterization (09/28/21) History of coronary artery stent placement (09/09/19) History of right hip replacement H/O section Social History current occupational status: retired Smoking Status: Former smoker how long ago did patient quit smokin, 0.5ppd second hand exposure: Yes alcohol intake: current alcohol intake frequency: a few times a month substance use type: does not use caffeine: Yes Type: tea Number of servings: 2 ROS ROS ED ROS Narrative Constitutional: No fever, no chills. Elevated blood pressure. Cardiovascular: No chest pain. Positive palpitations. No pedal edema. Respiratory: No cough, chronic shortness of breath. Abdominal: No abdominal pain. No nausea. No vomiting. Genitourinary: No dysuria. No hematuria. Musculoskeletal: No myalgias. No arthralgias. Neurologic: Yesterday had headache-resolved. No dizziness. No lightheadedness. EXAM Physical Exam Narrative Exam Narrative: Afebrile. Vital signs noted. Nontoxic appearing. Cardiovascular examination reveals a regular rate and rhythm. Lungs clear to auscultation bilaterally. Abdomen soft, nontender, with normoactive bowel sounds. Neurological examination nonfocal, nonlateralizing. No noted pedal edema. Const Vital Signs: 02/14/25 21:41 02/14/25 22:19 02/14/25 22:23 Temperature 97.7 F L Temperature Source Temporal Pulse Rate 67 60 Respiratory Rate 15 19 H Respiratory Effort Normal Respiratory Pattern Normal Blood Pressure 170/70 H 155/63 H Blood Pressure Mean 103 93 Pulse Ox 100 98 Oxygen Delivery Method Room Air Room Air MDM MDM MDM Narrative Medical decision making narrative: The differential diagnosis includes but not limited to hypertensive urgency versus emergency versus asymptomatic hypertension. Her current blood pressure in triage was 170 systolic. She will be placed on the monitor. I will check her basic laboratory work including CBC and CMP and EKG. In review of her medication list she takes losartan 25 mg and metoprolol 100 mg. She does have room to increase her losartan. EKG was obtained and interpreted by myself independently as normal sinus rhythm with sinus arrhythmia at [address] changes. No STEMI. Reviewed her laboratory work. She has a hemoglobin of 10.6 and when compared to prior, this appears to be her baseline. Platelet count normal at 268. White count normal at 9.3. I reviewed her CMP, and is grossly unremarkable except for BUN of 22, creatinine 1.13 and improved over previous when compared to prior labs. She has an ALT of 40 and alk phos of 106 which I think is nonspecific. I do not feel she needs cardiac enzymes because she is asymptomatic with this. Upon repeat examination, her systolic blood pressure is now 150. At this point in time, I feel she can be discharged to follow-up with cardiology. She was told to increase her losartan to a total of 50 mg daily. She states she usually takes losartan and metoprolol in the morning then metoprolol at night. She can add her second losartan at the same time as her second metoprolol dosing. Return instructions to the emergency department were reviewed. Patient motivated for discharge. Disposition is discharged home in stable condition. History & Record Review Discussion w/independent historian: Patient and Family Additional record(s) reviewed:: Prior labs Lab Data Attestation: I reviewed the patient's lab results. Labs: Laboratory Results - last 24 hr 02/14/25 22:18 WBC 9.3 RBC 3.42 L Hgb 10.6 L Hct 32.2 L MCV 94.2 MCH 31.0 MCHC 32.9 RDW Std Deviation 47.7 H RDW Coeff of Yue 13.8 Plt Count 268 MPV 9.5 Immature Gran % (Auto) 0.900 Neut % (Auto) 67.4 Lymph % (Auto) 22.3 O'Brien % (Auto) 7.0 Eos % (Auto) 2.1 Baso % (Auto) 0.3 Absolute Neuts (auto) 6.3 Absolute Lymphs (auto) 2.08 Nucleated RBC % 0 Sodium 139 Potassium 3.6 Chloride 101 Carbon Dioxide 25.7 Anion Gap 12 BUN 22 H Creatinine 1.13 Estim Creat Clear Calc 43.54 L Est GFR (MDRD) Non-Af 50 L BUN/Creatinine Ratio 19.7 Glucose 139 H Calcium 9.5 Total Bilirubin 0.23 AST 30 ALT 40 H Alkaline Phosphatase 106 H Total Protein 6.6 Albumin 3.8 Globulin 2.8 Albumin/Globulin Ratio 1.4 Discharge Plan Triage Chief Complaint: Hypertension ED Provider: Ez Gomes Dx/Rx/DC Orders Clinical Impression: Essential hypertension, Labile blood pressure Instructions: ED High Blood Pressure Hypertension Prescriptions: No Action allopurinol 300 mg tablet 300 mg PO DAILY omeprazole 20 mg tablet,delayed release (DR/EC) 20 mg PO DAILY nitroglycerin 0.4 mg tablet, sublingual 0.4 mg sublingual Q5M PRN (Reason: Cardiac/Chest Pain) Qty: 25 3RF aspirin [Adult Aspirin Regimen] 81 mg tablet,delayed release (DR/EC) 81 mg PO DAILY temazepam 7.5 mg Capsule 7.5 mg PO QHS PRN (Reason: Anxiety) acetaminophen 500 mg Tablet 1,000 mg PO Q8 30 Days Qty: 180 0RF losartan 25 mg tablet 25 mg PO DAILY Qty: 90 3RF torsemide 20 mg tablet 20 mg PO QAM Qty: 90 3RF metoprolol succinate 100 mg tablet extended release 24 hr 100 mg PO BID Qty: 180 3RF spironolactone 25 mg tablet 25 mg PO QDAY Qty: 30 11RF Primary Care Provider: Lucy García Referrals: Lucy García MD [Primary Care Provider] - Activity Restrictions/Additional Instructions: Increase your losartan to 50 mg daily. You can take 25 mg with your metoprolol in the morning and 25 mg in the evening with your other dose of metoprolol. Return with chest pain, increased shortness of breath, headaches, new or worsening symptoms. 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 Print Language: Argentine Disposition Disposition: Home, Self Care
[2025-02-14 22:23] VITALS: BP 155/63; PULSE 60; RESP 19; O2SAT 98
[2025-02-14 22:29] LABS: Absolute Lymphocyte Count 2.08 X10^3/uL (0.83-4.51); Absolute Neutrophil Count 6.3 X10^3/uL (2.0-7.7); Basophil# 0.03 X10^3/uL; Basophil% 0.3 % (0-1); Eosinophils% 2.1 % (0-5); Hematocrit 32.2 % (37-47); Hemoglobin 10.6 g/dL (12.0-15.0); Lymphocyte # 2.08 X10^3/ul (0.83-4.51); Lymphocyte % 22.3 % (19-41); Mean Corp Hgb Conc 32.9 g/dL (32-36); Mean Corpuscular Volume 94.2 fL (81-99); Mean Platelet Vol. 9.5 fl (6.2-12.0); Monocyte# 0.65 X10^3/uL; NRBC Flagged by Analyzer 0 % (0-5); Neutrophil # 6.29 X10^3/uL (2.7-7.7); Neutrophil % 67.4 % (47-70); Platelet Count 268 K/mm3 (150-450); RBC Distribution Width CV 13.8 % (11.6-14.6); RBC Distribution Width SD 47.7 fl (35.1-43.9); Red Blood Count 3.42 M/mm3 (4.2-5.4); White Blood Count 9.3 K/mm3 (4.4-11.0)
[2025-02-14 22:51] LABS: ALB/GLOB Ratio 1.4 RATIO (0.9-2.4); AST(SGOT) 30 U/L (<=31); Alanine Aminotransfer ALT/SGPT 40 U/L (<=34); Albumin, Serum 3.8 g/dL (3.4-4.8); Alkaline Phosphatase 106 U/L (35-104); Anion Gap 12 (5-15); BUN 22 mg/dL (4-19); BUN/Creat Ratio 19.7 RATIO (10-20); Calcium,Total 9.5 mg/dL (7.6-11.0); Carbon Dioxide 25.7 mmol/L (21.0-32.0); Chloride 101 mmol/L (98-108); Creatinine, Serum 1.13 mg/dL (0.70-1.20); EST Glomerular Filtration Rate 50 (>60); Estimated Creatinine Clearance 43.54 ml/min (50-250); Globulin 2.8 g/dL (2.2-4.2); Glucose 139 mg/dL (70-99); Potassium 3.6 mmol/L (3.3-5.1); Protein, Total 6.6 g/dL (5.9-8.4); Sodium Level 139 mmol/L (133-145); Total Bilirubin 0.23 mg/dL (0.00-1.30)
[2025-02-14 23:00] VITALS: BP 150/49; PULSE 57; RESP 16; TEMP 36.5; O2SAT 99
== END 2025-02-14 23:01 | disposition home or self-care (01) ==
PROVIDERS: Emergency Provider Emergency Medicine; PCP Family Medicine; Referring Provider Emergency Medicine; Visit Provider Emergency Medicine
DX: I10 Essential (primary) hypertension (principal); I25.2 Old myocardial infarction; Z95.5 Presence of coronary angioplasty implant and graft; Z79.82 Long term (current) use of aspirin; Z79.899 Other long term (current) drug therapy; Z87.891 Personal history of nicotine dependence
CPT/HCPCS: 80053; 85025; 93005; 99283; A4216

== ENCOUNTER → 2025-04-07 | Outpatient (CLI) | payer MEDICARE, SELFPAY ==
[2020-02-26 09:39] VITALS: BMI 31.2
--- NOTE | 2025-04-07 13:53 | ECHOD_ITS ---
Reason For Study Reason For Study: SOB Procedure This was a 2D Doppler, Color Flow transthoracic echocardiogram. The study was technically difficult. Exam performed in department. Left Ventricle Normal LV size. Left ventricular systolic function is normal. The left ventricular ejection fraction is 55 %. Stage 1 diastolic dysfunction. No regional wall motion abnormalities noted. Right Ventricle Normal RV size. Normal systolic function. Atria Normal left atrium. Normal right atrium. Mitral Valve Normal mitral valve. Tricuspid Valve Normal tricuspid valve. Mild (1+) tricuspid valve insufficiency. Pulmonary artery systolic pressure is 34 mmHg. Aortic Valve Trisinus/trileaflet aortic valve. Mild (1+) eccentric aortic valve insufficiency. Pulmonic Valve Normal pulmonic valve. Great Vessels Normal aortic root. The pulmonary artery is normal size. Inferior vena cava collapse with respiration. Pericardium/Pleural No pericardial effusion. MMode/2D Measurements & Calculations LVIDd: 4.6 cm IVSd: 1.3 cm Ao root diam: 3.7 cm LVIDs: 3.4 cm LVPWd: 1.1 cm RVDd: 3.2 cm FS: 26.9 % LAV(MOD-bp): 32.6 ml LVAd ap4: 28.9 cm2 SV(MOD-sp4): 48.6 ml LAV(MOD-bp) Indexed: 17.1 ml/m2 LVLd ap4: 7.3 cm SI(MOD-sp4): 25.5 ml/m2 LAV(MOD-sp2): 34.2 ml EDV(MOD-sp4): 91.7 ml LAV(MOD-sp4): 29.1 ml EDV(sp4-el): 97.4 ml LVAs ap4: 17.8 cm2 LVLs ap4: 6.0 cm ESV(MOD-sp4): 43.1 ml ESV(sp4-el): 44.9 ml EF(MOD-sp4): 53.0 % EF(sp4-el): 53.9 % SV(sp4-el): 52.5 ml LA A4 area: 12.8 cm2 RA A4 area: 13.7 cm2 TAPSE: 1.4 cm Time Measurements MV dec time: 0.27 sec Doppler Measurements & Calculations MV E max ricardo: 68.5 cm/sec Lat Peak E' Ricardo: 7.2 cm/sec Med Peak E' Ricardo: 6.1 cm/sec MV A max ricardo: 98.1 cm/sec E/E' lat: 9.5 E/E' med: 11.3 MV E/A: 0.70 MV V2 max: 117.0 cm/sec MV P1/2t max ricardo: 80.8 cm/sec Ao V2 max: 109.1 cm/sec MV max P.5 mmHg MV P1/2t: 88.7 msec Ao max P.8 mmHg MV V2 mean: 50.8 cm/sec MV dec slope: 266.8 cm/sec2 MV mean P.3 mmHg MV V2 VTI: 34.1 cm MVA(P1/2t): 2.5 cm2 AI max ricardo: 344.8 cm/sec LV V1 max: 82.8 cm/sec PA V2 max: 101.9 cm/sec AI max P.6 mmHg LV V1 max P.7 mmHg AI dec slope: 170.5 cm/sec2 AI P1/2t: 592.5 msec TR max ricardo: 277.1 cm/sec TR max P.1 mmHg ECHO/Echo Complete Interpretation Summary Normal LV size. Left ventricular systolic function is normal. The left ventricular ejection fraction is 55 %. Stage 1 diastolic dysfunction. Mild (1+) tricuspid valve insufficiency. Ordering Physician: Blanco Arias Referring Physician: Blanco Arias Performed By: German Ambrosio and Student
== END | disposition home or self-care (01) ==
LOC: CVS 13:52
PROVIDERS: PCP Family Medicine; Referring Provider Nurse Practitioner Family; Visit Provider Nurse Practitioner Family
DX: R06.09 Other forms of dyspnea (principal); R01.1 Cardiac murmur, unspecified; R94.2 Abnormal results of pulmonary function studies; I10 Essential (primary) hypertension
CPT/HCPCS: 93306

== ENCOUNTER → 2025-06-11 | Outpatient (CLI) | payer MEDICARE, SELFPAY ==
[2020-02-26 09:39] VITALS: BMI 31.2
--- NOTE | 2025-06-11 11:18 | US_ITS ---
PROCEDURE: EXT NON VASC LIMITED/SOFT tissue 06/11/2025 REASON FOR EXAM: BENIGN LIPOMATOUS NEOPLASM, UNSPECIFIED TECHNIQUE: EXT NON VASC LIMITED/SOFT tissue COMPARISON: None. FINDINGS: Area of concern of the left wrist region measures 2.0 x 1.2 x 0.4 cm is isoechoic and nonvascular. This is likely a lipoma. At the region of interest in the left forearm there is isoechoic lesion, not obvious seen encapsulated, corresponding to the area of concern unlikely another lipoma. US/Ext Non Vasc Limited/Soft Tiss IMPRESSION: Lipoma of left forearm and left wrist [facility]
== END | disposition home or self-care (01) ==
LOC: US 11:11
PROVIDERS: PCP Family Medicine; Referring Provider Family Medicine; Visit Provider Family Medicine
DX: D17.22 Benign lipomatous neoplasm of skin and subcutaneous tissue of left arm (principal)
CPT/HCPCS: 76882

== ENCOUNTER → 2025-08-10 | Outpatient (CLI) | payer MEDICARE, SELFPAY ==
[2020-02-26 09:39] VITALS: BMI 31.2
[2025-08-10 14:32] LABS: Hematocrit 33.7 % (37-47); Hemoglobin 11.2 g/dL (12.0-15.0); Immature Granulocytes Count 0.080 X10^3/uL (0.0-0.0); Mean Corp Hgb Conc 33.2 g/dL (32-36); Mean Corpuscular Volume 97.7 fL (81-99); Mean Platelet Vol. 9.7 fl (6.2-12.0); NRBC Flagged by Analyzer 0 % (0-5); Platelet Count 311 K/mm3 (150-450); RBC Distribution Width CV 14.2 % (11.6-14.6); RBC Distribution Width SD 50.2 fl (35.1-43.9); Red Blood Count 3.45 M/mm3 (4.2-5.4); White Blood Count 10.6 K/mm3 (4.4-11.0)
[2025-08-10 15:45] LABS: Anion Gap 16 (5-15); BUN 46 mg/dL (4-19); BUN/Creat Ratio 19.7 RATIO (10-20); Calcium,Total 9.5 mg/dL (7.6-11.0); Carbon Dioxide 23.7 mmol/L (21.0-32.0); Chloride 97 mmol/L (98-108); Glucose 131 mg/dL (70-99); Potassium 4.5 mmol/L (3.3-5.1)
== END | disposition home or self-care (01) ==
LOC: LAB 13:26
PROVIDERS: PCP Family Medicine; Referring Provider Nurse Practitioner Gerontology; Visit Provider Nurse Practitioner Gerontology
DX: I50.22 Chronic systolic (congestive) heart failure (principal); Z51.81 Encounter for therapeutic drug level monitoring; Z79.899 Other long term (current) drug therapy; Z86.2 Personal history of diseases of the blood and blood-forming organs and certain disorders involving the immune mechanism
CPT/HCPCS: 36415; 80048; 85025

== ENCOUNTER → 2025-09-01 | Outpatient (CLI) | payer MEDICARE, SELFPAY ==
[2020-02-26 09:39] VITALS: BMI 31.2
[2025-09-01 14:50] LABS: Anion Gap 14 (5-15); BUN 32 mg/dL (4-19); BUN/Creat Ratio 20.0 RATIO (10-20); Calcium,Total 9.7 mg/dL (7.6-11.0); Carbon Dioxide 24.5 mmol/L (21.0-32.0); Chloride 99 mmol/L (98-108); Glucose 132 mg/dL (70-99); Potassium 3.9 mmol/L (3.3-5.1)
== END | disposition home or self-care (01) ==
LOC: LAB 13:50
PROVIDERS: PCP Family Medicine; Referring Provider Nurse Practitioner Gerontology; Visit Provider Nurse Practitioner Gerontology
DX: N28.9 Disorder of kidney and ureter, unspecified (principal)
CPT/HCPCS: 36415; 80048